=== PATIENT | female | born 1970 | race Caucasian/White ===

== ENCOUNTER 2019-11-10 14:02 | Outpatient (CLI) | payer OTHER, SELFPAY ==
--- NOTE | 2019-11-10 14:24 | XR_ITS ---
WS: [id number] PROCEDURE: XR chest 2V* [id number] CLINICAL INFORMATION: COUGH COMPARISON: None. FINDINGS: Heart: Normal cardiac silhouette. Lungs: Patchy infiltrates within the right lower lobe and right midlung along the fissure. Recommend correlation for pneumonia. Left lung is well aerated. Recommend follow-up to resolution. Bones: Normal visualized bony structures. XR/XR chest 2V* [id number] IMPRESSION: Patchy infiltrates most consistent with pneumonia involving the right lower lob e and right midlung. Recommend follow-up to resolution.
== END 2019-11-10 14:03 | disposition home or self-care (01) ==
LOC: RADWPI 14:07
PROVIDERS: Family Provider Family Medicine; PCP Family Medicine; Visit Provider Family Medicine
DX: R05 Cough (principal); R91.8 Other nonspecific abnormal finding of lung field
CPT/HCPCS: 71046

== ENCOUNTER 2020-02-12 08:05 | Outpatient (CLI) | payer OTHER, SELFPAY ==
--- NOTE | 2020-02-12 08:15 | CT_ITS ---
WS: [id number] CT CHEST TECHNIQUE: Contrast enhanced CT of the chest with coronal and sagittal reformatted images. CLINICAL INFORMATION: PNEUMONIA COMPARISON: None. DLP: 583.[address] scans at [facility] use at least one of these dose optimization techniques: automat ed exposure control; mA and/or kV adjustment per patient size (includes targeted exams where dose is matched to clinical indication); or iterative reconstruction. FINDINGS: Focal consolidation right lower lobe along the fissure with air bronchograms. Consolidation measures 5.3 x 4.3 x 5.6 cm. Patchy infiltrate along the right upper lobe laterally. Moderate pericardial effu rosalio. Prominent lymph nodes bilaterally nonspecific but likely reactive measuring 12 mm on the right and 14 mm on the left. Enlarged subcarinal lymph node measuring 14 mm. Proximal main pulmonary arteri es are normal. Normal thoracic aorta. Adrenal glands are normal. Mild diffuse fatty infiltration liver. Portal veins and splenic vein are p atent. CT/CT chest w con* [id number] IMPRESSION: 1. Right lower lobe consolidation likely pneumonia with air bronchograms along the fissure measuring 5.3 x 4.3 x 5.6 CM. Recommend follow-up after treatment and follow-up to resolution. Neoplasm not entirely excluded. 2. A few patchy infiltrates in the right upper lobe. 3. Moderate pericardial effusion. 4. Enlarged hilar lymph nodes bilaterally nonspecific but likely reactive.
[2020-02-12] MEDS: iohexol 300 mg/mL 100 mL Btl IV (08:43)
== END 2020-02-12 08:06 | disposition home or self-care (01) ==
LOC: RADWPI 08:08
PROVIDERS: Family Provider Family Medicine; PCP Family Medicine; Visit Provider Family Medicine
DX: J18.9 Pneumonia, unspecified organism (principal); I31.3 Pericardial effusion (noninflammatory); R59.9 Enlarged lymph nodes, unspecified
CPT/HCPCS: 71260; Q9967

== ENCOUNTER 2020-02-26 10:42 | Outpatient (CLI) | payer OTHER, SELFPAY ==
--- NOTE | 2020-02-26 11:00 | USCV_ITS ---
Sophia Miller Age: 49 Gender: F : 1970 Exam Date: 02/26/2020 11:24 Ordering Phys: Nash Hayden MD Technologist: Rema Iglesias Exam Location: [facility] – [place] Indication: PERICARDIAL EFFUSION BP: 110 / 60 HR: 57 Rhythm: Sinus Technical Quality: Adequate MEASUREMENTS (Male / Female) Normal Values 2D ECHO LV Diastolic Diameter PLAX 3.7 cm 4.2 - 5.9 / 3.9 - 5.3 cm LV Systolic Diameter PLAX 2.4 cm LV Chamber Size 1.9 cm IVS Diastolic Thickness 0.8 cm 0.6 - 1.0 / 0.6 - 0.9 cm IVS Systolic Thickness 1.2 cm LVPW Diastolic Thickness 1.1 cm 0.6 - 1.0 / 0.6 - 0.9 cm LVPW Systolic Thickness 1.3 cm RV Chamber Size 2.5 cm LVOT Diameter 2.0 cm LV Ejection Fraction 2D Teich 65.4 % LV Ejection Fraction MOD 2C 17.3 % LV Ejection Fraction 2C AL 25.5 % LA Diameter 3.7 cm LA Width 2.5 cm LA Height 2.6 cm RA Width 2.7 cm RA Height 3.0 cm Aorta at Sinotubular Diameter 2.8 cm M-MODE LV Diastolic Diameter MM 3.8 cm 4.2 - 5.9 / 3.9 - 5.3 cm LV Systolic Diameter MM 2.4 cm LV Ejection Fraction MM Teich 69.6 % IVS Diastolic Thickness MM 1.0 cm 0.6 - 1.0 / 0.6 - 0.9 cm IVS Systolic Thickness MM 1.3 cm LVPW Diastolic Thickness MM 1.0 cm 0.6 - 1.0 / 0.6 - 0.9 cm LVPW Systolic Thickness MM 1.4 cm RV Diastolic Diameter MM 2.7 cm Aortic Annulus Diameter 3.0 cm LA Ao Ratio MM 1.2 MV E Point Septal Separation 0.1 cm DOPPLER AV Peak Velocity 141.0 cm/s LVOT Peak Velocity 96.0 cm/s AV Area Cont Eq vti 2.3 cm squared AV Area Cont Eq pk 2.2 cm squared MV Area PHT 2.1 cm squared Mitral E to A Ratio 1.3 MV E' Velocity 12.0 cm/s Mitral E to MV E' Ratio 6.8 Mitral E to LV E' Lateral Ratio 6.9 Mitral E to LV E' Septal Ratio 6.8 TR Peak Velocity 205.9 cm/s TR Peak Gradient 17.0 mmHg TR Mean Velocity 169.7 cm/s TR Mean Gradient 11.7 mmHg TR Velocity Time Integral 62.9 cm TV Peak E Velocity 67.0 cm/s Right Atrial Pressure 8.0 mmHg Pulmonary Artery Systolic Pressu 25.0 mmHg FINDINGS Left Ventricle Normal left ventricular cavity size. Normal left ventricular wall thickness. Normal left ventricular systolic function. Left ventricular ejection fraction is estimated at 70 %. No regional wall motion abnormalities. Normal diastolic function. Right Ventricle Normal right ventricular size and systolic function. Right ventricular systolic pressure 25 mmHg. Right Atrium Normal right atrial size. Left Atrium Normal left atrial size. Mitral Valve Mildly thickened mitral valve. Aortic Valve Aortic valve sclerosis without stenosis or regurgitation. No aortic valve stenosis. No aortic valve regurgitation. Tricuspid Valve Structurally normal tricuspid valve. Trace tricuspid valve regurgitation. Pulmonic Valve Pulmonic valve not well visualized. Pericardium Moderate circumferential pericardial effusion (1.2 cm along right ventricle and 1.5 cm along left ventricle). There is no evidence of hemodynamic compromise. Normal-sized inferior vena cava. Aorta Normal size aortic root and proximal ascending aorta. CONCLUSIONS 1. Normal left ventricular cavity size and systolic function. Left ventricular ejection fraction is estimated at 70 %. No regional wall motion abnormalities. Normal diastolic function. 2. Normal right ventricular size and systolic function. 3. Moderate circumferential pericardial effusion. There is no evidence of tamponade physiology. 4. Pulmonary artery pressure estimated at 25 mmHg. 5. No prior similar studies to compare. Lavern Restrepo MD (Electronically Signed) Final Date: 26 February 2020 17:12 S
== END 2020-02-26 10:43 | disposition home or self-care (01) ==
LOC: US 10:43
PROVIDERS: PCP Family Medicine; Visit Provider Internal Medicine Pulmonary Disease
DX: I31.3 Pericardial effusion (noninflammatory) (principal)
CPT/HCPCS: 93306

== ENCOUNTER 2020-02-29 09:23 | Outpatient (CLI) | payer OTHER, SELFPAY ==
--- NOTE | 2020-02-29 09:28 | XRR_ITS ---
PROCEDURE INFORMATION: Exam: XR Chest, 2 Views Exam date and time: 02/29/2020 9:45 AM Age: 49 years old Clinical indication: Condition or disease; Lung condition and disease; Pneumonia; Other: Not specified; Additional info: Resolution of pneumonia TECHNIQUE: Imaging protocol: XR of the chest Views: 2 views. COMPARISON: CT chest w con* [id number] 02/12/2020 8:32 AM FINDINGS: Lungs: Subtle opacity within the middle lobe versus right lung base. Lungs are otherwise well aerated. Pleural space: Unremarkable. No pleural effusion. No pneumothorax. Heart/Mediastinum: Borderline cardiomegaly Bones/joints: Unremarkable. XR/XR chest 2V* [id number] IMPRESSION: Subtle opacity within the middle lobe versus right lung base. Lungs are otherwise well aerated.
== END 2020-02-29 09:24 | disposition home or self-care (01) ==
LOC: RAD 09:26
PROVIDERS: PCP Family Medicine; Visit Provider Internal Medicine Pulmonary Disease
DX: J18.9 Pneumonia, unspecified organism (principal); R05 Cough
CPT/HCPCS: 71046

== ENCOUNTER 2020-02-29 17:17 | Outpatient (CLI) | payer OTHER, SELFPAY ==
[2020-02-29 19:11] LABS: Erythrocyte Sedimentation Rate 10 mm/hr (0-15)
[2020-02-29 19:48] LABS: C Reactive Protein 0.6 mg/L (0.0-4.9)
[2020-03-04 13:00] LABS: Anti-Nuclear Antibody Screen NEGATIVE (NEGATIVE)
[2020-03-04 13:30] LABS: Anti-Double Strand DNA AB <1 IU/mL; SCL 70 <1.0 NEG AI (<1.0 NEG); SS A Ro Sjogrens Antibody <1.0 NEG AI (<1.0 NEG); SS-B/LA IGG <1.0 NEG AI (<1.0 NEG); Smith Antibody <1.0 NEG AI (<1.0 NEG)
[2020-03-06 13:10] LABS: Cyclic Citrullinated Peptide <16 UNITS
== END 2020-02-29 17:18 | disposition home or self-care (01) ==
PROVIDERS: PCP Family Medicine; Visit Provider Internal Medicine Pulmonary Disease
DX: I31.3 Pericardial effusion (noninflammatory) (principal); J18.9 Pneumonia, unspecified organism; R05 Cough
CPT/HCPCS: 36415; 85651; 86038; 86140; 86225; 86235; 86431

== ENCOUNTER 2020-03-22 07:32 | Day surgery (SDC) | payer OTHER, SELFPAY ==
[2020-03-21 12:48] VITALS: BMI 22.4
[2020-03-22] VITALS (9 sets, daily range): BP systolic 86–122; BP diastolic 49–87; PULSE 59–113; RESP 18–24; TEMP 36.6–37.3; O2SAT 94–98
--- NOTE | 2020-03-22 | SCC_ITS ---
Procedure: {BRONCHOSCOPY:} 82.5 seconds of fluoroscopic guidance, for a cumulative dose of 3.90 mGy, was provided to Dr. Hayden by the radiology department. C-arm images of the chest were saved for the patient's permanent record. [id number]
[2020-03-22 07:19] LABS: SARS Covid-2 Antigen Negative (Negative)
--- NOTE | 2020-03-22 07:40 | SC_ITS ---
WS: [id number] C-ARM RADIOGRAPHS THORAX; 2 IMAGES HISTORY: Intraoperative imaging during bronchoscopy. COMPARISON: None available. Intraoperative imaging during bronchoscopy. Scope is noted at the RIGHT hilum. SC/C-arm FL for Bronchoscopy IMPRESSION: Intraoperative imaging during bronchoscopy.
[2020-03-22] MEDS: sodium chloride 0.9% 1,000 ML 30 ML IV (07:57)
--- NOTE | 2020-03-22 08:19 | ANES.PREANE2 ---
Pre-Anesthetic Assessment Pre-Anesthetic Assessment: Height/Weight: Height 1.65 m Weight 61.235 kg Temp Pulse Resp BP Pulse Ox 97.9 F 59 L 18 94/60 97 03/22/20 07:39 03/22/20 07:39 03/22/20 07:39 03/22/20 07:39 03/22/20 07:39 Preop Diagnosis: pnemonia Proposed Procedure: Operation Date: 03/22/20 08:30 Proposed Procedures p Bronchoscopy(Not Applicable) - Nash Hayden MD Was Beta Matt taken within 24 hours: N/A Last intake: Intake Last Liquid Date 03/21/20 Last Liquid Time 20:00 Last Solid Date 03/21/20 Last Solid Time 20:00 Social: Social History: No alcohol and No tobacco Exam: Pre-Anes Outpt Exam: alert, oriented x 3, clear to auscultation bilaterally and regular rate & rhythm Airway: Submandibular: WNL Cervical ROM: WNL MP: 2 History/ROS: No significant history except as noted Pulmonary: Pulmonary: Cough CV/HEM: CV/HEM: None reported : : None reported Hepatic: Hepatic: None reported GI: GI: GERD Metabolic: Metabolic: None reported Musc/skel: Musc/skel: None reported Neuropsych: Neuropsych: Depression Anesthetic Plan: ASA status: 2 Anesthesia: General Meds/Allergies Current Medications: Current Medications Generic Name Dose Route Start Last Admin Trade Name Freq PRN Reason Stop Dose Admin Sodium Chloride 1,000 mls @ 30 ml s/hr 03/22/20 06:45 03/22/20 07:57 Sodium Chloride 0.9% IV 03/23/20 06:44 30 mls/hr .Q24H MONTEZ Administration PFSH Anesthesia PFSH: Medical History (Updated 03/08/20 @ 23:22 by Lavern Restrepo MD) Depression with anxiety GERD (gastroesophageal reflux disease) Seasonal allergies Family History Mother Psychiatric illness Depression Hypertension Brother Heart defect Social History Smoking and tobacco status: never smoked Alcohol intake: never Lives independently: Yes Household members: none Marital status: Current occupational status: employed Current occupational exposures/hazards: No History of recent travel: No Current gender identity: Female Female Reproductive History: Date of last menstrual period: 02/22/20 Data Anesthesia Other Labs: Laboratory Results - last 48 hr 03/22/20 06:40 SARS-CoV-2 Ag (Rapid) Negative Cardiac Studies: No Data to Display
--- NOTE | 2020-03-22 08:32 | W.PM.OPSUD ---
Surgery/Procedure H&P Update DATE OF PROCEDURE: March 22, 2020 DATE H&P PERFORMED: 02/29/20 H&P UPDATE INFORMATION: I have reviewed H&P completed within last 30 days, I have examined patient prior to procedure and Changes to prior documentation as noted here CHANGES TO PREVIOUS DOCUMENTATION: Pt cough improved after completing doxy and was symptom free for couple of days. Then started coughing for > 1 week now. PREOP DIAGNOSIS: pnemonia PRIMARY INDICATION FOR PROCEDURE: non resolving pneumonia PLANNED PROCEDURE: Operation Date: 03/22/20 08:30 Proposed Procedures p Bronchoscopy(Not Applicable) - Nash Parrish DatarMD
[2020-03-22] MEDS: lidocaine 1% INJ 20 mL XX (08:51)
[2020-03-22] MEDS: EPINEPHrine 1 mg/mL INJ XX (09:00)
--- NOTE | 2020-03-22 09:29 | PM.OP ---
Operative Report Date of procedure: March 22, 2020 Procedure: {BRONCHOSCOPY:} Pre-Operative Diagnosis: Pneumonia Post-Operative Diagnosis: Same Indication: cough with recurrent pneumonia Anesthesia: general Pre-procedure Evaluation: Patient was evaluated clinically and ancillary testing reviewed. The risk of having active MTB infection is very low in my clinical judgement. ASA: Malampati score: unable to evaluate due to presence of endotracheal tube Consent: Consents were obtained from patient/MPOA Procedure Details: Time out was performed by the procedure team and nursing staff. Vent support maintained on Fio2 100. The bronchoscope was introduced through the ETT. A bronchoscopic airway exam was performed to evaluate the visible tracheobronchial tree to the segmental level. The right bronchial tree was assessed to include the right mainstem bronchus, RBI, and RUL/RML/RLL bronchi to the segmental level. The left bronchial tree was assessed to include the left mainstem bronchus, KEYLA, Lingula, and LLL bronchi to the segmental level. The bronchoscope was then removed and the procedure terminated. Summary of Significant Findings: -Trachea: distal trachea appeared normal -Main Preethi: Sharp -Right bronchial tree: All segments and subsegments mucosa appeared normal and no endobronchial lesions noted -Left bronchial tree:All segments and subsegments mucosa appeared normal and no endobronchial lesions noted Estimated Blood Loss: 5 ml Specimens: BAL for cytology, BAL for microbiology cultures, fungal studies, Brushings and Transbronchial biopsies taken for RLL and biopsies taken for RML Complications: None Disposition: Home Patient tolerated the procedure well. Nash Hayden MD Pulmonary Critical Care Medicine [facility] Pre-op Diagnosis: pnemonia
--- NOTE | 2020-03-22 09:30 | SUR.PHASEI ---
PT AWAKE ALERT VSS PT COUGHING FORCEFULLY, NON PRODUCTIVE VSS.
[2020-03-22] MEDS: HYDROmorphone 1 mg/mL INJ 1 mL 0.5 MG IVP (09:47)
--- NOTE | 2020-03-22 09:52 | XR_ITS ---
WS: [id number] Portable AP upright chest, 03/22/2020 Clinical Data: POST BRONCH Comparison: PA and lateral chest, 02/29/2020. Findings: There is a minimal opacity in the right lower lobe which is changed little. No nodules, mas ses or effusions are seen. The heart is normal. The pulmonary vascularity is not increased. No pneumo thorax is seen. There are monitor leads on the chest wall. XR/XR chest 1V portable [id number] Impression: 1. Minimal right lower lobe opacity which could represent pneumonia unchanged. 2. Left lung remains clear.
--- NOTE | 2020-03-22 10:22 | SUR.PHASEI ---
1010 PT SLEEPS NOW AWAKES EASILY NO COUGHING FOR APPROX 10 MINUTES LIDOCAINE NEBULIZER GIVEN AT 0945 REALLY STOPPED COUGHING DATAR AT BEDSIDE, PT MUCH BETTER AND WILL GO TO OPS NOW, HE WILL REVIEW THE X RAY DONE IN PACU.
--- NOTE | 2020-03-22 10:53 | P.DS_ITS ---
Discharge Providers Date of Discharge: March 22, 2020 Attending Provider at Discharge: Nash Hayden MD Primary Care Provider: Gadiel Howell MD Reason for Visit Reason for Visit: Brief History: Bronchscopy for BAL, brushings and transbronchial biopsy Hospital Course Discharge Summary: Patient came to outpatient bronchoscopy today for chronic cough with non-resolving pneumonia. Procedure was uneventful and patient tolerated procedure well.. Please refer to procedure note. Postprocedure patient has no complications and is stable to go to home Physical Exam Narrative: EXAM NARRATIVE: General: alert, NAD HEENT: conj clear, EOMI, PERRL, mmm, Neck: supple, no meningismus Heme: no cervical LAP Pulmonary: CTAB, no wheezing, rhonchi, crackles Cardiovascular: rrr, nl s1s2, no mrg Abdomen: soft, nt, nd, no r/g, bs+ Extremities: pulses +, no edema, no c/c : no CVA tenderness Skin: intact, no rash MSK: no back or neck pain Neurologic: grossly intact Discharge Data Data Completed and Pending: Completed Studies During Hospitalization Category Date Time Status CXRP [XR chest 1V portable [id number]] R outine Exams 03/22/20 09:52 Completed Pending at discharge Category Date Time Status C-arm Fluoroscopy [id number] Routine Exams 03/22/20 07:40 Taken Actinomyces Cultu re Routine Lab 03/22/20 08:57 Received Aspergillus AG,EI A,Serum Routine Lab 03/22/20 08:57 Received Aspergillus Antig en, EIA BAL Routin e Lab 03/22/20 08:57 Received Bronch Washing Cu lture & GS Routine Lab 03/22/20 08:57 Received Fungal Culture no t HR/SK/BL Routine Lab 03/22/20 08:57 Received Legionella Pneumo philla DFA Routine Lab 03/22/20 08:57 Received Mycobacteria, Cul ture w/Fluor Routi ne Lab 03/22/20 08:57 Received Respiratory Viral Panel PCR Routine Lab 03/22/20 09:12 Ordered Viral Culture Res piratory Routine Lab 03/22/20 08:57 Received Cytology [PTH] Ro utine Pth 03/22/20 09:31 Ordered Cytology [PTH] Ro utine Pth 03/22/20 09:32 Ordered Pathology: Surgic al [PTH] Routine Pth 03/22/20 09:39 Ordered Labs from last 24 hours 08/28/20 08/28/20 08/28/20 08:57 08:57 08:57 Legionella Source Pending L.pneumophila Anti gen Pending Aspergillus Ag (EI A) Pending A. galactomannan A g EIA Pending A. galactomannan A g Idx Pending Pending SARS-CoV-2 Ag (Rap id) 03/22/20 06:40 Legionella Source L.pneumophila Anti gen Aspergillus Ag (EI A) A. galactomannan A g EIA A. galactomannan A g Idx SARS-CoV-2 Ag (Rap id) Negative Vitals: Last Vital Signs Temp 97.8 F 03/22/20 10:13 Pulse 73 03/22/20 10:13 Resp 18 03/22/20 10:13 BP 104/58 03/22/20 10:13 Pulse Ox 94 03/22/20 10:13 Discharge Plan Discharge Patient Disposition: Home Condition: Stable Prescriptions: Continued albuterol sulfate [Ventolin HFA] 90 mcg/actuation HFA aerosol inhaler 2 puff INHALATION Q6H PRN (Reason: Wheezing) RF: 0 montelukast [Singulair] 10 mg tablet 10 mg PO DAILY RF: 0 pantoprazole 40 mg tablet,delayed release (DR/EC) 40 mg PO DAILY RF: 0 alprazolam [Xanax] 0.25 mg tablet 0.25 mg PO TID PRN (Reason: anxiety) RF: 0 sertraline [Zoloft] 100 mg tablet 150 mg PO DAILY RF: 0 Discharge Orders: Discharge Order (Routine); Ordered 03/22/20 Ordered By: Nash Parrish Datar Referrals: Gadiel Howell MD [Primary Care Provider] - Discharge Diet: Usual diet Discharge Activity: Resume usual activity Patient Instructions: Flexible Bronchoscopy (DC) Discharge Attestations Time Spent in Discharge Care*: greater than 30 min Specific Discharge Activities: Specific discharge activities: educating patient and documenting/other paperwork Status at Discharge: Cognitive status at discharge: cognitively intact , Behavioral status at discharge: cooperative , Functional status at discharge: other assisted ambulation Overall status at discharge: patient is back to baseline Quality Metrics Clinical Quality Measures During this hospital stay, did patient experience: None Coding Level of Care Code New Pt Acute [employer] for Chg Fwd Patient Type New Time Spent (min) 45
[2020-03-26 20:51] LABS: Aspergillus AG,EIA DETECTED; Aspergillus AG,EIA, Index 0.61
== END 2020-03-22 11:38 | disposition home or self-care (01) ==
PROVIDERS: PCP Family Medicine; Visit Provider Internal Medicine Pulmonary Disease
PROC: 0BJ08ZZ Inspection of Tracheobronchial Tree, Via Natural or Artificial Opening Endoscopic (ICD-10-PCS; CPT 31622; principal; 2020-03-22 08:30)
DX: J18.9 Pneumonia, unspecified organism (principal)
CPT/HCPCS: 31624; 31629; 12345; 31625; 71045; 76000; 87015; 87070; 87081; 87102; 87116; 87205; 87206; 87278; 87305; 87426; 87801; 88112; 88305; J0171; J0330; J1100; J1170; J2405; J2704; J3010; J3490; J7030

== ENCOUNTER 2020-03-26 15:28 | Outpatient (CLI) | payer OTHER, SELFPAY ==
--- NOTE | 2020-03-26 15:45 | USCV_ITS ---
Sophia Miller Age: 49 Gender: F : 1970 Exam Date: 03/26/2020 15:45 Ordering Phys: Lavern Restrepo MD ([email or web address]) Technologist: Gina Leach Exam Location: [facility] – [place] Indication: PERICARDIAL EFFUSION BP: 107 / 61 HR: Rhythm: Sinus Technical Quality: Good MEASUREMENTS (Male / Female) Normal Values M-MODE LV Diastolic Diameter MM 5.1 cm 4.2 - 5.9 / 3.9 - 5.3 cm LV Systolic Diameter MM 3.1 cm LV Ejection Fraction MM Teich 69.0 % IVS Diastolic Thickness MM 0.7 cm 0.6 - 1.0 / 0.6 - 0.9 cm IVS Systolic Thickness MM 1.0 cm LVPW Diastolic Thickness MM 0.6 cm 0.6 - 1.0 / 0.6 - 0.9 cm LVPW Systolic Thickness MM 0.9 cm FINDINGS Left Ventricle Normal left ventricular cavity size. Normal left ventricular systolic function. Left ventricular ejection fraction is estimated at 65 %. No regional wall motion abnormalities. Right Ventricle Normal right ventricular size and systolic function. Right Atrium Normal right atrial size. Left Atrium Normal left atrial size. Mitral Valve Structurally normal mitral valve. Aortic Valve Structurally normal trileaflet aortic valve. Tricuspid Valve Structurally normal tricuspid valve. Pulmonic Valve Pulmonic valve not well visualized. Pericardium Moderate circumferential pericardial effusion (20 mm along right atrium, 12 mm along right ventricle, 10 mm along left ventricle). No evidence of hemodynamic compromise. Aorta Normal size aortic root and proximal ascending aorta. CONCLUSIONS 1. This is a limited 2D echo only. 2. Normal left ventricular cavity size and systolic function. Left ventricular ejection fraction is estimated at 65 %. No regional wall motion abnormalities. 3. Moderate circumferential pericardial effusion (20 mm along right atrium, 12 mm along right ventricle, 10 mm along left ventricle). No evidence of hemodynamic compromise. 4. No change when compared to the echo done a month ago. Lavern Restrepo MD (Electronically Signed) Final Date: 28 March 2020 13:54 S
== END 2020-03-26 15:29 | disposition home or self-care (01) ==
LOC: US 15:29
PROVIDERS: PCP Family Medicine; Visit Provider Internal Medicine Cardiovascular Disease
DX: I31.3 Pericardial effusion (noninflammatory) (principal)
CPT/HCPCS: 93308

== ENCOUNTER 2020-04-10 17:16 | Outpatient (CLI) | payer OTHER, SELFPAY ==
[2020-04-10 18:16] LABS: Hematocrit 42.8 % (37.0-47.0); Hemoglobin 13.8 g/dL (11.5-15.3); Mean Corpuscular HGB Conc 32.2 g/dL (30.0-36.0); Mean Corpuscular Hemoglobin 29.1 pg (28.0-34.0); Mean Corpuscular Volume 90.1 fL (81-99); Mean Platelet Volume 9.6 fL (7.4-10.4); Platelet Count 285 10^3/cmm (130-400); Red Blood Count 4.75 10^6/uL (4.1-5.3); Red Cell Distribution Width 13.6 % (12.1-15.1); White Blood Count 8.1 10^3/uL (4.0-10.0)
[2020-04-10 18:32] LABS: Alanine Aminotransferase 14 U/L (0-33); Albumin Level 4.4 g/dL (3.5-5.2); Alkaline Phosphatase 57 IU/L (35-105); Anion Gap 16.9 (5-19); Aspartate Amino Transferase 16 U/L (0-32); Blood Urea Nitrogen 12 mg/dL (6-20); Calcium 9.8 mg/dL (8.5-10.5); Carbon Dioxide 24 mmol/L (22-29); Chloride 104 mmol/L (98-107); Globulin 2.8 g/dL (1.3-4.6); Glomerular Filtration Rate 66.8 mL/min (90-130); Glucose 89 mg/dL (65-115); Osmolality Calculated 291 mOsm/kg (285-295); Potassium 3.9 mmol/L (3.5-5.1); Sodium 141 mmol/L (136-145); Total Bilirubin 0.3 mg/dL (0.15-1.2); Total Protein 7.2 g/dL (6.6-8.7)
[2020-04-10 19:24] LABS: Calcium 9.8 mg/dL (8.5-10.5); Parathyroid Hormone 31.5 pg/mL (15-65)
[2020-04-10 19:26] LABS: Absolute Eosinophils 0.2 10^3/cmm (0.0-0.7); Absolute Segmented Neutrophil 5.7 10/cmm (1.6-7.1); Eosinophils 3 %; Lymphocytes 21 %; Lymphocytes Absolute 2.2 10^3/cmm (1.2-3.4); Segmented Neutrophils 70 %; Total Cells Counted 100 (0-100)
[2020-04-10 19:27] LABS: Absolute Neutrophil 5.7 10^3/cmm (1.4-6.5)
[2020-04-10 19:28] LABS: Platelet Estimate Normal (Normal)
[2020-04-12 13:12] LABS: Angiotensin Converting Enzyme 22 U/L (9-67)
[2020-04-12 17:02] LABS: Alternaria Alternata (M6) Ige <0.10 kU/L; Alternaria Class 0; Bermuda Class 0; Bermuda Grass (G2) Ige <0.10 kU/L; Cat Dander (E1) Ige <0.10 kU/L; Cat Dander Class 0; Common Ragweed (Short) (W1) Ig <0.10 kU/L; D. Farinae Class 1; Dermatophagoides Class 1; Dermatophagoides Farinae (D2) 0.45 kU/L; Dermatophagoides Pteronyssinus 0.37 kU/L; Dog Dander (E5) Ige <0.10 kU/L; Dog Dander Class 0; Elm (T8) Ige <0.10 kU/L; Elm Class 0; English Plantain (W9) Ige <0.10 kU/L; English Plantain Class 0; House Dust (Greer) (H1) Ige <0.10 kU/L; House Dust (Hollister- Stier) <0.10 kU/L; House Dust Class 0; Immunoglobulin E 55 kU/L (<OR=114); Immunoglobulin E 56 kU/L (<OR=114); Johnson Grass (G10) Ige <0.10 kU/L; Johnson Grass Cl 0; June Grass Class 0; June Grass(Kentucky Blue) (G8) <0.10 kU/L; Lamb'S Quarters (Goose Foot) <0.10 kU/L; Lamb'S Quarters Class 0; Maple (Box Elder) (T1) Ige <0.10 kU/L; Maple Class 0; Meadow Fescue (G4) Ige <0.10 kU/L; Meadow Fescue Class 0; Mucor Racemosus Class 0; Oak (T7) Ige <0.10 kU/L; Oak Class 0; Orchard Grass (Cocksfoot) (G3) <0.10 kU/L; Penicillium Class 0; Penicillium Notatum (M1) Ige <0.10 kU/L; Perennial Rye Grass (G5) Ige <0.10 kU/L; Perennial Rye Grass Class 0; Ragweeed Class 0; Rough Marsh Elder (W16) Ige <0.10 kU/L; Rough Marsh Elder Class 0; Sweet Vernal Class 0; Sweet Vernal Grass (G1) Ige <0.10 kU/L; Timothy Grass (G6) Ige <0.10 kU/L; Timothy Grass Class 0
[2020-04-15 21:19] LABS: Aspergillus Fumigatus, Igg Ab, 16.2 mg/L (<=102)
[2020-04-17 15:48] LABS: Vit D 1,25 (Oh)2, Total 43 pg/mL (18-72); Vit D2 1,25 (Oh)2 <8 pg/mL; Vit D3 1,25 (Oh)2 43 pg/mL
== END 2020-04-10 17:17 | disposition home or self-care (01) ==
LOC: LAB 17:19
PROVIDERS: PCP Family Medicine; Visit Provider Internal Medicine Pulmonary Disease
DX: R05 Cough (principal)
CPT/HCPCS: 36415; 80053; 82164; 82310; 82652; 82785; 83970; 85007; 85027; 86003

== ENCOUNTER → 2020-04-25 11:24 | Outpatient (BNVA) | payer OTHER, SELFPAY | PROVIDERS: PCP Family Medicine; Visit Provider Internal Medicine | DX: Z11.59 Encounter for screening for other viral diseases (principal); R05 Cough | CPT/HCPCS: 87635 ==

== ENCOUNTER 2020-04-29 01:51 | Outpatient (CLI) | payer OTHER, SELFPAY ==
--- NOTE | 2020-04-29 13:30 | CT_ITS ---
WS: [id number] CT CHEST TECHNIQUE: Noncontrast CT of the chest with coronal and sagittal reformatted images. CLINICAL INFORMATION: RESOLUTION OF PNEUMONIA COMPARISON: CT February 12, 2020 DLP: 344.[address] scans at [facility] use at least one of these dose optimization techniques: automat ed exposure control; mA and/or kV adjustment per patient size (includes targeted exams where dose is matched to clinical indication); or iterative reconstruction. FINDINGS: Again seen is the focal consolidation right lower lobe along the fissure with air bronchograms. This is not significantly changed today measuring approximately 5.4 x 2.7 x 4.9 CM. Overall this does not appear significantly changed. In addition, there are new diffuse bilateral hazy groundglass infiltrates mainly in a perihilar and u pper lobe distribution. Associated tiny micronodules in a perihilar and upper lobe distribution. This is new from previous. Again seen are enlarged anterior mediastinal, right paratracheal, bilateral hilar and subcarinal lymp h nodes. These are unchanged from previous. Moderate pericardial effusion. No axillary lymphadenopath y. Visualized upper abdominal contents are unremarkable. CT/CT chest wo con [id number] IMPRESSION: 1. Again seen is the consolidative infiltrate in the right lower lobe along th e fissure with air bronchograms not significantly changed from previous. This m ay represent chronic consolidative pneumonia however malignancy should be exclu ded. 2. New hazy groundglass perihilar and upper lobe infiltrates with associated m icronodules in a bronchovascular and perilymphatic distribution. Differential c onsiderations include chronic granulomatous disease primarily sarcoidosis, infe ctious or inflammatory etiologies including viral pneumonitis and fungal etiolo gies, and lymphoma. Miliary metastatic disease is also a consideration but less likely. 3. Moderate pericardial effusion. 4. Unchanged anterior mediastinal, right paratracheal, hilar and subcarinal ly mphadenopathy. Notified Nash Hayden MD at 04/29/2020 3:26 PM.
--- NOTE | 2020-04-29 14:54 | PFTS_ITS ---
Date of Study:04/29/20 Date of Dictation: 05/01/2020 MECHANICS: Forced vital capacity (FVC) is normal Forced expiratory volume in one second (FEV1) is normal FEV1/FVC is normal No significant bronchodilator response FLOW VOLUME LOOP: Normal . LUNG VOLUMES: Not measured DIFFUSING CAPACITY FOR CARBON MONOXIDE: Not measured . INTERPRETATION: The spirometry normal. Normal methacholine challenge test. MTDD
== END 2020-04-29 01:52 | disposition home or self-care (01) ==
LOC: CT 13:51
PROVIDERS: PCP Family Medicine; Visit Provider Internal Medicine Pulmonary Disease
DX: J18.9 Pneumonia, unspecified organism (principal); R05 Cough; I31.3 Pericardial effusion (noninflammatory); R59.0 Localized enlarged lymph nodes
CPT/HCPCS: 71250; 94060; 94070; 94726; 94729; J7611

== ENCOUNTER → 2020-05-07 17:47 | Outpatient (BNVA) | payer OTHER, SELFPAY | PROVIDERS: PCP Family Medicine; Visit Provider Internal Medicine Pulmonary Disease | DX: Z11.59 Encounter for screening for other viral diseases (principal) | CPT/HCPCS: 87635 ==

== ENCOUNTER 2020-05-10 06:08 | Day surgery (SDC) | payer OTHER, SELFPAY ==
[2020-05-09 14:55] VITALS: BMI 21.6
[2020-05-10] VITALS (11 sets, daily range): BP systolic 82–106; BP diastolic 37–73; PULSE 52–88; RESP 12–29; TEMP 36.2–36.6; O2SAT 90–100
--- NOTE | 2020-05-10 | CT_ITS ---
Guided Bronchoscopy Planning CT images; total exam DLP: 645.94 mGy-cm MTDD
[2020-05-10 06:35] LABS: OR HCG Qualitative Urine Negative (Negative)
[2020-05-10] MEDS: sodium chloride 0.9% 1,000 ML 30 ML IV (06:47)
--- NOTE | 2020-05-10 06:57 | ANES.PREANE2 ---
Pre-Anesthetic Assessment Pre-Anesthetic Assessment: Height/Weight: Height 1.65 m Weight 58.967 kg Temp Pulse Resp BP Pulse Ox 97.2 F L 73 18 106/73 96 05/10/20 06:24 05/10/20 06:24 05/10/20 06:24 05/10/20 06:24 05/10/20 06:24 Preop Diagnosis: pnemonia Proposed Procedure: Operation Date: 05/10/20 07:00 Proposed Procedures p Ebus(Not Applicable) - Nash Hayden MD Operation Date: 05/10/20 08:35 Proposed Procedures p Veran(Not Applicable) - Kellee Ruano MD s Ebus(Not Applicable) - Kellee Ruano MD Familial anesthetic complications: PONV all the following day Last intake: Intake Last Liquid Date 05/09/20 Last Liquid Time 19:00 Last Solid Date 05/09/20 Last Solid Time 19:30 Social: Social History: No alcohol and No tobacco Exam: Pre-Anes Outpt Exam: alert, oriented x 3, clear to auscultation bilaterally and regular rate & rhythm Airway: Cervical ROM: WNL MP: 2 Dentition: Full Pulmonary: Pulmonary: Cough Comments: pneumonia CV/HEM: Comments: pericardila effusion GI: GI: GERD Anesthetic Plan: ASA status: 3 Anesthesia: General Other: TIVA for severe PONV Risk of > 500 ml blood loss (7ml/kg in children): No Meds/Allergies Current Medications: Current Medications Generic Name Dose Route Start Last Admin Trade Name Freq PRN Reason Stop Dose Admin Sodium Chloride 1,000 mls @ 30 ml s/hr 05/10/20 06:15 05/10/20 06:47 Sodium Chloride 0.9% IV 05/11/20 06:14 30 mls/hr .Q24H MONTEZ Administration PFSH Anesthesia PFSH: Medical History (Updated 04/04/20 @ 19:29 by Nash Hayden MD) Depression with anxiety GERD (gastroesophageal reflux disease) Seasonal allergies Family History Mother Psychiatric illness Depression Hypertension Brother Heart defect Social History Smoking and tobacco status: never smoked Alcohol intake: never Lives independently: Yes Household members: none Marital status: Current occupational status: employed Current occupational exposures/hazards: No History of recent travel: No Current gender identity: Female Female Reproductive History: Date of last menstrual period: 03/22/20 Data Anesthesia Other Labs: Laboratory Results - last 48 hr 05/10/20 06:29 Urine HCG, Qual Negative Cardiac Studies: No Data to Display
--- NOTE | 2020-05-10 08:25 | W.PM.OPSFHP ---
Same Day Surgery H&P Indication for Procedure/HPI DATE OF PROCEDURE: May 10, 2020 This is a 49-year-old lady coming in for bronchoscopic evaluation. The patient has been suffering from non-resolving pneumonia involving right lower lobe however recently there is diffuse infiltrate bilaterally in addition to the persistent right lower lobe infiltrate. In addition the patient also has hilar lymphadenopathy. She has been treated with multiple courses of antibiotic and steroid without resolution of her symptoms. CHIEF COMPLAINT/INDICATIONFOR SURGICAL PROCEDURE: Non-resolving pneumonia PREOP DIAGNOSIS: pnemonia PLANNED PROCEDRUE: Bronchoscopy with bronchoalveolar lavage, possible endobronchial biopsy, navigational bronchoscopy guided transbronchial biopsies. Operation Date: 05/10/20 07:00 Proposed Procedures p Ebus(Not Applicable) - Nash Hayden MD Operation Date: 05/10/20 08:35 Proposed Procedures p Veran(Not Applicable) - Kellee Ruano MD s Ebus(Not Applicable) - Kellee Ruano MD Medications/Allergies* Home Medications Medication Instructions Recorded Confirmed Type albuterol sulfate 90 mcg/actuation 2 puff INHALATION Q6H PRN 02/21/20 05/09/20 History aerosol inhaler alprazolam 0.25 mg tablet 0.25 mg PO TID PRN 02/21/20 05/09/20 History montelukast 10 mg tablet 10 mg PO DAILY 02/21/20 05/09/20 History pantoprazole 40 mg tablet,delayed 40 mg PO DAILY 02/21/20 05/09/20 History release sertraline 100 mg tablet 150 mg PO DAILY tab 02/21/20 05/09/20 History Allergies/Adverse Reactions Allergy/AdvReac Type Severity Reaction Status Date / Time bupropion [From Wellbutrin] Allergy Severe Unknown Verified 04/04/20 13:38 Current Medications: Generic Name Dose Route Start Last Admin Trade Name Freq PRN Reason Stop Dose Admin Sodium Chloride 1,000 mls @ 30 mls/hr 05/10/20 06:15 05/10/20 06:47 Sodium Chloride 0.9% IV 05/11/20 06:14 30 mls/hr .Q24H MONTEZ Administration Pertinent History/Comorbid Conditions* Medical History (Updated 04/04/20 @ 19:29 by Nash Hayden MD) Depression with anxiety GERD (gastroesophageal reflux disease) Seasonal allergies Family History (Updated 02/21/20 @ 10:35 by Trudi Cruz LPN) Psychiatric illness Mother Depression Heart defect Brother Hypertension Mother Social History Smoking and tobacco status: never smoked Alcohol intake: never Lives independently: Yes Household members: none Marital status: Current occupational status: employed Current occupational exposures/hazards: No History of recent travel: No Current gender identity: Female Pertinent Exam Findings alert, oriented x 3, clear to auscultation bilaterally and regular rate & rhythm Related Problem List Diagnoses (1) Pneumonia: Qualifiers: Pneumonia type: due to unspecified organism Laterality: right Lung location: lower lobe of lung Qualified Code(s): J18.9 - Pneumonia, unspecified organism Recommendations Surgery/Procedure today Coding Level of Care Code Acute Die Cutter for [facility] Fwd Diagnoses Pneumonia J18.9 Pneumonia type: due to unspecified organism Laterality: right Lung location: lower lobe of lung
[2020-05-10] MEDS: lidocaine 1% INJ 20 mL XX (08:49)
--- NOTE | 2020-05-10 10:13 | XR_ITS ---
WS: [id number] PORTABLE CHEST HISTORY: post bronchoscopy COMPARISON: 03/22/2020, chest CT 04/29/2020 Worsening opacifications over both lungs. Interstitial thickening is probably related to some edema a nd fluid overload. Dense lobulated consolidation RIGHT lower lobe measures 7.7 x 5.1 cm and has been previously described on the recent CT. Small RIGHT pleural effusion. No pneumothorax. Cardiac size: Normal. Mediastinum/Aorta: Normal mediastinum. No osseous abnormality seen. XR/XR chest 1V portable [id number] IMPRESSION: 1. No pneumothorax status post bronchoscopy. 2. Worsening interstitial hazy opacifications over both lungs since 04/29/2020. May be related to edema or progressive inflammatory process. 3. Lobulated dense consolidation RIGHT lower lobe is again evident.
--- NOTE | 2020-05-10 10:33 | PM.OP ---
Operative Report Date of procedure: May 10, 2020 Pre-op Diagnosis: Non-resolving pnemonia Post-op diagnosis: same Brief History: This is a 49-year-old lady with non-resolving pneumonia with recent radiologic worsening coming in for bronchoscopic evaluation. The patient was referred by Dr. Hayden. Procedure: Name of the procedure: Bronchoscopy with inspection of the airway, bronchoalveolar lavage, endobronchial biopsies, navigational guided transbronchial biopsies, endobronchial ultrasound-guided transbronchial needle aspiration of lymph nodes and control of bleeding. Indication: Non-resolving pneumonia with recent radiologic worsening Anesthesia: General anesthesia. Local anesthesia: The emmanuel in the right and left mainstem bronchi were anesthetized with 1% lidocaine, 3 mL. Description of the procedure: The procedure was explained to the patient and the consent was obtained. The patient was brought to the OR. The patient underwent endotracheal intubation for general anesthesia. Following induction of general anesthesia, the bronchoscope was advanced through the ET tube. The lower trachea appeared to be normal. The emmanuel was sharp. The emmanuel, the right and left mainstem bronchi are anesthetized with 1% lidocaine. In a systematic manner bilateral bronchial tree was then examined. The bronchoscope was advanced into the left mainstem bronchus. There was mild erythema throughout the airways. There was also clear secretions throughout the airways. The left upper lobe, lingula and left lower lobe bronchi were examined up to the third subsegmental level and no abnormalities were identified. There is no endobronchial lesion, active bleeding or mucous plug. The bronchoscope was then introduced into the right mainstem bronchus. The right upper lobe, right middle lobe and right lower lobe bronchi were examined up to the third subsegmental level. There was narrowing of the entrance of the lateral segment of right middle lobe. No other abnormalities are identified. Bronchoalveolar lavage was performed from the medial segment of the right middle lobe. 60 mL of saline was instilled, fluid return was 35 mL. The fluid was cloudy. Endobronchial biopsies were performed from the entrance of the lateral segment of right middle lobe. The endobronchial ultrasound was introduced through the ET tube. Mild mediastinal and hilar lymphadenopathy was identified with the ultrasound. Transbronchial needle aspiration was performed from 4R, 11 R lymph nodes. The bronchoscope was reintroduced. Transbronchial biopsies were performed from the right lower lobe anterior segment under navigational bronchoscopy guidance. More than 8 samples are obtained. Bronchoalveolar lavage was performed from the right lower lobe. Samples: 1. Bronchoalveolar lavage specimen from right middle lobe was sent for cell count and differential, Gram stain and culture, fungal stain and culture, AFB stain and culture, beta glucan, galactomannan, PCP PCR and silver stain. 2. The BAL specimen from right lower lobe was sent for Gram stain culture, fungal stain and culture, AFB stain and culture. 3. The endobronchial biopsies are sent for histopathology. 4. The transbronchial biopsies are sent for histopathology. 1 specimen was sent for culture. 5. The transbronchial needle aspiration of the aforementioned lymph node groups were sent for histopathology and culture. Complications: There was no immediate complications. Postprocedure chest x-ray did not reveal any pneumothorax. The patient was extubated and brought to the PACU in stable condition.
[2020-05-10] MEDS: lidocaine 4% PF 5 mL INJ INHALATION (10:50)
--- NOTE | 2020-05-10 11:09 | SUR.PHASEI ---
1104 PT AWAKE ALERT LIDOCAIN3 NEB DONE PT NOT COUGHING MUCH, PT ENCOURAGED TO VOICE REST BECOUSE OF POSSIBLE COUGHING AGAIN. PT ALERT DENIES PAIN AND NAUSEA, VSS PT REQUESTS SPRITE TO SIP ON HANDOFF AT BEDSIDE,IN OPS
[2020-05-10 11:50] LABS: Body Fluid WBC 189 /uL
[2020-05-10 12:09] LABS: Apprearance, Body Fluid CLEAR; Color, Body Fluid SLIGHT PINK; PATH Referral YES
--- NOTE | 2020-05-10 12:10 | ANE.PACU2 ---
Inpatient post-anesthesia follow up: Airway intact: Yes Vital signs: Temperature 97.8 F Pulse Rate 77 Respiratory Rate 18 Blood Pressure 89/46 Pulse Oximetry 92 Oxygen Delivery Me thod Room Air Oxygen Flow Rate 8 Fraction of Inspir ed Oxygen Hydration adequate: Yes Nausea and vomiting: No Pain level: 1 Mental status: Baseline
[2020-05-15 13:17] LABS: Aspergillus AG,EIA NOT DETECTED; Aspergillus AG,EIA, Index <0.50
== END 2020-05-10 12:11 | disposition home or self-care (01) ==
PROVIDERS: Internal Medicine Critical Care Medicine; PCP Family Medicine; Visit Provider Internal Medicine Pulmonary Disease
PROC: 0BJ08ZZ Inspection of Tracheobronchial Tree, Via Natural or Artificial Opening Endoscopic (ICD-10-PCS; CPT 31622; principal; 2020-05-10 08:35)
PROC: BB4BZZZ Ultrasonography of Pleura (ICD-10-PCS; 2020-05-10 08:35)
DX: J18.9 Pneumonia, unspecified organism (principal); K21.9 Gastro-esophageal reflux disease without esophagitis
CPT/HCPCS: 12345; 31625; 31627; 71045; 71250; 77011; 80500; 84703; 87015; 87070; 87077; 87102; 87116; 87176; 87186; 87205; 87206; 87209; 87305; 87798; 87801; 88305; 89050; J1100; J2250; J2370; J2405; J2704; J2710; J2765; J3010; J3490; J7030

== ENCOUNTER 2020-06-04 12:22 | Outpatient (CLI) | payer OTHER, SELFPAY ==
--- NOTE | 2020-06-04 18:19 | ONC CON_ITS ---
Dr. Galvez New Patient Note Patient: Sophia Miller Unit #: [id number]: 1970 Dicatated By: Foster Galvez M.D.Date of Visit: Jun 04, 2020 Onc MED New Patient/Consult Referring Physician: Nash Hayden History of Present Illness: Ms. Sophia Miller, is a 50-year-old female with history of chronic nonproductive cough since August 2019, as per patient she underwent some dental work-up in the beginning of 2019 at that time she was given antibiotics but her cough did not improve much she was treated with Levaquin multiple times and then October 2019 she had a chest x-ray done which showed right lower lobe infiltrate and she was treated with levofloxacin again with that no significant improvement in her cough eventually underwent CT scan of the chest on the right which showed right lower lobe consolidation with air bronchograms and moderate pericardial effusion and patient was treated with doxycycline for 1 week patient noticed some improvement in cough and eventually underwent bronchoscopy on March 22, 2020 which showed no endobronchial lesion and normal mucosa BAL and transbronchial biopsy was obtained but it was negative for malignancy showed chronic inflammation and BAL Aspergillus antigen was positive but index was 0.61. CT scan of chest was repeated on April 29, 2020 which shows consolidative infiltrate in the right lower lobe along the fissure with air bronchograms not significant change from previous and also shows new hazy groundglass perihilar, upper lobe infiltrates with associated micronodules in the bronchovascular and perilymphatic distribution and moderate pericardial effusion unchanged anterior mediastinal, right paratracheal, hilar and subcarinal lymphadenopathy. Patient underwent repeat bronchoscopy on May 10, 2020 and pathology report came back adenocarcinoma involving the right lower lobe, right middle lobe, station 4R lymph node, station 11 R lymph node, immunohistochemistry showed TTF-1 positive, p63 negative, Napsin-A positive on May 15, 2020, patient developed dizziness and was also developing questionable mental status changes e.g. intermittent confusion, but not one-sided weakness or numbness or slurred speech patient went to [facility] on May 19, 2020And patient had MRI scan of the head done on May 19, 2020 which shows no evidence of acute ischemia or infarct, no acute intracranial hemorrhage. Innumerable ovoid cystic foci throughout the brain which demonstrate susceptibility signal loss and post contrast enhancement suspicious for infectious process such as neurocysticercosis. No evidence of hydrocephalus., As per patient at that time neurosurgery was consulted and clinically, she was diagnosed with brain mets and started on dexamethasone and Keppra, no biopsy was done but some blood test but no spinal tap was done either. Patient also had pericardial biopsy done which shows no evidence of malignant involvement. And repeat CT scan of chest abdomen pelvis done in [place] on May 20, 2020 showed an irregular area of consolidation or neoplastic involvement in the right lower lobe just above the diaphragm approximately 5.5 x 5.5 x 2.5 cm this is internal air bronchograms and elongated shape most consistent with infiltrate or atelectasis perihilar groundglass opacities bilaterally, suspect pneumonia., Echocardiogram done on May 21, 2020 shows ejection fraction 55 to 60%., Because of blurred vision she was also evaluated by ophthalmology and impression was could be due to sarcoidosis involvement .Patient denies any history of smoking or alcohol use As per patient she was told nothing can be done and pursue further treatment in [place]. Today patient is complaining of headaches and blurred vision, Generalized weakness and fatigue but no hemoptysis or hematemesis, no nausea or vomiting, no fever or chills, no focal weakness, no seizure-like activity., No dysphagia, no hemoptysis or hematemesis. Past Medical History: Ms. Miller's medical history consists of anxiety, depression, and gastroesophageal reflux disease. Past Surgical History: Ms. Miller's surgical/procedural history consists of bronchoscopy in 2019. Medications: Dexamethasone 1 Tablet (of 4 mg) Oral b.i.d., Difluprednate 4 Drop(s) (of 0.05 %) Emulsion Ophthalmic daily, levETIRAcetam 1 Tablet (of 750 mg) Oral b.i.d., Montelukast Sodium 1 Tablet (of 10 mg) Oral daily, Pantoprazole Sodium 1 Tablet (of 40 mg) Tablet, enteric coated Oral daily, Sertraline HCl 1 Tablet (of 100 mg) Oral daily Allergies: buPROPion HCl Social History: Ms. Miller is and she is an unknown. Ms. Miller has never smoked. She has no history of drinking. Family History: Ms. Miller's mother at age 86: skin cancer, and pneumonia, and hypertension, and osteoporosis. Ms. Miller's father is alive. Review Of Symptoms: Constitutional - Appetite is diminished and weight is decreasing. No fever, night sweats, or hot flashes. Energy level is poor, ENMT - No sinus congestion/drainage. No mouth sores. No sore throat or difficulty swallowing, Hematologic/Lymphatic - No abnormal bruising or bleeding, Respiratory - No shortness of breath. Positive for cough. No pleuritic pain or hemoptysis, Cardiovascular - No angina pain. No palpitations, Gastrointestinal - No nausea or vomiting. No heartburn or acid reflux. No diarrhea or constipation. No blood in the stool or black stools, Genitourinary (F) - No dysuria or hematuria. No urinary frequency. No urgency or incontinence, Musculoskeletal - No joint or bone pain, Neurologic - Positive for headache and dizziness. No numbness or tingling. Positive for blurred vision, Psychiatric - Occasional anxiety and depression. No insomnia. Vital Signs: Performed on Jun 04, 2020 14:57: 0, 21.30, 1.64 sq.m, 65.00 in, 96 %, 61 /min, 16 /min, 89/48 mm(hg) (LOW), 98.2 F (LOW), and 128.0 lbs (HIGH). Performance Status: 2 - Ambulatory/capable of all self-care, unable to perform any work activities. Up and about more than 50% of waking hours. (ECOG) Physical Examination: ENMT - No mouth sores, no thrush, no jaundice, Respiratory - Decreased breath sound at right base otherwise clear, Cardiovascular - Regular rate and rhythm of heart, Abdomen - Soft, bowel sounds present, Extremities - .No visible edema, neuro exam nonfocal. Lab/Imaging: Most recent lab results are not available for this patient. Impression: Well-differentiated adenocarcinoma per bronchoscopy done on May 10, 2020 final pathology report shows well-differentiated no carcinoma involving the right middle lobe and right lower lobe and station 4R and station 11 R MRI scan done on May 19, 2020 in [place] showed innumerable ovoid cystic foci throughout the brain which demonstrates susceptibility signal loss and post contrast enhancement suspicious for infectious process such as neurocysticercosis. CT scan of head was done on May 28, 2020 showed no acute infarction or acute intracranial hemorrhage. T2/flair hyperintense lesions on brain MRI from May 19, 2020 are largely not appreciated on this exam. Intermittent confusion, headaches, blurred vision double vision, probably due to above Plan: Discussed with patient regarding her disease status and bronchial biopsy which confirmed adenocarcinoma involving the right lung and right station 4R and station 11 R lymph nodes. But patient asymptomatic with intermittent confusion and chronic headaches and blurred vision and MRI scan of the brain done at [facility] in [place] shows innumerable ovoid cystic foci throughout the brain suspicious for infectious process such as neurocysticercosis and patient was seen by neurosurgery biopsy was not considered, as per patient and family spinal tap was not done but some blood test which were pending and clinically she was diagnosed with brain mets and was started on dexamethasone and Keppra. And her follow-up CT scan done on May 28, 2020 showed no significant abnormality or metastatic disease. And her neurological exam is nonfocal and etiology of her neurological symptoms remained inconclusive, at this point, at family's request we will refer her to neurosurgery at [place] for evaluation and to confirm brain mets if confirmed then will consider radiation therapy to the brain if his infectious process then she will be treated accordingly and we will consider combined chemoradiation for biopsy-proven lymph node involved well-differentiated adenocarcinoma of the right lung. Patient return to clinic 1 week after her visit to [place] with CBC CMP and for further discussion regarding treatment plan. Signed By: Foster Galvez M.D. <<Signature on File>>
== END 2020-06-04 12:23 | disposition home or self-care (01) ==
LOC: ONCMED 12:25
PROVIDERS: PCP Family Medicine; Visit Provider Internal Medicine Hematology & Oncology
DX: C34.81 Malignant neoplasm of overlapping sites of right bronchus and lung (principal); R41.0 Disorientation, unspecified; R51.9 Headache, unspecified; H53.8 Other visual disturbances
CPT/HCPCS: 99203

== ENCOUNTER 2020-11-27 13:14 | Outpatient (CLI) | payer OTHER, SELFPAY ==
[2020-11-27 14:30] LABS: Basophils % 0.3 %; Eosinophils % 0.7 %; Hematocrit 27.6 % (37.0-47.0); Hemoglobin 8.6 g/dL (11.5-15.3); Lymphocytes # 0.6 10^3/uL (0.8-4.8); Lymphocytes % 9.7 %; Mean Corpuscular HGB Conc 31.2 g/dL (30.0-36.0); Mean Corpuscular Hemoglobin 27.4 pg (28.0-34.0); Mean Corpuscular Volume 87.9 fL (81-99); Mean Platelet Volume 9.4 fL (7.4-10.4); Monocytes % 17.5 %; Neutrophils # 4.08 10^3/uL (1.8-7.7); Neutrophils % 69.6 %; Nucleated Red Blood Cells % 0 %; Platelet Count 267 10^3/cmm (130-400); Red Blood Count 3.14 10^6/uL (4.1-5.3); Red Cell Distribution Width 18.8 % (12.1-15.1); White Blood Count 5.9 10^3/uL (4.0-10.0)
[2020-11-27 14:42] LABS: Alanine Aminotransferase 12 U/L (0-33); Albumin Level 3.8 g/dL (3.5-5.2); Alkaline Phosphatase 89 IU/L (35-105); Anion Gap 13.8 (5-19); Aspartate Amino Transferase 17 U/L (0-32); Blood Urea Nitrogen 7 mg/dL (6-20); Calcium 8.7 mg/dL (8.5-10.5); Carbon Dioxide 25 mmol/L (22-29); Chloride 105 mmol/L (98-107); Globulin 2.2 g/dL (1.3-4.6); Glomerular Filtration Rate 106.3 mL/min (90-130); Glucose 112 mg/dL (65-115); Osmolality Calculated 289 mOsm/kg (285-295); Potassium 3.8 mmol/L (3.5-5.1); Sodium 140 mmol/L (136-145); Total Bilirubin 0.2 mg/dL (0.15-1.2)
== END 2020-11-27 13:15 | disposition home or self-care (01) ==
LOC: ONCMED 13:19
PROVIDERS: PCP Family Medicine; Visit Provider Internal Medicine Hematology & Oncology
DX: C34.81 Malignant neoplasm of overlapping sites of right bronchus and lung (principal)
CPT/HCPCS: 36591; 80053; 85025

== ENCOUNTER 2020-11-28 05:42 | Outpatient (CLI) | payer OTHER, SELFPAY ==
--- NOTE | 2020-11-28 12:49 | ONC FU_ITS ---
Dr. Galvez follow up note Patient: Sophia Miller Unit #: [id number]: 1970 Dicatated By: Foster Galvez M.D.Date of Visit:November 28, 2020 Onc Med Follow-up/Prog Note History of Present Illness: Ms. Sophia Miller, is a 50-year-old female with history of chronic nonproductive cough since August 2019, as per patient she underwent some dental work-up in the beginning of 2019 at that time she was given antibiotics but her cough did not improve much she was treated with Levaquin multiple times and then October 2019 she had a chest x-ray done which showed right lower lobe infiltrate and she was treated with levofloxacin again with that no significant improvement in her cough eventually underwent CT scan of the chest on the right which showed right lower lobe consolidation with air bronchograms and moderate pericardial effusion and patient was treated with doxycycline for 1 week patient noticed some improvement in cough and eventually underwent bronchoscopy on March 22, 2020 which showed no endobronchial lesion and normal mucosa BAL and transbronchial biopsy was obtained but it was negative for malignancy showed chronic inflammation and BAL Aspergillus antigen was positive but index was 0.61. CT scan of chest was repeated on April 29, 2020 which shows consolidative infiltrate in the right lower lobe along the fissure with air bronchograms not significant change from previous and also shows new hazy groundglass perihilar, upper lobe infiltrates with associated micronodules in the bronchovascular and perilymphatic distribution and moderate pericardial effusion unchanged anterior mediastinal, right paratracheal, hilar and subcarinal lymphadenopathy. Patient underwent repeat bronchoscopy on May 10, 2020 and pathology report came back adenocarcinoma involving the right lower lobe, right middle lobe, station 4R lymph node, station 11 R lymph node, immunohistochemistry showed TTF-1 positive, p63 negative, Napsin-A positive on May 15, 2020, patient developed dizziness and was also developing questionable mental status changes e.g. intermittent confusion, but not one-sided weakness or numbness or slurred speech patient went to [facility] on May 19, 2020And patient had MRI scan of the head done on May 19, 2020 which shows no evidence of acute ischemia or infarct, no acute intracranial hemorrhage. Innumerable ovoid cystic foci throughout the brain which demonstrate susceptibility signal loss and post contrast enhancement suspicious for infectious process such as neurocysticercosis. No evidence of hydrocephalus., As per patient at that time neurosurgery was consulted and clinically, she was diagnosed with brain mets and started on dexamethasone and Keppra, no biopsy was done but some blood test but no spinal tap was done either. Patient also had pericardial biopsy done which shows no evidence of malignant involvement. And repeat CT scan of chest abdomen pelvis done in [place] on May 20, 2020 showed an irregular area of consolidation or neoplastic involvement in the right lower lobe just above the diaphragm approximately 5.5 x 5.5 x 2.5 cm this is internal air bronchograms and elongated shape most consistent with infiltrate or atelectasis perihilar groundglass opacities bilaterally, suspect pneumonia., Echocardiogram done on May 21, 2020 shows ejection fraction 55 to 60%., Because of blurred vision she was also evaluated by ophthalmology and impression was could be due to sarcoidosis involvement. 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 Patient was admitted to [facility] in [place] on June 22, 2020 for weakness and hypoxemia and underwent pericardial window and chest tube placement and patient also developed pulmonary embolism requiring thrombolysis on June 27, 2020, IVC filter was placed in on June 28, 2020 And started on Eliquis 2.5 mg daily She also had a guardant 360 test done which showed no targetable mutations e.g. no EGFR, or ALK. PD-L1 was positive but less than 50%. She was started on Alimta/carboplatin/Keytruda on August 13, 2020, after second cycle of chemotherapy, she was hospitalized at [facility] and was diagnosed with pneumonitis and was treated with antibiotics and steroids tapering dose, as per patient her last dose of steroid was on November 23, 2020. Due to pneumonitis, Keytruda was put on hold and eventually discontinued and patient was switched to Alimta alone along with folic acid supplements, which she is tolerating reasonably well Patient was also diagnosed with sleep apnea based on sleep study, now awaiting CPAP machine. Because of inconvenience of traveling to [place], patient has decided to transfer her care to [facility] so came for follow-up today, denies any specific complaint except generalized weakness and fatigue, patient is on home oxygen and is using walker to mobilize. But no fever chills, no nausea or vomiting, no diarrhea or constipation, no hemoptysis or hematemesis, no melena or hematochezia, no jaundice Medications: Difluprednate 4 Drop(s) (of 0.05 %) Emulsion Ophthalmic daily, levETIRAcetam 1 Tablet (of 250 mg) Oral b.i.d., Montelukast Sodium 1 Tablet (of 10 mg) Oral daily, Pantoprazole Sodium 1 Tablet (of 40 mg) Tablet, enteric coated Oral daily, Sertraline HCl 1 Tablet (of 100 mg) Oral daily Allergies: buPROPion HCl Review of Systems: Review of Systems is not available for this patient. Vital Signs: Performed on November 28, 2020 09:58 Height - 65.00 in Weight - 136.4 lbs (HIGH) BSA - 1.68 sq.m BMI - 22.70 Temperature - 97.3 F (LOW) Pulse - 108 /min (HIGH) Respiration - 18 /min BP - 120/54 mm(hg) O2 Sat - 97 % Pain - 0 Performance Status: 2 - Ambulatory/capable of all self-care, unable to perform any work activities. Up and about more than 50% of waking hours. (ECOG) Physical Examination: ENMT - No mouth sores no thrush, no jaundice, Respiratory - Poor air entry otherwise clear, Cardiovascular - Regular rate and rhythm of heart, Abdomen - Soft, bowel sounds present, Extremities - No visible edema. Lab/Imaging: Most recent lab results are not available for this patient. 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, status post whole brain radiation therapy in June 2020 Well-differentiated adenocarcinoma per bronchoscopy done on May 10, 2020 final pathology report shows well-differentiated no carcinoma involving the right middle lobe and right lower lobe and station 4R and station 11 R MRI scan done on May 19, 2020 in [place] showed innumerable ovoid cystic foci throughout the brain which demonstrates susceptibility signal loss and post contrast enhancement suspicious for infectious process such as neurocysticercosis.Spinal tap done at [place] showed no sign of infection, so it was concluded patient has brain mets for which she underwent whole brain radiation therapy in June 2020, in [place] Patient had multiple scans done in [facility] and was confirmed with stage IV adenocarcinoma of the lung with brain mets as well as left adrenal gland, started on carboplatin/Alimta/Keytruda on August 13, 2020, after second dose of chemotherapy she developed pneumonitis which was treated with antibiotics and tapering dose of steroids and her last dose of steroid was on November 23, 2020 and Keytruda was discontinued and she was treated with single agent Alimta every [address] scan of head was done on May 28, 2020 showed no acute infarction or acute intracranial hemorrhage. T2/flair hyperintense lesions on brain MRI from May 19, 2020 are largely not appreciated on this exam. 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, 2020 Sleep apnea, awaiting CPAP machine Plan: Discussed with patient regarding her labs white blood count 5.9 hemoglobin 8.6 hematocrit 27.6 platelets 267,000 CMP within normal limits Clinically, patient doing reasonably well, now being treated with palliative chemotherapy Alimta every 3 weeks and her next dose is due on December 03, 2020, patient received all her care at [facility], as mentioned above she underwent whole brain radiation therapy in June 2020 and in July 2020 she was started on carboplatin/Alimta/Keytruda but after second cycle, she did develop pneumonitis which was treated with antibiotic and tapering dose of steroids which she recently completed., Because of inconvenience, she transferred her care back to [facility] and she will resume for further treatment here and she is due for next dose of Alimta on December 03, 2020, will obtain approval from her insurance prior to the treatment, all the side effect possible benefits tested with Alimta but discussed again briefly, further teaching done by chemotherapy nurse Patient return to clinic on December 03, 2020 with CBC CMP and if reasonable for next dose of Alimta. As far as anemia is concerned, probably multifactorial, will check her iron studies, B12 folic acid reticulocyte count and consider blood transfusion if hemoglobin less than 8 g As far as history of pneumonitis, COPD, now on home oxygen, is concerned, will request Dr. Hayden to follow and manage. Patient was diagnosed with sleep apnea, now awaiting CPAP machine. Signed By: Foster Galvez M.D. <<Signature on File>>
== END 2020-11-28 05:43 | disposition home or self-care (01) ==
LOC: ONCMED 05:43
PROVIDERS: PCP Family Medicine; Visit Provider Internal Medicine Hematology & Oncology
DX: C34.81 Malignant neoplasm of overlapping sites of right bronchus and lung (principal); C79.31 Secondary malignant neoplasm of brain; C79.72 Secondary malignant neoplasm of left adrenal gland; I31.3 Pericardial effusion (noninflammatory); I26.99 Other pulmonary embolism without acute cor pulmonale; J18.9 Pneumonia, unspecified organism; G47.33 Obstructive sleep apnea (adult) (pediatric); Z79.899 Other long term (current) drug therapy; Z92.21 Personal history of antineoplastic chemotherapy
CPT/HCPCS: 99214

== ENCOUNTER 2020-12-10 06:06 | Outpatient (CLI) | payer OTHER, SELFPAY ==
[2020-12-10 09:39] LABS: Basophils # 0.1 10^3/uL (0.0-0.1); Basophils % 0.8 %; Eosinophils # 0.1 10^3/uL (0.0-0.8); Eosinophils % 0.8 %; Hemoglobin 9.6 g/dL (11.5-15.3); Lymphocytes % 12.5 %; Mean Corpuscular Hemoglobin 26.3 pg (28.0-34.0); Mean Corpuscular Volume 84.9 fL (81-99); Mean Platelet Volume 8.5 fL (7.4-10.4); Monocytes # 1.5 10^3/uL (0.2-0.9); Monocytes % 17.9 %; Neutrophils # 5.56 10^3/uL (1.8-7.7); Neutrophils % 66.7 %; Nucleated Red Blood Cells % 0 %; Platelet Count 361 10^3/cmm (130-400); Red Blood Count 3.65 10^6/uL (4.1-5.3); Reticulocyte % 2.2 % (0.5-2.0); White Blood Count 8.3 10^3/uL (4.0-10.0)
[2020-12-10 10:04] LABS: Alanine Aminotransferase 10 U/L (0-33); Albumin Level 4.3 g/dL (3.5-5.2); Alkaline Phosphatase 107 IU/L (35-105); Anion Gap 16.8 (5-19); Aspartate Amino Transferase 17 U/L (0-32); Blood Urea Nitrogen 8 mg/dL (6-20); Calcium 9.3 mg/dL (8.5-10.5); Carbon Dioxide 23 mmol/L (22-29); Chloride 102 mmol/L (98-107); Ferritin 218 ng/mL (15-150); Globulin 2.4 g/dL (1.3-4.6); Glomerular Filtration Rate 88.9 mL/min (90-130); Glucose 95 mg/dL (65-115); Iron 61 ug/dL (37-145); Osmolality Calculated 284 mOsm/kg (285-295); Percent Saturation 20.6 % (20-50); Potassium 3.8 mmol/L (3.5-5.1); Sodium 138 mmol/L (136-145); Total Bilirubin 0.2 mg/dL (0.15-1.2); Total Iron Binding Capacity 295 mcg/dl; Total Protein 6.7 g/dL (6.6-8.7); Unsaturated Iron Binding 234 ug/dL (112-347)
[2020-12-10 10:15] LABS: Vitamin B12 1087 pg/mL (232-1245)
[2020-12-10] MEDS: sodium chloride 0.9% 250 ML 75 ML IV (10:49)
[2020-12-10] MEDS: ondansetron 2 mg/ML SDV 2 mL 8 MG IV (10:49)
[2020-12-10 13:22] LABS: Folate Level > 20.0 ng/mL (4.8-37.3)
== END 2020-12-10 06:07 | disposition home or self-care (01) ==
LOC: ONCMED 06:08
PROVIDERS: PCP Family Medicine; Visit Provider Internal Medicine Hematology & Oncology
DX: Z51.12 Encounter for antineoplastic immunotherapy (principal); C34.31 Malignant neoplasm of lower lobe, right bronchus or lung; C79.72 Secondary malignant neoplasm of left adrenal gland; C79.31 Secondary malignant neoplasm of brain; D50.9 Iron deficiency anemia, unspecified; D51.9 Vitamin B12 deficiency anemia, unspecified; Z79.899 Other long term (current) drug therapy
CPT/HCPCS: 80053; 82607; 82728; 82746; 83540; 83550; 85025; 85045; 96367; 96375; 96413; J1100; J2405; J7050; J9305

== ENCOUNTER 2020-12-19 05:33 | Outpatient (RCR) | payer OTHER, SELFPAY ==
[2020-12-17 11:06] LABS: Basophils % 1.1 %; Eosinophils # 0.1 10^3/uL (0.0-0.8); Eosinophils % 1.8 %; Hematocrit 30.3 % (37.0-47.0); Hemoglobin 9.5 g/dL (11.5-15.3); Lymphocytes # 0.6 10^3/uL (0.8-4.8); Lymphocytes % 20.1 %; Mean Corpuscular HGB Conc 31.4 g/dL (30.0-36.0); Mean Corpuscular Hemoglobin 26.2 pg (28.0-34.0); Mean Corpuscular Volume 83.5 fL (81-99); Mean Platelet Volume 7.9 fL (7.4-10.4); Monocytes # 0.6 10^3/uL (0.2-0.9); Monocytes % 21.8 %; Neutrophils # 1.42 10^3/uL (1.8-7.7); Neutrophils % 49.9 %; Nucleated Red Blood Cells % 0.7 %; Platelet Count 200 10^3/cmm (130-400); Red Blood Count 3.63 10^6/uL (4.1-5.3); Red Cell Distribution Width 17.6 % (12.1-15.1); White Blood Count 2.8 10^3/uL (4.0-10.0)
[2020-12-17 11:24] LABS: Alanine Aminotransferase 11 U/L (0-33); Albumin Level 4.1 g/dL (3.5-5.2); Alkaline Phosphatase 110 IU/L (35-105); Anion Gap 14.3 (5-19); Aspartate Amino Transferase 21 U/L (0-32); Blood Urea Nitrogen 6 mg/dL (6-20); Calcium 8.9 mg/dL (8.5-10.5); Carbon Dioxide 24 mmol/L (22-29); Chloride 103 mmol/L (98-107); Globulin 2.6 g/dL (1.3-4.6); Glomerular Filtration Rate 106.3 mL/min (90-130); Glucose 96 mg/dL (65-115); Osmolality Calculated 281 mOsm/kg (285-295); Potassium 4.3 mmol/L (3.5-5.1); Sodium 137 mmol/L (136-145); Total Bilirubin 0.3 mg/dL (0.15-1.2); Total Protein 6.7 g/dL (6.6-8.7)
[2020-12-17 11:52] LABS: Add RBC Morph Yes; Anisocytosis 2+; Microcytosis 1+; RBC Morph Comp No; Slide Review Slide Review Perform
[2020-12-17 11:53] LABS: Ovalocytes Trace
--- NOTE | 2020-12-20 13:29 | ONC FU_ITS ---
Dr. Galvez follow up note Patient: Sophia Miller Unit #: [id number]: [id number] Dicatated By: Foster Galvez M.D.Date of Visit:December 19, 2020 Onc Med Follow-up/Prog Note History of Present Illness: Ms. Sophia Miller, is a 50-year-old female with history of chronic nonproductive cough since August 2019, as per patient she underwent some dental work-up in the beginning of 2019 at that time she was given antibiotics but her cough did not improve much she was treated with Levaquin multiple times and then October 2019 she had a chest x-ray done which showed right lower lobe infiltrate and she was treated with levofloxacin again with that no significant improvement in her cough eventually underwent CT scan of the chest on the right which showed right lower lobe consolidation with air bronchograms and moderate pericardial effusion and patient was treated with doxycycline for 1 week patient noticed some improvement in cough and eventually underwent bronchoscopy on March 22, 2020 which showed no endobronchial lesion and normal mucosa BAL and transbronchial biopsy was obtained but it was negative for malignancy showed chronic inflammation and BAL Aspergillus antigen was positive but index was 0.61. CT scan of chest was repeated on April 29, 2020 which shows consolidative infiltrate in the right lower lobe along the fissure with air bronchograms not significant change from previous and also shows new hazy groundglass perihilar, upper lobe infiltrates with associated micronodules in the bronchovascular and perilymphatic distribution and moderate pericardial effusion unchanged anterior mediastinal, right paratracheal, hilar and subcarinal lymphadenopathy. Patient underwent repeat bronchoscopy on May 10, 2020 and pathology report came back adenocarcinoma involving the right lower lobe, right middle lobe, station 4R lymph node, station 11 R lymph node, immunohistochemistry showed TTF-1 positive, p63 negative, Napsin-A positive on May 15, 2020, patient developed dizziness and was also developing questionable mental status changes e.g. intermittent confusion, but not one-sided weakness or numbness or slurred speech patient went to [facility] on May 19, 2020And patient had MRI scan of the head done on May 19, 2020 which shows no evidence of acute ischemia or infarct, no acute intracranial hemorrhage. Innumerable ovoid cystic foci throughout the brain which demonstrate susceptibility signal loss and post contrast enhancement suspicious for infectious process such as neurocysticercosis. No evidence of hydrocephalus., As per patient at that time neurosurgery was consulted and clinically, she was diagnosed with brain mets and started on dexamethasone and Keppra, no biopsy was done but some blood test but no spinal tap was done either. Patient also had pericardial biopsy done which shows no evidence of malignant involvement. And repeat CT scan of chest abdomen pelvis done in [place] on May 20, 2020 showed an irregular area of consolidation or neoplastic involvement in the right lower lobe just above the diaphragm approximately 5.5 x 5.5 x 2.5 cm this is internal air bronchograms and elongated shape most consistent with infiltrate or atelectasis perihilar groundglass opacities bilaterally, suspect pneumonia., Echocardiogram done on May 21, 2020 shows ejection fraction 55 to 60%., Because of blurred vision she was also evaluated by ophthalmology and impression was could be due to sarcoidosis involvement. 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 Patient was admitted to [facility] in [place] on June 22, 2020 for weakness and hypoxemia and underwent pericardial window and chest tube placement and patient also developed pulmonary embolism requiring thrombolysis on June 27, 2020, IVC filter was placed in on June 28, 2020 And started on Eliquis 2.5 mg daily She also had a guardant 360 test done which showed no targetable mutations e.g. no EGFR, or ALK. PD-L1 was positive but less than 50%. She was started on Alimta/carboplatin/Keytruda on August 13, 2020, after second cycle of chemotherapy, she was hospitalized at [facility] and was diagnosed with pneumonitis and was treated with antibiotics and steroids tapering dose, as per patient her last dose of steroid was on November 23, 2020. Due to pneumonitis, Keytruda was put on hold and eventually discontinued and patient was switched to Alimta alone along with folic acid supplements, which she is tolerating reasonably well Patient was also diagnosed with sleep apnea based on sleep study, now awaiting CPAP machine. Because of inconvenience of traveling to [place], [facility] 10, 2020 Came for follow-up, denies any specific complaints, except nausea which responded well to antiemetics, also complains generalized weakness and fatigue but no nausea or vomiting, no diarrhea constipation, no hemoptysis or hematemesis, no jaundice tolerating systemic therapy with single agent Alimta well Medications: Difluprednate 4 Drop(s) (of 0.05 %) Emulsion Ophthalmic daily, levETIRAcetam 1 Tablet (of 250 mg) Oral b.i.d., Montelukast Sodium 1 Tablet (of 10 mg) Oral daily, Pantoprazole Sodium 1 Tablet (of 40 mg) Tablet, enteric coated Oral daily, Sertraline HCl 1 Tablet (of 100 mg) Oral daily Allergies: buPROPion HCl Review of Systems: Review of Systems is not available for this patient. Vital Signs: Performed on December 19, 2020 10:25 Height - 65.00 in Weight - 131.2 lbs (LOW) BSA - 1.65 sq.m BMI - 21.83 Temperature - 97.2 F (LOW) Pulse - 96 /min Respiration - 18 /min BP - 102/69 mm(hg) O2 Sat - 94 % (LOW) Pain - 0 Fatigue - 5 Performance Status: 1 - No physically strenuous activity, but ambulatory and able to carry out light or sedentary work (e.g. office work, light house work). (ECOG) Physical Examination: ENMT - No mouth sores, no thrush, no jaundice, Respiratory - Lungs are clear to auscultation, Cardiovascular - Regular rate and rhythm of heart, Abdomen - Soft, bowel sounds present, Extremities - No visible edema or rash. Lab/Imaging: Most recent lab results are not available for this patient. 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, status post whole brain radiation therapy in June 2020 Well-differentiated adenocarcinoma per bronchoscopy done on May 10, 2020 final pathology report shows well-differentiated no carcinoma involving the right middle lobe and right lower lobe and station 4R and station 11 R MRI scan done on May 19, 2020 in [place] showed innumerable ovoid cystic foci throughout the brain which demonstrates susceptibility signal loss and post contrast enhancement suspicious for infectious process such as neurocysticercosis.Spinal tap done at [place] showed no sign of infection, so it was concluded patient has brain mets for which she underwent whole brain radiation therapy in June 2020, in [place] Patient had multiple scans done in [facility] and was confirmed with stage IV adenocarcinoma of the lung with brain mets as well as left adrenal gland, started on carboplatin/Alimta/Keytruda on August 13, 2020, after second dose of chemotherapy she developed pneumonitis which was treated with antibiotics and tapering dose of steroids and her last dose of steroid was on November 23, 2020 and Keytruda was discontinued and she was treated with single agent Alimta every [address] scan of head was done on May 28, 2020 showed no acute infarction or acute intracranial hemorrhage. T2/flair hyperintense lesions on brain MRI from May 19, 2020 are largely not appreciated on this exam. 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, 2020 Sleep apnea, awaiting CPAP machine Plan: Discussed with patient regarding her labs white blood count 2.8 hemoglobin 9.5 hematocrit 30.3 platelets 200,000 ANC 1420 CMP within normal limits, iron saturation 20.6% ferritin 218, folate more than 20, iron 61, B12 1087, reticulocyte count 2.2 Clinically, patient is doing well, tolerating palliative therapy with single agent Alimta well but with expected side effects. E.g. progressive neutropenia/leukopenia Persistent anemia could be multifactorial as anemia work-up remained inconclusive, at this point we will continue monitor and consider blood transfusion if less than 8 g She will return to clinic on December 31, 2020 with CBC CMP if reasonable, next dose of Alimta Signed By: Foster Galvez M.D. <<Signature on File>>
== END 2020-12-23 23:59 | disposition home or self-care (01) ==
LOC: ONCMED 05:33
PROVIDERS: PCP Family Medicine; Visit Provider Internal Medicine Hematology & Oncology
DX: C34.81 Malignant neoplasm of overlapping sites of right bronchus and lung (principal); I31.3 Pericardial effusion (noninflammatory); I26.99 Other pulmonary embolism without acute cor pulmonale; J18.9 Pneumonia, unspecified organism; G47.33 Obstructive sleep apnea (adult) (pediatric); Z79.2 Long term (current) use of antibiotics; Z79.52 Long term (current) use of systemic steroids; Z79.899 Other long term (current) drug therapy; Z92.21 Personal history of antineoplastic chemotherapy
CPT/HCPCS: 36591; 80053; 85025; 99214

== ENCOUNTER 2021-01-09 08:58 | Outpatient (RCR) | payer OTHER, SELFPAY ==
[2021-01-07 13:40] LABS: Basophils # 0.1 10^3/uL (0.0-0.1); Basophils % 0.6 %; Eosinophils # 0.1 10^3/uL (0.0-0.8); Eosinophils % 1.5 %; Hematocrit 32.5 % (37.0-47.0); Hemoglobin 10.1 g/dL (11.5-15.3); Lymphocytes # 0.7 10^3/uL (0.8-4.8); Mean Corpuscular HGB Conc 31.1 g/dL (30.0-36.0); Mean Corpuscular Hemoglobin 25.8 pg (28.0-34.0); Mean Corpuscular Volume 82.9 fL (81-99); Mean Platelet Volume 9.2 fL (7.4-10.4); Monocytes # 1.5 10^3/uL (0.2-0.9); Monocytes % 15.5 %; Neutrophils # 7.01 10^3/uL (1.8-7.7); Neutrophils % 74.9 %; Nucleated Red Blood Cells % 0 %; Platelet Count 400 10^3/cmm (130-400); Red Blood Count 3.92 10^6/uL (4.1-5.3); Red Cell Distribution Width 17.6 % (12.1-15.1); White Blood Count 9.4 10^3/uL (4.0-10.0)
[2021-01-07 14:04] LABS: Alanine Aminotransferase 6 U/L (0-33); Albumin Level 4.1 g/dL (3.5-5.2); Alkaline Phosphatase 106 IU/L (35-105); Anion Gap 17.5 (5-19); Aspartate Amino Transferase 15 U/L (0-32); Blood Urea Nitrogen 7 mg/dL (6-20); Calcium 9.8 mg/dL (8.5-10.5); Carbon Dioxide 23 mmol/L (22-29); Chloride 103 mmol/L (98-107); Globulin 2.6 g/dL (1.3-4.6); Glomerular Filtration Rate 88.9 mL/min (90-130); Glucose 97 mg/dL (65-115); Osmolality Calculated 288 mOsm/kg (285-295); Potassium 3.5 mmol/L (3.5-5.1); Sodium 140 mmol/L (136-145); Total Bilirubin 0.2 mg/dL (0.15-1.2); Total Protein 6.7 g/dL (6.6-8.7)
--- NOTE | 2021-01-09 09:00 | MR_ITS ---
WS: [id number] MRI HEAD WITH CONTRAST TECHNIQUE: Sagittal T1, T2 axial, T2 axial FLAIR, axial susceptibility weighted imaging, axial diffus ion weighted images, and coronal T2 images were obtained. Pre and post-T1 axial and post T1 coronal i mages. ADC and FSPGR images. CLINICAL INFORMATION: HX OF BRAIN METS/ HEADACHES, VOMITING COMPARISON: MRI September 23, 2020, 06/26/2020 and 06/10/2020. PET CT June 01, 2020 FINDINGS: No evidence of restricted diffusion to suggest acute ischemia. Ventricular system and basal cisterns are patent. Mild periventricular supratentorial white matter changes with moderate parenchymal volume loss. White matter changes have progressed since September 24, 2019 likely due to treatment effect. Innumerable tiny enhancing lesions throughout both cerebral hemispher es, bina, and cerebellum. Number and distribution of lesions is similar to September 24, 2019. No significant change considering differences in technique. No evidence of disease progression. Numer ous innumerable foci of associated susceptibility artifact corresponding to the tiny metastasis. This is also similar in appearance. No evidence of mass effect or midline shift. No hydrocephalus. Normal optic chiasm and pituitary infu ndibulum. Normal cavernous sinuses and Meckel's cave. No other significant changes from previous. MR/MR head wo/w con [id number] IMPRESSION: 1. No evidence of disease progression compared to September 23, 2020 2. Stable appearance of the innumerable supra and infratentorial tiny enhancin g lesions with associated hemosiderin. 3. No hydrocephalus. No edema or mass effect. 4. Increased periventricular white matter changes consistent with treatment-re lated effect. Moderate parenchymal volume loss.
[2021-01-09] MEDS: gadobenate dimeglumine 20 mL vial 13 ML IV (09:33)
--- NOTE | 2021-01-26 23:53 | ONC FU_ITS ---
[facility] Patient Note Patient: Sophia Miller Unit #: [id number]: 1970 Dictated By: Christi IbarraDate of Visit: Jan 07, 2021 Onc MED Follow-Up/Prog Note Chief Complaint: Right lung cancer History of Present Illness: Ms. Miller is a 50-year-old female with history of chronic nonproductive cough since August 2019. Ms Garay reports she underwent some dental work-up in the beginning of 2019. At that time she was given antibiotics but her cough did not improve much. She was treated with Levaquin multiple times and then October 2019 she obtained a chest x-ray. The xray reported right lower lobe infiltrate. She was treated with levofloxacin again and with no significant improvement in her cough, she eventually underwent CT scan of the chest on On 02/12/2020. Findings reported focal consolidation right lower lobe along the fissure with air bronchograms. Consolidation measured 5.3 x 4.3 x 5.6 cm. Patchy infiltrate along the right upper lobe laterally. Moderate pericardial effusion. Prominent lymph nodes bilaterally nonspecific but likely reactive measuring 12 mm on the right and 14 mm on the left. Enlarged subcarinal lymph node measuring 14 mm. Proximal main arteries were normal. Normal thoracic aorta. She had an echocardiogram on 02/26/2020 for evaluation of the pericardial effusion which reported a normal left ventricular systolic function and left ventricular ejection fraction estimated at 70%. There were no regional wall motion abnormalities. Normal dystonic dysfunction. There was a moderate circumferential pericardial effusion 1.2 cm along the right ventricle and 1.5 cm along the left ventricle. There was no evidence of hemodynamic compromise and normal size inferior vena cava. She then had follow-up chest x-ray on 02/29/2020 which reported subtle opacity within the middle lobe versus right lung base. Lungs otherwise well aerated. There is no pleural effusion and no pneumothorax. She underwent bronchoscopy on March 22, [address] Hayden. Endobronchial biopsy from the right middle lobe reported lung parenchyma with chronic inflammation no granulomas identified no malignancy identified right lower lobe biopsy reported lung parenchyma and cartilage with focal chronic inflammation. No granulomas or malignancy identified. The bronchial cytology reported by voice and by number on 03/22/2020 reported benign ciliated respiratory epithelial cells, rare benign squamous epithelial cells, mixed inflammatory cells, macrophages, blood and fibrin/proteinaceous debris's. No malignant cells were seen. BAL Aspergillus antigen was positive but index was 0.61. She was treated with doxycycline for1 week and noticed some improvement in the cough. Followup CT scan of chest was repeated on April 29, 2020 which showed consolidative infiltrate in the right lower lobe along the fissure with air bronchograms. Not significantly change from previous, but it did show new hazy groundglass perihilar, upper lobe infiltrates with associated micronodules in the bronchovascular and perilymphatic distribution. She also had persistent moderate pericardial effusion unchanged anterior mediastinal, right paratracheal, hilar and subcarinal lymphadenopathy. Ms Miller underwent repeat bronchoscopy on May 10, 2020 and pathology report came back adenocarcinoma involving the right lower lobe, right middle lobe, station 4R lymph node, station 11 R lymph node. Immunohistochemistry showed TTF-1 positive, p63 negative, Napsin-A positive. On May 15, 2020, patient developed dizziness and was also developing questionable mental status changes e.g. intermittent confusion, but no one-sided weakness or numbness or slurred speech. She presented to [facility] on May 19, 2020. She did have a MRI scan of the head on May 19, 2020. It reported no evidence of acute ischemia or infarct, no acute intracranial hemorrhage. Innumerable ovoid cystic foci throughout the brain which demonstrate susceptibility signal loss and post contrast enhancement suspicious for infectious process such as neurocysticercosis. No evidence of hydrocephalus. Ms Miller reported that at that time, neurosurgery was consulted and clinically, she was diagnosed with brain mets. She was started on dexamethasone and Keppra, no biopsy was done but some blood test but no spinal tap was done either. She also had pericardial biopsy done which shows no evidence of malignant involvement. A repeat CT scan of chest abdomen pelvis done in [place] on May 20, 2020 showed an irregular area of consolidation or neoplastic involvement in the right lower lobe just above the diaphragm approximately 5.5 x 5.5 x 2.5 cm this is internal air bronchograms and elongated shape most consistent with infiltrate or atelectasis perihilar groundglass opacities bilaterally, suspect pneumonia., Echocardiogram done on May 21, 2020 shows ejection fraction 55 to 60%. She reported that because of blurred vision she was also evaluated by ophthalmology and impression was could be due to sarcoidosis involvement. She had subxiphoid pericardial window per Dr. Stiven Basurto at [facility] on 05/22/2020. The pathology final report dated on 05/24/2020 was benign pericardial tissue. There was no sign of significant inflammation. No positive staining neoplastic cells were identified in sections stained with MOC 31, BerEP4 and TTF???1. Ms. Miller had PET/CT imaging with [facility]ology on 06/01/2020 which reported anterior right lower lobe a 4.3 x 2.6 semisolid mass with an SUV of 12.9. This has a high probability of malignancy, most likely bronchogenic carcinoma. Extensive hypermetabolic adenopathy is present in the mediastinum, consistent with local metastatic disease. Nodes are present in the bilateral hilar, subcarinal, periesophageal, prevascular, subaortic, left and right paratracheal and anterior mediastinal territories. The index subaortic node has an SUV of 13.0. Bilateral FDG positive nodes are present in the cervical level 4 regions with SUV of 8.0 in the 1.1 cm left sided node. In the abdomen, malignant celiac, right retrocrural and bilateral retroperitoneal periaortic nodes are FDG positive consistent with malignancy. A 1.3 x 1.9 cm right adrenal lesion with SUV of 9.2 represents metastatic disease. Uptake in the intracranial gold-white matter is physiologic. Breast parenchymal and axillary lymph nodes uptake bilaterally is unremarkable. Bilateral centrally located groundglass opacity suggests pulmonary edema, drug reaction or viral pneumonia. There were no findings to indicate osseous metastatic disease. Mrs. Miller was first seen by Dr. Galvez on June 04, 2020. At the family's request she was referred to neurosurgery at [place] for evaluation and to confirm brain metastasis. Dr. Galvez's note indicated that if brain mets were confirmed then we consideration therapy to the brain. If this was infectious process and should be treated accordingly and will consider combined chemoradiation for biopsy-proven lymph node involved well differentiated adenocarcinoma of the right lung. The next notes available were from Dr. Pena in [facility] indicating that she had multiple extensive pulmonary emboli in the bilateral pulmonary arteries including emboli and vascular bifurcations. There was no saddle embolus identified she continued to have extensive groundglass infiltrates seen in the perihilar and mid and upper lung zones particularly in the right middle lobe and bilateral upper lobes. Consolidating infiltrate is noted in the anterior aspect right lower lobe and left lower lobe. Small perihilar infiltrates are seen in the left lower lobe and lingula. It was noted that drainage catheter overlies the pericardium heart size was normal small pericardial effusion maximum with approximately 8 mm. This was diminished with prior study at which time the maximum width was approximately 2 cm. There was mediastinal and hilar adenopathy the largest node was 13 millimeters short axis diameter in the left hilar region. MRI of the head with and without contrast from 06/26/2020 reported innumerable supratentorial and infratentorial intra-axial and extra-axial enhancing mass lesions demonstrate enhancement on postcontrast images which small demonstrating decreased in size. There were no definite new enhancing lesions no hydrocephalus no herniation syndrome. Dr. Pena's progness note from 06/30/2020 reports guardian test did not show any actual mutation. She was admitted to [facility] from 05/05/2020 to 06/11/2020. She was seen by Dr. Alex from [facility]. She was discharged and scheduled to see Dr. Paola Quezada on 06/27/2020 as [facility] but got admitted to [facility] on 06/22/2020. She was admitted for weakness, nonproductive cough, hypoxia and hypotension. She was found to have recurrent pericardial effusion. She had pericardial window on 06/24/2020. She had CT of the chest abdomen pelvis on 06/26/2020 as reported above. She did have bilateral multiple pulmonary emboli on scan from 06/26/2020 as above. She had IR guided suction thrombectomy on 06/27/2020. IVC filter was placed on 06/28/2020 and she remained on heparin at that time. She was discharged on Eliquis for the pulmonary emboli. The plan at that time was whole brain radiation therapy then chemotherapy. She was on Dex 4 mg twice daily. Ms. Miller had preferred to do treatment in [place] at that time. She was readmitted to [facility] through their ER for shortness of breath, dyspnea and hypotension and hemoptysis prior to her followup with Dr. Pena on August 05, 2020. She had completed whole brain radiation therapy at that time. Dr Pena's notes indicated she received whole brain RT from July 03 through July 16, 2020. Chemotherapy was planned for August 05, 2020 but was placed on hold due to her hospital admission. The plan was for carboplatin Alimta/Keytruda. Her Tempest PD-L1 was reported at 40%. The Guardiant 360 was negative for EGFR, ALK, ROS1, BRAF, MET, RET and NTRK. She was found to have pneumonia with hypoxia and was placed on antibiotics per the primary care team. She was discharged on August 10, 2020. She was seen at [facility] [place] office on August 13, 2020. She had 3 days left remaining on her cefdinir 300 mg twice daily. Her first dose of carboplatin was held but they did proceed with Alimta and Keytruda. If she tolerated that well the plan was to proceed with adding the carboplatin cycle 2. Her dexamethasone was decreased to 4 mg twice daily. She received cycle 2 carboplatin Alimta and Keytruda on 09/03/2020. Her dexamethasone was then tapered to 2 mg twice daily with continued plans to further the taper to get her off of it completely. She continued follow-up with Dr. Pena at [facility] in [place]. On her October 01, 2020, Dr. Pena note it was noted she had she had pneumonitis due to the Keytruda (diagnosed at [facility]-after 2 cycles of Keytryda) but had maintained on Alimta single agent every 3 weeks. She had nausea, vomiting, hypotension, dehydration and decreased performance status overall. She required supportive care after receiving the carboplatin. Her further cycles of chemotherapy included single agent Alimta. Ms. Miller transferred her care to Dr. Galvez resuming Alimta single agent on December 10, 2020 here at [facility]. On day 8 following that administration of single agent Alimta she was found to be neutropenic with an ANC of 1420. Her hemoglobin was 9.5. She had continued monitoring. and her counts have recovered today. She was due for her next cycle of Alimta on December 31, 2020. She is here today for follow-up. She did not receive her cycle of Alimta on December 31, 2020 due to the fact that she received her COVID-19 vaccine. She had significant dry heaves and vomiting after receiving the vaccine. She states that her chemo nausea meds related to the nausea vomiting. She also had a really bad headache in my temples after receiving the vaccine. She said the headache is better today. She denies any other concerns today. She has had no further nausea or vomiting. She denies any fever or chills. She has had some shortness of breath but states it is stable and certainly no worse. She has had no vision changes. She denies any new cough. She denies hemoptysis. She denies any bowel or bladder changes. She denies any peripheral neuropathy with the Alimta. She states she does continue her folic acid daily. I am uncertain as to when her last B12 injection was given. Her ECOG today is 2. Past Medical History: Anxiety Depression Gastroesophageal reflux disease Past Surgical History: Bronchoscopy in 2019 Allergies: buPROPion HCl Medications: Difluprednate 4 Drop(s) (of 0.05 %) Emulsion Ophthalmic daily levETIRAcetam 1 Tablet (of 250 mg) Oral b.i.d. Montelukast Sodium 1 Tablet (of 10 mg) Oral daily Pantoprazole Sodium 1 Tablet (of 40 mg) Tablet, enteric coated Oral daily Sertraline HCl 1 Tablet (of 100 mg) Oral daily Family History: Ms. Miller's mother at age 86: skin cancer, and pneumonia, and hypertension, and osteoporosis. Ms. Miller's father is alive. Social History: Ms. Miller is . Ms. Miller has never smoked. She has no history of drinking. Review Of Symptoms: <See Above> Vital Signs: Performed on Jan 07, 2021 14:42 Height - 65.00 in Weight - 124.6 lbs (LOW) BSA - 1.62 sq.m BMI - 20.73 Temperature - 97.2 F (LOW) Pulse - 116 /min (HIGH) Respiration - 18 /min BP - 105/72 mm(hg) O2 Sat - 92 % (LOW) Pain - 0 Fatigue - 5,2 - Ambulatory/capable of all self-care, unable to perform any work activities. Up and about more than 50% of waking hours. (ECOG) Physical Examination: Constitutional Alert, oriented, no acute distress. Skin pink, warm and dry. Obviously does not feel good but is pleasant overall. Head Normocephalic; atraumatic. Eyes Conjunctivae and sclerae are clear and without icterus. ENMT No oral exudates, ulcers, masses, thrush or mucositis. Oropharynx clear. Tongue normal. Neck Supple without masses or thyromegaly. No jugular venous distension. Hematologic/Lymphatic No petechiae or purpura. No tender or palpable lymph nodes in the cervical or supraclavicular areas. Respiratory Lungs are clear to auscultation without rhonchi or wheezing. Cardiovascular Regular rate and rhythm of heart without murmurs,clicks, gallops or rubs. Back/Spine Non-tender to palpation. Extremities No visible deformities, no cyanosis, clubbing or edema. Musculoskeletal No tenderness or swelling, normal range of motion without obvious weakness. Integumentary No rashes or lesions. Neurologic No sensory or motor deficits, normal cerebellar function. Psychiatric Alert and oriented times three. Coherent speech. Verbalizes understanding of our discussions today. Laboratory:Test performed on Jan 07, 2021 12:35 Sodium 140 mmol/L Potassium 3.5 mmol/L Chloride 103 mmol/L CO2 23 mmol/L Anion Gap 17.5 BUN 7 mg/dL Creatinine 0.7 mg/dL Cr Clearance (Est) 94.9500 mL/min eGFR 88.9 mL/min Glucose 97 mg/dL Osmolality - Calculated 288 mOsm/kg Calcium 9.8 mg/dL Protein, Total 6.7 g/dL Albumin 4.1 g/dL Globulin 2.6 g/dL Bilirubin, Total 0.2 mg/dL ALT (SGPT) 6 U/L AST (SGOT) 15 U/L Alkaline Phosphatase 106 IU/L WBC 9.4 10 3/uL RBC 3.92 10 6/uL HGB 10.1 g/dL HCT 32.5 % MCV 82.9 fL MCH 25.8 pg MCHC 31.1 g/dL RDW 17.6 % Platelet Count 400 10 3/cmm MPV 9.2 fL Neutrophils 7.01 10 3/uL Lymphocytes 0.7 10 3/uL Monocytes 1.5 10 3/uL Eosinophils 0.1 10 3/uL Basophils 0.1 10 3/uL Neutrophil % 74.9 % Lymphocyte % 7.0 % Monocyte % 15.5 % Eosinophil % 1.5 % Basophils % 0.6 % NRBC % 0 % Impression: Stage IV non-small cell lung cancer, adenocarcinoma PDL 1 less than 40%, guardant 360 shows negative for EGFR, ALK, ROS1, BRAF, MET, RET, NTRK, based on scans done in [place],, metastatic disease to left adrenal gland and brain, status post whole brain radiation therapy in June 2020 Well-differentiated adenocarcinoma per bronchoscopy done on May 10, 2020 final pathology report shows well-differentiated no carcinoma involving the right middle lobe and right lower lobe and station 4R and station 11 R MRI scan done on May 19, 2020 in [place] showed innumerable ovoid cystic foci throughout the brain which demonstrates susceptibility signal loss and post contrast enhancement suspicious for infectious process such as neurocysticercosis.Spinal tap done at [place] showed no sign of infection, so it was concluded patient has brain mets for which she underwent whole brain radiation therapy in June 2020, in [place] Patient had multiple scans done in [facility] and was confirmed with stage IV adenocarcinoma of the lung with brain mets as well as left adrenal gland, started on carboplatin/Alimta/Keytruda on August 13, 2020, after second dose of chemotherapy she developed pneumonitis which was treated with antibiotics and tapering dose of steroids and her last dose of steroid was on November 23, 2020 and Keytruda was discontinued and she was treated with single agent Alimta every 3 weeks Pericardial effusion status post pericardial window x2 in April and June 2020 History of pulmonary embolism status post thrombolysis on June 27, 2020 status post IV filter placement on June 28, 2020, on Eliquis 2.5 mg daily Immunotherapy related pneumonitis, finished tapering dose of steroids on November 23, 2020 Sleep apnea, awaiting CPAP machine Plan/Problems Addressed at this Visit: 1. Metastatic adenocarcinoma right lung. She has stage IV non-small cell lung cancer. She has metastatic disease to the left adrenal gland, brain. She completed whole brain radiation on July 06, 2020. She had began chemotherapy with Keytruda carboplatin and Alimta. She developed pneumonitis after the second cycle of Keytruda and the Keytruda was stopped. She has since then weaned off steroid treatment for the pneumonitis. The carboplatin was stopped after 1 cycle due to poor performance status, nausea/vomiting, dehydration. She is also had complications of neutropenia and anemia. She did require supportive care with hydration, blood transfusions and antibiotics for pancytopenia-chemo induced. She has continued on single agent Alimta every 3 weeks. She transferred her care to Dr. Galvez from Dr. Pena in [place] received her first dose of Alimta here on December 10, 2020. A. She is due for single agent Alimta today. She is delayed 1 week already due to the fact that she had COVID-19 vaccine last week and did not tolerate this well. B. She presents today with significant headache and dry heaves/nausea vomiting. Her treatment will be delayed today. C. Labs today were reviewed in detail and discussed with Mrs. Miller and a copy was given to her. WBC 9.4, hemoglobin 10.1, platelets 400,000, ANC 7000. Potassium 3.5 random glucose 97 creatinine 0.7 her LFTs are normal. 2. History of brain metastasis???whole brain radiation completed on 07/16/2020. A. She presents today with significant headache, nausea vomiting and dry heaves. B. I requested MRI of the brain with contrast given her significant history. She is not on any steroids at this time other than her premeds for the Alimta. Her current instructions are 4 mg twice daily the day before and the day after the Alimta. 3. Pulmonary emboli A. She had interventional radiology thrombectomy and then IVC filter placed on 06/28/2020. She remains anticoagulated with Eliquis. 4. Pneumonitis-immunotherapy induced A. She developed pneumonitis after 2 doses of Keytruda. This was treated with prednisone taper. She has currently weaned off the prednisone. B. She has not resumed immunotherapy after developing pneumonitis after 2 cycles of pembrolizumab. 5. Retinal metastatic disease A. She was referred under Dr. Pena's care to Dr. Jett in [place], [place]. Apparently that appoint was not made prior to her transfer back to [place]. She may need further follow-up with radiation oncology here. I will defer that to Dr. Galvez's plan of care. B. She does not have any visual changes at present. 6. Hypotension A. She continues on midodrine 10 mg 3 times daily. 7. Pancytopenia secondary to chemotherapy A. She is currently recovered well. She does not have pancytopenia today. She did have an ANC of 1420 on December 17, 2020 after her first dose of Alimta here in our clinic. She has recovered well without any signs or symptoms of infection. 8. Malignant pleural effusion, cardiac tamponade A. She is currently not having any symptoms of problems. She did have a pericardial window on May 22 and June 24, 2020. B. She remains dependent on supplemental oxygen. 9. Gastritis A. She continues on Protonix 40 mg daily. B. She has no complaints of gastritis symptoms at this time. 10. Situational depression/anxiety. A. She is currently taking sertraline 100 mg daily and feels well controlled on this. B. She has no concerns regarding the situational depression anxiety today. 11. Follow-up plan A. I requested an MRI of the brain with contrast as soon as possible to evaluate her significant headache, dry heaves and nausea vomiting. This may be related to the COVID-19 vaccine however given her significant history this needs to be evaluated. B. Her treatment plan for today will be held due to the symptoms above. Once we receive the results of her MRI we will proceed with treatment if appropriate. She remains on single agent Alimta only. Total time spent on Ms. Garay care today including review of her records prior to her visit, discussion of current symptoms, plan of care and management of symptoms as well as discussion of her case with Dr. Galvez and post visit documentation was 65 minutes. Signed By: Christi Ibarra-, AOCNP Foster Galvez MD <<Signature on File>>
== END 2021-01-22 23:59 | disposition home or self-care (01) ==
LOC: ONCMED 08:58
PROVIDERS: Internal Medicine Hematology & Oncology; PCP Family Medicine; Visit Provider Nurse Practitioner
DX: C34.01 Malignant neoplasm of right main bronchus (principal); C79.31 Secondary malignant neoplasm of brain; C79.72 Secondary malignant neoplasm of left adrenal gland; I31.3 Pericardial effusion (noninflammatory); G47.33 Obstructive sleep apnea (adult) (pediatric); Z79.52 Long term (current) use of systemic steroids; Z79.899 Other long term (current) drug therapy; Z92.21 Personal history of antineoplastic chemotherapy; Z92.3 Personal history of irradiation
CPT/HCPCS: 36591; 70553; 80053; 85025; 99215; A9577

== ENCOUNTER 2021-02-05 05:44 | Outpatient (RCR) | payer OTHER, SELFPAY ==
[2021-02-04 11:03] LABS: Basophils % 0.3 %; Eosinophils # 0.1 10^3/uL (0.0-0.8); Hemoglobin 10.3 g/dL (11.5-15.3); Lymphocytes # 0.5 10^3/uL (0.8-4.8); Lymphocytes % 3.9 %; Mean Corpuscular HGB Conc 30.3 g/dL (30.0-36.0); Mean Corpuscular Hemoglobin 24.6 pg (28.0-34.0); Mean Corpuscular Volume 81.3 fL (81-99); Mean Platelet Volume 8.5 fL (7.4-10.4); Monocytes % 8.2 %; Neutrophils # 10.12 10^3/uL (1.8-7.7); Neutrophils % 85.5 %; Nucleated Red Blood Cells % 0 %; Platelet Count 313 10^3/cmm (130-400); Red Blood Count 4.18 10^6/uL (4.1-5.3); Red Cell Distribution Width 17.2 % (12.1-15.1); White Blood Count 11.8 10^3/uL (4.0-10.0)
[2021-02-04 11:22] LABS: Alanine Aminotransferase 9 U/L (0-33); Albumin Level 3.8 g/dL (3.5-5.2); Alkaline Phosphatase 77 IU/L (35-105); Anion Gap 17.9 (5-19); Aspartate Amino Transferase 10 U/L (0-32); Blood Urea Nitrogen 9 mg/dL (6-20); Calcium 9.1 mg/dL (8.5-10.5); Carbon Dioxide 22 mmol/L (22-29); Chloride 104 mmol/L (98-107); Globulin 2.6 g/dL (1.3-4.6); Glomerular Filtration Rate 88.9 mL/min (90-130); Glucose 89 mg/dL (65-115); Osmolality Calculated 288 mOsm/kg (285-295); Potassium 3.9 mmol/L (3.5-5.1); Sodium 140 mmol/L (136-145); Total Bilirubin 0.2 mg/dL (0.15-1.2); Total Protein 6.4 g/dL (6.6-8.7)
[2021-02-05] MEDS: ondansetron 2 mg/ML SDV 2 mL 8 MG IV (11:45)
[2021-02-05] MEDS: sodium chloride 0.9% 250 ML 375 ML IV (11:45)
--- NOTE | 2021-02-09 16:40 | ONC FU_ITS ---
Dr. Galvez follow up note Patient: Sophia Miller Unit #: [id number]: 1970 Dicatated By: Foster Galvez M.D.Date of Visit:Feb 05, 2021 Onc Med Follow-up/Prog Note History of Present Illness: Ms. Miller is a 50-year-old female with history of chronic nonproductive cough since August 2019. Ms Garay reports she underwent some dental work-up in the beginning of 2019. At that time she was given antibiotics but her cough did not improve much. She was treated with Levaquin multiple times and then October 2019 she obtained a chest x-ray. The xray reported right lower lobe infiltrate. She was treated with levofloxacin again and with no significant improvement in her cough, she eventually underwent CT scan of the chest on On 02/12/2020. Findings reported focal consolidation right lower lobe along the fissure with air bronchograms. Consolidation measured 5.3 x 4.3 x 5.6 cm. Patchy infiltrate along the right upper lobe laterally. Moderate pericardial effusion. Prominent lymph nodes bilaterally nonspecific but likely reactive measuring 12 mm on the right and 14 mm on the left. Enlarged subcarinal lymph node measuring 14 mm. Proximal main arteries were normal. Normal thoracic aorta. She had an echocardiogram on 02/26/2020 for evaluation of the pericardial effusion which reported a normal left ventricular systolic function and left ventricular ejection fraction estimated at 70%. There were no regional wall motion abnormalities. Normal dystonic dysfunction. There was a moderate circumferential pericardial effusion 1.2 cm along the right ventricle and 1.5 cm along the left ventricle. There was no evidence of hemodynamic compromise and normal size inferior vena cava. She then had follow-up chest x-ray on 02/29/2020 which reported subtle opacity within the middle lobe versus right lung base. Lungs otherwise well aerated. There is no pleural effusion and no pneumothorax. She underwent bronchoscopy on March 22, [address] Hayden. Endobronchial biopsy from the right middle lobe reported lung parenchyma with chronic inflammation no granulomas identified no malignancy identified right lower lobe biopsy reported lung parenchyma and cartilage with focal chronic inflammation. No granulomas or malignancy identified. The bronchial cytology reported by voice and by number on 03/22/2020 reported benign ciliated respiratory epithelial cells, rare benign squamous epithelial cells, mixed inflammatory cells, macrophages, blood and fibrin/proteinaceous debris's. No malignant cells were seen. BAL Aspergillus antigen was positive but index was 0.61. She was treated with doxycycline for1 week and noticed some improvement in the cough. Followup CT scan of chest was repeated on April 29, 2020 which showed consolidative infiltrate in the right lower lobe along the fissure with air bronchograms. Not significantly change from previous, but it did show new hazy groundglass perihilar, upper lobe infiltrates with associated micronodules in the bronchovascular and perilymphatic distribution. She also had persistent moderate pericardial effusion unchanged anterior mediastinal, right paratracheal, hilar and subcarinal lymphadenopathy. Ms Miller underwent repeat bronchoscopy on May 10, 2020 and pathology report came back adenocarcinoma involving the right lower lobe, right middle lobe, station 4R lymph node, station 11 R lymph node. Immunohistochemistry showed TTF-1 positive, p63 negative, Napsin-A positive. On May 15, 2020, patient developed dizziness and was also developing questionable mental status changes e.g. intermittent confusion, but no one-sided weakness or numbness or slurred speech. She presented to [facility] on May 19, 2020. She did have a MRI scan of the head on May 19, 2020. It reported no evidence of acute ischemia or infarct, no acute intracranial hemorrhage. Innumerable ovoid cystic foci throughout the brain which demonstrate susceptibility signal loss and post contrast enhancement suspicious for infectious process such as neurocysticercosis. No evidence of hydrocephalus. Ms Miller reported that at that time, neurosurgery was consulted and clinically, she was diagnosed with brain mets. She was started on dexamethasone and Keppra, no biopsy was done but some blood test but no spinal tap was done either. She also had pericardial biopsy done which shows no evidence of malignant involvement. A repeat CT scan of chest abdomen pelvis done in [place] on May 20, 2020 showed an irregular area of consolidation or neoplastic involvement in the right lower lobe just above the diaphragm approximately 5.5 x 5.5 x 2.5 cm this is internal air bronchograms and elongated shape most consistent with infiltrate or atelectasis perihilar groundglass opacities bilaterally, suspect pneumonia., Echocardiogram done on May 21, 2020 shows ejection fraction 55 to 60%. She reported that because of blurred vision she was also evaluated by ophthalmology and impression was could be due to sarcoidosis involvement. She had subxiphoid pericardial window per Dr. Stiven Basurto at [facility] on 05/22/2020. The pathology final report dated on 05/24/2020 was benign pericardial tissue. There was no sign of significant inflammation. No positive staining neoplastic cells were identified in sections stained with MOC 31, BerEP4 and TTF???1. Ms. Miller had PET/CT imaging with [facility] radiology on 06/01/2020 which reported anterior right lower lobe a 4.3 x 2.6 semisolid mass with an SUV of 12.9. This has a high probability of malignancy, most likely bronchogenic carcinoma. Extensive hypermetabolic adenopathy is present in the mediastinum, consistent with local metastatic disease. Nodes are present in the bilateral hilar, subcarinal, periesophageal, prevascular, subaortic, left and right paratracheal and anterior mediastinal territories. The index subaortic node has an SUV of 13.0. Bilateral FDG positive nodes are present in the cervical level 4 regions with SUV of 8.0 in the 1.1 cm left sided node. In the abdomen, malignant celiac, right retrocrural and bilateral retroperitoneal periaortic nodes are FDG positive consistent with malignancy. A 1.3 x 1.9 cm right adrenal lesion with SUV of 9.2 represents metastatic disease. Uptake in the intracranial gold-white matter is physiologic. Breast parenchymal and axillary lymph nodes uptake bilaterally is unremarkable. Bilateral centrally located groundglass opacity suggests pulmonary edema, drug reaction or viral pneumonia. There were no findings to indicate osseous metastatic disease. Mrs. Miller was first seen by Dr. Galvez on June 04, 2020. At the family's request she was referred to neurosurgery at [place] for evaluation and to confirm brain metastasis. Dr. Galvez's note indicated that if brain mets were confirmed then we consideration therapy to the brain. If this was infectious process and should be treated accordingly and will consider combined chemoradiation for biopsy-proven lymph node involved well differentiated adenocarcinoma of the right lung. The next notes available were from Dr. Pena in [facility] indicating that she had multiple extensive pulmonary emboli in the bilateral pulmonary arteries including emboli and vascular bifurcations. There was no saddle embolus identified she continued to have extensive groundglass infiltrates seen in the perihilar and mid and upper lung zones particularly in the right middle lobe and bilateral upper lobes. Consolidating infiltrate is noted in the anterior aspect right lower lobe and left lower lobe. Small perihilar infiltrates are seen in the left lower lobe and lingula. It was noted that drainage catheter overlies the pericardium heart size was normal small pericardial effusion maximum with approximately 8 mm. This was diminished with prior study at which time the maximum width was approximately 2 cm. There was mediastinal and hilar adenopathy the largest node was 13 millimeters short axis diameter in the left hilar region. MRI of the head with and without contrast from 06/26/2020 reported innumerable supratentorial and infratentorial intra-axial and extra-axial enhancing mass lesions demonstrate enhancement on postcontrast images which small demonstrating decreased in size. There were no definite new enhancing lesions no hydrocephalus no herniation syndrome. Dr. Pena's progness note from 06/30/2020 reports guardian test did not show any actual mutation. She was admitted to [facility] from 05/05/2020 to 06/11/2020. She was seen by Dr. Alex from [facility]. She was discharged and scheduled to see Dr. Paola Quezada on 06/27/2020 as [facility] but got admitted to [facility] on 06/22/2020. She was admitted for weakness, nonproductive cough, hypoxia and hypotension. She was found to have recurrent pericardial effusion. She had pericardial window on 06/24/2020. She had CT of the chest abdomen pelvis on 06/26/2020 as reported above. She did have bilateral multiple pulmonary emboli on scan from 06/26/2020 as above. She had IR guided suction thrombectomy on 06/27/2020. IVC filter was placed on 06/28/2020 and she remained on heparin at that time. She was discharged on Eliquis for the pulmonary emboli. The plan at that time was whole brain radiation therapy then chemotherapy. She was on Dex 4 mg twice daily. Ms. Miller had preferred to do treatment in [place] at that time. She was readmitted to [facility] through their ER for shortness of breath, dyspnea and hypotension and hemoptysis prior to her followup with Dr. Pena on August 05, 2020. She had completed whole brain radiation therapy at that time. Dr Pena's notes indicated she received whole brain RT from July 03 through July 16, 2020. Chemotherapy was planned for August 05, 2020 but was placed on hold due to her hospital admission. The plan was for carboplatin Alimta/Keytruda. Her Tempest PD-L1 was reported at 40%. The Guardiant 360 was negative for EGFR, ALK, ROS1, BRAF, MET, RET and NTRK. She was found to have pneumonia with hypoxia and was placed on antibiotics per the primary care team. She was discharged on August 10, 2020. She was seen at [facility] [place] office on August 13, 2020. She had 3 days left remaining on her cefdinir 300 mg twice daily. Her first dose of carboplatin was held but they did proceed with Alimta and Keytruda. If she tolerated that well the plan was to proceed with adding the carboplatin cycle 2. Her dexamethasone was decreased to 4 mg twice daily. She received cycle 2 carboplatin Alimta and Keytruda on 09/03/2020. Her dexamethasone was then tapered to 2 mg twice daily with continued plans to further the taper to get her off of it completely. She continued follow-up with Dr. Pena at [facility] in [place]. On her October 01, 2020, Dr. Pena note it was noted she had she had pneumonitis due to the Keytruda (diagnosed at [facility]-after 2 cycles of Keytryda) but had maintained on Alimta single agent every 3 weeks. She had nausea, vomiting, hypotension, dehydration and decreased performance status overall. She required supportive care after receiving the carboplatin. Her further cycles of chemotherapy included single agent Alimta. Ms. Miller transferred her care to resuming Alimta single agent on December 10, 2020 here at [facility]. On day 8 following that administration of single agent Alimta she was found to be neutropenic with an ANC of 1420. Her hemoglobin was 9.5. She had continued monitoring. and her counts have recovered today. She was due for her next cycle of Alimta on December 31, 2020. Came for follow-up, denies any specific complaint, as per patient after Covid vaccine she develops headaches and vomiting for almost 2 weeks???so she could not come back for her scheduled chemotherapy as per patient she had MRI scan of the head which showed no new lesion and stable other now her symptoms have improved and she is ready to resume her 3 weekly Alimta. As per patient she has seen Dr. Seth, ophthalmology for decreasing vision in her right eye, who told her she has a mass in the back of her eyes for which she may need radiation therapy. Patient is not sure about Type of radiation therapy Medications: Difluprednate 4 Drop(s) (of 0.05 %) Emulsion Ophthalmic daily, levETIRAcetam 1 Tablet (of 250 mg) Oral b.i.d., Montelukast Sodium 1 Tablet (of 10 mg) Oral daily, Pantoprazole Sodium 1 Tablet (of 40 mg) Tablet, enteric coated Oral daily, Sertraline HCl 1 Tablet (of 100 mg) Oral daily Allergies: buPROPion HCl Review of Systems: Review of Systems is not available for this patient. Vital Signs: Performed on Feb 05, 2021 11:46 Height - 65.00 in Temperature - 97.6 F (LOW) Pulse - 82 /min Respiration - 18 /min BP - 118/76 mm(hg) O2 Sat - 96 % Pain - 0 Fatigue - 5 Performed on Feb 05, 2021 09:42 Height - 65.00 in Weight - 119.0 lbs (LOW) BSA - 1.59 sq.m BMI - 19.80 Temperature - 97.8 F (LOW) Pulse - 108 /min (HIGH) Respiration - 18 /min BP - 118/77 mm(hg) O2 Sat - 92 % (LOW) Pain - 0 Performance Status: 0 - Fully active, able to carry on all predisease activities without restrictions. (ECOG) Physical Examination: ENMT - No mouth sores, no jaundice, no thrush, Respiratory - Lungs are clear to auscultation, Cardiovascular - Regular rate and rhythm of heart, Abdomen - Soft, bowel sounds present, Extremities - No visible edema. Lab/Imaging: Test performed on Jan 07, 2021 12:35 Sodium 140 mmol/L Potassium 3.5 mmol/L Chloride 103 mmol/L CO2 23 mmol/L Anion Gap 17.5 BUN 7 mg/dL Creatinine 0.7 mg/dL Cr Clearance (Est) 94.9500 mL/min eGFR 88.9 mL/min Glucose 97 mg/dL Osmolality - Calculated 288 mOsm/kg Calcium 9.8 mg/dL Protein, Total 6.7 g/dL Albumin 4.1 g/dL Globulin 2.6 g/dL Bilirubin, Total 0.2 mg/dL ALT (SGPT) 6 U/L AST (SGOT) 15 U/L Alkaline Phosphatase 106 IU/L WBC 9.4 10 3/uL RBC 3.92 10 6/uL HGB 10.1 g/dL HCT 32.5 % MCV 82.9 fL MCH 25.8 pg MCHC 31.1 g/dL RDW 17.6 % Platelet Count 400 10 3/cmm MPV 9.2 fL Neutrophils 7.01 10 3/uL Lymphocytes 0.7 10 3/uL Monocytes 1.5 10 3/uL Eosinophils 0.1 10 3/uL Basophils 0.1 10 3/uL Neutrophil % 74.9 % Lymphocyte % 7.0 % Monocyte % 15.5 % Eosinophil % 1.5 % Basophils % 0.6 % NRBC % 0 % Impression: Stage IV non-small cell lung cancer, adenocarcinoma PDL 1 less than 40%, guardant 360 shows negative for EGFR, ALK, ROS1, BRAF, MET, RET, NTRK, based on scans done in [place],, metastatic disease to left adrenal gland and brain, status post whole brain radiation therapy in June 2020 Well-differentiated adenocarcinoma per bronchoscopy done on May 10, 2020 final pathology report shows well-differentiated no carcinoma involving the right middle lobe and right lower lobe and station 4R and station 11 R MRI scan done on May 19, 2020 in [place] showed innumerable ovoid cystic foci throughout the brain which demonstrates susceptibility signal loss and post contrast enhancement suspicious for infectious process such as neurocysticercosis.Spinal tap done at [facility] showed no sign of infection, so it was concluded patient has brain mets for which she underwent whole brain radiation therapy in June 2020, in [place] Patient had multiple scans done in [facility] and was confirmed with stage IV adenocarcinoma of the lung with brain mets as well as left adrenal gland, started on carboplatin/Alimta/Keytruda on August 13, 2020, after second dose of chemotherapy she developed pneumonitis which was treated with antibiotics and tapering dose of steroids and her last dose of steroid was on November 23, 2020 and Keytruda was discontinued and she was treated with single agent Alimta every 3 weeks, There was a gap after her Alimta dose which was given on December 10, 2020, as per patient she received Covid vaccination and did develop some symptoms like nausea vomiting headaches which lasted more than 2 weeks so patient did not come for treatment until in January 2021 CT scan of head was done on May 28, 2020 showed no acute infarction or acute intracranial hemorrhage. T2/flair hyperintense lesions on brain MRI from May 19, 2020 are largely not appreciated on this exam. 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, 2020 Sleep apnea, awaiting CPAP machine After Covid vaccine, patient developed headaches, nausea vomiting, she underwent MRI scan of the brain done on January 09, 2021 which shows no evidence of disease progression, stable appearance of innumerable supra and infratentorial tiny enhancing lesions with associated with hemosiderin no hydrocephalus, increased periventricular white matter changes consistent with treatment effect Plan: Discussed with patient regarding her labs white blood count 11.8 hemoglobin 10.3 g compared to 10.1 g previously. Hematocrit 34 platelets 313,000 CMP within normal limits Clinically, patient is doing well, recently had Covid vaccination done as per patient she did develop symptoms like nausea vomiting, headache lasted 2 weeks, also had MRI scan of the head which shows no new lesion but stable old ones. Now she is ready to resume her 3 weekly Alimta, her lab work-up is reasonable so we will proceed with her next 3 weekly dose of Alimta today and then she will return to clinic in 3 weeks with CBC CMP Signed By: Foster Galvez M.D. <<Signature on File>>
== END 2021-02-22 23:59 | disposition home or self-care (01) ==
LOC: ONCMED 05:44
PROVIDERS: PCP Family Medicine; Visit Provider Internal Medicine Hematology & Oncology
DX: Z51.11 Encounter for antineoplastic chemotherapy (principal); C34.81 Malignant neoplasm of overlapping sites of right bronchus and lung; C79.31 Secondary malignant neoplasm of brain; I31.3 Pericardial effusion (noninflammatory); G47.33 Obstructive sleep apnea (adult) (pediatric); Z86.16 Personal history of COVID-19; Z86.711 Personal history of pulmonary embolism; Z79.01 Long term (current) use of anticoagulants; Z79.899 Other long term (current) drug therapy
CPT/HCPCS: 36415; 36591; 80053; 85025; 96367; 96375; 96413; 99215; J1100; J2405; J7050; J9305

== ENCOUNTER 2021-03-19 05:40 | Outpatient (RCR) | payer OTHER, SELFPAY ==
[2021-02-25 10:41] LABS: Basophils % 0.4 %; Eosinophils # 0.1 10^3/uL (0.0-0.8); Eosinophils % 0.8 %; Hematocrit 34.5 % (37.0-47.0); Hemoglobin 10.6 g/dL (11.5-15.3); Lymphocytes # 0.6 10^3/uL (0.8-4.8); Lymphocytes % 5.8 %; Mean Corpuscular HGB Conc 30.7 g/dL (30.0-36.0); Mean Corpuscular Volume 81.4 fL (81-99); Mean Platelet Volume 8.5 fL (7.4-10.4); Monocytes # 1.2 10^3/uL (0.2-0.9); Monocytes % 11.6 %; Nucleated Red Blood Cells % 0.2 %; Platelet Count 289 10^3/cmm (130-400); Red Blood Count 4.24 10^6/uL (4.1-5.3); Red Cell Distribution Width 18.8 % (12.1-15.1); White Blood Count 10.3 10^3/uL (4.0-10.0)
[2021-02-25 11:17] LABS: Alanine Aminotransferase 13 U/L (0-33); Alkaline Phosphatase 74 IU/L (35-105); Anion Gap 16.4 (5-19); Aspartate Amino Transferase 14 U/L (0-32); Blood Urea Nitrogen 12 mg/dL (6-20); Carbon Dioxide 22 mmol/L (22-29); Chloride 107 mmol/L (98-107); Globulin 2.3 g/dL (1.3-4.6); Glomerular Filtration Rate 66.5 mL/min (90-130); Glucose 85 mg/dL (65-115); Osmolality Calculated 293 mOsm/kg (285-295); Potassium 3.4 mmol/L (3.5-5.1); Sodium 142 mmol/L (136-145); Total Bilirubin 0.2 mg/dL (0.15-1.2); Total Protein 6.3 g/dL (6.6-8.7)
[2021-02-26] MEDS: sodium chloride 0.9% 250 ML 75 ML IV (12:20)
[2021-02-26] MEDS: ondansetron 2 mg/ML SDV 2 mL 8 MG IV (12:28)
[2021-02-26 12:54] LABS: Magnesium 2.1 mg/dL (1.7-2.3)
--- NOTE | 2021-02-26 15:14 | ONC FU_ITS ---
Dr. Galvez follow up note Patient: Sophia Miller Unit #: [id number]: [id number] Dicatated By: Foster Galvez M.D.Date of Visit:Feb 26, 2021 Onc Med Follow-up/Prog Note History of Present Illness: Ms. Miller is a 50-year-old female with history of chronic nonproductive cough since August 2019. Ms Garay reports she underwent some dental work-up in the beginning of 2019. At that time she was given antibiotics but her cough did not improve much. She was treated with Levaquin multiple times and then October 2019 she obtained a chest x-ray. The xray reported right lower lobe infiltrate. She was treated with levofloxacin again and with no significant improvement in her cough, she eventually underwent CT scan of the chest on On 02/12/2020. Findings reported focal consolidation right lower lobe along the fissure with air bronchograms. Consolidation measured 5.3 x 4.3 x 5.6 cm. Patchy infiltrate along the right upper lobe laterally. Moderate pericardial effusion. Prominent lymph nodes bilaterally nonspecific but likely reactive measuring 12 mm on the right and 14 mm on the left. Enlarged subcarinal lymph node measuring 14 mm. Proximal main arteries were normal. Normal thoracic aorta. She had an echocardiogram on 02/26/2020 for evaluation of the pericardial effusion which reported a normal left ventricular systolic function and left ventricular ejection fraction estimated at 70%. There were no regional wall motion abnormalities. Normal dystonic dysfunction. There was a moderate circumferential pericardial effusion 1.2 cm along the right ventricle and 1.5 cm along the left ventricle. There was no evidence of hemodynamic compromise and normal size inferior vena cava. She then had follow-up chest x-ray on 02/29/2020 which reported subtle opacity within the middle lobe versus right lung base. Lungs otherwise well aerated. There is no pleural effusion and no pneumothorax. She underwent bronchoscopy on March 22, [address] Hayden. Endobronchial biopsy from the right middle lobe reported lung parenchyma with chronic inflammation no granulomas identified no malignancy identified right lower lobe biopsy reported lung parenchyma and cartilage with focal chronic inflammation. No granulomas or malignancy identified. The bronchial cytology reported by voice and by number on 03/22/2020 reported benign ciliated respiratory epithelial cells, rare benign squamous epithelial cells, mixed inflammatory cells, macrophages, blood and fibrin/proteinaceous debris's. No malignant cells were seen. BAL Aspergillus antigen was positive but index was 0.61. She was treated with doxycycline for1 week and noticed some improvement in the cough. Followup CT scan of chest was repeated on April 29, 2020 which showed consolidative infiltrate in the right lower lobe along the fissure with air bronchograms. Not significantly change from previous, but it did show new hazy groundglass perihilar, upper lobe infiltrates with associated micronodules in the bronchovascular and perilymphatic distribution. She also had persistent moderate pericardial effusion unchanged anterior mediastinal, right paratracheal, hilar and subcarinal lymphadenopathy. Ms Miller underwent repeat bronchoscopy on May 10, 2020 and pathology report came back adenocarcinoma involving the right lower lobe, right middle lobe, station 4R lymph node, station 11 R lymph node. Immunohistochemistry showed TTF-1 positive, p63 negative, Napsin-A positive. On May 15, 2020, patient developed dizziness and was also developing questionable mental status changes e.g. intermittent confusion, but no one-sided weakness or numbness or slurred speech. She presented to [facility] on May 19, 2020. She did have a MRI scan of the head on May 19, 2020. It reported no evidence of acute ischemia or infarct, no acute intracranial hemorrhage. Innumerable ovoid cystic foci throughout the brain which demonstrate susceptibility signal loss and post contrast enhancement suspicious for infectious process such as neurocysticercosis. No evidence of hydrocephalus. Ms Miller reported that at that time, neurosurgery was consulted and clinically, she was diagnosed with brain mets. She was started on dexamethasone and Keppra, no biopsy was done but some blood test but no spinal tap was done either. She also had pericardial biopsy done which shows no evidence of malignant involvement. A repeat CT scan of chest abdomen pelvis done in [place] on May 20, 2020 showed an irregular area of consolidation or neoplastic involvement in the right lower lobe just above the diaphragm approximately 5.5 x 5.5 x 2.5 cm this is internal air bronchograms and elongated shape most consistent with infiltrate or atelectasis perihilar groundglass opacities bilaterally, suspect pneumonia., Echocardiogram done on May 21, 2020 shows ejection fraction 55 to 60%. She reported that because of blurred vision she was also evaluated by ophthalmology and impression was could be due to sarcoidosis involvement. She had subxiphoid pericardial window per Dr. Stiven Basurto at [facility] on 05/22/2020. The pathology final report dated on 05/24/2020 was benign pericardial tissue. There was no sign of significant inflammation. No positive staining neoplastic cells were identified in sections stained with MOC 31, BerEP4 and TTF???1. Ms. Miller had PET/CT imaging with [facility] radiology on 06/01/2020 which reported anterior right lower lobe a 4.3 x 2.6 semisolid mass with an SUV of 12.9. This has a high probability of malignancy, most likely bronchogenic carcinoma. Extensive hypermetabolic adenopathy is present in the mediastinum, consistent with local metastatic disease. Nodes are present in the bilateral hilar, subcarinal, periesophageal, prevascular, subaortic, left and right paratracheal and anterior mediastinal territories. The index subaortic node has an SUV of 13.0. Bilateral FDG positive nodes are present in the cervical level 4 regions with SUV of 8.0 in the 1.1 cm left sided node. In the abdomen, malignant celiac, right retrocrural and bilateral retroperitoneal periaortic nodes are FDG positive consistent with malignancy. A 1.3 x 1.9 cm right adrenal lesion with SUV of 9.2 represents metastatic disease. Uptake in the intracranial gold-white matter is physiologic. Breast parenchymal and axillary lymph nodes uptake bilaterally is unremarkable. Bilateral centrally located groundglass opacity suggests pulmonary edema, drug reaction or viral pneumonia. There were no findings to indicate osseous metastatic disease. Mrs. Miller was first seen on June 04, 2020. At the family's request she was referred to neurosurgery at [facility] for evaluation and to confirm brain metastasis. The next notes available were [facility] indicating that she had multiple extensive pulmonary emboli in the bilateral pulmonary arteries including emboli and vascular bifurcations. There was no saddle embolus identified she continued to have extensive groundglass infiltrates seen in the perihilar and mid and upper lung zones particularly in the right middle lobe and bilateral upper lobes. Consolidating infiltrate is noted in the anterior aspect right lower lobe and left lower lobe. Small perihilar infiltrates are seen in the left lower lobe and lingula. It was noted that drainage catheter overlies the pericardium heart size was normal small pericardial effusion maximum with approximately 8 mm. This was diminished with prior study at which time the maximum width was approximately 2 cm. There was mediastinal and hilar adenopathy the largest node was 13 millimeters short axis diameter in the left hilar region. MRI of the head with and without contrast from 06/26/2020 reported innumerable supratentorial and infratentorial intra-axial and extra-axial enhancing mass lesions demonstrate enhancement on postcontrast images which small demonstrating decreased in size. There were no definite new enhancing lesions no hydrocephalus no herniation syndrome. from 06/30/2020 reports guardian test did not show any actual mutation. She was admitted to [facility] from 05/05/2020 to 06/11/2020. She was seen by Dr. Alex from [facility]. She was discharged and scheduled to see Dr. Paola Quezada on 06/27/2020 as [facility] but got admitted to [facility] on 06/22/2020. She was admitted for weakness, nonproductive cough, hypoxia and hypotension. She was found to have recurrent pericardial effusion. She had pericardial window on 06/24/2020. She had CT of the chest abdomen pelvis on 06/26/2020 as reported above. She did have bilateral multiple pulmonary emboli on scan from 06/26/2020 as above. She had IR guided suction thrombectomy on 06/27/2020. IVC filter was placed on 06/28/2020 and she remained on heparin at that time. She was discharged on Eliquis for the pulmonary emboli. The plan at that time was whole brain radiation therapy then chemotherapy. She was on Dex 4 mg twice daily. Ms. Miller had preferred to do treatment in [place] at that time. She was readmitted to [facility] through their ER for shortness of breath, dyspnea and hypotension and hemoptysis prior to her followup with Dr. Pena on August 05, 2020. She had completed whole brain radiation therapy at that time. Dr Pena's notes indicated she received whole brain RT from July 03 through July 16, 2020. Chemotherapy was planned for August 05, 2020 but was placed on hold due to her hospital admission. The plan was for carboplatin Alimta/Keytruda. Her Tempest PD-L1 was reported at 40%. The Guardiant 360 was negative for EGFR, ALK, ROS1, BRAF, MET, RET and NTRK. She was found to have pneumonia with hypoxia and was placed on antibiotics per the primary care team. She was discharged on August 10, 2020. She was seen at [facility] [place] office on August 13, 2020. She had 3 days left remaining on her cefdinir 300 mg twice daily. Her first dose of carboplatin was held but they did proceed with Alimta and Keytruda. If she tolerated that well the plan was to proceed with adding the carboplatin cycle 2. Her dexamethasone was decreased to 4 mg twice daily. She received cycle 2 carboplatin Alimta and Keytruda on 09/03/2020. Her dexamethasone was then tapered to 2 mg twice daily with continued plans to further the taper to get her off of it completely. She continued follow-up with Dr. Pena at [facility] in [place]. On her October 01, 2020, Dr. Pena note it was noted she had she had pneumonitis due to the Keytruda (diagnosed at [facility]-after 2 cycles of Keytryda) but had maintained on Alimta single agent every 3 weeks. She had nausea, vomiting, hypotension, dehydration and decreased performance status overall. She required supportive care after receiving the carboplatin. Her further cycles of chemotherapy included single agent Alimta. Ms. Miller transferred her care to resuming Alimta single agent on December 10, 2020 here at [facility]. On day 8 following that administration of single agent Alimta she was found to be neutropenic with an ANC of 1420. Her hemoglobin was 9.5. She had continued monitoring. and her counts have recovered today. She was due for her next cycle of Alimta on December 31, 2020. Came for follow-up, denies any specific complaints, no fever chills, no nausea or vomiting, no diarrhea or constipation, no headaches blurred vision double vision, no hemoptysis hematemesis, tolerating Alimta well otherwise, as per patient she has seen [employer] Dr. Jj Griffith, in [place] ,she has retinal mass, may need radiation therapy Medications: Difluprednate 4 Drop(s) (of 0.05 %) Emulsion Ophthalmic daily, levETIRAcetam 1 Tablet (of 250 mg) Oral b.i.d., Montelukast Sodium 1 Tablet (of 10 mg) Oral daily, Pantoprazole Sodium 1 Tablet (of 40 mg) Tablet, enteric coated Oral daily, Sertraline HCl 1 Tablet (of 100 mg) Oral daily Allergies: buPROPion HCl Review of Systems: Review of Systems is not available for this patient. Vital Signs: Performed on Feb 26, 2021 11:30 Height - 65.00 in Weight - 118.0 lbs (LOW) BSA - 1.58 sq.m BMI - 19.64 Temperature - 97.0 F (LOW) Pulse - 90 /min Respiration - 18 /min BP - 110/73 mm(hg) O2 Sat - 99 % Pain - 0 Performance Status: 0 - Fully active, able to carry on all predisease activities without restrictions. (ECOG) Physical Examination: ENMT - No mouth sores, no thrush, no jaundice, Respiratory - Lungs are clear to auscultation, Cardiovascular - Regular rate and rhythm of heart, Abdomen - Soft, bowel sounds present, Extremities - No visible edema. Lab/Imaging: Test performed on Jan 07, 2021 12:35 Sodium 140 mmol/L Potassium 3.5 mmol/L Chloride 103 mmol/L CO2 23 mmol/L Anion Gap 17.5 BUN 7 mg/dL Creatinine 0.7 mg/dL Cr Clearance (Est) 94.9500 mL/min eGFR 88.9 mL/min Glucose 97 mg/dL Osmolality - Calculated 288 mOsm/kg Calcium 9.8 mg/dL Protein, Total 6.7 g/dL Albumin 4.1 g/dL Globulin 2.6 g/dL Bilirubin, Total 0.2 mg/dL ALT (SGPT) 6 U/L AST (SGOT) 15 U/L Alkaline Phosphatase 106 IU/L WBC 9.4 10 3/uL RBC 3.92 10 6/uL HGB 10.1 g/dL HCT 32.5 % MCV 82.9 fL MCH 25.8 pg MCHC 31.1 g/dL RDW 17.6 % Platelet Count 400 10 3/cmm MPV 9.2 fL Neutrophils 7.01 10 3/uL Lymphocytes 0.7 10 3/uL Monocytes 1.5 10 3/uL Eosinophils 0.1 10 3/uL Basophils 0.1 10 3/uL Neutrophil % 74.9 % Lymphocyte % 7.0 % Monocyte % 15.5 % Eosinophil % 1.5 % Basophils % 0.6 % NRBC % 0 % Impression: Stage IV non-small cell lung cancer, adenocarcinoma PDL 1 less than 40%, guardant 360 shows negative for EGFR, ALK, ROS1, BRAF, MET, RET, NTRK, based on scans done in [place],, metastatic disease to left adrenal gland and brain, status post whole brain radiation therapy in June 2020 Well-differentiated adenocarcinoma per bronchoscopy done on May 10, 2020 final pathology report shows well-differentiated no carcinoma involving the right middle lobe and right lower lobe and station 4R and station 11 R MRI scan done on May 19, 2020 in [place] showed innumerable ovoid cystic foci throughout the brain which demonstrates susceptibility signal loss and post contrast enhancement suspicious for infectious process such as neurocysticercosis.Spinal tap done at [facility] showed no sign of infection, so it was concluded patient has brain mets for which she underwent whole brain radiation therapy in June 2020, in [place] Patient had multiple scans done in [facility] and was confirmed with stage IV adenocarcinoma of the lung with brain mets as well as left adrenal gland, started on carboplatin/Alimta/Keytruda on August 13, 2020, after second dose of chemotherapy she developed pneumonitis which was treated with antibiotics and tapering dose of steroids and her last dose of steroid was on November 23, 2020 and Keytruda was discontinued and she was treated with single agent Alimta every 3 weeks, There was a gap after her Alimta dose which was given on December 10, 2020, as per patient she received Covid vaccination and did develop some symptoms like nausea vomiting headaches which lasted more than 2 weeks so patient did not come for treatment until in January 2021 CT scan of head was done on May 28, 2020 showed no acute infarction or acute intracranial hemorrhage. T2/flair hyperintense lesions on brain MRI from May 19, 2020 are largely not appreciated on this exam. 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, 2020 Sleep apnea, awaiting CPAP machine Plan: Discussed with patient regarding her labs white blood count 10.3 hemoglobin 10.6 hematocrit 34.5 platelets 289,000 CMP within normal limit except potassium 3.4 Clinically, patient doing well with no new signs symptoms history of disease progression, this point we will proceed with her next dose of Alimta today and then she will return to clinic in 3 weeks with CBC CMP As far as mild hypokalemia is concerned, we will check her magnesium level if it is low will supplement in the meantime she will take potassium chloride 20 mEq p.o. daily for 3 days then on as-needed basis. We will also discuss with Dr. Jj Griffith, her [employer] in [place], as per patient radiation therapy to retinal mass is under consideration, patient has history of brain mets for which she underwent whole brain radiation therapy in June 2020. Signed By: Foster Galvez M.D. <<Signature on File>>
[2021-03-18 15:06] LABS: Basophils % 0.2 %; Eosinophils % 0.1 %; Lymphocytes # 0.5 10^3/uL (0.8-4.8); Lymphocytes % 4.8 %; Mean Corpuscular HGB Conc 30.3 g/dL (30.0-36.0); Mean Corpuscular Hemoglobin 24.4 pg (28.0-34.0); Mean Corpuscular Volume 80.5 fl (81-99); Mean Platelet Volume 8.7 fL (7.4-10.4); Monocytes # 0.6 10^3/uL (0.2-0.9); Monocytes % 6.2 %; Neutrophils # 8.22 10^3/uL (1.8-7.7); Nucleated Red Blood Cells % 0 %; Platelet Count 283 10^3/cmm (130-400); Red Cell Distribution Width 20.1 % (12.1-15.1); White Blood Count 9.6 10^3/uL (4.0-10.0)
[2021-03-18 15:44] LABS: Alanine Aminotransferase 14 U/L (0-33); Alkaline Phosphatase 76 IU/L (35-105); Anion Gap 17.2 (5-19); Aspartate Amino Transferase 17 U/L (0-32); Blood Urea Nitrogen 10 mg/dL (6-20); Carbon Dioxide 21 mmol/L (22-29); Chloride 104 mmol/L (98-107); Globulin 2.5 g/dL (1.3-4.6); Glomerular Filtration Rate 88.9 mL/min (90-130); Glucose 116 mg/dL (65-115); Osmolality Calculated 286 mOsm/kg (285-295); Potassium 4.2 mmol/L (3.5-5.1); Sodium 138 mmol/L (136-145); Total Bilirubin 0.2 mg/dL (0.15-1.2); Total Protein 6.5 g/dL (6.6-8.7)
[2021-03-19] MEDS: sodium chloride 0.9% 250 ML 75 ML IV (11:15)
[2021-03-19] MEDS: ondansetron 2 mg/ML SDV 2 mL 8 MG IV (11:15)
--- NOTE | 2021-03-23 19:56 | ONC FU_ITS ---
Dr. Galvez follow up note Patient: Sophia Miller Unit #: [id number]: 1970 Dicatated By: Foster Galvez M.D.Date of Visit:Mar 19, 2021 Onc Med Follow-up/Prog Note History of Present Illness: Ms. Miller is a 50-year-old female with history of chronic nonproductive cough since August 2019. Ms Garay reports she underwent some dental work-up in the beginning of 2019. At that time she was given antibiotics but her cough did not improve much. She was treated with Levaquin multiple times and then October 2019 she obtained a chest x-ray. The xray reported right lower lobe infiltrate. She was treated with levofloxacin again and with no significant improvement in her cough, she eventually underwent CT scan of the chest on On 02/12/2020. Findings reported focal consolidation right lower lobe along the fissure with air bronchograms. Consolidation measured 5.3 x 4.3 x 5.6 cm. Patchy infiltrate along the right upper lobe laterally. Moderate pericardial effusion. Prominent lymph nodes bilaterally nonspecific but likely reactive measuring 12 mm on the right and 14 mm on the left. Enlarged subcarinal lymph node measuring 14 mm. Proximal main arteries were normal. Normal thoracic aorta. She had an echocardiogram on 02/26/2020 for evaluation of the pericardial effusion which reported a normal left ventricular systolic function and left ventricular ejection fraction estimated at 70%. There were no regional wall motion abnormalities. Normal dystonic dysfunction. There was a moderate circumferential pericardial effusion 1.2 cm along the right ventricle and 1.5 cm along the left ventricle. There was no evidence of hemodynamic compromise and normal size inferior vena cava. She then had follow-up chest x-ray on 02/29/2020 which reported subtle opacity within the middle lobe versus right lung base. Lungs otherwise well aerated. There is no pleural effusion and no pneumothorax. She underwent bronchoscopy on March 22, [address] Hayden. Endobronchial biopsy from the right middle lobe reported lung parenchyma with chronic inflammation no granulomas identified no malignancy identified right lower lobe biopsy reported lung parenchyma and cartilage with focal chronic inflammation. No granulomas or malignancy identified. The bronchial cytology reported by voice and by number on 03/22/2020 reported benign ciliated respiratory epithelial cells, rare benign squamous epithelial cells, mixed inflammatory cells, macrophages, blood and fibrin/proteinaceous debris's. No malignant cells were seen. BAL Aspergillus antigen was positive but index was 0.61. She was treated with doxycycline for1 week and noticed some improvement in the cough. Followup CT scan of chest was repeated on April 29, 2020 which showed consolidative infiltrate in the right lower lobe along the fissure with air bronchograms. Not significantly change from previous, but it did show new hazy groundglass perihilar, upper lobe infiltrates with associated micronodules in the bronchovascular and perilymphatic distribution. She also had persistent moderate pericardial effusion unchanged anterior mediastinal, right paratracheal, hilar and subcarinal lymphadenopathy. Ms Miller underwent repeat bronchoscopy on May 10, 2020 and pathology report came back adenocarcinoma involving the right lower lobe, right middle lobe, station 4R lymph node, station 11 R lymph node. Immunohistochemistry showed TTF-1 positive, p63 negative, Napsin-A positive. On May 15, 2020, patient developed dizziness and was also developing questionable mental status changes e.g. intermittent confusion, but no one-sided weakness or numbness or slurred speech. She presented to [facility] on May 19, 2020. She did have a MRI scan of the head on May 19, 2020. It reported no evidence of acute ischemia or infarct, no acute intracranial hemorrhage. Innumerable ovoid cystic foci throughout the brain which demonstrate susceptibility signal loss and post contrast enhancement suspicious for infectious process such as neurocysticercosis. No evidence of hydrocephalus. Ms Miller reported that at that time, neurosurgery was consulted and clinically, she was diagnosed with brain mets. She was started on dexamethasone and Keppra, no biopsy was done but some blood test but no spinal tap was done either. She also had pericardial biopsy done which shows no evidence of malignant involvement. A repeat CT scan of chest abdomen pelvis done in [place] on May 20, 2020 showed an irregular area of consolidation or neoplastic involvement in the right lower lobe just above the diaphragm approximately 5.5 x 5.5 x 2.5 cm this is internal air bronchograms and elongated shape most consistent with infiltrate or atelectasis perihilar groundglass opacities bilaterally, suspect pneumonia., Echocardiogram done on May 21, 2020 shows ejection fraction 55 to 60%. She reported that because of blurred vision she was also evaluated by ophthalmology and impression was could be due to sarcoidosis involvement. She had subxiphoid pericardial window per Dr. Stiven Basurto at [facility] on 05/22/2020. The pathology final report dated on 05/24/2020 was benign pericardial tissue. There was no sign of significant inflammation. No positive staining neoplastic cells were identified in sections stained with MOC 31, BerEP4 and TTF???1. Ms. Miller had PET/CT imaging with [facility] radiology on 06/01/2020 which reported anterior right lower lobe a 4.3 x 2.6 semisolid mass with an SUV of 12.9. This has a high probability of malignancy, most likely bronchogenic carcinoma. Extensive hypermetabolic adenopathy is present in the mediastinum, consistent with local metastatic disease. Nodes are present in the bilateral hilar, subcarinal, periesophageal, prevascular, subaortic, left and right paratracheal and anterior mediastinal territories. The index subaortic node has an SUV of 13.0. Bilateral FDG positive nodes are present in the cervical level 4 regions with SUV of 8.0 in the 1.1 cm left sided node. In the abdomen, malignant celiac, right retrocrural and bilateral retroperitoneal periaortic nodes are FDG positive consistent with malignancy. A 1.3 x 1.9 cm right adrenal lesion with SUV of 9.2 represents metastatic disease. Uptake in the intracranial gold-white matter is physiologic. Breast parenchymal and axillary lymph nodes uptake bilaterally is unremarkable. Bilateral centrally located groundglass opacity suggests pulmonary edema, drug reaction or viral pneumonia. There were no findings to indicate osseous metastatic disease. Mrs. Miller was first seen on June 04, 2020. At the family's request she was referred to neurosurgery at [place] for evaluation and to confirm brain metastasis. The next notes available were [facility] indicating that she had multiple extensive pulmonary emboli in the bilateral pulmonary arteries including emboli and vascular bifurcations. There was no saddle embolus identified she continued to have extensive groundglass infiltrates seen in the perihilar and mid and upper lung zones particularly in the right middle lobe and bilateral upper lobes. Consolidating infiltrate is noted in the anterior aspect right lower lobe and left lower lobe. Small perihilar infiltrates are seen in the left lower lobe and lingula. It was noted that drainage catheter overlies the pericardium heart size was normal small pericardial effusion maximum with approximately 8 mm. This was diminished with prior study at which time the maximum width was approximately 2 cm. There was mediastinal and hilar adenopathy the largest node was 13 millimeters short axis diameter in the left hilar region. MRI of the head with and without contrast from 06/26/2020 reported innumerable supratentorial and infratentorial intra-axial and extra-axial enhancing mass lesions demonstrate enhancement on postcontrast images which small demonstrating decreased in size. There were no definite new enhancing lesions no hydrocephalus no herniation syndrome. from 06/30/2020 reports guardian test did not show any actual mutation. She was admitted to [facility] from 05/05/2020 to 06/11/2020. She was seen by Dr. Alex from [facility]. She was discharged and scheduled to see Dr. Paola Quezada on 06/27/2020 as [facility] but got admitted to [facility] on 06/22/2020. She was admitted for weakness, nonproductive cough, hypoxia and hypotension. She was found to have recurrent pericardial effusion. She had pericardial window on 06/24/2020. She had CT of the chest abdomen pelvis on 06/26/2020 as reported above. She did have bilateral multiple pulmonary emboli on scan from 06/26/2020 as above. She had IR guided suction thrombectomy on 06/27/2020. IVC filter was placed on 06/28/2020 and she remained on heparin at that time. She was discharged on Eliquis for the pulmonary emboli. The plan at that time was whole brain radiation therapy then chemotherapy. She was on Dex 4 mg twice daily. Ms. Miller had preferred to do treatment in [place] at that time. She was readmitted to [facility] through their ER for shortness of breath, dyspnea and hypotension and hemoptysis prior to her followup with Dr. Pena on August 05, 2020. She had completed whole brain radiation therapy at that time. Dr Pena's notes indicated she received whole brain RT from July 03 through July 16, 2020. Chemotherapy was planned for August 05, 2020 but was placed on hold due to her hospital admission. The plan was for carboplatin Alimta/Keytruda. Her Tempest PD-L1 was reported at 40%. The Guardiant 360 was negative for EGFR, ALK, ROS1, BRAF, MET, RET and NTRK. She was found to have pneumonia with hypoxia and was placed on antibiotics per the primary care team. She was discharged on August 10, 2020. She was seen at [facility] [place] office on August 13, 2020. She had 3 days left remaining on her cefdinir 300 mg twice daily. Her first dose of carboplatin was held but they did proceed with Alimta and Keytruda. If she tolerated that well the plan was to proceed with adding the carboplatin cycle 2. Her dexamethasone was decreased to 4 mg twice daily. She received cycle 2 carboplatin Alimta and Keytruda on 09/03/2020. Her dexamethasone was then tapered to 2 mg twice daily with continued plans to further the taper to get her off of it completely. She continued follow-up with Dr. Pena at [facility] in [place]. On her October 01, 2020, Dr. Pena note it was noted she had she had pneumonitis due to the Keytruda (diagnosed at [facility]-after 2 cycles of Keytryda) but had maintained on Alimta single agent every 3 weeks. She had nausea, vomiting, hypotension, dehydration and decreased performance status overall. She required supportive care after receiving the carboplatin. Her further cycles of chemotherapy included single agent Alimta. Ms. Miller transferred her care to resuming Alimta single agent on December 10, 2020 here at [facility]. On day 8 following that administration of single agent Alimta she was found to be neutropenic with an ANC of 1420. Her hemoglobin was 9.5. She had continued monitoring. and her counts have recovered today. She was due for her next cycle of Alimta on December 31, 2020. Came for follow-up, denies any specific complaints, no fever chills, no nausea or vomiting, no diarrhea, or constipation. No skin rash, no mouth sores, no diarrhea, And also considering dental cleaning, as per patient she is having some visual problem in the right eye for which she is being followed by director telecommunications in [place] Medications: Difluprednate 4 Drop(s) (of 0.05 %) Emulsion Ophthalmic daily, levETIRAcetam 1 Tablet (of 250 mg) Oral b.i.d., Montelukast Sodium 1 Tablet (of 10 mg) Oral daily, Pantoprazole Sodium 1 Tablet (of 40 mg) Tablet, enteric coated Oral daily, Sertraline HCl 1 Tablet (of 100 mg) Oral daily Allergies: buPROPion HCl Review of Systems: Review of Systems is not available for this patient. Vital Signs: Performed on Mar 19, 2021 10:09 Height - 65.00 in Weight - 116.4 lbs (LOW) BSA - 1.57 sq.m BMI - 19.37 Temperature - 97.6 F (LOW) Pulse - 104 /min (HIGH) Respiration - 16 /min BP - 112/73 mm(hg) O2 Sat - 93 % (LOW) Pain - 0 Fatigue - 0 Performance Status: 0 - Fully active, able to carry on all predisease activities without restrictions. (ECOG) Physical Examination: ENMT - No mouth sores, no thrush, no jaundice, Respiratory - Lungs are clear to auscultation, Cardiovascular - Regular rate and rhythm of heart, Abdomen - Soft, bowel sounds present, Extremities - No visible edema. Lab/Imaging: Test performed on Jan 07, 2021 12:35 Sodium 140 mmol/L Potassium 3.5 mmol/L Chloride 103 mmol/L CO2 23 mmol/L Anion Gap 17.5 BUN 7 mg/dL Creatinine 0.7 mg/dL Cr Clearance (Est) 94.9500 mL/min eGFR 88.9 mL/min Glucose 97 mg/dL Osmolality - Calculated 288 mOsm/kg Calcium 9.8 mg/dL Protein, Total 6.7 g/dL Albumin 4.1 g/dL Globulin 2.6 g/dL Bilirubin, Total 0.2 mg/dL ALT (SGPT) 6 U/L AST (SGOT) 15 U/L Alkaline Phosphatase 106 IU/L WBC 9.4 10 3/uL RBC 3.92 10 6/uL HGB 10.1 g/dL HCT 32.5 % MCV 82.9 fL MCH 25.8 pg MCHC 31.1 g/dL RDW 17.6 % Platelet Count 400 10 3/cmm MPV 9.2 fL Neutrophils 7.01 10 3/uL Lymphocytes 0.7 10 3/uL Monocytes 1.5 10 3/uL Eosinophils 0.1 10 3/uL Basophils 0.1 10 3/uL Neutrophil % 74.9 % Lymphocyte % 7.0 % Monocyte % 15.5 % Eosinophil % 1.5 % Basophils % 0.6 % NRBC % 0 % Impression: Stage IV non-small cell lung cancer, adenocarcinoma PDL 1 less than 40%, guardant 360 shows negative for EGFR, ALK, ROS1, BRAF, MET, RET, NTRK, based on scans done in [place],, metastatic disease to left adrenal gland and brain, status post whole brain radiation therapy in June 2020 Well-differentiated adenocarcinoma per bronchoscopy done on May 10, 2020 final pathology report shows well-differentiated no carcinoma involving the right middle lobe and right lower lobe and station 4R and station 11 R MRI scan done on May 19, 2020 in [place] showed innumerable ovoid cystic foci throughout the brain which demonstrates susceptibility signal loss and post contrast enhancement suspicious for infectious process such as neurocysticercosis.Spinal tap done at [place] showed no sign of infection, so it was concluded patient has brain mets for which she underwent whole brain radiation therapy in June 2020, in [place] Patient had multiple scans done in [facility] and was confirmed with stage IV adenocarcinoma of the lung with brain mets as well as left adrenal gland, started on carboplatin/Alimta/Keytruda on August 13, 2020, after second dose of chemotherapy she developed pneumonitis which was treated with antibiotics and tapering dose of steroids and her last dose of steroid was on November 23, 2020 and Keytruda was discontinued and she was treated with single agent Alimta every 3 weeks, There was a gap after her Alimta dose which was given on December 10, 2020, as per patient she received Covid vaccination and did develop some symptoms like nausea vomiting headaches which lasted more than 2 weeks so patient did not come for treatment until in January 2021 CT scan of head was done on May 28, 2020 showed no acute infarction or acute intracranial hemorrhage. T2/flair hyperintense lesions on brain MRI from May 19, 2020 are largely not appreciated on this exam. 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, 2020 Sleep apnea, awaiting CPAP machine Plan: Discussed with patient regarding her labs white blood count 9.6 hemoglobin 10 hematocrit 33 platelets 283,000 CMP within normal limits Clinically, patient doing well with no new signs symptom, will proceed with next 3 weekly dose of Alimta today and then she will return to clinic in 3 weeks with CBC CMP, patient is considering dental cleaning so she was advised to take appropriate precaution and may require prophylactic antibiotics. Signed By: Foster Galvez M.D. <<Signature on File>>
== END 2021-03-25 23:59 | disposition home or self-care (01) ==
LOC: ONCMED 05:40
PROVIDERS: PCP Family Medicine; Visit Provider Internal Medicine Hematology & Oncology
DX: Z51.12 Encounter for antineoplastic immunotherapy (principal); C34.01 Malignant neoplasm of right main bronchus; C79.72 Secondary malignant neoplasm of left adrenal gland; C79.31 Secondary malignant neoplasm of brain; I31.3 Pericardial effusion (noninflammatory); G47.30 Sleep apnea, unspecified; J70.2 Acute drug-induced interstitial lung disorders; T45.1X5A Adverse effect of antineoplastic and immunosuppressive drugs, initial encounter; Z86.711 Personal history of pulmonary embolism; Z79.01 Long term (current) use of anticoagulants; Z79.52 Long term (current) use of systemic steroids; Z79.899 Other long term (current) drug therapy; Z92.3 Personal history of irradiation
CPT/HCPCS: 36415; 36591; 80053; 83735; 85025; 96367; 96375; 96413; 99215; J1100; J2405; J7050; J9305

== ENCOUNTER 2021-04-09 05:42 | Outpatient (RCR) | payer OTHER, SELFPAY ==
[2021-04-08 16:27] LABS: Basophils % 0.4 %; Eosinophils % 0.2 %; Hematocrit 31.4 % (37.0-47.0); Hemoglobin 9.7 g/dL (11.5-15.3); Lymphocytes # 0.5 10^3/uL (0.8-4.8); Lymphocytes % 4.9 %; Mean Corpuscular HGB Conc 30.9 g/dL (30.0-36.0); Mean Corpuscular Hemoglobin 25.1 pg (28.0-34.0); Mean Corpuscular Volume 81.1 fl (81-99); Mean Platelet Volume 8.7 fL (7.4-10.4); Monocytes # 0.9 10^3/uL (0.2-0.9); Monocytes % 8.3 %; Neutrophils # 8.55 10^3/uL (1.8-7.7); Neutrophils % 81.7 %; Nucleated Red Blood Cells % 0.2 %; Platelet Count 315 10^3/cmm (130-400); Red Blood Count 3.87 10^6/uL (4.1-5.3); Red Cell Distribution Width 21.2 % (12.1-15.1); White Blood Count 10.5 10^3/uL (4.0-10.0)
[2021-04-08 16:47] LABS: Alanine Aminotransferase 15 U/L (0-33); Albumin Level 3.9 g/dL (3.5-5.2); Alkaline Phosphatase 87 IU/L (35-105); Anion Gap 14.9 (5-19); Aspartate Amino Transferase 16 U/L (0-32); Blood Urea Nitrogen 13 mg/dL (6-20); Calcium 8.3 mg/dL (8.5-10.5); Carbon Dioxide 23 mmol/L (22-29); Chloride 102 mmol/L (98-107); Globulin 2.1 g/dL (1.3-4.6); Glomerular Filtration Rate 76.2 mL/min (90-130); Glucose 109 mg/dL (65-115); Osmolality Calculated 283 mOsm/kg (285-295); Potassium 3.9 mmol/L (3.5-5.1); Sodium 136 mmol/L (136-145); Total Bilirubin 0.2 mg/dL (0.15-1.2)
[2021-04-09] MEDS: ondansetron 2 mg/ML SDV 2 mL 8 MG IV (11:27)
[2021-04-09] MEDS: sodium chloride 0.9% 250 ML 75 ML IV (14:29)
--- NOTE | 2021-04-09 17:08 | ONC FU_ITS ---
Dr. Galvez follow up note Patient: Sophia Miller Unit #: [id number]: 1970 Dicatated By: Foster Galvez M.D.Date of Visit:Apr 09, 2021 Onc Med Follow-up/Prog Note History of Present Illness: Ms. Miller is a 50-year-old female with history of chronic nonproductive cough since August 2019. Ms Garay reports she underwent some dental work-up in the beginning of 2019. At that time she was given antibiotics but her cough did not improve much. She was treated with Levaquin multiple times and then October 2019 she obtained a chest x-ray. The xray reported right lower lobe infiltrate. She was treated with levofloxacin again and with no significant improvement in her cough, she eventually underwent CT scan of the chest on On 02/12/2020. Findings reported focal consolidation right lower lobe along the fissure with air bronchograms. Consolidation measured 5.3 x 4.3 x 5.6 cm. Patchy infiltrate along the right upper lobe laterally. Moderate pericardial effusion. Prominent lymph nodes bilaterally nonspecific but likely reactive measuring 12 mm on the right and 14 mm on the left. Enlarged subcarinal lymph node measuring 14 mm. Proximal main arteries were normal. Normal thoracic aorta. She had an echocardiogram on 02/26/2020 for evaluation of the pericardial effusion which reported a normal left ventricular systolic function and left ventricular ejection fraction estimated at 70%. There were no regional wall motion abnormalities. Normal dystonic dysfunction. There was a moderate circumferential pericardial effusion 1.2 cm along the right ventricle and 1.5 cm along the left ventricle. There was no evidence of hemodynamic compromise and normal size inferior vena cava. She then had follow-up chest x-ray on 02/29/2020 which reported subtle opacity within the middle lobe versus right lung base. Lungs otherwise well aerated. There is no pleural effusion and no pneumothorax. She underwent bronchoscopy on March 22, [address] Hayden. Endobronchial biopsy from the right middle lobe reported lung parenchyma with chronic inflammation no granulomas identified no malignancy identified right lower lobe biopsy reported lung parenchyma and cartilage with focal chronic inflammation. No granulomas or malignancy identified. The bronchial cytology reported by voice and by number on 03/22/2020 reported benign ciliated respiratory epithelial cells, rare benign squamous epithelial cells, mixed inflammatory cells, macrophages, blood and fibrin/proteinaceous debris's. No malignant cells were seen. BAL Aspergillus antigen was positive but index was 0.61. She was treated with doxycycline for1 week and noticed some improvement in the cough. Followup CT scan of chest was repeated on April 29, 2020 which showed consolidative infiltrate in the right lower lobe along the fissure with air bronchograms. Not significantly change from previous, but it did show new hazy groundglass perihilar, upper lobe infiltrates with associated micronodules in the bronchovascular and perilymphatic distribution. She also had persistent moderate pericardial effusion unchanged anterior mediastinal, right paratracheal, hilar and subcarinal lymphadenopathy. Ms Miller underwent repeat bronchoscopy on May 10, 2020 and pathology report came back adenocarcinoma involving the right lower lobe, right middle lobe, station 4R lymph node, station 11 R lymph node. Immunohistochemistry showed TTF-1 positive, p63 negative, Napsin-A positive. On May 15, 2020, patient developed dizziness and was also developing questionable mental status changes e.g. intermittent confusion, but no one-sided weakness or numbness or slurred speech. She presented to [facility] on May 19, 2020. She did have a MRI scan of the head on May 19, 2020. It reported no evidence of acute ischemia or infarct, no acute intracranial hemorrhage. Innumerable ovoid cystic foci throughout the brain which demonstrate susceptibility signal loss and post contrast enhancement suspicious for infectious process such as neurocysticercosis. No evidence of hydrocephalus. Ms Miller reported that at that time, neurosurgery was consulted and clinically, she was diagnosed with brain mets. She was started on dexamethasone and Keppra, no biopsy was done but some blood test but no spinal tap was done either. She also had pericardial biopsy done which shows no evidence of malignant involvement. A repeat CT scan of chest abdomen pelvis done in [place] on May 20, 2020 showed an irregular area of consolidation or neoplastic involvement in the right lower lobe just above the diaphragm approximately 5.5 x 5.5 x 2.5 cm this is internal air bronchograms and elongated shape most consistent with infiltrate or atelectasis perihilar groundglass opacities bilaterally, suspect pneumonia., Echocardiogram done on May 21, 2020 shows ejection fraction 55 to 60%. She reported that because of blurred vision she was also evaluated by ophthalmology and impression was could be due to sarcoidosis involvement. She had subxiphoid pericardial window per Dr. Stiven Basurto at [facility] on 05/22/2020. The pathology final report dated on 05/24/2020 was benign pericardial tissue. There was no sign of significant inflammation. No positive staining neoplastic cells were identified in sections stained with MOC 31, BerEP4 and TTF???1. Ms. Miller had PET/CT imaging with [facility] radiology on 06/01/2020 which reported anterior right lower lobe a 4.3 x 2.6 semisolid mass with an SUV of 12.9. This has a high probability of malignancy, most likely bronchogenic carcinoma. Extensive hypermetabolic adenopathy is present in the mediastinum, consistent with local metastatic disease. Nodes are present in the bilateral hilar, subcarinal, periesophageal, prevascular, subaortic, left and right paratracheal and anterior mediastinal territories. The index subaortic node has an SUV of 13.0. Bilateral FDG positive nodes are present in the cervical level 4 regions with SUV of 8.0 in the 1.1 cm left sided node. In the abdomen, malignant celiac, right retrocrural and bilateral retroperitoneal periaortic nodes are FDG positive consistent with malignancy. A 1.3 x 1.9 cm right adrenal lesion with SUV of 9.2 represents metastatic disease. Uptake in the intracranial gold-white matter is physiologic. Breast parenchymal and axillary lymph nodes uptake bilaterally is unremarkable. Bilateral centrally located groundglass opacity suggests pulmonary edema, drug reaction or viral pneumonia. There were no findings to indicate osseous metastatic disease. Mrs. Miller was first seen on June 04, 2020. At the family's request she was referred to neurosurgery at [place] for evaluation and to confirm brain metastasis. The next notes available were [facility] indicating that she had multiple extensive pulmonary emboli in the bilateral pulmonary arteries including emboli and vascular bifurcations. There was no saddle embolus identified she continued to have extensive groundglass infiltrates seen in the perihilar and mid and upper lung zones particularly in the right middle lobe and bilateral upper lobes. Consolidating infiltrate is noted in the anterior aspect right lower lobe and left lower lobe. Small perihilar infiltrates are seen in the left lower lobe and lingula. It was noted that drainage catheter overlies the pericardium heart size was normal small pericardial effusion maximum with approximately 8 mm. This was diminished with prior study at which time the maximum width was approximately 2 cm. There was mediastinal and hilar adenopathy the largest node was 13 millimeters short axis diameter in the left hilar region. MRI of the head with and without contrast from 06/26/2020 reported innumerable supratentorial and infratentorial intra-axial and extra-axial enhancing mass lesions demonstrate enhancement on postcontrast images which small demonstrating decreased in size. There were no definite new enhancing lesions no hydrocephalus no herniation syndrome. from 06/30/2020 reports guardian test did not show any actual mutation. She was admitted to [facility] from 05/05/2020 to 06/11/2020. She was seen by Dr. Alex from [facility]. She was discharged and scheduled to see Dr. Paola Quezada on 06/27/2020 as [facility] but got admitted to [facility] on 06/22/2020. She was admitted for weakness, nonproductive cough, hypoxia and hypotension. She was found to have recurrent pericardial effusion. She had pericardial window on 06/24/2020. She had CT of the chest abdomen pelvis on 06/26/2020 as reported above. She did have bilateral multiple pulmonary emboli on scan from 06/26/2020 as above. She had IR guided suction thrombectomy on 06/27/2020. IVC filter was placed on 06/28/2020 and she remained on heparin at that time. She was discharged on Eliquis for the pulmonary emboli. The plan at that time was whole brain radiation therapy then chemotherapy. She was on Dex 4 mg twice daily. Ms. Miller had preferred to do treatment in [place] at that time. She was readmitted to [facility] through their ER for shortness of breath, dyspnea and hypotension and hemoptysis prior to her followup with Dr. Pena on August 05, 2020. She had completed whole brain radiation therapy at that time. Dr Pena's notes indicated she received whole brain RT from July 03 through July 16, 2020. Chemotherapy was planned for August 05, 2020 but was placed on hold due to her hospital admission. The plan was for carboplatin Alimta/Keytruda. Her Tempest PD-L1 was reported at 40%. The Guardiant 360 was negative for EGFR, ALK, ROS1, BRAF, MET, RET and NTRK. She was found to have pneumonia with hypoxia and was placed on antibiotics per the primary care team. She was discharged on August 10, 2020. She was seen at [facility] [place] office on August 13, 2020. She had 3 days left remaining on her cefdinir 300 mg twice daily. Her first dose of carboplatin was held but they did proceed with Alimta and Keytruda. If she tolerated that well the plan was to proceed with adding the carboplatin cycle 2. Her dexamethasone was decreased to 4 mg twice daily. She received cycle 2 carboplatin Alimta and Keytruda on 09/03/2020. Her dexamethasone was then tapered to 2 mg twice daily with continued plans to further the taper to get her off of it completely. She continued follow-up with Dr. Pena at [facility] in [place]. On her October 01, 2020, Dr. Pena note it was noted she had she had pneumonitis due to the Keytruda (diagnosed at [facility]-after 2 cycles of Keytryda) but had maintained on Alimta single agent every 3 weeks. She had nausea, vomiting, hypotension, dehydration and decreased performance status overall. She required supportive care after receiving the carboplatin. Her further cycles of chemotherapy included single agent Alimta. Ms. Miller transferred her care to resuming Alimta single agent on December 10, 2020 here at [facility]. On day 8 following that administration of single agent Alimta she was found to be neutropenic with an ANC of 1420. Her hemoglobin was 9.5. She had continued monitoring. and her counts have recovered today. She was due for her next cycle of Alimta on December 31, 2020. Came for follow-up, denies any specific complaints, no fever chills, no nausea or vomiting, no diarrhea or constipation, no dysuria, no abdominal pain, no jaundice, no skin rash, tolerating palliative Alimta well Medications: Difluprednate 4 Drop(s) (of 0.05 %) Emulsion Ophthalmic daily, levETIRAcetam 1 Tablet (of 250 mg) Oral b.i.d., Montelukast Sodium 1 Tablet (of 10 mg) Oral daily, Pantoprazole Sodium 1 Tablet (of 40 mg) Tablet, enteric coated Oral daily, Sertraline HCl 1 Tablet (of 100 mg) Oral daily Allergies: buPROPion HCl Review of Systems: Review of Systems is not available for this patient. Vital Signs: Performed on Apr 09, 2021 15:52 Height - 65.00 in Weight - 117.6 lbs (HIGH) BSA - 1.58 sq.m BMI - 19.57 Temperature - 97.2 F (LOW) Pulse - 98 /min Respiration - 18 /min BP - 112/73 mm(hg) O2 Sat - 99 % Pain - 0 Fatigue - 0 Performance Status: 0 - Fully active, able to carry on all predisease activities without restrictions. (ECOG) Physical Examination: ENMT - No mouth sores, no thrush, no jaundice, Respiratory - Lungs are clear to auscultation, Cardiovascular - Regular rate and rhythm of heart, Abdomen - Soft, bowel sounds present, Extremities - No visible edema. Lab/Imaging: Test performed on Jan 07, 2021 12:35 Sodium 140 mmol/L Potassium 3.5 mmol/L Chloride 103 mmol/L CO2 23 mmol/L Anion Gap 17.5 BUN 7 mg/dL Creatinine 0.7 mg/dL Cr Clearance (Est) 94.9500 mL/min eGFR 88.9 mL/min Glucose 97 mg/dL Osmolality - Calculated 288 mOsm/kg Calcium 9.8 mg/dL Protein, Total 6.7 g/dL Albumin 4.1 g/dL Globulin 2.6 g/dL Bilirubin, Total 0.2 mg/dL ALT (SGPT) 6 U/L AST (SGOT) 15 U/L Alkaline Phosphatase 106 IU/L WBC 9.4 10 3/uL RBC 3.92 10 6/uL HGB 10.1 g/dL HCT 32.5 % MCV 82.9 fL MCH 25.8 pg MCHC 31.1 g/dL RDW 17.6 % Platelet Count 400 10 3/cmm MPV 9.2 fL Neutrophils 7.01 10 3/uL Lymphocytes 0.7 10 3/uL Monocytes 1.5 10 3/uL Eosinophils 0.1 10 3/uL Basophils 0.1 10 3/uL Neutrophil % 74.9 % Lymphocyte % 7.0 % Monocyte % 15.5 % Eosinophil % 1.5 % Basophils % 0.6 % NRBC % 0 % Impression: Stage IV non-small cell lung cancer, adenocarcinoma PDL 1 less than 40%, guardant 360 shows negative for EGFR, ALK, ROS1, BRAF, MET, RET, NTRK, based on scans done in [place],, metastatic disease to left adrenal gland and brain, status post whole brain radiation therapy in June 2020 Well-differentiated adenocarcinoma per bronchoscopy done on May 10, 2020 final pathology report shows well-differentiated no carcinoma involving the right middle lobe and right lower lobe and station 4R and station 11 R MRI scan done on May 19, 2020 in [place] showed innumerable ovoid cystic foci throughout the brain which demonstrates susceptibility signal loss and post contrast enhancement suspicious for infectious process such as neurocysticercosis.Spinal tap done at [place] showed no sign of infection, so it was concluded patient has brain mets for which she underwent whole brain radiation therapy in June 2020, in [place] Patient had multiple scans done in [facility] and was confirmed with stage IV adenocarcinoma of the lung with brain mets as well as left adrenal gland, started on carboplatin/Alimta/Keytruda on August 13, 2020, after second dose of chemotherapy she developed pneumonitis which was treated with antibiotics and tapering dose of steroids and her last dose of steroid was on November 23, 2020 and Keytruda was discontinued and she was treated with single agent Alimta every 3 weeks, There was a gap after her Alimta dose which was given on December 10, 2020, as per patient she received Covid vaccination and did develop some symptoms like nausea vomiting headaches which lasted more than 2 weeks so patient did not come for treatment until in January 2021 CT scan of head was done on May 28, 2020 showed no acute infarction or acute intracranial hemorrhage. T2/flair hyperintense lesions on brain MRI from May 19, 2020 are largely not appreciated on this exam. 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, 2020 Sleep apnea, awaiting CPAP machine Plan: Discussed with patient regarding her labs white blood count 10.5 hemoglobin 9.7 hematocrit 31.4 platelets 315,000 CMP within normal limits Clinically, patient doing well with no new signs symptom suggestive of disease progression,, at this point we will proceed with her next dose of Alimta today and then she will return to clinic in 3 weeks with CBC CMP and follow-up CT PET scan to assess disease status As for his progressive normocytic normochromic anemia is concerned, her anemia work-up was inconclusive, will try trial of [id number] oral iron and then monitor her hemoglobin and consider blood transfusion if it is less than 8 g. Signed By: Foster Galvez M.D. <<Signature on File>>
== END 2021-04-24 23:59 | disposition home or self-care (01) ==
LOC: ONCMED 05:42
PROVIDERS: PCP Family Medicine; Visit Provider Internal Medicine Hematology & Oncology
DX: Z51.11 Encounter for antineoplastic chemotherapy (principal); C34.01 Malignant neoplasm of right main bronchus; J18.9 Pneumonia, unspecified organism; Z79.52 Long term (current) use of systemic steroids; G47.30 Sleep apnea, unspecified; Z79.899 Other long term (current) drug therapy
CPT/HCPCS: 36591; 80053; 85025; 96367; 96375; 96413; 99215; J1100; J2405; J7050; J9305

== ENCOUNTER 2021-04-24 18:41 | Observation (INO) | payer OTHER, SELFPAY ==
[2021-04-24 19:25] VITALS: BP 120/78; PULSE 109; RESP 18; TEMP 37.4; O2SAT 91; BMI 19.1
--- NOTE | 2021-04-24 19:50 | XRR_ITS ---
PROCEDURE INFORMATION: Exam: XR Chest Exam date and time: 04/24/2021 7:50 PM Age: 50 years old Clinical indication: Dyspnea; Prior surgery; Surgery date: 1-6 months; Surgery type: Port; Patient HX: Stage 4 lung CA; Additional info: Pain TECHNIQUE: Imaging protocol: XR of the chest. Views: 1 view. Total images: 1 COMPARISON: 1. CT Chest/Abdomen/Pelvis w IV* 10/29/2020 1:36 PM 2. CR XR chest 2V* [id number] 09/27/2020 8:28:14 AM FINDINGS: Tubes, catheters and devices: Right Infusaport catheter. Lungs: Bilateral diffuse reticulonodular interstitial lung disease similar in pattern to the CT chest examination of 10/29/2020. No visible consolidated alveolar airspace disease. COPD/chronic bronchitis. Pleural spaces: No pleural effusion. No pneumothorax. Heart/Mediastinum: Cardiac structures and configuration within normal limits. Bones/joints: Unremarkable. XR/XR chest 1V portable [id number] IMPRESSION: Bilateral diffuse reticulonodular interstitial lung disease.
[2021-04-24 21:06] LABS: Hematocrit 37.3 % (37.0-47.0); Hemoglobin 11.1 g/dL (11.5-15.3); Mean Corpuscular HGB Conc 29.8 g/dL (30.0-36.0); Mean Corpuscular Hemoglobin 25.3 pg (28.0-34.0); Mean Corpuscular Volume 85.2 fl (81-99); Mean Platelet Volume 9.5 fL (7.4-10.4); Platelet Count 290 10^3/cmm (130-400); Red Blood Count 4.38 10^6/uL (4.1-5.3); Red Cell Distribution Width 23.5 % (12.1-15.1); White Blood Count 10.3 10^3/uL (4.0-10.0)
[2021-04-24 21:07] LABS: Basophils % 0.3 %; Eosinophils % 0.1 %; Lymphocytes # 0.3 10^3/uL (0.8-4.8); Monocytes # 0.7 10^3/uL (0.2-0.9); Monocytes % 6.3 %; Neutrophils # 9.17 10^3/uL (1.8-7.7); Neutrophils % 89.1 %; Nucleated Red Blood Cells % 0 %
[2021-04-24 21:20] LABS: INR 1.33 (0.8-1.2); Partial Thromboplastin Time 24.9 SECONDS (23.9-36.7)
--- NOTE | 2021-04-24 21:24 | CTR_ITS ---
PROCEDURE INFORMATION: Exam: CTA Chest With Contrast Exam date and time: 04/24/2021 9:24 PM Age: 50 years old Clinical indication: Shortness of breath; Prior surgery; Surgery type: Port; Patient HX: Lung ca/brain mets; Additional info: Evalaute for worsening cancer pe TECHNIQUE: Imaging protocol: Computed tomographic angiography of the chest with contrast. 3D rendering (Not supervised by radiologist): MIP and/or 3D reconstructed images were created by the technologist. Total images: 860 Radiation optimization: All CT scans at this facility use at least one of these dose optimization techniques: automated exposure control; mA and/or kV adjustment per patient size (includes targeted exams where dose is matched to clinical indication); or iterative reconstruction. Contrast material: OMNI 350; Contrast volume: 64 ml; Contrast route: INTRAVENOUS (IV); COMPARISON: 1. CTA Chest-Pulmonary Emb [id number] 08/04/2020 5:[address] Chest/Abdomen/Pelvis w IV* 06/26/2020 9:31:00 PM RADIATION DOSE METRICS: Total DLP (mGy-cm): 520.99 FINDINGS: Pulmonary arteries: No visible evidence of pulmonary embolism/pulmonary arterial thrombus. Aorta: The thoracic aorta is nonaneurysmal. No visible intimal flap or dissection. Lungs: Again note of diffuse ground-glass interstitial lung disease bilaterally, greatest involvement bilateral upper lobes, present on exam of ; but, with slight interval improvement. No visible consolidated alveolar airspace disease other than minimal parenchymal scar right lung base presumed site of the primary lung carcinoma. The appearance of microhoneycombing bilateral upper lobes and superior segments of the bilateral lower lobes could be secondary to usual interstitial pneumonitis. Findings of tree in bud bronchiolar disease, predominantly peripheral bilateral upper lobes, suggesting either active or chronic bronchiolar disease/bronchiolitis. Small 4 mm pulmonary nodule right lower lobe (series 3, image 35). Pleural spaces: No pneumothorax. No pleural effusion. Heart: Small volume pericardial effusion. Cardiac size within normal limits. No visible coronary artery disease. Lymph nodes: No significant interval change in the mediastinal and hilar lymphadenopathy. Also again note of calcified mediastinal and hilar complexes of antecedent granulomatous disease. Liver: Interval development of several small low-density hepatic structures that were not visible on the exam of 08/04/2020 raising concern for potential diffuse hepatic metastatic disease. Dominant focus medial segment left right hepatic lobe measures 10 mm. Calcified hepatic granuloma. Adrenal glands: Bilateral adrenal gland fullness stable since last evaluation of 08/04/2020. Suspect adrenal hyperplasia. Bones/joints: Mild scoliotic curvature of the spine. Soft tissues: Unremarkable. CT/CT angio chest PE protcl [id number] IMPRESSION: 1. No visible evidence of pulmonary embolism/pulmonary arterial thrombus. 2. Small volume pericardial effusion. 3. No significant interval change in the mediastinal and hilar lymphadenopathy. 4. Interval development of several small low-density hepatic structures that were not visible on the exam of 08/04/2020 raising concern for potential diffuse hepatic metastatic disease. 5. Evidence of slight interval improvement in the pulmonary parenchymal disease since last evaluation of 08/04/2020 as detailed in text. 6. Small 4 mm pulmonary nodule right lower lobe. For patients at low risk (minimal or absent history of smoking and of other known risk factors), no routine follow-up is indicated. For patients at high risk (history of smoking or of other known risk factors), consider optional CT Chest at 12 months. (Reference: Delma) REFERENCES: Delma Gray, et al. Guidelines for Management of Incidental Pulmonary Nodules Detected on CT Images: From the Fleischner Society 2017. Radiology. 2017;284(1):228-243. Radiation Dose CTDIVOL = (mGy): DLP = 520.99 (mGy-cm)
[2021-04-24 21:28] LABS: Blood Urea Nitrogen 10 mg/dL (6-20); Calcium 9.7 mg/dL (8.5-10.5); Carbon Dioxide 19 mmol/L (22-29); Chloride 104 mmol/L (98-107); Glomerular Filtration Rate 88.9 mL/min (90-130); Glucose 109 mg/dL (65-115); Osmolality Calculated 288 mOsm/kg (285-295); Sodium 139 mmol/L (136-145)
[2021-04-24 21:29] LABS: Anion Gap 19.9 (5-19); Potassium 3.9 mmol/L (3.5-5.1)
--- NOTE | 2021-04-24 21:43 | ECG_ITS ---
[facility] Test Date: 2021-04-24 Pat Name: Sophia Miller Department: Room: Gender: Female Evidence Technician: : 1970 Requested By: Merlin Kennedy Order Number: [id number] Carlos MD: Lavern Restrepo M.D. Measurements Intervals Withams Rate: 90 P: 44 NV: 132 QRS: 29 QRSD: 80 T: 53 QT: 336 QTc: 413 Interpretive Statements SINUS RHYTHM POSSIBLE LEFT ATRIAL ENLARGEMENT [-0.1mV P-WAVE IN V1/V2] LOW QRS VOLTAGE IN PRECORDIAL LEADS [QRS DEFLECTION < 1.0 mV IN CHEST LEADS] No previous ECG available for comparison Electronically Signed On 04-25-2021 6:56:33 CDT by Lavern Restrepo M.D. [id number]
[2021-04-24] MEDS: sodium chloride 0.9% 1,000 ML 999 ML IV (21:53)
[2021-04-24] MEDS: iohexol 350 mg/mL 100 mL Btl IV (22:02)
[2021-04-24 22:13] LABS: Troponin(5th) Baseline 8 ng/L (0-10)
[2021-04-24 22:43] VITALS: BP 137/78; PULSE 68; RESP 18; TEMP 37.4; O2SAT 91
--- NOTE | 2021-04-24 23:12 | CTR_ITS ---
PROCEDURE INFORMATION: Exam: CT Cervical Spine Without Contrast Exam date and time: 04/24/2021 11:12 PM Age: 50 years old Clinical indication: Condition or disease; Other: Possible bone mets / infection; Additional info: Infection / rule out cancer TECHNIQUE: Imaging protocol: Computed tomography images of the cervical spine without contrast. Radiation optimization: All CT scans at this facility use at least one of these dose optimization techniques: automated exposure control; mA and/or kV adjustment per patient size (includes targeted exams where dose is matched to clinical indication); or iterative reconstruction. COMPARISON: CT Cervical Spine wo* [id number] 09/01/2020 1:40 PM RADIATION DOSE METRICS: Total DLP (mGy-cm): 307.98 FINDINGS: Tubes, catheters and devices: Partially visualized right chest wall venous access port. Bones/joints: No evidence of bone metastasis or pathologic fracture. Discs/Spinal canal/Neural foramina: Multilevel chronic degenerative disc disease throughout the cervical spine. Scattered small disc spur complexes especially at C5-C6 and C6-C7 but without significant central stenosis. Lungs: Again noted are numerous micro nodular opacities in the lung apices. Soft tissues: Unremarkable. No epidural fluid collection. No prevertebral swelling. CT/CT cervical spin wo con* [id number] IMPRESSION: 1. No fracture or bone metastasis 2. Mild chronic degenerative changes Radiation Dose CTDIVOL = (mGy): DLP = 307.98 (mGy-cm)
--- NOTE | 2021-04-24 23:12 | CTR_ITS ---
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 Radiation optimization: All CT scans at this facility use at least one of these dose optimization techniques: automated exposure control; mA and/or kV adjustment per patient size (includes targeted exams where dose is matched to clinical indication); or iterative reconstruction. COMPARISON: CT cervical spine w con [id number] 04/24/2021 11:31 PM RADIATION DOSE METRICS: Total DLP (mGy-cm): 1050.43 FINDINGS: Vertebrae: No thoracic fracture or subluxation. Discs/Spinal canal/Neural foramina: No significant central stenosis. Other bones/joints: No evidence of bone metastasis. Soft tissues: Unremarkable. Lungs: Diffuse interstitial and micronodular infiltrates throughout the lung. CT/CT thoracic spin wo con* [id number] IMPRESSION: 1. No significant thoracic spine findings. 2. Extensive interstitial and micro nodular lung opacities Radiation Dose CTDIVOL = (mGy): DLP = 1050.43 (mGy-cm)
--- NOTE | 2021-04-24 23:12 | CTR_ITS ---
PROCEDURE INFORMATION: Exam: CT Lumbar Spine Without Contrast Exam date and time: 04/24/2021 11:12 PM Age: 50 years old Clinical indication: Condition or disease; Cancer, metastatic (secondary site lumbar); Patient HX: HX of lung cancer with mets to the brain; Additional info: Infection / rule out cancer TECHNIQUE: Imaging protocol: Computed tomography images of the lumbar spine without contrast. Radiation optimization: All CT scans at this facility use at least one of these dose optimization techniques: automated exposure control; mA and/or kV adjustment per patient size (includes targeted exams where dose is matched to clinical indication); or iterative reconstruction. COMPARISON: CT thoracic spin wo con* [id number] 04/24/2021 11:33 PM RADIATION DOSE METRICS: Total DLP (mGy-cm): 949.56 FINDINGS: Tubes, catheters and devices: An IVC filter lies in the usual location. Vertebrae: No lumbar spine fracture or subluxation. Discs/Spinal canal/Neural foramina: Mild broad-based disc bulges at L3-L4 and L4-L5. At L5-S1 there is advanced chronic degenerative disc disease with a disc spur complex but no significant central or foraminal stenosis. Soft tissues: Unremarkable. CT/CT lumbar spine wo con* [id number] IMPRESSION: 1. No lumbar stenosis or evidence of bone metastasis. 2. Mild chronic degenerative changes Radiation Dose CTDIVOL = (mGy): DLP = 949.56 (mGy-cm)
--- NOTE | 2021-04-24 23:17 | W.ED.GENADLT ---
HPI - General Adult General: Chief complaint: Weakness Stated complaint: sob, throwing up blood this morning Time Seen by Provider: 04/24/21 20:36 History of Present Illness: HPI narrative: Patient is a 50-year-old female with a history of lung cancer on chemotherapy last chemo is over 2 weeks ago, on Eliquis prophylaxis who presents the emergency room with concerns for new onset hemoptysis at home hypoxemia, shortness of breath, worsening back pain. Patient says that she started coughing up streaks of blood earlier today. Became concerned and came to the emergency room for evaluation. Patient, patient has had worsening chronic back pain that is not improving. Patient denies any fever chills, cough, runny nose, sore throat, any new or concerning complaints. Onset:3 days ago Duration:3 days Location:home Severity:moderate Review of Systems Narrative: Constitutional: No fever, no chills. HEENT: No vision changes CV: No chest pain, no palpitations PULM: no cough, no dyspnea. GI: No abdominal pain, no N/V/D. : No dysuria MSKEL: No muscle pain, +back pain SKIN: No new rashes, no lesions. NEURO: No headache, no focal weakness. HEME: No visible bruises PSYCH: Normal mood PFSH ED PFSH: Medical History (Updated 04/04/20 @ 19:29 by Nash Hayden MD) Depression with anxiety GERD (gastroesophageal reflux disease) Seasonal allergies Family History Mother Psychiatric illness Depression Hypertension Brother Heart defect Social History Smoking and tobacco status: never smoked Alcohol intake: never Lives independently: Yes Household members: none Marital status: Current occupational status: employed Current occupational exposures/hazards: No History of recent travel: No Current gender identity: Female Female Reproductive History: Date of last menstrual period: 03/22/20 Physical Exam Narrative: EXAM NARRATIVE: Head: Atraumatic Eyes: PERRL, conjunctiva without injection ENT: Mucous membrane moist NECK: Supple, ROM intact LUNGS: LCTAB, no crackles/rhonchi CV: RRR ABDOMEN: Soft, nontender in all quadrants EXTREMITY: Normal ROM SKIN: No rash or erythema NEURO: Awake and alert, no focal motor deficits PSYCH: Normal mood and affect BACK: +mild tenderness to palpation throuhgout the C/T/L spine, no focal fluctuance/warmth/step off or deformity Course Vital Signs: Vital signs: Vital Signs Temperature 99.4 F 04/25/21 01:01 Pulse Rate 67 04/25/21 01:01 Respiratory Rate 18 04/25/21 01:01 Blood Pressure 137/78 04/25/21 01:01 Pulse Oximetry 94 04/25/21 01:01 MDM - General Adult MDM Narrative: Medical decision making narrative: 50-year-old female presented to emergency room for evaluation of hypoxemia, hemoptysis, and worsening back pain. On exam, patient is focal tenderness palpation along the midline of the thoracic lumbar back area. Lungs appears coarse on exam. No signs of oral airway compromise Work-up today including blood work showed normal hemoglobin. CTA chest insistent with prior cancer. However patient is on Eliquis and will require monitoring overnight to ensure that she does not develop massive hemoptysis from cancer burden. CT negative for PE. Back pain is moderately controlled with dilaudid 1mg. Imaging of the back did not show any pathological fxs. Will need pain adjustment, serial monitoring for hemoptysis and O2 eval prior to discharge. Disposition: Admission for observation. Lab Data: Labs: Lab Results 04/24/21 04/24/21 04/24/21 20:50 20:50 20:50 WBC 10.3 10^3/uL H 10 ^3/uL (4.0-10.0) RBC 4.38 10^6/uL 10^6 /uL (4.1-5.3) Hgb 11.1 g/dL L g/dL (11.5-15.3) Hct 37.3 % % (37.0-47.0) MCV 85.2 fl fl (81-99) MCH 25.3 pg L pg (28.0-34.0) MCHC 29.8 g/dL L g/dL (30.0-36.0) RDW 23.5 % H % (12.1-15.1) Plt Count 290 10^3/cmm 10^3 /cmm (130-400) MPV 9.5 fL fL (7.4-10.4) Neut % (Auto) 89.1 % % Lymph % (Auto) 3.0 % % [place] % (Auto) 6.3 % % Eos % (Auto) 0.1 % % Baso % (Auto) 0.3 % % Neut # (Auto) 9.17 10^3/uL H 10 ^3/uL (1.8-7.7) Lymph # (Auto) 0.3 10^3/uL L 10^ 3/uL (0.8-4.8) [place] # (Auto) 0.7 10^3/uL 10^3/ uL (0.2-0.9) Eos # (Auto) 0.0 10^3/uL 10^3/ uL (0.0-0.8) Baso # (Auto) 0.0 10^3/uL 10^3/ uL (0.0-0.1) Nucleated RBC % (a uto) 0 % % Nucleated RBCs # 0.0 /100WBC /100W BC PT 16.90 SECONDS H S ECONDS (12.1-14.9) INR 1.33 H (0.8-1.2) APTT 24.9 SECONDS SECO NDS (23.9-36.7) Sodium 139 mmol/L mmol/L (136-145) Potassium 3.9 mmol/L mmol/L (3.5-5.1) Chloride 104 mmol/L mmol/L (98-107) Carbon Dioxide 19 mmol/L L mmol/ L (22-29) Anion Gap 19.9 H (5-19) BUN 10 mg/dL mg/dL (6-20) Creatinine 0.7 mg/dL mg/dL (0.5-0.9) GFR Calculation 88.9 mL/min L mL/ min (90-130) Glucose 109 mg/dL mg/dL (65-115) Calculated Osmolal ity 288 mOsm/kg mOsm/ kg (285-295) Calcium 9.7 mg/dL mg/dL (8.5-10.5) Troponin T Baselin e Troponin T 120 Min [place] Delta Troponin T 04/24/21 04/24/21 20:50 23:05 WBC RBC Hgb Hct MCV MCH MCHC RDW Plt Count MPV Neut % (Auto) Lymph % (Auto) [place] % (Auto) Eos % (Auto) Baso % (Auto) Neut # (Auto) Lymph # (Auto) [place] # (Auto) Eos # (Auto) Baso # (Auto) Nucleated RBC % (a uto) Nucleated RBCs # PT INR APTT Sodium Potassium Chloride Carbon Dioxide Anion Gap BUN Creatinine GFR Calculation Glucose Calculated Osmolal ity Calcium Troponin T Baselin e 8 ng/L ng/L (0-10) Troponin T 120 Min [place] 8.33 ng/L ng/L (0-10) Delta Troponin T 0.33 ABS# ABS# (0-10) Imaging Data^: Other Imaging: Radiologist's impression: L-[address] [place] [id number] Scan ReportSigned Patient: Sophia Miller #: [id number]: 1970Acct#:[id number]/Sex: 50 / FADM Date: 04/24/21Loc: ERRoom/Bed:Attending Dr: Ordering Provider/Ordering MD: Merlin Kennedy MD Date of Service: 04/24/21 Procedure(s): CT angio chest PE protcl [id number] Accession Number(s): [id number] Report Number: [id number] PROCEDURE INFORMATION: Exam: CTA Chest With Contrast Exam date and time: 04/24/2021 9:24 PM Age: 50 years old Clinical indication: Shortness of breath; Prior surgery; Surgery type: Port; Patient HX: Lung ca/brain mets; Additional info: Evalaute for worsening cancer pe TECHNIQUE: Imaging protocol: Computed tomographic angiography of the chest with contrast. 3D rendering (Not supervised by radiologist): MIP and/or 3D reconstructed images were created by the technologist. Total images: 860 Radiation optimization: All CT scans at this facility use at least one of these dose optimization techniques: automated exposure control; mA and/or kV adjustment per patient size (includes targeted exams where dose is matched to clinical indication); or iterative reconstruction. Contrast material: OMNI 350; Contrast volume: 64 ml; Contrast route: INTRAVENOUS (IV); COMPARISON: 1. CTA Chest-Pulmonary Emb [id number] 08/04/2020 5:[address] Chest/Abdomen/Pelvis w IV* 06/26/2020 9:31:00 PM RADIATION DOSE METRICS: Total DLP (mGy-cm): 520.99 FINDINGS: Pulmonary arteries: No visible evidence of pulmonary embolism/pulmonary arterial thrombus. Aorta: The thoracic aorta is nonaneurysmal. No visible intimal flap or dissection. Lungs: Again note of diffuse ground-glass interstitial lung disease bilaterally, greatest involvement bilateral upper lobes, present on exam of ; but, with slight interval improvement. No visible consolidated alveolar airspace disease other than minimal parenchymal scar right lung base presumed site of the primary lung carcinoma. The appearance of microhoneycombing bilateral upper lobes and superior segments of the bilateral lower lobes could be secondary to usual interstitial pneumonitis. Findings of tree in bud bronchiolar disease, predominantly peripheral bilateral upper lobes, suggesting either active or chronic bronchiolar disease/bronchiolitis. Small 4 mm pulmonary nodule right lower lobe (series 3, image 35). Pleural spaces: No pneumothorax. No pleural effusion. Heart: Small volume pericardial effusion. Cardiac size within normal limits. No visible coronary artery disease. Lymph nodes: No significant interval change in the mediastinal and hilar lymphadenopathy. Also again note of calcified mediastinal and hilar complexes of antecedent granulomatous disease. Liver: Interval development of several small low-density hepatic structures that were not visible on the exam of 08/04/2020 raising concern for potential diffuse hepatic metastatic disease. Dominant focus medial segment left right hepatic lobe measures 10 mm. Calcified hepatic granuloma. Adrenal glands: Bilateral adrenal gland fullness stable since last evaluation of 08/04/2020. Suspect adrenal hyperplasia. Bones/joints: Mild scoliotic curvature of the spine. Soft tissues: Unremarkable. CT/CT angio chest PE protcl [id number] IMPRESSION: 1. No visible evidence of pulmonary embolism/pulmonary arterial thrombus. 2. Small volume pericardial effusion. 3. No significant interval change in the mediastinal and hilar lymphadenopathy. 4. Interval development of several small low-density hepatic structures that were not visible on the exam of 08/04/2020 raising concern for potential diffuse hepatic metastatic disease. 5. Evidence of slight interval improvement in the pulmonary parenchymal disease since last evaluation of 08/04/2020 as detailed in text. 6. Small 4 mm pulmonary nodule right lower lobe. For patients at low risk (minimal or absent history of smoking and of other known risk factors), no routine follow-up is indicated. For patients at high risk (history of smoking or of other known risk factors), consider optional CT Chest at 12 months. (Reference: [place]) REFERENCES: Delma Gray, et al. Guidelines for Management of Incidental Pulmonary Nodules Detected on CT Images: From the Fleischner Society 2017. Radiology. 2017;284(1):228-243. Radiation Dose CTDIVOL = (mGy): DLP = 520.99 (mGy-cm) Dictated By:Prem Shin By:Prem Shin Date/Time:04/24/21 2243DD/ [email or web address] [address]SQsl ReportSigned Patient: Sophia Miller #: [id number]: 1970Acct#:[id number]/Sex: 50 / FADM Date: 04/24/21Loc: ERRoom/Bed:Attending Dr: Ordering Provider/Ordering MD: Merlin Kennedy MD Date of Service: 04/24/21 Procedure(s): XR chest 1V portable [id number] Accession Number(s): [id number] Report Number: [id number] PROCEDURE INFORMATION: Exam: XR Chest Exam date and time: 04/24/2021 7:50 PM Age: 50 years old Clinical indication: Dyspnea; Prior surgery; Surgery date: 1-6 months; Surgery type: Port; Patient HX: Stage 4 lung CA; Additional info: Pain TECHNIQUE: Imaging protocol: XR of the chest. Views: 1 view. Total images: 1 COMPARISON: 1. CT Chest/Abdomen/Pelvis w IV* 10/29/2020 1:36 PM 2. CR XR chest 2V* [id number] 09/27/2020 8:28:14 AM FINDINGS: Tubes, catheters and devices: Right Infusaport catheter. Lungs: Bilateral diffuse reticulonodular interstitial lung disease similar in pattern to the CT chest examination of 10/29/2020. No visible consolidated alveolar airspace disease. COPD/chronic bronchitis. Pleural spaces: No pleural effusion. No pneumothorax. Heart/Mediastinum: Cardiac structures and configuration within normal limits. Bones/joints: Unremarkable. XR/XR chest 1V portable [id number] IMPRESSION: Bilateral diffuse reticulonodular interstitial lung disease. Dictated By:Prem Shin By:Prem Shin Date/Time:04/24/212125DD/ [address] [address]TR Scan ReportSigned Patient: Sophia Miller #: [id number]: 1970Acct#:[id number]/Sex: 50 / FADM Date: 04/24/21Loc: MEDSURLima/Bed: 269-1Attending Dr: Alexx Valle MD Ordering Provider/Ordering MD: Merlin Kennedy MD Date of Service: 04/24/21 Procedure(s): CT thoracic spin wo con* [id number] Accession Number(s): [id number] Report Number: [id number] PROCEDURE INFORMATION: Exam: CT Thoracic Spine Without Contrast Exam date and time: 04/24/2021 11:12 PM Age: 50 years old Clinical indication: Condition or disease; Cancer, 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 Radiation optimization: All CT scans at this facility use at least one of these dose optimization techniques: automated exposure control; mA and/or kV adjustment per patient size (includes targeted exams where dose is matched to clinical indication); or iterative reconstruction. COMPARISON: CT cervical spine w con [id number] 04/24/2021 11:31 PM RADIATION DOSE METRICS: Total DLP (mGy-cm): 1050.43 FINDINGS: Vertebrae: No thoracic fracture or subluxation. Discs/Spinal canal/Neural foramina: No significant central stenosis. Other bones/joints: No evidence of bone metastasis. Soft tissues: Unremarkable. Lungs: Diffuse interstitial and micronodular infiltrates throughout the lung. CT/CT thoracic spin wo con* [id number] IMPRESSION: 1. No significant thoracic spine findings. 2. Extensive interstitial and micro nodular lung opacities Radiation Dose CTDIVOL = (mGy): DLP = 1050.43 (mGy-cm) Dictated By:Elizabeth Drakeigned By:Elizabeth Drake Date/Time:04/25/21 0040DD/ 0039 [facility] [place], [place] [address]NT Scan ReportSigned Patient: Sophia Miller #: [id number]: 1970Acct#:[id number]/Sex: 50 / FADM Date: 04/24/21Loc: [facility]/Bed: 269-1Attending Dr: Alexx Valle MD Ordering Provider/Ordering MD: Merlin Kennedy MD Date of Service: 04/24/21 Procedure(s): CT lumbar spine wo con* [id number] Accession Number(s): [id number] Report Number: [id number] PROCEDURE INFORMATION: Exam: CT Lumbar Spine Without Contrast Exam date and time: 04/24/2021 11:12 PM Age: 50 years old Clinical indication: Condition or disease; Cancer, metastatic (secondary site lumbar); Patient HX: HX of lung cancer with mets to the brain; Additional info: Infection / rule out cancer TECHNIQUE: Imaging protocol: Computed tomography images of the lumbar spine without contrast. Radiation optimization: All CT scans at this facility use at least one of these dose optimization techniques: automated exposure control; mA and/or kV adjustment per patient size (includes targeted exams where dose is matched to clinical indication); or iterative reconstruction. COMPARISON: CT thoracic spin wo con* [id number] 04/24/2021 11:33 PM RADIATION DOSE METRICS: Total DLP (mGy-cm): 949.56 FINDINGS: Tubes, catheters and devices: An IVC filter lies in the usual location. Vertebrae: No lumbar spine fracture or subluxation. Discs/Spinal canal/Neural foramina: Mild broad-based disc bulges at L3-L4 and L4-L5. At L5-S1 there is advanced chronic degenerative disc disease with a disc spur complex but no significant central or foraminal stenosis. Soft tissues: Unremarkable. CT/CT lumbar spine wo con* [id number] IMPRESSION: 1. No lumbar stenosis or evidence of bone metastasis. 2. Mild chronic degenerative changes Radiation Dose CTDIVOL = (mGy): DLP = 949.56 (mGy-cm) Dictated By:Elizabeth Drakeigned By:Elizabeth Drake Date/Time:04/25/21 0042DD/ [address] [address]CG Scan ReportSigned Patient: Sophia Miller #: [id number]: 1970Acct#:[id number]/Sex: 50 / FADM Date: 04/24/21Loc: [facility]: Alexx Valle MD Ordering Provider/Ordering MD: Merlin Kennedy MD Date of Service: 04/24/21 Procedure(s): CT cervical spin wo con* [id number] Accession Number(s): [id number] Report Number: [id number] PROCEDURE INFORMATION: Exam: CT Cervical Spine Without Contrast Exam date and time: 04/24/2021 11:12 PM Age: 50 years old Clinical indication: Condition or disease; Other: Possible bone mets / infection; Additional info: Infection / rule out cancer TECHNIQUE: Imaging protocol: Computed tomography images of the cervical spine without contrast. Radiation optimization: All CT scans at this facility use at least one of these dose optimization techniques: automated exposure control; mA and/or kV adjustment per patient size (includes targeted exams where dose is matched to clinical indication); or iterative reconstruction. COMPARISON: CT Cervical Spine wo* [id number] 09/01/2020 1:40 PM RADIATION DOSE METRICS: Total DLP (mGy-cm): 307.98 FINDINGS: Tubes, catheters and devices: Partially visualized right chest wall venous access port. Bones/joints: No evidence of bone metastasis or pathologic fracture. Discs/Spinal canal/Neural foramina: Multilevel chronic degenerative disc disease throughout the cervical spine. Scattered small disc spur complexes especially at C5-C6 and C6-C7 but without significant central stenosis. Lungs: Again noted are numerous micro nodular opacities in the lung apices. Soft tissues: Unremarkable. No epidural fluid collection. No prevertebral swelling. CT/CT cervical spin wo con* [id number] IMPRESSION: 1. No fracture or bone metastasis 2. 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
[2021-04-24] MEDS: HYDROmorphone 1 mg/mL INJ 1 mL IVP (23:33)
[2021-04-24 23:50] LABS: Troponin 5 2HR 8.33 ng/L (0-10); Troponin 5 2HR Delta 0.33 ABS# (0-10)
[2021-04-25] VITALS (9 sets, daily range): BP systolic 88–137; BP diastolic 46–78; PULSE 67–114; RESP 16–22; TEMP 36.4–37.9; O2SAT 82–96
--- NOTE | 2021-04-25 00:55 | P.HP_ITS ---
Providers/Chief Complaint Admitting Physician: Alexx Valle Primary Care Provider: Sebastian Hendrickson MD Chief Complaint: sob, throwing up blood this morning History of Present Illness 50-year-old female with past medical history significant for pericardial effusion s/p window, NOA on CPAP, pulmonary embolism s/p IVF filter on Eliquis and Lung cancer with brain Mets completed chemo and chronic cough who presented to ER with hemoptysis. Noted this in the past 2 days. At time up to tbs of blood. Has continued her Eliquis. Denies any fever chills. Denied nausea or vomiting. Denies chest pain or shortness of breath. Laboratory workup showed a WBC of 10.3, hemoglobin of 11.1 which was improved from 9.7 on 04/08/2021 and a platelet count of 290. INR 1.3. Sodium 139, potassium 3.9, chloride 104, bicarb 98, BUN 10 and a creatinine of 0.7. Troponin trend negative. Chest x-r ay showed bilateral reticulonodular interstitial lung disease. CTA of chest did not show any new pulmonary embolism. Chronic changes noted. CT of cervical lumbar and thoracic spine due to back and was ordered and found to be stable without any evidence of acute fracture. In emergency room she was given IV fluids and IV pain control. Review of Systems General: Reports: 10 or more systems reviewed and unremarkable except in HPI and below Medications/Allergies Home Medications Medication Instructions Recorded Confirmed Last Taken Type albuterol sulfate 90 mcg/actuation 2 puff INHALATION Q6H PRN 02/21/20 05/09/20 03/21/20 History aerosol inhaler alprazolam 0.25 mg tablet 0.25 mg PO TID PRN 02/21/20 05/09/20 Unknown History montelukast 10 mg tablet 10 mg PO DAILY 02/21/20 05/09/20 05/10/20 History pantoprazole 40 mg tablet,delayed 40 mg PO DAILY 02/21/20 05/09/20 05/10/20 History release sertraline 100 mg tablet 150 mg PO DAILY tab 02/21/20 05/09/20 05/10/20 History dextromethorphan polistirex 10 ml PO Q12H #89 ml 03/22/20 05/09/20 Unknown Rx [Robitussin ER] fluticasone propionate 50 1 spray INTRANASAL BID #15.8 ml 04/04/20 05/09/20 05/09/20 Rx mcg/actuation nasal spray,suspension Allergies Allergy/AdvReac Type Severity Reaction Status Date / Time bupropion [From Wellbutrin] Allergy Severe Unknown Verified 04/04/20 13:38 PFSH Acute PFSH: Medical History (Updated 04/25/21 @ 06:08 by Alexx Valle MD) Depression with anxiety GERD (gastroesophageal reflux disease) Seasonal allergies Family History Mother Psychiatric illness Depression Hypertension Brother Heart defect Social History Smoking and tobacco status: never smoked Alcohol intake: never Lives independently: Yes Household members: none Marital status: Current occupational status: employed Current occupational exposures/hazards: No History of recent travel: No Current gender identity: Female Female Reproductive History: Date of last menstrual period: 03/22/20 Vitals/I&O/Wt Last Vital Signs Temp 100.2 F H 04/25/21 04:00 Pulse 111 H 04/25/21 05:14 Resp 18 04/25/21 04:00 BP 110/72 04/25/21 04:00 Pulse Ox 94 04/25/21 04:00 04/24/21 04/24/21 04/25/21 14:59 22:59 06:59 Intake Total 480 / 480 Balance 480 / 480 Weight last 48 hrs Weight 52.163 kg Physical Exam Narrative: EXAM NARRATIVE: General-Alert awake and oriented HEENT-grossly unremarkable CVS test regular rate rhythm Chest- nonlabored respiration Abdomen-nondistended Extremities-no edema Data : 04/24/21 20:50 04/24/21 20:50 A&P Assessment and plan (1) Hemoptysis: Status: Acute Additional A&P Information Hemoptysis Monitor h/h Holding Eliquis for now - High risk for VTE however Consider pulmonary consult At baseline o2 Transfsue if hgb < 7.0 or > 2-3 drop Hx of Pulmonary embolism Holding Eliquis Metastatic lung cancer to brain Outpatient heme/onc DVT ppx SCDs * Verify home meds and resume in am Attestations Medical Necessity Statement*: Less than 2 midnight stay in hospital for larissa luation and treatment Time Spent in Patient Care: Greater than 35 minutes (>than 50% of time spent in counselling and/or direct pt care on unit) . Coding Level of Care Code Acute Computer Programmer Chief for Martin Gallardo Diagnoses Hemoptysis R04.2
--- NOTE | 2021-04-25 03:43 | ECG_ITS ---
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 Measurements Intervals [place] Rate: 111 P: 43 AR: 127 QRS: 42 QRSD: 78 T: 37 QT: 297 QTc: 405 Interpretive Statements SINUS TACHYCARDIA LOW QRS VOLTAGE IN PRECORDIAL LEADS [QRS DEFLECTION < 1.0 mV IN CHEST LEADS] NONSPECIFIC T-WAVE ABNORMALITY Compared to ECG 04/24/2021 21:30:09 T-wave abnormality now present Sinus rhythm no longer present Electronically Signed On 04-25-2021 21:08:43 CDT by David Jeff M.D. [id number]
[2021-04-25] MEDS: pantoprazole DR 40 mg Tablet PO (09:15)
--- NOTE | 2021-04-25 11:37 | PC.PHAR ---
PT IS FROM [facility] [phone] FROM [facility] SENT THE PTS MEDICATION MAR
[2021-04-25 14:34] LABS: ABG PCO2 25.3 mmHg (35-45); Alveolar-Arterial Oxygen Gradi 17.4 mmHg (5-10); Arterial Blood Gas Hematocrit 30.9 % (37-47); Base Excess ABG -2.7 mmol/L (-2.0-2.0); Blood Gas Allen Test Pos; Blood Gas Operator Identificat glc; Blood Gas Sample Site Radial, right; Blood Gas Sample Type Arterial; Carboxyhemoglobin 1.6 %THgb (0.4-20.1); HCO3 ABG 19.5 mmol/L (22-26); HGB O2 Sat 91.3 % (95-100); Ionized Calcium Level - ABG 1.2 mmol/L (1.1-1.4); Methemoglobin 0.5 % (0.4-1.5); Oxygen Device NC; Oxygen Saturation ABG 93.2; PO2 ABG 61.5 mmHg (80.0-100.0); Potassium Level - ABG 3.9 mmol/L (3.5-5.0); Total Hemoglobin 10.1 g/dL (12-16)
[2021-04-25 14:47] LABS: Basophils % 0.2 %; Eosinophils % 0.5 %; Hemoglobin 9.9 g/dL (11.5-15.3); Lymphocytes # 0.3 10^3/uL (0.8-4.8); Lymphocytes % 5.6 %; Mean Corpuscular HGB Conc 30.9 g/dL (30.0-36.0); Mean Corpuscular Hemoglobin 25.6 pg (28.0-34.0); Mean Corpuscular Volume 82.7 fl (81-99); Monocytes # 0.2 10^3/uL (0.2-0.9); Monocytes % 4.3 %; Neutrophils # 4.93 10^3/uL (1.8-7.7); Neutrophils % 88.9 %; Nucleated Red Blood Cells % 0 %; Platelet Count 218 10^3/cmm (130-400); Red Blood Count 3.87 10^6/uL (4.1-5.3); Red Cell Distribution Width 22.6 % (12.1-15.1); White Blood Count 5.6 10^3/uL (4.0-10.0)
[2021-04-25 15:05] LABS: Anion Gap 14.9 (5-19); Blood Urea Nitrogen 10 mg/dL (6-20); Carbon Dioxide 21 mmol/L (22-29); Chloride 99 mmol/L (98-107); Glomerular Filtration Rate 88.9 mL/min (90-130); Glucose 91 mg/dL (65-115); Magnesium 2.1 mg/dL (1.7-2.3); Osmolality Calculated 271 mOsm/kg (285-295); Potassium 3.9 mmol/L (3.5-5.1); Sodium 131 mmol/L (136-145)
[2021-04-25 15:22] LABS: Slide Review Slide Review Perform
--- NOTE | 2021-04-25 15:54 | PM.PN ---
Subjective Subjective: Interval history: Patient seen and examined this morning she did have some hemoptysis and there was some blood in her tray at bedside. Total maybe 3 to 4 cc of blood. She did stated that she came in for back pain and the fact that she has been requiring oxygen. Patient presents from an assisted living facility. Nursing staff reported that patient was on oxygen at first but was able to be weaned off and then in the recent weeks she has been back on oxygen intermittently. Patient has been afebrile and the whole day that she has been here she has not had any more hemoptysis. Hemoglobin is stable. She denies abdominal pain, shortness of breath. She is at her baseline oxygen today. She was seen twice today for interval follow-up history as well and there has been no change so far. When asked she states she does not have any specific complaints. It seems her issues are chronic. Vitals/I&O/Wt Last Vital Signs Temp 98.0 F 04/25/21 11:34 Pulse 112 H 04/25/21 11:34 Resp 22 H 04/25/21 11:34 BP 102/62 04/25/21 11:34 Pulse Ox 96 04/25/21 11:34 04/25/21 04/25/21 04/25/21 06:59 14:59 22:59 Intake Total 480 / 480 360 / 360 Output Total 100 / 100 Balance 380 / 380 360 / 360 Weight last 48 hrs Weight 52.163 kg Physical Exam Narrative: EXAM NARRATIVE: General: Alert oriented x3, frail appearing female seen laying in bed appears older than stated age. On 3 L nasal cannula saturating 90 to 92%. HEENT: Normocephalic, atraumatic, EOMI, Cardio: Regular rate rhythm, normal S1-S2, no murmurs rubs gallops, Respiratory: Good bilateral air entry, no wheezes no rhonchi appreciated, lungs clear to auscultation. GI: Abdomen soft, nontender, nondistended, bowel sounds + Behavior: Appropriate and cooperative Extremities: no edema, no cyanosis Neuro: No gross focal neurologic deficits. Data : 04/25/21 14:40 04/25/21 14:40 A&P Assessment and plan (1) Chronic cough: Status: Acute (2) GERD (gastroesophageal reflux disease): Status: Acute Qualifiers: Esophagitis presence: esophagitis presence not specified Qualified Code(s): K21.9 - Gastro-esophageal reflux disease without esophagitis (3) Hemoptysis: Status: Acute (4) Malignant neoplasm of lung: Status: Acute (5) Metastatic disease: Status: Acute (6) Brain metastases: Status: Acute Additional A&P Information Patient presented with hemoptysis but has not had any hemoptysis since morning. She was seen twice today. She was off oxygen but recently has been requiring it at the assisted living. There is a report that she was hypoxic and therefore sent to the hospital. We will check bacterial antigens, will check procalcitonin, and MRSA nares, urine culture We will monitor hemoglobin so far it has been stable. We will check CBC CMP magnesium, monitor the patient overnight. She seems to be at her baseline. She did present with back pain and CT spine was performed with no evidence of mets. Threshold to transfuse is less than 8. We will continue to give patient cough suppressant at this time. If she does have more hemoptysis we may use nebulized tranexamic acid. There is no pulmonary critical care coverage available over the weekend. If patient has significant bleeding with evidence of dropping hemoglobin we will have to transfer her to a higher level of care where there is pulmonary critical care services available. I will attempt to contact her oncologist Dr. Galvez for more information. Patient also has an outpatient PET scan scheduled for tomorrow. There is no evidence of infection and work-up is negative and patient says stable she may build to discharge back to her assisted living facility in a.m. Fluids: Not indicated Electrolytes: Replete as needed Nutrition: Regular diet. Patient states she is on a high-protein diet. I will consult dietary Activity: As tolerated DVT prophylaxis: We will hold off for now since patient had hemoptysis this a.m. She is also on Eliquis at home which is being held at this time. Attestations Medical Necessity Statement*: Observation overnight for hemoptysis. Time Spent in Patient Care: Greater than 35 minutes Patient was seen multiple times today. Coding Level of Care Code Acute Compensation Administrator for Martin Fwd Diagnoses Chronic cough R05 GERD (gastroesophageal reflux disease) K21.9 Esophagitis presence: esophagitis presence not specified Hemoptysis R04.2 Malignant neoplasm of lung C34.90 Metastatic disease C79.9 Brain metastases C79.31
[2021-04-25 16:15] LABS: Procalcitonin 3.03 ng/mL (0-0.5)
[2021-04-25] MEDS: acetaminophen 325 mg Tablet 650 MG PO (17:26)
[2021-04-25] MEDS: midodrine 5 mg TABLET 10 MG PO (19:50)
[2021-04-25] MEDS: trazodone 50 mg Tablet PO (19:50)
[2021-04-26] VITALS (10 sets, daily range): BP systolic 95–112; BP diastolic 57–70; PULSE 87–124; RESP 18–20; TEMP 36.9–37.5; O2SAT 87–96
[2021-04-26 07:10] LABS: Basophils % 0.4 %; Eosinophils # 0.1 10^3/uL (0.0-0.8); Eosinophils % 1.5 %; Hematocrit 29.8 % (37.0-47.0); Hemoglobin 9.3 g/dL (11.5-15.3); Lymphocytes # 0.2 10^3/uL (0.8-4.8); Lymphocytes % 4.3 %; Mean Corpuscular HGB Conc 31.2 g/dL (30.0-36.0); Mean Corpuscular Hemoglobin 25.6 pg (28.0-34.0); Mean Corpuscular Volume 82.1 fl (81-99); Mean Platelet Volume 9.2 fL (7.4-10.4); Monocytes # 0.2 10^3/uL (0.2-0.9); Monocytes % 3.9 %; Neutrophils # 4.81 10^3/uL (1.8-7.7); Nucleated Red Blood Cells % 0 %; Platelet Count 238 10^3/cmm (130-400); Red Blood Count 3.63 10^6/uL (4.1-5.3); Red Cell Distribution Width 22.2 % (12.1-15.1); White Blood Count 5.4 10^3/uL (4.0-10.0)
[2021-04-26 07:22] LABS: INR 1.21 (0.8-1.2)
[2021-04-26] MEDS: folic acid 1 mg Tablet PO (08:18)
[2021-04-26] MEDS: montelukast sodium 10 mg Tablet PO (08:18)
[2021-04-26] MEDS: levETIRAcetam 500 mg Tablet 250 MG PO ×2 (08:18→17:43)
[2021-04-26] MEDS: sertraline 100 mg Tablet 200 MG PO (08:18)
[2021-04-26] MEDS: pantoprazole DR 40 mg Tablet PO (08:18)
[2021-04-26] MEDS: midodrine 5 mg TABLET 10 MG PO ×3 (08:18→20:14)
[2021-04-26] MEDS: benzonatate 100 mg Capsule PO (08:21)
[2021-04-26 09:02] LABS: Alanine Aminotransferase 10 U/L (0-33); Albumin Level 3.3 g/dL (3.5-5.2); Alkaline Phosphatase 80 IU/L (35-105); Anion Gap 16.9 (5-19); Aspartate Amino Transferase 14 U/L (0-32); Blood Urea Nitrogen 11 mg/dL (6-20); Calcium 8.8 mg/dL (8.5-10.5); Carbon Dioxide 19 mmol/L (22-29); Chloride 103 mmol/L (98-107); Globulin 2.7 g/dL (1.3-4.6); Glomerular Filtration Rate 106.3 mL/min (90-130); Glucose 80 mg/dL (65-115); Osmolality Calculated 278 mOsm/kg (285-295); Potassium 3.9 mmol/L (3.5-5.1); Sodium 135 mmol/L (136-145); Total Bilirubin 0.8 mg/dL (0.15-1.2)
--- NOTE | 2021-04-26 11:13 | PM.PN ---
Subjective Subjective: Interval history: Patient seen and examined. She has had no hemoptysis overnight and has been afebrile. But has had some temperatures of 99.4. Prior to hospital admission her baseline was 97.8 97.9. 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 Procalcitonin is 3. All other work-up has been negative so far. She feels well and at her baseline. Vitals/I&O/Wt Last Vital Signs Temp 99.1 F 04/26/21 07:51 Pulse 124 H 04/26/21 10:11 Resp 18 04/26/21 07:51 BP 95/57 04/26/21 07:51 Pulse Ox 87 L 04/26/21 10:12 04/25/21 04/26/21 04/26/21 22:59 06:59 14:59 Intake Total 1240 / 1600 480 / 2080 120 / 120 Output Total 1350 / 1350 850 / 2200 Balance -110 / 250 -370 / -120 120 / 120 Weight last 48 hrs Weight 52.163 kg Physical Exam Narrative: EXAM NARRATIVE: General: Alert oriented x3, frail appearing female seen laying in bed appears older than stated age. On 3 L nasal cannula saturating 90 to 92%. HEENT: Normocephalic, atraumatic, EOMI, Cardio: Regular rate rhythm, normal S1-S2, no murmurs rubs gallops, Respiratory: Good bilateral air entry, no wheezes no rhonchi appreciated, lungs clear to auscultation. GI: Abdomen soft, nontender, nondistended, bowel sounds + Behavior: Appropriate and cooperative Extremities: no edema, no cyanosis Neuro: No gross focal neurologic deficits. Data : 04/26/21 06:50 04/26/21 06:50 Micro: Microbiology 04/25/21 16:50 MRSA Culture - Final Nose 04/25/21 21:40 Legionella Urinary Antigen - Final Urine,Voided Bacterial Antigens - Final A&P Assessment and plan (1) Chronic cough: Status: Acute (2) GERD (gastroesophageal reflux disease): Status: Acute Qualifiers: Esophagitis presence: esophagitis presence not specified Qualified Code(s): K21.9 - Gastro-esophageal reflux disease without esophagitis (3) Hemoptysis: Status: Acute (4) Malignant neoplasm of lung: Status: Acute (5) Metastatic disease: Status: Acute (6) Brain metastases: Status: Acute Additional A&P Information Patient presented with hemoptysis but has not had any hemoptysis since morning. She was seen twice yesterday and today as well. She was off oxygen but recently has been requiring it at the assisted living. There is a report that she was hypoxic and therefore sent to the hospital. Bacterial antigens negative, procalcitonin is 3. Urine culture is pending, MRSA nares is negative. Hemoglobin is stable. She seems to be at her baseline. She did present with back pain and CT spine was performed with no evidence of mets. Threshold to transfuse is less than 8. We will continue to give patient cough suppressant at this time. If she does have more hemoptysis we may use nebulized tranexamic acid. There is no pulmonary critical care coverage available over the weekend. If patient has significant bleeding with evidence of dropping hemoglobin we will have to transfer her to a higher level of care where there is pulmonary critical care services available. I will attempt to contact her oncologist Dr. Galvez for more information. General infectious work-up has been negative. But due to her immunocompromised status I will just check blood cultures for completion. Plan to discharge patient in the morning. We will continue to monitor for fever. We will cover her with Zosyn in the meantime. Patient also qualifies for home oxygen and that has been set up for her. Plan to discharge patient in the morning. We will restart her Eliquis at discharge. Fluids: Not indicated Electrolytes: Replete as needed Nutrition: Regular diet. Patient states she is on a high-protein diet. Activity: As tolerated DVT prophylaxis: We will use SCDs. We will restart Eliquis at discharge. Attestations Medical Necessity Statement*: Observation for tonight. Discharge tomorrow morning. Time Spent in Patient Care: 16 - 35 minutes Coding Level of Care Code Acute Dental Surgery Doctor for Chg Fwd Diagnoses Chronic cough R05 GERD (gastroesophageal reflux disease) K21.9 Esophagitis presence: esophagitis presence not specified Hemoptysis R04.2 Malignant neoplasm of lung C34.90 Metastatic disease C79.9 Brain metastases C79.31
[2021-04-26] MEDS: piperacillin-tazobactam 3.375 GM in sodium chloride 0.9% (plus) 50 ML IV ×2 (14:29→20:14)
[2021-04-26] MEDS: acetaminophen 325 mg Tablet 650 MG PO (14:30)
--- NOTE | 2021-04-26 19:54 | PC.NURSE ---
spoke with david Licea daughter listed as next of kin. pt ok'd that this nurse could give updates. Daughter updated with recent labs, progress notes, and d/c plans.
[2021-04-26] MEDS: trazodone 50 mg Tablet PO (20:13)
[2021-04-27 04:00] VITALS: BP 90/55; PULSE 94; RESP 17; TEMP 37.1; O2SAT 95
[2021-04-27] MEDS: piperacillin-tazobactam 3.375 GM in sodium chloride 0.9% (plus) 50 ML IV ×3 (04:23→19:31)
[2021-04-27 05:15] LABS: Basophils % 0.2 %; Eosinophils # 0.1 10^3/uL (0.0-0.8); Eosinophils % 1.5 %; Hematocrit 29.5 % (37.0-47.0); Hemoglobin 8.8 g/dL (11.5-15.3); Lymphocytes # 0.3 10^3/uL (0.8-4.8); Lymphocytes % 5.5 %; Mean Corpuscular HGB Conc 29.8 g/dL (30.0-36.0); Mean Corpuscular Hemoglobin 25.3 pg (28.0-34.0); Mean Corpuscular Volume 84.8 fl (81-99); Mean Platelet Volume 9.2 fL (7.4-10.4); Monocytes # 0.4 10^3/uL (0.2-0.9); Neutrophils # 4.47 10^3/uL (1.8-7.7); Neutrophils % 84.3 %; Nucleated Red Blood Cells % 0 %; Platelet Count 250 10^3/cmm (130-400); Red Blood Count 3.48 10^6/uL (4.1-5.3); Red Cell Distribution Width 21.9 % (12.1-15.1); White Blood Count 5.3 10^3/uL (4.0-10.0)
[2021-04-27 08:00] VITALS: BP 86/58; PULSE 92; RESP 18; TEMP 36.7; O2SAT 92
[2021-04-27] MEDS: sertraline 100 mg Tablet 200 MG PO (08:12)
[2021-04-27] MEDS: folic acid 1 mg Tablet PO (08:12)
[2021-04-27] MEDS: levETIRAcetam 500 mg Tablet 250 MG PO ×2 (08:12→18:08)
[2021-04-27] MEDS: pantoprazole DR 40 mg Tablet PO (08:12)
[2021-04-27] MEDS: midodrine 5 mg TABLET 10 MG PO ×3 (08:12→19:32)
[2021-04-27] MEDS: benzonatate 100 mg Capsule PO (08:12)
[2021-04-27] MEDS: montelukast sodium 10 mg Tablet PO (08:12)
--- NOTE | 2021-04-27 11:23 | P.PN_ITS ---
Subjective Subjective: Interval history: Seen and examined this morning. She states she feels a lot better. Patient also appears perked up and energetic today. She has not had any more hemoptysis. However her hemoglobin is trending down. She presented with hemoglobin 11 and today is 8.8. Her threshold to transfer was is below 8. [place] is still being held Vitals/I&O/Wt Last Vital Signs Temp 98.0 F 04/27/21 08:00 Pulse 92 04/27/21 08:00 Resp 18 04/27/21 08:00 BP 86/58 04/27/21 08:00 Pulse Ox 92 04/27/21 08:00 04/26/21 04/27/21 04/27/21 22:59 06:59 14:59 Intake Total 650 / 890 100 / 990 410 / 410 Output Total 1000 / 1000 500 / 1500 Balance -350 / -110 -400 / -510 410 / 410 Physical Exam Narrative: EXAM NARRATIVE: General: Alert oriented x3, frail appearing female seen laying in bed appears older than stated age. On 4 L nasal cannula saturating 90 to 92%. HEENT: Normocephalic, atraumatic, EOMI, Cardio: Regular rate rhythm, normal S1-S2, no murmurs rubs gallops, Respiratory: Good bilateral air entry, no wheezes no rhonchi appreciated, lungs clear to auscultation. GI: Abdomen soft, nontender, nondistended, bowel sounds + Behavior: Appropriate and cooperative Extremities: no edema, no cyanosis Neuro: No gross focal neurologic deficits. Data : 04/27/21 05:03 04/26/21 06:50 Micro: Microbiology 04/25/21 21:40 Urine Culture - Preliminary Urine,Voided Gram Negative Rods 04/26/21 11:46 Blood Culture - Preliminary Blood SPECIMEN COLLECTED 04/26/21 11:50 Blood Culture - Preliminary Blood SPECIMEN COLLECTED 04/25/21 16:50 MRSA Culture - Final Nose 04/25/21 21:40 Legionella Urinary Antigen - Final Urine,Voided Bacterial Antigens - Final A&P Assessment and plan (1) Chronic cough: Status: Acute (2) GERD (gastroesophageal reflux disease): Status: Acute Qualifiers: Esophagitis presence: esophagitis presence not specified Qualified Code(s): K21.9 - Gastro-esophageal reflux disease without esophagitis (3) Hemoptysis: Status: Acute (4) Malignant neoplasm of lung: Status: Acute (5) Metastatic disease: Status: Acute (6) Brain metastases: Status: Acute Additional A&P Information Patient presented with hemoptysis but has not had any hemoptysis since morning. She was seen twice yesterday and today as well. She was off oxygen but recently has been requiring it at the assisted living. There is a report that she was hypoxic and therefore sent to the hospital. She is now on 4 L nasal cannula. Oxygen requirement has gone up a little bit. Bacterial antigens negative, procalcitonin is 3. Urine culture is pending, MRSA nares is negative. Hemoglobin is trending down slowly. She presented with hemoglobin of 11 and today is 8.8. She did present with back pain and CT spine was performed with no evidence of mets. Threshold to transfuse is less than 8. I will continue to monitor her hemoglobin. We will continue to give patient cough suppressant at this time. If she does have more hemoptysis we may use nebulized tranexamic acid. There is no pulmonary critical care coverage available over the weekend. If patient has significant bleeding with evidence of dropping hemoglobin we will have to transfer her to a higher level of care where there is pulmonary critical care services available. I will attempt to contact her oncologist Dr. Galvez for more information. General infectious work-up has been negative. But due to her immunocompromised status I will just check blood cultures for completion. We will continue to monitor for fever. She has been afebrile overnight. I will continue her on Zosyn for now. Patient also qualifies for home oxygen and that has been set up for her. Consider pulmonary referral in a.m. I will continue to hold Eliquis for now since hemoglobin is dropping. There is no evidence of any gross bleed however. I will attempt to call patient's sister today for an update. Fluids: Not indicated Electrolytes: Replete as needed Nutrition: Regular diet. Activity: As tolerated DVT prophylaxis: We will use SCDs. We will restart Eliquis at discharge. Attestations Medical Necessity Statement*: Currently on Zosyn. Hemoglobin actively dropping. No source of bleeding identified. We will continue to monitor. Time Spent in Patient Care: 16 - 35 minutes (>than 50% of time spent in counselling and/or direct pt care on unit) . Coding Level of Care Code Acute Sas Developer Analyst for Chg Fwd Diagnoses Chronic cough R05 GERD (gastroesophageal reflux disease) K21.9 Esophagitis presence: esophagitis presence not specified Hemoptysis R04.2 Malignant neoplasm of lung C34.90 Metastatic disease C79.9 Brain metastases C79.31
[2021-04-27 12:00] VITALS: BP 95/72; PULSE 93; RESP 18; TEMP 36.7; O2SAT 92
[2021-04-27 16:00] VITALS: BP 95/68; PULSE 90; RESP 16; TEMP 36.1; O2SAT 92
[2021-04-27] MEDS: trazodone 50 mg Tablet PO (19:30)
[2021-04-27 19:34] VITALS: BP 97/64; PULSE 97; RESP 17; TEMP 37.1; O2SAT 99
[2021-04-27 22:33] VITALS: PULSE 110; O2SAT 93
[2021-04-28] VITALS: BP 98/63; PULSE 94; RESP 16; TEMP 37; O2SAT 94
[2021-04-28 04:00] VITALS: BP 96/61; PULSE 93; RESP 16; TEMP 36.9; O2SAT 94
[2021-04-28] MEDS: piperacillin-tazobactam 3.375 GM in sodium chloride 0.9% (plus) 50 ML IV (04:24)
[2021-04-28 05:40] LABS: Basophils % 0.6 %; Eosinophils # 0.1 10^3/uL (0.0-0.8); Eosinophils % 1.6 %; Hematocrit 29.5 % (37.0-47.0); Hemoglobin 8.7 g/dL (11.5-15.3); Lymphocytes # 0.4 10^3/uL (0.8-4.8); Lymphocytes % 8.3 %; Mean Corpuscular HGB Conc 29.5 g/dL (30.0-36.0); Mean Corpuscular Hemoglobin 25.2 pg (28.0-34.0); Mean Corpuscular Volume 85.5 fl (81-99); Mean Platelet Volume 8.8 fL (7.4-10.4); Monocytes # 0.5 10^3/uL (0.2-0.9); Monocytes % 9.6 %; Neutrophils # 3.87 10^3/uL (1.8-7.7); Neutrophils % 76.2 %; Nucleated Red Blood Cells % 0 %; Platelet Count 269 10^3/cmm (130-400); Red Blood Count 3.45 10^6/uL (4.1-5.3); Red Cell Distribution Width 21.6 % (12.1-15.1); White Blood Count 5.1 10^3/uL (4.0-10.0)
[2021-04-28 06:11] LABS: Blood Urea Nitrogen 8 mg/dL (6-20); Calcium 8.7 mg/dL (8.5-10.5); Carbon Dioxide 21 mmol/L (22-29); Chloride 107 mmol/L (98-107); Glomerular Filtration Rate 106.3 mL/min (90-130); Glucose 85 mg/dL (65-115); Magnesium 2.3 mg/dL (1.7-2.3); Osmolality Calculated 286 mOsm/kg (285-295); Sodium 139 mmol/L (136-145)
[2021-04-28 06:16] LABS: Anion Gap 15.3 (5-19); Potassium 4.3 mmol/L (3.5-5.1)
[2021-04-28 07:35] VITALS: BP 143/77; PULSE 76; RESP 20; TEMP 36.8; O2SAT 93
[2021-04-28] MEDS: folic acid 1 mg Tablet PO (08:16)
[2021-04-28] MEDS: montelukast sodium 10 mg Tablet PO (08:16)
[2021-04-28] MEDS: sertraline 100 mg Tablet 200 MG PO (08:16)
[2021-04-28] MEDS: midodrine 5 mg TABLET 10 MG PO (08:16)
[2021-04-28] MEDS: pantoprazole DR 40 mg Tablet PO (08:16)
[2021-04-28] MEDS: levETIRAcetam 500 mg Tablet 250 MG PO (08:16)
[2021-04-28 11:41] VITALS: BP 126/74; PULSE 68; RESP 18; TEMP 36.2; O2SAT 98
--- NOTE | 2021-04-28 12:03 | PM.DCS ---
Discharge Providers Date of Admission: 04/25/21 00:51 Date of Discharge: April 28, 2021 Attending Provider at Admission: Alexx Valle Attending Provider at Discharge: Kareem Nieves MD Primary Care Provider: Sebastian Hendrickson MD Diagnoses at Discharge Discharge Diagnosis (1) Chronic cough: Status: Acute (2) GERD (gastroesophageal reflux disease): Status: Acute Qualifiers: Esophagitis presence: esophagitis presence not specified Qualified Code(s): K21.9 - Gastro-esophageal reflux disease without esophagitis (3) Hemoptysis: Status: Acute (4) Malignant neoplasm of lung: Status: Acute (5) Metastatic disease: Status: Acute (6) Brain metastases: Status: Acute Reason for Visit Reason for Visit: sob, throwing up blood this morning Hospital Course Hospital Course 50-year-old female with past medical history significant for pericardial effusion s/p window, NOA on CPAP, pulmonary embolism s/p IVF filter on Eliquis and Lung cancer with brain Mets completed chemo and chronic cough who presented to ER with hemoptysis. Eliquis was held on admission, patient's hemoptysis improved with conservative management. Hemoglobin remained stable. Infectious work-up negative except urine culture. Hemoglobin at the time of discharge 8.7 which is around her baseline. She was asked to hold her Eliquis for 1 week and repeat her CBC on Wednesday and if there is a downtrend she can hold her Eliquis dvt prophylactic regimen. She will be discharged to [facility] with Levaquin, urine culture growing E. coli. She does take steroids at the facility. CTA ruled out PE CT/CT angio chest PE protcl [id number] IMPRESSION: 1. No visible evidence of pulmonary embolism/pulmonary arterial thrombus. 2. Small volume pericardial effusion. 3. No significant interval change in the mediastinal and hilar lymphadenopathy. 4. Interval development of several small low-density hepatic structures that were not visible on the exam of 08/04/2020 raising concern for potential diffuse hepatic metastatic disease. 5. Evidence of slight interval improvement in the pulmonary parenchymal disease since last evaluation of 08/04/2020 as detailed in text. 6. Small 4 mm pulmonary nodule right lower lobe. For patients at low risk (minimal or absent history of smoking and of other known risk factors), no routine follow-up is indicated. For patients at high risk (history of smoking or of other known risk factors), consider optional CT Chest at 12 months. (Reference: [place]ma) Physical Exam Narrative: EXAM NARRATIVE: Patient was sitting comfortably saturating well on 3 L nasal cannula S1, S2 Abdomen soft Lower extremities no edema Awake alert oriented x3 GCS 15 No cyanosis gangrene or cellulitis Appropriate mood and affect Discharge Data Data Completed and Pending: Completed Studies During Hospitalization Category Date Time Status CT angio chest PE protcl [id number] Urge nt Cat Scan 04/24/21 21:[address] cervical spin wo con* [id number] Urge nt Cat Scan 04/24/21 23:[address] lumbar spine w o con* [id number] Urgen t Cat Scan 04/24/21 23:[address] thoracic spin wo con* [id number] Urge nt Cat Scan 04/24/21 23:12 Completed XR chest 1V lali ble [id number] Urgent Exams 04/24/21 19:50 Completed Pending at discharge Category Date Time Status Blood Culture Sta t Lab 04/26/21 11:46 Results Retype for Patiet s ABO/Rh Routine Lab 04/25/21 14:40 Received Sputum Culture an d Gram Stain Stat Lab 04/25/21 15:48 Uncollected Urine Culture Sta t Lab 04/25/21 21:40 Results Labs from last 24 hours 04/28/21 04/28/21 05:07 05:07 WBC 5.1 RBC 3.45 L Hgb 8.7 L Hct 29.5 L MCV 85.5 MCH 25.2 L MCHC 29.5 L RDW 21.6 H Plt Count 269 MPV 8.8 Neut % (Auto) 76.2 Lymph % (Auto) 8.3 [place] % (Auto) 9.6 Eos % (Auto) 1.6 Baso % (Auto) 0.6 Neut # (Auto) 3.87 Lymph # (Auto) 0.4 L [place] # (Auto) 0.5 Eos # (Auto) 0.1 Baso # (Auto) 0.0 Nucleated RBC % (a uto) 0 Nucleated RBCs # 0.0 Sodium 139 Potassium 4.3 Chloride 107 Carbon Dioxide 21 L Anion Gap 15.3 BUN 8 Creatinine 0.6 GFR Calculation 106.3 Glucose 85 Calculated Osmolal ity 286 Calcium 8.7 Magnesium 2.3 Vitals: Last Vital Signs Temp 97.2 F L 04/28/21 11:41 Pulse 68 04/28/21 11:41 Resp 18 04/28/21 11:41 BP 126/74 04/28/21 11:41 Pulse Ox 98 04/28/21 11:41 Discharge Plan Discharge Patient Disposition: Xfer Other Condition: Stable Prescriptions: New levofloxacin 750 mg tablet 750 mg PO DAILY 7 Days Qty: 7 RF: 0 Continued montelukast [Singulair] 10 mg tablet 10 mg PO DAILY@08 RF: 0 pantoprazole 40 mg tablet,delayed release (DR/EC) 40 mg PO DAILY@08 RF: 0 alprazolam [Xanax] 0.25 mg tablet 0.25 mg PO Q6H PRN (Reason: Anxiety) RF: 0 sertraline [Zoloft] 100 mg tablet 200 mg PO DAILY@08 RF: 0 acetaminophen 325 mg Tablet 650 mg PO Q6H PRN (Reason: Pain) RF: 0 trazodone 50 mg Tablet 50 mg PO BEDTIME@20 RF: 0 Zofran 4 mg Tablet 4 mg PO Q8H PRN (Reason: Nausea) RF: 0 prochlorperazine maleate 10 mg Tablet 10 mg PO Q6H PRN (Reason: Nausea) RF: 0 lidocaine-prilocaine 2.5-2.5 % Cream See Rx Instructions .ROUTE .COMPLEX RF: 0 Keppra 250 mg Tablet 250 mg PO BID RF: 0 benzonatate 100 mg Capsule 100 mg PO TID PRN (Reason: Cough) RF: 0 dexamethasone 2 mg Tablet See Rx Instructions .ROUTE .COMPLEX RF: 0 dexamethasone 4 mg Tablet 4 mg PO BID@08,16 RF: 0 folic acid 1 mg Tablet 1 mg PO DAILY RF: 0 midodrine 2.5 mg Tablet 10 mg PO TID@08,14,20 RF: 0 Miralax 17 gram/dose Powder 17 g PO DAILY PRN (Reason: Constipation) RF: 0 Varubi See Rx Instructions .ROUTE .COMPLEX RF: 0 Held Eliquis 2.5 mg Tablet 2.5 mg PO BID@08,16 RF: 0 Hold Instructions: Resume on 05/05/21. Discharge Orders: Discharge Order (Routine); Ordered 04/28/21 Ordered By: Kareem Nieves Other Ambulatory Orders: Complete Blood Count w/Auto (Routine) Timeframe: 3 Days Location: Determined by Patient Ordered By: Kareem Nieves DME: Oxygen (Order) Location: None Selected Ordered By: Maggy Carlos Discharge Diet: Cardiac Discharge Activity: Increase activity as tolerated Patient Instructions: Hemoptysis, Using Oxygen at Home (GEN), Coughing Up Blood (Hemoptysis) (GEN), Hypoxia (GEN) Discharge Attestations Time Spent in Discharge Care*: less than 30 min Status at Discharge: Cognitive status at discharge: cognitively intact, Behavioral status at discharge: cooperative, Quality Metrics Clinical Quality Measures During this hospital stay, did patient experience: None Coding Level of Care Code Acute Chg FW DC note Diagnoses Chronic cough R05 GERD (gastroesophageal reflux disease) K21.9 Esophagitis presence: esophagitis presence not specified Hemoptysis R04.2 Malignant neoplasm of lung C34.90 Metastatic disease C79.9 Brain metastases C79.31
[2021-04-28 14:59] VITALS: BP 126/74; PULSE 68; RESP 18; TEMP 36.2; O2SAT 98
--- NOTE | 2021-04-29 13:52 | PC.SOCIAL ---
discharge follow up call made, spoke with Jackelyn at [facility]. she reports patient is doing good, she is ambulating with O2 and tolerating well. Jackelyn will make sure patient has repeat CBC drawn at [facility]. all patient medications are available, nurse is aware patient needs to hold Eliquis until 10-11. no questions or concerns voiced by Jackelyn at this time.
== END 2021-04-28 14:40 | disposition other institution (70) ==
LOC: ER 23:30 → MEDSURG 04-25 07:55
PROVIDERS: Internal Medicine; Admitting Provider Hospitalist; Emergency Provider Emergency Medicine; PCP Family Medicine; Visit Provider Internal Medicine
DX: R04.2 Hemoptysis (principal); K21.9 Gastro-esophageal reflux disease without esophagitis; C34.90 Malignant neoplasm of unspecified part of unspecified bronchus or lung; C79.9 Secondary malignant neoplasm of unspecified site; C79.31 Secondary malignant neoplasm of brain; G47.33 Obstructive sleep apnea (adult) (pediatric); Z86.711 Personal history of pulmonary embolism; Z79.01 Long term (current) use of anticoagulants; I31.3 Pericardial effusion (noninflammatory)
CPT/HCPCS: 36415; 36600; 71045; 71275; 72125; 72128; 72131; 80048; 80051; 80053; 82330; 82805; 83735; 84145; 84484; 85025; 85610; 85730; 86403; 86850; 86900; 87040; 87077; 87086; 87186; 87449; 87641; 93005; 96361; 96365; 96366; 96375; 99285; G0378; J1170; J2543; J7030; Q9967

== ENCOUNTER 2021-04-30 15:36 | Outpatient (CLI) | payer OTHER, SELFPAY ==
[2021-04-30 16:25] LABS: Basophils # 0.1 10^3/uL (0.0-0.1); Basophils % 0.5 %; Hematocrit 26.9 % (37.0-47.0); Hemoglobin 8.2 g/dL (11.5-15.3); Lymphocytes # 0.6 10^3/uL (0.8-4.8); Lymphocytes % 4.1 %; Mean Corpuscular HGB Conc 30.5 g/dL (30.0-36.0); Mean Corpuscular Hemoglobin 25.4 pg (28.0-34.0); Mean Corpuscular Volume 83.3 fl (81-99); Mean Platelet Volume 8.9 fL (7.4-10.4); Monocytes # 1.3 10^3/uL (0.2-0.9); Monocytes % 8.2 %; Neutrophils # 11.25 10^3/uL (1.8-7.7); Neutrophils % 73.9 %; Nucleated Red Blood Cells % 0.3 %; Platelet Count 385 10^3/cmm (130-400); Red Blood Count 3.23 10^6/uL (4.1-5.3); Red Cell Distribution Width 21.7 % (12.1-15.1); White Blood Count 15.2 10^3/uL (4.0-10.0)
[2021-04-30 18:25] LABS: Slide Review Slide Review Perform
== END 2021-04-30 15:37 | disposition home or self-care (01) ==
LOC: LAB 15:58
PROVIDERS: PCP Family Medicine; Visit Provider Internal Medicine
DX: D64.9 Anemia, unspecified (principal)
CPT/HCPCS: 85025

== ENCOUNTER 2021-05-22 13:38 | Outpatient (RCR) | payer OTHER, SELFPAY ==
[2021-04-29 11:06] LABS: Hematocrit 28.9 % (37.0-47.0); Hemoglobin 8.7 g/dL (11.5-15.3); Mean Corpuscular HGB Conc 30.1 g/dL (30.0-36.0); Mean Corpuscular Hemoglobin 25.4 pg (28.0-34.0); Mean Corpuscular Volume 84.3 fl (81-99); Mean Platelet Volume 8.8 fL (7.4-10.4); Platelet Count 302 10^3/cmm (130-400); Red Blood Count 3.43 10^6/uL (4.1-5.3); Red Cell Distribution Width 21.5 % (12.1-15.1); White Blood Count 10.3 10^3/uL (4.0-10.0)
[2021-04-29 11:30] LABS: Alanine Aminotransferase 10 U/L (0-33); Albumin Level 3.7 g/dL (3.5-5.2); Alkaline Phosphatase 83 IU/L (35-105); Aspartate Amino Transferase 12 U/L (0-32); Blood Urea Nitrogen 6 mg/dL (6-20); Calcium 9.3 mg/dL (8.5-10.5); Carbon Dioxide 21 mmol/L (22-29); Chloride 103 mmol/L (98-107); Globulin 2.9 g/dL (1.3-4.6); Glomerular Filtration Rate 76.2 mL/min (90-130); Glucose 104 mg/dL (65-115); Osmolality Calculated 282 mOsm/kg (285-295); Sodium 137 mmol/L (136-145); Total Bilirubin 0.2 mg/dL (0.15-1.2); Total Protein 6.6 g/dL (6.6-8.7)
[2021-04-29 12:19] LABS: Absolute Eosinophils 0.1 10^3/cmm (0.0-0.7); Absolute Segmented Neutrophil 7.5 10/cmm (1.6-7.1); Band Neutrophils Absolute 0.9 10^3/cmm (0.0-1.2); Eosinophils 1 %; Lymphocytes 5 %; Monocytes Absolute 0.7 10^3/cmm (0.1-0.6); Segmented Neutrophils 73 %; Total Cells Counted 100 (0-100)
[2021-04-29 12:20] LABS: Absolute Neutrophil 8.4 10^3/cmm (1.4-6.5); Anisocytosis 1+; Hypochromasia 1+; Ovalocytes Trace; Platelet Estimate Normal (Normal)
--- NOTE | 2021-05-02 16:04 | ONC FU_ITS ---
Dr. Galvez follow up note Patient: Sophia Miller Unit #: [id number]: 1970 Dicatated By: Foster Galvez M.D.Date of Visit:Apr 30, 2021 Onc Med Follow-up/Prog Note History of Present Illness: Ms. Miller is a 50-year-old female with history of chronic nonproductive cough since August 2019. Ms Garay reports she underwent some dental work-up in the beginning of 2019. At that time she was given antibiotics but her cough did not improve much. She was treated with Levaquin multiple times and then October 2019 she obtained a chest x-ray. The xray reported right lower lobe infiltrate. She was treated with levofloxacin again and with no significant improvement in her cough, she eventually underwent CT scan of the chest on On 02/12/2020. Findings reported focal consolidation right lower lobe along the fissure with air bronchograms. Consolidation measured 5.3 x 4.3 x 5.6 cm. Patchy infiltrate along the right upper lobe laterally. Moderate pericardial effusion. Prominent lymph nodes bilaterally nonspecific but likely reactive measuring 12 mm on the right and 14 mm on the left. Enlarged subcarinal lymph node measuring 14 mm. Proximal main arteries were normal. Normal thoracic aorta. She had an echocardiogram on 02/26/2020 for evaluation of the pericardial effusion which reported a normal left ventricular systolic function and left ventricular ejection fraction estimated at 70%. There were no regional wall motion abnormalities. Normal dystonic dysfunction. There was a moderate circumferential pericardial effusion 1.2 cm along the right ventricle and 1.5 cm along the left ventricle. There was no evidence of hemodynamic compromise and normal size inferior vena cava. She then had follow-up chest x-ray on 02/29/2020 which reported subtle opacity within the middle lobe versus right lung base. Lungs otherwise well aerated. There is no pleural effusion and no pneumothorax. She underwent bronchoscopy on March 22, [address] Hayden. Endobronchial biopsy from the right middle lobe reported lung parenchyma with chronic inflammation no granulomas identified no malignancy identified right lower lobe biopsy reported lung parenchyma and cartilage with focal chronic inflammation. No granulomas or malignancy identified. The bronchial cytology reported by voice and by number on 03/22/2020 reported benign ciliated respiratory epithelial cells, rare benign squamous epithelial cells, mixed inflammatory cells, macrophages, blood and fibrin/proteinaceous debris's. No malignant cells were seen. BAL Aspergillus antigen was positive but index was 0.61. She was treated with doxycycline for1 week and noticed some improvement in the cough. Followup CT scan of chest was repeated on April 29, 2020 which showed consolidative infiltrate in the right lower lobe along the fissure with air bronchograms. Not significantly change from previous, but it did show new hazy groundglass perihilar, upper lobe infiltrates with associated micronodules in the bronchovascular and perilymphatic distribution. She also had persistent moderate pericardial effusion unchanged anterior mediastinal, right paratracheal, hilar and subcarinal lymphadenopathy. Ms Miller underwent repeat bronchoscopy on May 10, 2020 and pathology report came back adenocarcinoma involving the right lower lobe, right middle lobe, station 4R lymph node, station 11 R lymph node. Immunohistochemistry showed TTF-1 positive, p63 negative, Napsin-A positive. On May 15, 2020, patient developed dizziness and was also developing questionable mental status changes e.g. intermittent confusion, but no one-sided weakness or numbness or slurred speech. She presented to [facility] on May 19, 2020. She did have a MRI scan of the head on May 19, 2020. It reported no evidence of acute ischemia or infarct, no acute intracranial hemorrhage. Innumerable ovoid cystic foci throughout the brain which demonstrate susceptibility signal loss and post contrast enhancement suspicious for infectious process such as neurocysticercosis. No evidence of hydrocephalus. Ms Miller reported that at that time, neurosurgery was consulted and clinically, she was diagnosed with brain mets. She was started on dexamethasone and Keppra, no biopsy was done but some blood test but no spinal tap was done either. She also had pericardial biopsy done which shows no evidence of malignant involvement. A repeat CT scan of chest abdomen pelvis done in [place] on May 20, 2020 showed an irregular area of consolidation or neoplastic involvement in the right lower lobe just above the diaphragm approximately 5.5 x 5.5 x 2.5 cm this is internal air bronchograms and elongated shape most consistent with infiltrate or atelectasis perihilar groundglass opacities bilaterally, suspect pneumonia., Echocardiogram done on May 21, 2020 shows ejection fraction 55 to 60%. She reported that because of blurred vision she was also evaluated by ophthalmology and impression was could be due to sarcoidosis involvement. She had subxiphoid pericardial window per Dr. Stiven Basurto at [facility] on 05/22/2020. The pathology final report dated on 05/24/2020 was benign pericardial tissue. There was no sign of significant inflammation. No positive staining neoplastic cells were identified in sections stained with MOC 31, BerEP4 and TTF???1. Ms. Miller had PET/CT imaging with [facility] radiology on 06/01/2020 which reported anterior right lower lobe a 4.3 x 2.6 semisolid mass with an SUV of 12.9. This has a high probability of malignancy, most likely bronchogenic carcinoma. Extensive hypermetabolic adenopathy is present in the mediastinum, consistent with local metastatic disease. Nodes are present in the bilateral hilar, subcarinal, periesophageal, prevascular, subaortic, left and right paratracheal and anterior mediastinal territories. The index subaortic node has an SUV of 13.0. Bilateral FDG positive nodes are present in the cervical level 4 regions with SUV of 8.0 in the 1.1 cm left sided node. In the abdomen, malignant celiac, right retrocrural and bilateral retroperitoneal periaortic nodes are FDG positive consistent with malignancy. A 1.3 x 1.9 cm right adrenal lesion with SUV of 9.2 represents metastatic disease. Uptake in the intracranial gold-white matter is physiologic. Breast parenchymal and axillary lymph nodes uptake bilaterally is unremarkable. Bilateral centrally located groundglass opacity suggests pulmonary edema, drug reaction or viral pneumonia. There were no findings to indicate osseous metastatic disease. Mrs. Miller was first seen on June 04, 2020. At the family's request she was referred to neurosurgery at [place] for evaluation and to confirm brain metastasis. The next notes available were [facility] indicating that she had multiple extensive pulmonary emboli in the bilateral pulmonary arteries including emboli and vascular bifurcations. There was no saddle embolus identified she continued to have extensive groundglass infiltrates seen in the perihilar and mid and upper lung zones particularly in the right middle lobe and bilateral upper lobes. Consolidating infiltrate is noted in the anterior aspect right lower lobe and left lower lobe. Small perihilar infiltrates are seen in the left lower lobe and lingula. It was noted that drainage catheter overlies the pericardium heart size was normal small pericardial effusion maximum with approximately 8 mm. This was diminished with prior study at which time the maximum width was approximately 2 cm. There was mediastinal and hilar adenopathy the largest node was 13 millimeters short axis diameter in the left hilar region. MRI of the head with and without contrast from 06/26/2020 reported innumerable supratentorial and infratentorial intra-axial and extra-axial enhancing mass lesions demonstrate enhancement on postcontrast images which small demonstrating decreased in size. There were no definite new enhancing lesions no hydrocephalus no herniation syndrome. from 06/30/2020 reports guardian test did not show any actual mutation. She was admitted to [facility] from 05/05/2020 to 06/11/2020. She was seen by Dr. Alex from [facility]. She was discharged and scheduled to see Dr. Paola Quezada on 06/27/2020 as [facility] but got admitted to [facility] on 06/22/2020. She was admitted for weakness, nonproductive cough, hypoxia and hypotension. She was found to have recurrent pericardial effusion. She had pericardial window on 06/24/2020. She had CT of the chest abdomen pelvis on 06/26/2020 as reported above. She did have bilateral multiple pulmonary emboli on scan from 06/26/2020 as above. She had IR guided suction thrombectomy on 06/27/2020. IVC filter was placed on 06/28/2020 and she remained on heparin at that time. She was discharged on Eliquis for the pulmonary emboli. The plan at that time was whole brain radiation therapy then chemotherapy. She was on Dex 4 mg twice daily. Ms. Miller had preferred to do treatment in [place] at that time. She was readmitted to [facility] through their ER for shortness of breath, dyspnea and hypotension and hemoptysis prior to her followup with Dr. Pena on August 05, 2020. She had completed whole brain radiation therapy at that time. Dr Pena's notes indicated she received whole brain RT from July 03 through July 16, 2020. Chemotherapy was planned for August 05, 2020 but was placed on hold due to her hospital admission. The plan was for carboplatin Alimta/Keytruda. Her Tempest PD-L1 was reported at 40%. The Guardiant 360 was negative for EGFR, ALK, ROS1, BRAF, MET, RET and NTRK. She was found to have pneumonia with hypoxia and was placed on antibiotics per the primary care team. She was discharged on August 10, 2020. She was seen at [facility] [place] office on August 13, 2020. She had 3 days left remaining on her cefdinir 300 mg twice daily. Her first dose of carboplatin was held but they did proceed with Alimta and Keytruda. If she tolerated that well the plan was to proceed with adding the carboplatin cycle 2. Her dexamethasone was decreased to 4 mg twice daily. She received cycle 2 carboplatin Alimta and Keytruda on 09/03/2020. Her dexamethasone was then tapered to 2 mg twice daily with continued plans to further the taper to get her off of it completely. She continued follow-up with Dr. Pena at [facility] in [place]. On her October 01, 2020, Dr. Pena note it was noted she had she had pneumonitis due to the Keytruda (diagnosed at [facility]-after 2 cycles of Keytryda) but had maintained on Alimta single agent every 3 weeks. She had nausea, vomiting, hypotension, dehydration and decreased performance status overall. She required supportive care after receiving the carboplatin. Her further cycles of chemotherapy included single agent Alimta. Ms. Miller transferred her care to resuming Alimta single agent on December 10, 2020 here at [facility]. On day 8 following that administration of single agent Alimta she was found to be neutropenic with an ANC of 1420. Her hemoglobin was 9.5. She had continued monitoring. and her counts have recovered today. She was due for her next cycle of Alimta on December 31, 2020. Came for follow-up, complaining of generalized weakness and fatigue, patient was recently admitted to hospital on April 25, 2021 with cough/hemoptysis and shortness of breath. Patient was on Eliquis for history of pulmonary embolism, hemoglobin at time of admission was 8.7, her Eliquis was put on hold, patient was treated with supportive care and her urinalysis shows UTI with E. coli patient was discharged home on Levaquin and she was advised to get CBC done in 1 week and then restart her Eliquis. Patient had CT scan of chest done recently shows no significant interval change in mediastinal or hilar lymphadenopathy, interval development of several low density hepatic structure that were not seen on previous exam done in July 2020, there was a concern about possible liver mets. Otherwise patient denies any shortness of breath denies any hemoptysis, cough is getting better. Medications: Difluprednate 4 Drop(s) (of 0.05 %) Emulsion Ophthalmic daily, levETIRAcetam 1 Tablet (of 250 mg) Oral b.i.d., Montelukast Sodium 1 Tablet (of 10 mg) Oral daily, Pantoprazole Sodium 1 Tablet (of 40 mg) Tablet, enteric coated Oral daily, Sertraline HCl 1 Tablet (of 100 mg) Oral daily Allergies: buPROPion HCl Review of Systems: Review of Systems is not available for this patient. Vital Signs: Performed on Apr 30, 2021 11:33 Height - 65.00 in Weight - 117.6 lbs BSA - 1.58 sq.m BMI - 19.57 Temperature - 97.8 F (LOW) Pulse - 108 /min (HIGH) Respiration - 18 /min BP - 116/79 mm(hg) O2 Sat - 97 % Pain - 0 Fatigue - 0 Performance Status: 1 - No physically strenuous activity, but ambulatory and able to carry out light or sedentary work (e.g. office work, light house work). (ECOG) Physical Examination: ENMT - No mouth sores, no thrush, no jaundice, Respiratory - Lungs are clear to auscultation, Cardiovascular - Regular rate and rhythm of heart, Abdomen - Soft, bowel sounds present, Extremities - Trace edema bilaterally. Lab/Imaging: Test performed on Jan 07, 2021 12:35 Sodium 140 mmol/L Potassium 3.5 mmol/L Chloride 103 mmol/L CO2 23 mmol/L Anion Gap 17.5 BUN 7 mg/dL Creatinine 0.7 mg/dL Cr Clearance (Est) 94.9500 mL/min eGFR 88.9 mL/min Glucose 97 mg/dL Osmolality - Calculated 288 mOsm/kg Calcium 9.8 mg/dL Protein, Total 6.7 g/dL Albumin 4.1 g/dL Globulin 2.6 g/dL Bilirubin, Total 0.2 mg/dL ALT (SGPT) 6 U/L AST (SGOT) 15 U/L Alkaline Phosphatase 106 IU/L WBC 9.4 10 3/uL RBC 3.92 10 6/uL HGB 10.1 g/dL HCT 32.5 % MCV 82.9 fL MCH 25.8 pg MCHC 31.1 g/dL RDW 17.6 % Platelet Count 400 10 3/cmm MPV 9.2 fL Neutrophils 7.01 10 3/uL Lymphocytes 0.7 10 3/uL Monocytes 1.5 10 3/uL Eosinophils 0.1 10 3/uL Basophils 0.1 10 3/uL Neutrophil % 74.9 % Lymphocyte % 7.0 % Monocyte % 15.5 % Eosinophil % 1.5 % Basophils % 0.6 % NRBC % 0 % Impression: Stage IV non-small cell lung cancer, adenocarcinoma PDL 1 less than 40%, guardant 360 shows negative for EGFR, ALK, ROS1, BRAF, MET, RET, NTRK, based on scans done in [place],, metastatic disease to left adrenal gland and brain, status post whole brain radiation therapy in June 2020 Well-differentiated adenocarcinoma per bronchoscopy done on May 10, 2020 final pathology report shows well-differentiated no carcinoma involving the right middle lobe and right lower lobe and station 4R and station 11 R MRI scan done on May 19, 2020 in [place] showed innumerable ovoid cystic foci throughout the brain which demonstrates susceptibility signal loss and post contrast enhancement suspicious for infectious process such as neurocysticercosis.Spinal tap done at [place] showed no sign of infection, so it was concluded patient has brain mets for which she underwent whole brain radiation therapy in June 2020, in [place] Patient had multiple scans done in [facility] and was confirmed with stage IV adenocarcinoma of the lung with brain mets as well as left adrenal gland, started on carboplatin/Alimta/Keytruda on August 13, 2020, after second dose of chemotherapy she developed pneumonitis which was treated with antibiotics and tapering dose of steroids and her last dose of steroid was on November 23, 2020 and Keytruda was discontinued and she was treated with single agent Alimta every 3 weeks, There was a gap after her Alimta dose which was given on December 10, 2020, as per patient she received Covid vaccination and did develop some symptoms like nausea vomiting headaches which lasted more than 2 weeks so patient did not come for treatment until in January 2021 CT scan of head was done on May 28, 2020 showed no acute infarction or acute intracranial hemorrhage. T2/flair hyperintense lesions on brain MRI from May 19, 2020 are largely not appreciated on this exam. 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, 2020 Sleep apnea, awaiting CPAP machine Plan: Discussed with patient regarding her labs white blood count 10.3 hemoglobin 8.7 hematocrit 28.9 platelets 302,000 CMP within normal limit except potassium 3.0 Clinically, patient is doing reasonably well now with generalized weakness and fatigue which could be multifactorial including progressive/persistent moderate anemia and not being treated required urine tract infection with Levaquin, at this point we will proceed with anemia work-up and also consider potassium supplement, patient is scheduled for CT PET scan on coming Wednesday, she was due for her next dose of Alimta today but will hold it as patient is recovering from E. coli UTI and will also review her CT PET scan and decide whether to continue Alimta or switch to another agent as recently done CTA chest shows possibility of liver mets. Patient was also advised to restart Eliquis and will monitor her H&H Signed By: Foster Galvez M.D. <<Signature on File>>
[2021-05-06 10:28] LABS: Basophils % 0.2 %; Eosinophils # 0.1 10^3/uL (0.0-0.8); Eosinophils % 0.6 %; Hematocrit 30.9 % (37.0-47.0); Hemoglobin 9.3 g/dL (11.5-15.3); Lymphocytes # 0.6 10^3/uL (0.8-4.8); Lymphocytes % 4.5 %; Mean Corpuscular HGB Conc 30.1 g/dL (30.0-36.0); Mean Corpuscular Hemoglobin 25.5 pg (28.0-34.0); Mean Corpuscular Volume 84.7 fl (81-99); Mean Platelet Volume 8.5 fL (7.4-10.4); Monocytes # 0.5 10^3/uL (0.2-0.9); Monocytes % 4.2 %; Neutrophils # 11.39 10^3/uL (1.8-7.7); Nucleated Red Blood Cells % 0 %; Platelet Count 297 10^3/cmm (130-400); Red Blood Count 3.65 10^6/uL (4.1-5.3); Red Cell Distribution Width 22.1 % (12.1-15.1); White Blood Count 12.9 10^3/uL (4.0-10.0)
[2021-05-06 10:51] LABS: Alanine Aminotransferase 16 U/L (0-33); Alkaline Phosphatase 63 IU/L (35-105); Anion Gap 14.4 (5-19); Aspartate Amino Transferase 15 U/L (0-32); Blood Urea Nitrogen 11 mg/dL (6-20); Calcium 8.9 mg/dL (8.5-10.5); Carbon Dioxide 22 mmol/L (22-29); Chloride 106 mmol/L (98-107); Ferritin 280 ng/mL (15-150); Globulin 2.3 g/dL (1.3-4.6); Glomerular Filtration Rate 66.5 mL/min (90-130); Glucose 130 mg/dL (65-115); Iron 41 ug/dL (37-145); Osmolality Calculated 289 mOsm/kg (285-295); Percent Saturation 14.6 % (20-50); Potassium 3.4 mmol/L (3.5-5.1); Sodium 139 mmol/L (136-145); Total Bilirubin 0.2 mg/dL (0.15-1.2); Total Iron Binding Capacity 280 mcg/dl; Total Protein 6.3 g/dL (6.6-8.7); Unsaturated Iron Binding 239 ug/dL (112-347)
[2021-05-06 11:05] LABS: Vitamin B12 584 pg/mL (232-1245)
[2021-05-06 11:28] LABS: Folate Level > 20.0 ng/mL (4.8-37.3)
[2021-05-20 12:04] LABS: Basophils % 0.2 %; Eosinophils # 0.1 10^3/uL (0.0-0.8); Eosinophils % 0.7 %; Hematocrit 35.1 % (37.0-47.0); Hemoglobin 10.7 g/dL (11.5-15.3); Lymphocytes # 0.5 10^3/uL (0.8-4.8); Mean Corpuscular HGB Conc 30.5 g/dL (30.0-36.0); Mean Corpuscular Volume 85.4 fl (81-99); Mean Platelet Volume 9.6 fL (7.4-10.4); Neutrophils % 85.5 %; Nucleated Red Blood Cells % 0 %; Platelet Count 201 10^3/cmm (130-400); Red Blood Count 4.11 10^6/uL (4.1-5.3)
[2021-05-20 12:24] LABS: Alanine Aminotransferase 10 U/L (0-33); Alkaline Phosphatase 54 IU/L (35-105); Anion Gap 14.1 (5-19); Aspartate Amino Transferase 11 U/L (0-32); Blood Urea Nitrogen 14 mg/dL (6-20); Calcium 8.5 mg/dL (8.5-10.5); Carbon Dioxide 22 mmol/L (22-29); Chloride 108 mmol/L (98-107); Glomerular Filtration Rate 88.9 mL/min (90-130); Glucose 106 mg/dL (65-115); Osmolality Calculated 291 mOsm/kg (285-295); Potassium 4.1 mmol/L (3.5-5.1); Sodium 140 mmol/L (136-145); Total Bilirubin 0.2 mg/dL (0.15-1.2)
[2021-05-22] MEDS: ondansetron 2 mg/ML SDV 2 mL 8 MG IV (14:09)
[2021-05-22] MEDS: sodium chloride 0.9% 250 ML 75 ML IV (14:09)
[2021-05-22] MEDS: cyanocobalamin 1,000 mcg/mL SDV 1000 MCG IM (14:10)
--- NOTE | 2021-05-30 01:28 | ONC FU_ITS ---
[facility] Patient Note Patient: Sophia Miller Unit #: [id number]: 1970 Dictated By: Christi IbarraDate of Visit: May 15, 2021 Onc MED Follow-Up/Prog Note Chief Complaint: Right lung cancer-metastatic History of Present Illness: Ms. Miller is a 50-year-old female with history of chronic nonproductive cough since August 2019. Ms Garay reports she underwent some dental work-up in the beginning of 2019. At that time she was given antibiotics but her cough did not improve much. She was treated with Levaquin multiple times and then October 2019 she obtained a chest x-ray. The xray reported right lower lobe infiltrate. She was treated with levofloxacin again and with no significant improvement in her cough, she eventually underwent CT scan of the chest on On 02/12/2020. Findings reported focal consolidation right lower lobe along the fissure with air bronchograms. Consolidation measured 5.3 x 4.3 x 5.6 cm. Patchy infiltrate along the right upper lobe laterally. Moderate pericardial effusion. Prominent lymph nodes bilaterally nonspecific but likely reactive measuring 12 mm on the right and 14 mm on the left. Enlarged subcarinal lymph node measuring 14 mm. Proximal main arteries were normal. Normal thoracic aorta. She had an echocardiogram on 02/26/2020 for evaluation of the pericardial effusion which reported a normal left ventricular systolic function and left ventricular ejection fraction estimated at 70%. There were no regional wall motion abnormalities. Normal dystonic dysfunction. There was a moderate circumferential pericardial effusion 1.2 cm along the right ventricle and 1.5 cm along the left ventricle. There was no evidence of hemodynamic compromise and normal size inferior vena cava. She then had follow-up chest x-ray on 02/29/2020 which reported subtle opacity within the middle lobe versus right lung base. Lungs otherwise well aerated. There is no pleural effusion and no pneumothorax. She underwent bronchoscopy on March 22, [address] Hayden. Endobronchial biopsy from the right middle lobe reported lung parenchyma with chronic inflammation no granulomas identified no malignancy identified right lower lobe biopsy reported lung parenchyma and cartilage with focal chronic inflammation. No granulomas or malignancy identified. The bronchial cytology reported by voice and by number on 03/22/2020 reported benign ciliated respiratory epithelial cells, rare benign squamous epithelial cells, mixed inflammatory cells, macrophages, blood and fibrin/proteinaceous debris's. No malignant cells were seen. BAL Aspergillus antigen was positive but index was 0.61. She was treated with doxycycline for1 week and noticed some improvement in the cough. Followup CT scan of chest was repeated on April 29, 2020 which showed consolidative infiltrate in the right lower lobe along the fissure with air bronchograms. Not significantly change from previous, but it did show new hazy groundglass perihilar, upper lobe infiltrates with associated micronodules in the bronchovascular and perilymphatic distribution. She also had persistent moderate pericardial effusion unchanged anterior mediastinal, right paratracheal, hilar and subcarinal lymphadenopathy. Ms Miller underwent repeat bronchoscopy on May 10, 2020 and pathology report came back adenocarcinoma involving the right lower lobe, right middle lobe, station 4R lymph node, station 11 R lymph node. Immunohistochemistry showed TTF-1 positive, p63 negative, Napsin-A positive. On May 15, 2020, patient developed dizziness and was also developing questionable mental status changes e.g. intermittent confusion, but no one-sided weakness or numbness or slurred speech. She presented to [facility] on May 19, 2020. She did have a MRI scan of the head on May 19, 2020. It reported no evidence of acute ischemia or infarct, no acute intracranial hemorrhage. Innumerable ovoid cystic foci throughout the brain which demonstrate susceptibility signal loss and post contrast enhancement suspicious for infectious process such as neurocysticercosis. No evidence of hydrocephalus. Ms Miller reported that at that time, neurosurgery was consulted and clinically, she was diagnosed with brain mets. She was started on dexamethasone and Keppra, no biopsy was done but some blood test but no spinal tap was done either. She also had pericardial biopsy done which shows no evidence of malignant involvement. A repeat CT scan of chest abdomen pelvis done in [place] on May 20, 2020 showed an irregular area of consolidation or neoplastic involvement in the right lower lobe just above the diaphragm approximately 5.5 x 5.5 x 2.5 cm this is internal air bronchograms and elongated shape most consistent with infiltrate or atelectasis perihilar groundglass opacities bilaterally, suspect pneumonia., Echocardiogram done on May 21, 2020 shows ejection fraction 55 to 60%. She reported that because of blurred vision she was also evaluated by ophthalmology and impression was could be due to sarcoidosis involvement. She had subxiphoid pericardial window per Dr. Stiven Basurto at [facility] on 05/22/2020. The pathology final report dated on 05/24/2020 was benign pericardial tissue. There was no sign of significant inflammation. No positive staining neoplastic cells were identified in sections stained with MOC 31, BerEP4 and TTF???1. Ms. Miller had PET/CT imaging with [facility] radiology on 06/01/2020 which reported anterior right lower lobe a 4.3 x 2.6 semisolid mass with an SUV of 12.9. This has a high probability of malignancy, most likely bronchogenic carcinoma. Extensive hypermetabolic adenopathy is present in the mediastinum, consistent with local metastatic disease. Nodes are present in the bilateral hilar, subcarinal, periesophageal, prevascular, subaortic, left and right paratracheal and anterior mediastinal territories. The index subaortic node has an SUV of 13.0. Bilateral FDG positive nodes are present in the cervical level 4 regions with SUV of 8.0 in the 1.1 cm left sided node. In the abdomen, malignant celiac, right retrocrural and bilateral retroperitoneal periaortic nodes are FDG positive consistent with malignancy. A 1.3 x 1.9 cm right adrenal lesion with SUV of 9.2 represents metastatic disease. Uptake in the intracranial gold-white matter is physiologic. Breast parenchymal and axillary lymph nodes uptake bilaterally is unremarkable. Bilateral centrally located groundglass opacity suggests pulmonary edema, drug reaction or viral pneumonia. There were no findings to indicate osseous metastatic disease. Mrs. Miller was first seen on June 04, 2020. At the family's request she was referred to neurosurgery at [facility] for evaluation and to confirm brain metastasis. The next notes available were [facility] indicating that she had multiple extensive pulmonary emboli in the bilateral pulmonary arteries including emboli and vascular bifurcations. There was no saddle embolus identified she continued to have extensive groundglass infiltrates seen in the perihilar and mid and upper lung zones particularly in the right middle lobe and bilateral upper lobes. Consolidating infiltrate is noted in the anterior aspect right lower lobe and left lower lobe. Small perihilar infiltrates are seen in the left lower lobe and lingula. It was noted that drainage catheter overlies the pericardium heart size was normal small pericardial effusion maximum with approximately 8 mm. This was diminished with prior study at which time the maximum width was approximately 2 cm. There was mediastinal and hilar adenopathy the largest node was 13 millimeters short axis diameter in the left hilar region. MRI of the head with and without contrast from 06/26/2020 reported innumerable supratentorial and infratentorial intra-axial and extra-axial enhancing mass lesions demonstrate enhancement on postcontrast images which small demonstrating decreased in size. There were no definite new enhancing lesions no hydrocephalus no herniation syndrome. from 06/30/2020 reports guardian test did not show any actual mutation. She was admitted to [facility] from 05/05/2020 to 06/11/2020. She was seen by Dr. Alex from [facility]. She was discharged and scheduled to see Dr. Paola Quezada on 06/27/2020 as [facility] but got admitted to [facility] on 06/22/2020. She was admitted for weakness, nonproductive cough, hypoxia and hypotension. She was found to have recurrent pericardial effusion. She had pericardial window on 06/24/2020. She had CT of the chest abdomen pelvis on 06/26/2020 as reported above. She did have bilateral multiple pulmonary emboli on scan from 06/26/2020 as above. She had IR guided suction thrombectomy on 06/27/2020. IVC filter was placed on 06/28/2020 and she remained on heparin at that time. She was discharged on Eliquis for the pulmonary emboli. The plan at that time was whole brain radiation therapy then chemotherapy. She was on Dex 4 mg twice daily. Ms. Miller had preferred to do treatment in [place] at that time. She was readmitted to [facility] through their ER for shortness of breath, dyspnea and hypotension and hemoptysis prior to her followup with Dr. Pena on August 05, 2020. She had completed whole brain radiation therapy at that time. Dr Pena's notes indicated she received whole brain RT from July 03 through July 16, 2020. Chemotherapy was planned for August 05, 2020 but was placed on hold due to her hospital admission. The plan was for carboplatin Alimta/Keytruda. Her Tempest PD-L1 was reported at 40%. The Guardiant 360 was negative for EGFR, ALK, ROS1, BRAF, MET, RET and NTRK. She was found to have pneumonia with hypoxia and was placed on antibiotics per the primary care team. She was discharged on August 10, 2020. She was seen at [facility] [place] office on August 13, 2020. She had 3 days left remaining on her cefdinir 300 mg twice daily. Her first dose of carboplatin was held but they did proceed with Alimta and Keytruda. If she tolerated that well the plan was to proceed with adding the carboplatin cycle 2. Her dexamethasone was decreased to 4 mg twice daily. She received cycle 2 carboplatin Alimta and Keytruda on 09/03/2020. Her dexamethasone was then tapered to 2 mg twice daily with continued plans to further the taper to get her off of it completely. She continued follow-up with Dr. Pena at [facility] in [place]. On her October 01, 2020, Dr. Pena note it was noted she had she had pneumonitis due to the Keytruda (diagnosed at [facility]-after 2 cycles of Keytryda) but had maintained on Alimta single agent every 3 weeks. She had nausea, vomiting, hypotension, dehydration and decreased performance status overall. She required supportive care after receiving the carboplatin. Her further cycles of chemotherapy included single agent Alimta. Ms. Miller transferred her care to resuming Alimta single agent on December 10, 2020 here at [facility]. On day 8 following that administration of single agent Alimta she was found to be neutropenic with an ANC of 1420. Her hemoglobin was 9.5. She had continued monitoring and her counts recovered. She was due for her next cycle of Alimta on December 31, 2020. There was a gap after her Alimta dose on December 10, 2020. Ms Miller reported that she received Covid vaccination and did develop some symptoms like nausea vomiting headaches which lasted more than 2 weeks. She opted to not come for treatment until January 2021. She proceeded with single Alimta with her last cycle being on 04/09/2021 which was cycle 6. Ms Miller was admitted to [facility] on April 25, 2021 with cough/hemoptysis and shortness of breath. She was on Eliquis for history of pulmonary embolism, hemoglobin at time of admission was 8.7. Her Eliquis was put on hod and she was treated with supportive care. Her urinalysis revealed UTI with E. coli. She was discharged home on Levaquin. She was advised to get a followup CBC done in 1 week post discharge and then restart her Eliquis. Ms Miller had CT scan of chest on 04/24/2021 with note of diffuse groundglass interstitial lung disease bilaterally, greatest involvement bilateral upper lobes which is known to be present on 08/04/2020 exam bedside and interval improvement. There is no visible consolidated ability or airspace disease other than minimal parenchymal scar right lung base which is presumed site of primary lung carcinoma. The appearance of the micro honeycombing bilateral upper lobes and superior segments of the bilateral lower lobes could be secondary to usual interstitial pneumonitis. Findings of tree in bud bronchial ear disease, predominantly peripheral bilateral upper lobes, suggesting either active or chronic bronchial ldisease/bronchiolitis. There is a small 4 mm pulmonary nodule right lower lobe. There was lymphadenopathy noted to be calcified mediastinal and hilar complexes of the antecedent granulomatous disease. There had been interval development of several small low-density hepatic structures that were not visible on the July 2020 exam raising concern for potential diffuse hepatic metastatic disease. At her April 30, [address] Galvez placed her Alimta on hold as she was recovering from E. coli UTI and a follow-up PET CT was requested due to the above CT a of the chest. She was restarted on her Eliquis at that time as her hemoglobin from 10 5 was 8.7. She had no hemoptysis or other signs of bleeding at that time. Mrs. Miller had restaging PET/CT imaging on 05/10/2021 with [facility] radiology. There was comparison to prior PET/CT from 06/01/2020. Dr. Monroe reported significant provement in the right lower lobe pulmonary nodule measuring 2.2 on the current exam with an SUV of 7. Bilateral alveolar lung infiltrates seen on the prior study are mildly progressed on the current study but remain without significant FDG uptake. Mediastinal adenopathy was improved. The index subcarinal node on the April 2021 study had SUV of 6.2 down from 13 previously. Other nodes in the bilateral hilar periesophageal prevascular and subaortic as well as the left and right paratracheal and anterior medial spinal are similar improved. Cervical level IV nodes are now subcentimeter in size with minimal FDG uptake consistent with positive response to therapy. The left IV node now has an SUV of 3 down from 8 from the May 2020 study. The right adrenal lesion is unchanged in size but now with SUV of 3.9 down from 9.2 consistent with a positive response to therapy. Suspicious upper abdominal lymph nodes in the gastric hepatic/retroperitoneal, celiac and portal territories are improved. Reported that the activity in the liver, spleen left adrenal, stomach and pancreatic was physiologic. There were no findings to indicate osseous metastatic disease. He did note the bilateral alveolar infiltrates are progressed on the current study but again without significant FDG uptake. Ms. Thornton is here today for to review findings of her PET CT from 05/10/2021 and to possibly consider resuming her Alimta. Her last labs from 05/06/2021 reported a white count of 12.9, hemoglobin 9.3 platelets are 97,000 and her ANC at that time was 11,390. Creatinine was 0.9 LFTs were normal. Her iron saturation was found to be 14.6% ferritin was 280 and iron was 41. Her TIBC was 280. Vitamin B12 was reported at 584. Ms. Miller states overall she is feeling better. Her energy is better. She has no new concerns today. She denies any fever chills or any signs of infection for the last 72 hours. She did have a dental cleaning yesterday with Dr. Conley's office. She did take penicillin head of her dental cleaning. She denies any new concerns. She denies any pain. She states that she continues to have a bit of a cough but is not productive and she has had no hemoptysis. She denies night sweats. She has had no nausea or vomiting. She denies any peripheral neuropathy. She states her bowels and bladder are normal for her. She denies any muscle weakness, joint swelling or any pain. She states her appetite is good. Her ECOG is 0. Past Medical History: Anxiety Depression Gastroesophageal reflux disease Past Surgical History: COVID 19 vaccine Bronchoscopy in 2019 Allergies: buPROPion HCl Medications: Difluprednate 4 Drop(s) (of 0.05 %) Emulsion Ophthalmic daily levETIRAcetam 1 Tablet (of 250 mg) Oral b.i.d. Montelukast Sodium 1 Tablet (of 10 mg) Oral daily Pantoprazole Sodium 1 Tablet (of 40 mg) Tablet, enteric coated Oral daily Sertraline HCl 1 Tablet (of 100 mg) Oral daily Family History: Ms. Miller's mother at age 86: skin cancer, and pneumonia, and hypertension, and osteoporosis. Ms. Miller's father is alive. Social History: Ms. Miller is and she is an unknown. Ms. Miller has never smoked. She has no history of drinking. Review Of Symptoms: <See Above> Vital Signs: Performed on May 15, 2021 09:20 Height - 65.00 in Weight - 115 lbs (LOW) BSA - 1.56 sq.m BMI - 19.14 Temperature - 97.4 F (LOW) Pulse - 96 /min Respiration - 18 /min BP - 119/81 mm(hg) O2 Sat - 94 % (LOW) Pain - 0 Fatigue - 0,0 - Fully active, able to carry on all predisease activities without restrictions. (ECOG) Physical Examination: Constitutional Alert, oriented, no acute distress. Skin pink, warm and dry. Head Normocephalic; atraumatic. Eyes Conjunctivae and sclerae are clear and without icterus. Neck Supple without masses or thyromegaly. No jugular venous distension. Hematologic/Lymphatic No petechiae or purpura. No tender or palpable lymph nodes in the cervical or supraclavicular areas. Respiratory Lungs are clear to auscultation without rhonchi or wheezing. Cardiovascular Regular rate and rhythm of heart without murmurs,clicks, gallops or rubs. Back/Spine Non-tender to palpation. Extremities No visible deformities, no cyanosis, clubbing or edema. Musculoskeletal No tenderness or swelling, normal range of motion without obvious weakness. Integumentary No rashes or lesions. Neurologic No sensory or motor deficits, normal cerebellar function. Psychiatric Alert and oriented times three. Coherent speech. Verbalizes understanding of our discussions today. Laboratory:see flow sheet for 05/06/2021 labs Impression: 1. Stage IV non-small cell lung cancer, adenocarcinoma PDL 1 less than 40%, guardant 360 shows negative for EGFR, ALK, ROS1, BRAF, MET, RET, NTRK. 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 Pericardial effusion status post pericardial window x2 in April and June 2020 3. History of pulmonary embolism status post thrombolysis on June 27, 2020 status post IV filter placement on June 28, 2020, on Eliquis 2.5 mg daily 4. Immunotherapy related pneumonitis, finished tapering dose of steroids on November 23, 2020. Last dose of immunotherapy was August 2020. Her first cycle of Carbo/Alimta/Keytruda was give o 08/13/2020. 5. Sleep apnea Plan/Problems Addressed at this Visit: 1. Stage IV non-small cell lung cancer: adenocarcinoma PDL 1 less than 40%, guardant 360 shows negative for EGFR, ALK, ROS1, BRAF, MET, RET, NTRK, based on scans done in [place],, metastatic disease to left adrenal gland and brain, status post whole brain radiation therapy in June 2020. Well-differentiated adenocarcinoma per bronchoscopy done on May 10, 2020 final pathology report shows well-differentiated no carcinoma involving the right middle lobe and right lower lobe and station 4R and station 11 R MRI scan done on May 19, 2020 in [place] showed innumerable ovoid cystic foci throughout the brain which demonstrates susceptibility signal loss and post contrast enhancement suspicious for infectious process such as neurocysticercosis. Spinal tap done at [facility] showed no sign of infection, so it was concluded patient had brain mets for which she underwent whole brain radiation therapy in June 2020, in [place]. Patient had multiple scans done in [facility] and was confirmed with stage IV adenocarcinoma of the lung with brain mets as well as left adrenal gland, started on carboplatin/Alimta/Keytruda on August 13, 2020, after second dose of chemotherapy she developed pneumonitis which was treated with antibiotics and tapering dose of steroids and her last dose of steroid was on November 23, 2020 and Keytruda was discontinued and she was treated with single agent Alimta every 3 weeks. There was a gap after her Alimta dose which was given on December 10, 2020, as per patient she received Covid vaccination and did develop some symptoms like nausea vomiting headaches which lasted more than 2 weeks so patient did not come for treatment until in January 2021. She proceeded with single Alimta with her last cycle being on 04/09/2021. Ms Miller was admitted to [facility] on April 25, 2021 with cough/hemoptysis and shortness of breath. She was on Eliquis for history of pulmonary embolism, hemoglobin at time of admission was 8.7. Her Eliquis was put on hod and she was treated with supportive care. Her urinalysis revealed UTI with E. coli. She was discharged home on Levaquin. She was advised to get a followup CBC done in 1 week post discharge and then restart her Eliquis. Ms Miller had CT scan of chest done shows no significant interval change in mediastinal or hilar lymphadenopathy, interval development of several low density hepatic structure that were not seen on previous exam done in July 2020, there was a concern about possible liver mets. On 04/24/2021 with note of diffuse groundglass interstitial lung disease bilaterally, greatest involvement bilateral upper lobes which is known to be present on 08/04/2020 exam bedside and interval improvement. There is no visible consolidated ability or airspace disease other than minimal parenchymal scar right lung base which is presumed site of primary lung carcinoma. The appearance of the micro honeycombing bilateral upper lobes and superior segments of the bilateral lower lobes could be secondary to usual interstitial pneumonitis. Findings of tree in bud bronchial ear disease, predominantly peripheral bilateral upper lobes, suggesting either active or chronic bronchial ldisease/bronchiolitis. There is a small 4 mm pulmonary nodule right lower lobe. There was lymphadenopathy noted to be calcified mediastinal and hilar complexes of the antecedent granulomatous disease. There had been interval development of several small low-density hepatic structures that were not visible on the July 2020 exam raising concern for potential diffuse hepatic metastatic disease. At her April 30, [address] Galvez placed her Alimta on hold as she was recovering from E. coli UTI and a follow-up PET CT was requested due to the above CT a of the chest. She was restarted on her Eliquis at that time as her hemoglobin from 10 5 was 8.7. She had no hemoptysis or other signs of bleeding at that time. Mrs. Miller had restaging PET/CT imaging on 05/10/2021 with [facility] radiology. There was comparison to prior PET/CT from 06/01/2020. Dr. Monroe reported significant provement in the right lower lobe pulmonary nodule measuring 2.2 on the current exam with an SUV of 7. Bilateral alveolar lung infiltrates seen on the prior study are mildly progressed on the current study but remain without significant FDG uptake. Mediastinal adenopathy was improved. The index subcarinal node on the April 2021 study had SUV of 6.2 down from 13 previously. Other nodes in the bilateral hilar periesophageal prevascular and subaortic as well as the left and right paratracheal and anterior medial spinal are similar improved. Cervical level IV nodes are now subcentimeter in size with minimal FDG uptake consistent with positive response to therapy. The left IV node now has an SUV of 3 down from 8 from the May 2020 study. The right adrenal lesion is unchanged in size but now with SUV of 3.9 down from 9.2 consistent with a positive response to therapy. Suspicious upper abdominal lymph nodes in the gastric hepatic/retroperitoneal, celiac and portal territories are improved. Reported that the activity in the liver, spleen left adrenal, stomach and pancreatic was physiologic. There were no findings to indicate osseous metastatic disease. He did note the bilateral alveolar infiltrates are progressed on the current study but again without significant FDG uptake. A. The PET CT from 05/10/2021 was reviewed with Ms. Miller a copy was given to her. B. Labs from May 06, 2021 were also reviewed with Adams Paul and a copy was given to her. White count 12.9, hemoglobin 9.3, platelets 297,000, ANC is 11,400. Creatinine 0.9 LFTs were normal. She was found to be slightly iron deficient with iron saturation of 14.6, ferritin was 280 and TIBC was 280 her folic acid is greater than 20 and vitamin B12 is normal at 584. C. We will proceed with her seventh cycle of single agent Alimta as her PET/CT does show response and did not show liver mets. D. She will continue with weekly interim counts as she has had neutropenia in the past. E. We will plan to see her back in 3 weeks at which time she will be due for cycle 8 single agent Alimta with CBC CMP. F. Mrs. Miller was instructed to contact us in interim should questions or problems arise. 2. Anemia of unknown etiology A. Continue to monitor weekly. B. Iron studies from 05/06/2021 reported iron saturation of 14.6, ferritin 280, iron level of 41 TIBC of 280. C. Vitamin B-12 on 05/06/2021 was 584 and folic acid was greater than 20. Her hemoglobin is improved today at 9.3 compared to 8.7 on 04/29/2021. 3. History of pulmonary embolus status post thrombolysis on 06/27/2020 and IV filter placed on June 28, 2020. A. Continue Eliquis 2.5 mg daily. Signed By: Christi Ibarra-, AOCNP Foster Galvez MD <<Signature on File>>
== END 2021-05-25 23:59 | disposition home or self-care (01) ==
LOC: ONCMED 13:38
PROVIDERS: Nurse Practitioner; PCP Family Medicine; Visit Provider Internal Medicine Hematology & Oncology
DX: Z51.11 Encounter for antineoplastic chemotherapy (principal); C34.81 Malignant neoplasm of overlapping sites of right bronchus and lung; I31.3 Pericardial effusion (noninflammatory); G47.33 Obstructive sleep apnea (adult) (pediatric); J70.3 Chronic drug-induced interstitial lung disorders; T45.1X5D Adverse effect of antineoplastic and immunosuppressive drugs, subsequent encounter; Z79.52 Long term (current) use of systemic steroids; Z86.711 Personal history of pulmonary embolism; Z79.01 Long term (current) use of anticoagulants; Z79.899 Other long term (current) drug therapy
CPT/HCPCS: 36415; 36591; 80053; 82607; 82728; 82746; 83540; 83550; 85007; 85025; 96367; 96372; 96375; 96413; 99214; J1100; J2405; J3420; J7050; J9305

== ENCOUNTER 2021-06-11 05:41 | Outpatient (RCR) | payer OTHER, SELFPAY ==
[2021-06-10 15:15] LABS: Hematocrit 35.5 % (37.0-47.0); Mean Corpuscular Hemoglobin 26.7 pg (28.0-34.0); Mean Corpuscular Volume 86.2 fl (81-99); Mean Platelet Volume 8.4 fL (7.4-10.4); Platelet Count 260 10^3/cmm (130-400); Red Blood Count 4.12 10^6/uL (4.1-5.3); Red Cell Distribution Width 19.3 % (12.1-15.1); White Blood Count 11.6 10^3/uL (4.0-10.0)
[2021-06-10 15:42] LABS: Alanine Aminotransferase 12 U/L (0-33); Alkaline Phosphatase 62 IU/L (35-105); Anion Gap 20.2 (5-19); Aspartate Amino Transferase 11 U/L (0-32); Blood Urea Nitrogen 13 mg/dL (6-20); Calcium 8.5 mg/dL (8.5-10.5); Carbon Dioxide 18 mmol/L (22-29); Chloride 103 mmol/L (98-107); Globulin 2.4 g/dL (1.3-4.6); Glomerular Filtration Rate 75.9 mL/min (90-130); Glucose 102 mg/dL (65-115); Osmolality Calculated 284 mOsm/kg (285-295); Potassium 4.2 mmol/L (3.5-5.1); Sodium 137 mmol/L (136-145); Total Bilirubin 0.2 mg/dL (0.15-1.2); Total Protein 6.4 g/dL (6.6-8.7)
[2021-06-10 15:52] LABS: Absolute Eosinophils 0.1 10^3/cmm (0.0-0.7); Absolute Neutrophil 10.6 10^3/cmm (1.4-6.5); Band Neutrophils Absolute 0.6 10^3/cmm (0.0-1.2); Eosinophils 1 %; Lymphocytes 0 %; Monocytes Absolute 0.1 10^3/cmm (0.1-0.6); Platelet Estimate Normal (Normal); Segmented Neutrophils 86 %; Total Cells Counted 100 (0-100)
--- NOTE | 2021-06-11 09:43 | ONC FU_ITS ---
Dr. Galvez follow up note Patient: Sophia Miller Unit #: [id number]: 1970 Dicatated By: Foster Galvez M.D.Date of Visit:Jun 11, 2021 Onc Med Follow-up/Prog Note History of Present Illness: Ms. Miller is a 50-year-old female with history of chronic nonproductive cough since August 2019. Ms Garay reports she underwent some dental work-up in the beginning of 2019. At that time she was given antibiotics but her cough did not improve much. She was treated with Levaquin multiple times and then October 2019 she obtained a chest x-ray. The xray reported right lower lobe infiltrate. She was treated with levofloxacin again and with no significant improvement in her cough, she eventually underwent CT scan of the chest on On 02/12/2020. Findings reported focal consolidation right lower lobe along the fissure with air bronchograms. Consolidation measured 5.3 x 4.3 x 5.6 cm. Patchy infiltrate along the right upper lobe laterally. Moderate pericardial effusion. Prominent lymph nodes bilaterally nonspecific but likely reactive measuring 12 mm on the right and 14 mm on the left. Enlarged subcarinal lymph node measuring 14 mm. Proximal main arteries were normal. Normal thoracic aorta. She had an echocardiogram on 02/26/2020 for evaluation of the pericardial effusion which reported a normal left ventricular systolic function and left ventricular ejection fraction estimated at 70%. There were no regional wall motion abnormalities. Normal dystonic dysfunction. There was a moderate circumferential pericardial effusion 1.2 cm along the right ventricle and 1.5 cm along the left ventricle. There was no evidence of hemodynamic compromise and normal size inferior vena cava. She then had follow-up chest x-ray on 02/29/2020 which reported subtle opacity within the middle lobe versus right lung base. Lungs otherwise well aerated. There is no pleural effusion and no pneumothorax. She underwent bronchoscopy on March 22, [address] Hayden. Endobronchial biopsy from the right middle lobe reported lung parenchyma with chronic inflammation no granulomas identified no malignancy identified right lower lobe biopsy reported lung parenchyma and cartilage with focal chronic inflammation. No granulomas or malignancy identified. The bronchial cytology reported by voice and by number on 03/22/2020 reported benign ciliated respiratory epithelial cells, rare benign squamous epithelial cells, mixed inflammatory cells, macrophages, blood and fibrin/proteinaceous debris's. No malignant cells were seen. BAL Aspergillus antigen was positive but index was 0.61. She was treated with doxycycline for1 week and noticed some improvement in the cough. Followup CT scan of chest was repeated on April 29, 2020 which showed consolidative infiltrate in the right lower lobe along the fissure with air bronchograms. Not significantly change from previous, but it did show new hazy groundglass perihilar, upper lobe infiltrates with associated micronodules in the bronchovascular and perilymphatic distribution. She also had persistent moderate pericardial effusion unchanged anterior mediastinal, right paratracheal, hilar and subcarinal lymphadenopathy. Ms Miller underwent repeat bronchoscopy on May 10, 2020 and pathology report came back adenocarcinoma involving the right lower lobe, right middle lobe, station 4R lymph node, station 11 R lymph node. Immunohistochemistry showed TTF-1 positive, p63 negative, Napsin-A positive. On May 15, 2020, patient developed dizziness and was also developing questionable mental status changes e.g. intermittent confusion, but no one-sided weakness or numbness or slurred speech. She presented to [facility] on May 19, 2020. She did have a MRI scan of the head on May 19, 2020. It reported no evidence of acute ischemia or infarct, no acute intracranial hemorrhage. Innumerable ovoid cystic foci throughout the brain which demonstrate susceptibility signal loss and post contrast enhancement suspicious for infectious process such as neurocysticercosis. No evidence of hydrocephalus. Ms Miller reported that at that time, neurosurgery was consulted and clinically, she was diagnosed with brain mets. She was started on dexamethasone and Keppra, no biopsy was done but some blood test but no spinal tap was done either. She also had pericardial biopsy done which shows no evidence of malignant involvement. A repeat CT scan of chest abdomen pelvis done in [place] on May 20, 2020 showed an irregular area of consolidation or neoplastic involvement in the right lower lobe just above the diaphragm approximately 5.5 x 5.5 x 2.5 cm this is internal air bronchograms and elongated shape most consistent with infiltrate or atelectasis perihilar groundglass opacities bilaterally, suspect pneumonia., Echocardiogram done on May 21, 2020 shows ejection fraction 55 to 60%. She reported that because of blurred vision she was also evaluated by ophthalmology and impression was could be due to sarcoidosis involvement. She had subxiphoid pericardial window per Dr. Stiven Basurto at [facility] on 05/22/2020. The pathology final report dated on 05/24/2020 was benign pericardial tissue. There was no sign of significant inflammation. No positive staining neoplastic cells were identified in sections stained with MOC 31, BerEP4 and TTF???1. Ms. Miller had PET/CT imaging with [facility] radiology on 06/01/2020 which reported anterior right lower lobe a 4.3 x 2.6 semisolid mass with an SUV of 12.9. This has a high probability of malignancy, most likely bronchogenic carcinoma. Extensive hypermetabolic adenopathy is present in the mediastinum, consistent with local metastatic disease. Nodes are present in the bilateral hilar, subcarinal, periesophageal, prevascular, subaortic, left and right paratracheal and anterior mediastinal territories. The index subaortic node has an SUV of 13.0. Bilateral FDG positive nodes are present in the cervical level 4 regions with SUV of 8.0 in the 1.1 cm left sided node. In the abdomen, malignant celiac, right retrocrural and bilateral retroperitoneal periaortic nodes are FDG positive consistent with malignancy. A 1.3 x 1.9 cm right adrenal lesion with SUV of 9.2 represents metastatic disease. Uptake in the intracranial gold-white matter is physiologic. Breast parenchymal and axillary lymph nodes uptake bilaterally is unremarkable. Bilateral centrally located groundglass opacity suggests pulmonary edema, drug reaction or viral pneumonia. There were no findings to indicate osseous metastatic disease. Mrs. Miller was first seen on June 04, 2020. At the family's request she was referred to neurosurgery at [place] for evaluation and to confirm brain metastasis. The next notes available were [facility] indicating that she had multiple extensive pulmonary emboli in the bilateral pulmonary arteries including emboli and vascular bifurcations. There was no saddle embolus identified she continued to have extensive groundglass infiltrates seen in the perihilar and mid and upper lung zones particularly in the right middle lobe and bilateral upper lobes. Consolidating infiltrate is noted in the anterior aspect right lower lobe and left lower lobe. Small perihilar infiltrates are seen in the left lower lobe and lingula. It was noted that drainage catheter overlies the pericardium heart size was normal small pericardial effusion maximum with approximately 8 mm. This was diminished with prior study at which time the maximum width was approximately 2 cm. There was mediastinal and hilar adenopathy the largest node was 13 millimeters short axis diameter in the left hilar region. MRI of the head with and without contrast from 06/26/2020 reported innumerable supratentorial and infratentorial intra-axial and extra-axial enhancing mass lesions demonstrate enhancement on postcontrast images which small demonstrating decreased in size. There were no definite new enhancing lesions no hydrocephalus no herniation syndrome. from 06/30/2020 reports guardian test did not show any actual mutation. She was admitted to [facility] from 05/05/2020 to 06/11/2020. She was seen by Dr. Alex from [facility]. She was discharged and scheduled to see Dr. Paola Quezada on 06/27/2020 as [facility] but got admitted to [facility] on 06/22/2020. She was admitted for weakness, nonproductive cough, hypoxia and hypotension. She was found to have recurrent pericardial effusion. She had pericardial window on 06/24/2020. She had CT of the chest abdomen pelvis on 06/26/2020 as reported above. She did have bilateral multiple pulmonary emboli on scan from 06/26/2020 as above. She had IR guided suction thrombectomy on 06/27/2020. IVC filter was placed on 06/28/2020 and she remained on heparin at that time. She was discharged on Eliquis for the pulmonary emboli. The plan at that time was whole brain radiation therapy then chemotherapy. She was on Dex 4 mg twice daily. Ms. Miller had preferred to do treatment in [place] at that time. She was readmitted to [facility] through their ER for shortness of breath, dyspnea and hypotension and hemoptysis prior to her followup with Dr. Pena on August 05, 2020. She had completed whole brain radiation therapy at that time. Dr Pena's notes indicated she received whole brain RT from July 03 through July 16, 2020. Chemotherapy was planned for August 05, 2020 but was placed on hold due to her hospital admission. The plan was for carboplatin Alimta/Keytruda. Her Tempest PD-L1 was reported at 40%. The Guardiant 360 was negative for EGFR, ALK, ROS1, BRAF, MET, RET and NTRK. She was found to have pneumonia with hypoxia and was placed on antibiotics per the primary care team. She was discharged on August 10, 2020. She was seen at [facility] [place] office on August 13, 2020. She had 3 days left remaining on her cefdinir 300 mg twice daily. Her first dose of carboplatin was held but they did proceed with Alimta and Keytruda. If she tolerated that well the plan was to proceed with adding the carboplatin cycle 2. Her dexamethasone was decreased to 4 mg twice daily. She received cycle 2 carboplatin Alimta and Keytruda on 09/03/2020. Her dexamethasone was then tapered to 2 mg twice daily with continued plans to further the taper to get her off of it completely. She continued follow-up with Dr. Pena at [facility] in [place]. On her October 01, 2020, Dr. Pena note it was noted she had she had pneumonitis due to the Keytruda (diagnosed at [facility]-after 2 cycles of Keytryda) but had maintained on Alimta single agent every 3 weeks. She had nausea, vomiting, hypotension, dehydration and decreased performance status overall. She required supportive care after receiving the carboplatin. Her further cycles of chemotherapy included single agent Alimta. Ms. Miller transferred her care to resuming Alimta single agent on December 10, 2020 here at [facility]. On day 8 following that administration of single agent Alimta she was found to be neutropenic with an ANC of 1420. Her hemoglobin was 9.5. She had continued monitoring and her counts recovered. She was due for her next cycle of Alimta on December 31, 2020. There was a gap after her Alimta dose on December 10, 2020. Ms Miller reported that she received Covid vaccination and did develop some symptoms like nausea vomiting headaches which lasted more than 2 weeks. She opted to not come for treatment until January 2021. She proceeded with single Alimta with her last cycle being on 04/09/2021 which was cycle 6. Ms Miller was admitted to [facility] on April 25, 2021 with cough/hemoptysis and shortness of breath. She was on Eliquis for history of pulmonary embolism, hemoglobin at time of admission was 8.7. Her Eliquis was put on hod and she was treated with supportive care. Her urinalysis revealed UTI with E. coli. She was discharged home on Levaquin. She was advised to get a followup CBC done in 1 week post discharge and then restart her Eliquis. Ms Miller had CT scan of chest on 04/24/2021 with note of diffuse groundglass interstitial lung disease bilaterally, greatest involvement bilateral upper lobes which is known to be present on 08/04/2020 exam bedside and interval improvement. There is no visible consolidated ability or airspace disease other than minimal parenchymal scar right lung base which is presumed site of primary lung carcinoma. The appearance of the micro honeycombing bilateral upper lobes and superior segments of the bilateral lower lobes could be secondary to usual interstitial pneumonitis. Findings of tree in bud bronchial ear disease, predominantly peripheral bilateral upper lobes, suggesting either active or chronic bronchial ldisease/bronchiolitis. There is a small 4 mm pulmonary nodule right lower lobe. There was lymphadenopathy noted to be calcified mediastinal and hilar complexes of the antecedent granulomatous disease. There had been interval development of several small low-density hepatic structures that were not visible on the July 2020 exam raising concern for potential diffuse hepatic metastatic disease. At her April 30, [address] Galvez placed her Alimta on hold as she was recovering from E. coli UTI and a follow-up PET CT was requested due to the above CT a of the chest. She was restarted on her Eliquis at that time as her hemoglobin from 10 5 was 8.7. She had no hemoptysis or other signs of bleeding at that time. Mrs. Miller had restaging PET/CT imaging on 05/10/2021 with [facility] radiology. There was comparison to prior PET/CT from 06/01/2020. Dr. Monroe reported significant provement in the right lower lobe pulmonary nodule measuring 2.2 on the current exam with an SUV of 7. Bilateral alveolar lung infiltrates seen on the prior study are mildly progressed on the current study but remain without significant FDG uptake. Mediastinal adenopathy was improved. The index subcarinal node on the April 2021 study had SUV of 6.2 down from 13 previously. Other nodes in the bilateral hilar periesophageal prevascular and subaortic as well as the left and right paratracheal and anterior medial spinal are similar improved. Cervical level IV nodes are now subcentimeter in size with minimal FDG uptake consistent with positive response to therapy. The left IV node now has an SUV of 3 down from 8 from the May 2020 study. The right adrenal lesion is unchanged in size but now with SUV of 3.9 down from 9.2 consistent with a positive response to therapy. Suspicious upper abdominal lymph nodes in the gastric hepatic/retroperitoneal, celiac and portal territories are improved. Reported that the activity in the liver, spleen left adrenal, stomach and pancreatic was physiologic. There were no findings to indicate osseous metastatic disease. He did note the bilateral alveolar infiltrates are progressed on the current study but again without significant FDG uptake. Her iron saturation was found to be 14.6% ferritin was 280 and iron was 41. Her TIBC was 280. Vitamin B12 was reported at 584. Came for follow-up, denies any specific complaint except generalized weakness and fatigue, tolerating physical therapy well, no fever chills, no nausea or vomiting, no diarrhea or constipation, no hemoptysis or hematemesis, no headaches, no new bony pains tolerating Alimta well otherwise Medications: Difluprednate 4 Drop(s) (of 0.05 %) Emulsion Ophthalmic daily, levETIRAcetam 1 Tablet (of 250 mg) Oral b.i.d., Montelukast Sodium 1 Tablet (of 10 mg) Oral daily, Pantoprazole Sodium 1 Tablet (of 40 mg) Tablet, enteric coated Oral daily, Sertraline HCl 1 Tablet (of 100 mg) Oral daily Allergies: buPROPion HCl Review of Systems: Review of Systems is not available for this patient. Vital Signs: Vitals are not available for this patient. Performance Status: 1 - No physically strenuous activity, but ambulatory and able to carry out light or sedentary work (e.g. office work, light house work). (ECOG) Physical Examination: ENMT - No mouth sores, no thrush, no jaundice, Respiratory - Lungs are clear to auscultation, Cardiovascular - Regular rate and rhythm of heart, Abdomen - Soft, bowel sounds present, Extremities - No visible edema. Lab/Imaging: Test performed on May 20, 2021 11:34 Sodium 140 mmol/L Potassium 4.1 mmol/L Chloride 108 mmol/L CO2 22 mmol/L Anion Gap 14.1 BUN 14 mg/dL Creatinine 0.7 mg/dL Cr Clearance (Est) 82.8400 mL/min eGFR 88.9 mL/min Glucose 106 mg/dL Osmolality - Calculated 291 mOsm/kg Calcium 8.5 mg/dL Protein, Total 6.0 g/dL Albumin 4.0 g/dL Globulin 2.0 g/dL Bilirubin, Total 0.2 mg/dL ALT (SGPT) 10 U/L AST (SGOT) 11 U/L Alkaline Phosphatase 54 IU/L WBC 13.0 10 3/uL RBC 4.11 10 6/uL HGB 10.7 g/dL HCT 35.1 % MCV 85.4 fl MCH 26.0 pg MCHC 30.5 g/dL RDW 21.0 % Platelet Count 201 10 3/cmm MPV 9.6 fL Neutrophils 11.10 10 3/uL Lymphocytes 0.5 10 3/uL Monocytes 1.0 10 3/uL Eosinophils 0.1 10 3/uL Basophils 0.0 10 3/uL Neutrophil % 85.5 % Lymphocyte % 4.0 % Monocyte % 8.0 % Eosinophil % 0.7 % Basophils % 0.2 % NRBC % 0 % Impression: 1. Stage IV non-small cell lung cancer, adenocarcinoma PDL 1 less than 40%, guardant 360 shows negative for EGFR, ALK, ROS1, BRAF, MET, RET, NTRK. 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 Pericardial effusion status post pericardial window x2 in April and June 2020 3. History of pulmonary embolism status post thrombolysis on June 27, 2020 status post IV filter placement on June 28, 2020, on Eliquis 2.5 mg daily 4. Immunotherapy related pneumonitis, finished tapering dose of steroids on November 23, 2020. Last dose of immunotherapy was August 2020. Her first cycle of Carbo/Alimta/Keytruda was give o 08/13/2020. 5. Sleep apnea Plan: Discussed with patient regarding her labs white blood count 11.6 hemoglobin 11 hematocrit 35.5 platelets 260,000 CMP within normal limits Clinically, patient doing well with no new signs symptoms just to disease progression her recently done CT PET scan shows improvement, will continue with palliative therapy with Alimta and proceed with next dose today and then she return to clinic in 3 weeks with CBC CMP and if reasonable for next dose of palliative/maintenance Alimta Signed By: Foster Galvez M.D. <<Signature on File>>
[2021-06-11] MEDS: sodium chloride 0.9% 250 ML 75 ML IV (09:45)
[2021-06-11] MEDS: ondansetron 2 mg/ML SDV 2 mL 8 MG IV (09:45)
== END 2021-06-24 23:59 | disposition home or self-care (01) ==
LOC: ONCMED 05:41
PROVIDERS: PCP Family Medicine; Visit Provider Internal Medicine Hematology & Oncology
DX: Z51.11 Encounter for antineoplastic chemotherapy (principal); C34.81 Malignant neoplasm of overlapping sites of right bronchus and lung; C79.72 Secondary malignant neoplasm of left adrenal gland; C79.31 Secondary malignant neoplasm of brain; I31.3 Pericardial effusion (noninflammatory); I26.99 Other pulmonary embolism without acute cor pulmonale; Z79.01 Long term (current) use of anticoagulants; J70.4 Drug-induced interstitial lung disorders, unspecified; T45.1X5A Adverse effect of antineoplastic and immunosuppressive drugs, initial encounter; G47.30 Sleep apnea, unspecified; Z79.899 Other long term (current) drug therapy
CPT/HCPCS: 36591; 80053; 85007; 85025; 96367; 96375; 96413; 99215; J1100; J2405; J7050; J9305

== ENCOUNTER 2021-06-25 14:22 | Inpatient (IN) | payer OTHER, SELFPAY ==
[2021-06-25] VITALS (8 sets, daily range): BP systolic 100–113; BP diastolic 65–68; PULSE 67–127; RESP 17–25; TEMP 37.2–38.3; O2SAT 86–99; BMI 23.3
--- NOTE | 2021-06-25 14:29 | ED_ITS ---
HPI - SOB/Dyspnea General: Chief Complaint: Shortness of Breath/Dyspnea Stated Complaint: SOB Time Seen by Provider: 06/25/21 14:30 History of Present Illness: HPI Narrative: Ms. Miller is a 51-year-old lady with significant past medical history of metastatic primary lung cancer with brain mets who presents to the emergency department due to generalized malaise and shortness of breath. She reports pain to baseline health yesterday. When she woke up this morning she immediately felt sick. She endorses cough, shortness of breath, and generalized malaise. Intensity of symptoms is moderate to severe. Course has persisted. Denies sick contacts. No other new changes in health, exacerbating, or relieving factors identified. She is on palliative chemotherapy currently. Review of Systems General: Reports: 10 or more systems reviewed and unremarkable except in HPI and below PFSH ED PFSH: Medical History Blurry vision, right eye Brain metastases R/MR head wo/w con [id number] IMPRESSION: 1. No evidence of disease progression compared to September 23, 2020 2. Stable appearance of the innumerable supra and infratentorial tiny enhancing lesions with associated hemosiderin. 3. No hydrocephalus. No edema or mass effect. 4. Increased periventricular white matter changes consistent with treatment- related effect. Moderate parenchymal volume loss Depression with anxiety GERD (gastroesophageal reflux disease) Metastatic disease Pericardial effusion Port-A-Cath in place Seasonal allergies Surgical History S/P pericardial window creation X2 in 2019 Family History Mother Psychiatric illness Depression Hypertension Brother Heart defect Social History Smoking and tobacco status: never smoked Alcohol intake: never Lives independently: Yes Household members: none Marital status: Current occupational status: employed Current occupational exposures/hazards: No History of recent travel: No Current gender identity: Female Female Reproductive History: Date of last menstrual period: 03/22/20 Physical Exam Narrative: EXAM NARRATIVE: GENERAL/CONSTITUTIONAL - ill-appearing. Supplemental oxygen requirement as noted Eyes - PERRL, no conjunctival injection ENMT - Atraumatic external nose and ears. Moist mucous membranes NECK - supple. trachea midline CARDIOVASCULAR -tachycardic rate and regular rhythm. Normal cap refill RESPIRATORY - coarse and diminished to auscultation bilaterally. Increased respiratory effort. Retractions noted with room air. Hypoxemia. ABDOMEN/GI - Nontender/Nondistended. MSK - Extremities without obvious deformity or tenderness to palpation SKIN - Warm, Dry NEURO - alert and appropriately oriented. Moves all extremities equally. Course ED course: - Patient was seen and evaluated by me at bedside - Patient placed on cardiac monitors, IV access obtained - Initial evaluation notable for ill appearance, tachypnea, febrile, tachycardic and requiring supplemental oxygen. - Fluids and antibiotics given. - Labs notable for no leukocytosis, near baseline normocytic anemia. Metabolic panel with mild hyponatremia and mildly decreased bicarb. Lactic acid is elevated. Delta troponin negative. BNP only minimally elevated with elevated procalcitonin. Covid and viral studies negative. - Given reported history including current respiratory status in the context of known cancer patient is high risk for pulmonary embolism and D-dimer is not needed as intermediate at this time. imaging notable for worsening disease. CTA without evidence of pulmonary embolism though overall patient has significant worsening of overall disease, she has findings concerning for atypical including possible mycobacterial infection. - TB QuantiFERON test ordered. - Upon serial reexamination after treatment the patient was mildly improved with regards to blood pressure however the patient is still ill with high medical complexity and high risk for clinically significant deterioration. - Based on patient history, evaluation, labs, and imaging as interpreted the most likely cause of the patient's condition is sepsis with hypoxic respiratory failure. - The results of ED evaluation were discussed with the patient including plan for admission due to requirement for level of care not available if discharged to prevent significant worsening/deterioration. - Hospitalist service contacted and agreed admit the patient. Downtrending blood pressure near time of admission, vasopressors given - Patient was admitted without further deterioration or significant events. Vital Signs: Vital signs: Vital Signs Temperature 97.3 F L 06/30/21 16:00 Pulse Rate 86 06/30/21 20:22 Respiratory Rate 18 06/30/21 19:21 Blood Pressure 155/82 06/30/21 16:00 Pulse Oximetry 91 06/30/21 20:22 MDM - SOB/Dyspnea Medical Records: Attestation: I reviewed the patient's medical records. Lab Data: Attestation: I reviewed the patient's lab results. Labs: Lab Results 06/25/21 06/25/21 06/25/21 04:47 14:51 15:57 WBC RBC Hgb Hct MCV MCH MCHC RDW Plt Count MPV Neut % (Auto) Lymph % (Auto) [place] % (Auto) Eos % (Auto) Baso % (Auto) Neut # (Auto) Lymph # (Auto) [place] # (Auto) Eos # (Auto) Baso # (Auto) Nucleated RBC % (a uto) Nucleated RBCs # Specimen Type Arterial Sample Site Brachial, left ABG pH 7.47 H (7.35-7.45) ABG pCO2 31.2 mmHg L mmHg (35-45) ABG pO2 76.9 mmHg L mmHg (80.0-100.0) ABG HCO3 22.6 mmol/L mmol/ L (22-26) ABG Base Excess -0.5 mmol/L mmol/ L (-2.0-2.0) Alex Test N/a Hematocrit 31.5 % L % (37-47) Hgb O2 Saturation 94.4 % L % (95-100) Carboxyhemoglobin 1.2 %THgb %THgb (0.4-20.1) Methemoglobin 0.9 % % (0.4-1.5) Total Hemoglobin 10.3 g/dL L g/dL (12-16) O2 Delivery Device Nrb O2 Liters/Min 15.0 % % FiO2 100.0 % % Pattern And Chain Maker ID Amh Sodium Potassium Chloride Carbon Dioxide Anion Gap BUN Creatinine GFR Calculation Glucose Calculated Osmolal ity Lactic Acid Calcium Total Bilirubin AST ALT Alkaline Phosphata se Troponin T Baselin e NT-Pro-B Natriuret Pep Total Protein Albumin Globulin Procalcitonin TSH Random Cortisol Influenza Type A A g Negative (Negative) Influenza Type B A g Negative (Negative) SARS-CoV-2 Ag (Rap id) Beta-(1,3)-D-Gluca n pg/mL pg/mL B-(1,3)-D-Glucan I ntrp 06/25/21 06/25/21 06/25/21 15:57 16:31 16:31 WBC 5.8 10^3/uL 10^3/ uL (4.0-10.0) RBC 4.13 10^6/uL 10^6 /uL (4.1-5.3) Hgb 11.2 g/dL L g/dL (11.5-15.3) Hct 36.4 % L % (37.0-47.0) MCV 88.1 fl fl (81-99) MCH 27.1 pg L pg (28.0-34.0) MCHC 30.8 g/dL g/dL (30.0-36.0) RDW 19.9 % H % (12.1-15.1) Plt Count 160 10^3/cmm 10^3 /cmm (130-400) MPV 9.0 fL fL (7.4-10.4) Neut % (Auto) 89.3 % % Lymph % (Auto) 5.3 % % [place] % (Auto) 3.6 % % Eos % (Auto) 0.5 % % Baso % (Auto) 0.3 % % Neut # (Auto) 5.21 10^3/uL 10^3 /uL (1.8-7.7) Lymph # (Auto) 0.3 10^3/uL L 10^ 3/uL (0.8-4.8) [place] # (Auto) 0.2 10^3/uL 10^3/ uL (0.2-0.9) Eos # (Auto) 0.0 10^3/uL 10^3/ uL (0.0-0.8) Baso # (Auto) 0.0 10^3/uL 10^3/ uL (0.0-0.1) Nucleated RBC % (a uto) 0.3 % % Nucleated RBCs # 0.0 /100WBC /100W BC Specimen Type Sample Site ABG pH ABG pCO2 ABG pO2 ABG HCO3 ABG Base Excess Alex Test Hematocrit Hgb O2 Saturation Carboxyhemoglobin Methemoglobin Total Hemoglobin O2 Delivery Device O2 Liters/Min FiO2 Pattern And Chain Maker ID Sodium 135 mmol/L L mmol /L (136-145) Potassium 3.9 mmol/L mmol/L (3.5-5.1) Chloride 103 mmol/L mmol/L (98-107) Carbon Dioxide 17 mmol/L L mmol/ L (22-29) Anion Gap 18.9 (5-19) BUN 10 mg/dL mg/dL (6-20) Creatinine 0.9 mg/dL mg/dL (0.5-0.9) GFR Calculation 66.3 mL/min L mL/ min (90-130) Glucose 75 mg/dL mg/dL (65-115) Calculated Osmolal ity 278 mOsm/kg L mOs m/kg (285-295) Lactic Acid Calcium 8.0 mg/dL L mg/dL (8.5-10.5) Total Bilirubin 0.3 mg/dL mg/dL (0.15-1.2) AST 21 U/L U/L (0-32) ALT 13 U/L U/L (0-33) Alkaline Phosphata se 60 IU/L IU/L (35-105) Troponin T Baselin e NT-Pro-B Natriuret Pep 155 pg/mL H pg/mL (0-125) Total Protein 5.7 g/dL L g/dL (6.6-8.7) Albumin 3.6 g/dL g/dL (3.5-5.2) Globulin 2.1 g/dL g/dL (1.3-4.6) Procalcitonin TSH Random Cortisol Influenza Type A A g Influenza Type B A g SARS-CoV-2 Ag (Rap id) Negative (Negative) Beta-(1,3)-D-Gluca n B-(1,3)-D-Glucan I ntrp 06/25/21 06/25/21 06/25/21 16:31 16:31 16:31 WBC RBC Hgb Hct MCV MCH MCHC RDW Plt Count MPV Neut % (Auto) Lymph % (Auto) [place] % (Auto) Eos % (Auto) Baso % (Auto) Neut # (Auto) Lymph # (Auto) [place] # (Auto) Eos # (Auto) Baso # (Auto) Nucleated RBC % (a uto) Nucleated RBCs # Specimen Type Sample Site ABG pH ABG pCO2 ABG pO2 ABG HCO3 ABG Base Excess Alex Test Hematocrit Hgb O2 Saturation Carboxyhemoglobin Methemoglobin Total Hemoglobin O2 Delivery Device O2 Liters/Min FiO2 Pattern And Chain Maker ID Sodium Potassium Chloride Carbon Dioxide Anion Gap BUN Creatinine GFR Calculation Glucose Calculated Osmolal ity Lactic Acid 2.6 mmol/L H mmol /L (0.5-2.2) Calcium Total Bilirubin AST ALT Alkaline Phosphata se Troponin T Baselin e 12 ng/L H ng/L (0-10) NT-Pro-B Natriuret Pep Total Protein Albumin Globulin Procalcitonin 0.90 ng/mL H ng/m L (0-0.5) TSH 3.90 uIU/mL uIU/m L (0.27-4.20) Random Cortisol 17.23 ug/dL ug/dL (2.47-19.5) Influenza Type A A g Influenza Type B A g SARS-CoV-2 Ag (Rap id) Beta-(1,3)-D-Gluca n B-(1,3)-D-Glucan I ntrp EKG Data^: EKG 1: Attestation: I personally reviewed and interpreted this EKG as follows: EKG Interpretation Date: 06/25/21 EKG interpretation time: 15:57 Interpretation: Twelve-lead EKG shows a regular rhythm at a rate of 113. [place] interval 125, QRS duration 75, QTc 368. Normal axis. Interpretation: Sinus rhythm. Nonspecific ST segment abnormalities. Critical Care Time Critical Care Time: Critical Care Time: Yes Total Critical Care Time: 35 Attestation: Due to a high probability of clinically significant, possibly life threatening deterioration, the patient required my highest level of attention and preparedness to intervene emergently and I personally spent this critical care time directly and personally managing the patient. This critical care time included obtaining a history; examining the patient; pulse oximetry; ordering and review of laboratory and imaging studies; arranging urgent treatment with development of a management plan; evaluation of patient's response to treatment; frequent reassessment; and, discussions with other providers as applicable. It was exclusive of separately billable procedures. Discharge Plan Discharge Patient Disposition: Admitted As Inpatient Admit Provider: Kareem Nieves Clinical Impression: Acute and chronic respiratory failure with hypoxia, Pneumonia, Sepsis Condition: Stable Coding Level of Care Code ED Roof Truss Builder for Martin Gallardo
--- NOTE | 2021-06-25 14:48 | XRR_ITS ---
PROCEDURE INFORMATION: Exam: XR Chest Exam date and time: 06/25/2021 2:48 PM Age: 51 years old Clinical indication: Shortness of breath. TECHNIQUE: Imaging protocol: XR of the chest. Views: 1 view. COMPARISON: CT angio chest PE protcl [id number] 06/25/2021 3:01 PM FINDINGS: Tubes, catheters and devices: Right port with tip in the right atrium. Lungs: There are extensive, worsening interstitial and airspace opacities bilaterally. Pleural spaces: No pleural effusion.. No pneumothorax. Heart/Mediastinum: The cardiac silhouette is grossly unchanged. No gross evidence of pneumomediastinum. Bones/joints: No gross fracture. XR/XR chest 1V portable [id number] IMPRESSION: There are extensive, worsening interstitial and airspace opacities bilaterally. Please see dedicated CTA chest to further assess. Radiation Dose CTDIVOL = (mGy): DLP = (mGy-cm)
--- NOTE | 2021-06-25 14:48 | ECG_ITS ---
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 Measurements Intervals [place] Rate: 113 P: 47 DC: 125 QRS: 47 QRSD: 75 T: 57 QT: 301 QTc: 413 Interpretive Statements SINUS TACHYCARDIA LOW QRS VOLTAGE IN PRECORDIAL LEADS [QRS DEFLECTION < 1.0 mV IN CHEST LEADS] NONSPECIFIC T-WAVE ABNORMALITY ABNORMAL RHYTHM ECG Compared to ECG 04/25/2021 03:40:32 No significant changes Electronically Signed On 06-25-2021 23:44:19 CENTRIFUGE OPERATOR by Isis Beltran M.D. [id number]
--- NOTE | 2021-06-25 14:48 | CTR_ITS ---
PROCEDURE INFORMATION: Exam: CTA Chest With Contrast Exam date and time: 06/25/2021 2:48 PM Age: 51 years old Clinical indication: Shortness of breath. Prior surgery. Cancer. TECHNIQUE: Imaging protocol: Computed tomographic angiography of the chest with contrast. 3D rendering (Not supervised by radiologist): MIP and/or 3D reconstructed images were created by the technologist. Radiation optimization: All CT scans at this facility use at least one of these dose optimization techniques: automated exposure control; mA and/or kV adjustment per patient size (includes targeted exams where dose is matched to clinical indication); or iterative reconstruction. Contrast material: OMMI 350; Contrast volume: 95 ml; Contrast route: INTRAVENOUS (IV); COMPARISON: CT angio chest PE protcl [id number] 04/24/2021 10:02 PM RADIATION DOSE METRICS: Total DLP (mGy-cm): 915.38 FINDINGS: Tubes, catheters and devices: Right port with tip in the right atrium. Pulmonary arteries: Lymphadenopathy at the right hilum causes approximately 50% narrowing of the right lower lobe pulmonary artery. There is severe narrowing of the right middle lobe pulmonary artery. No pulmonary embolus is identified. Aorta: No thoracic aortic aneurysm. No thoracic aortic dissection. Lungs: There are innumerable small nodular densities bilaterally that appear worsened from prior with extensive ground-glass opacity that is becoming more confluent with extensive patchy airspace opacities bilaterally. There is worsened interlobular septal thickening. There are numerous small cystic foci in the lungs bilaterally that do not have the typical distribution of honeycombing; however, honeycombing is not excluded. Interstitial lung disease superimposed on emphysema could have this appearance. There is scarring in the right lower lobe. No pulmonary mass. Pleural spaces: No pleural effusion.. No pneumothorax. Heart: Approximately unchanged moderate pericardial effusion. Coronary arterial calcifications are seen. Lymph nodes: A prevascular lymph node measures 1.8 x 1.3 cm; previously 1.1 x 1.2 cm. An anterior mediastinal lymph node measures 1.6 x 1.6 cm; previously 1.0 x 1.3 cm. A superior mediastinal lymph node anteriorly measures 1.2 x 1.5 cm; previously 1.1 x 1.2 cm. A pretracheal lymph node measures 1.7 x 2.1 cm; previously 1.6 x 2.0 cm. A right hilar lymph node measures 1.6 x 2.5 cm; previously 1.3 x 2.1 cm. A left hilar lymph node measures 2.2 x 1.4 cm; previously 2.1 x 1.2 cm. A probable lymph node adjacent to the esophagus has increased in size measuring 1.2 x 2.1 cm; previously 1.2 x 1.2 cm. This is now inseparable from the esophagus, and invasion is not excluded. Additional enlarging anterior and superior mediastinal lymph nodes are seen. Diaphragm: No hiatal hernia. Upper abdomen: There are multiple enlarging hypodense hepatic lesions measuring up to 1.4 cm. A right adrenal mass measures 2.0 x 2.4 cm; previously 2.0 x 2.0 cm. Separate enlarging right adrenal nodule measuring 0.9 cm; previously 0.6 cm. There are enlarging left adrenal nodules. One of the larger left adrenal nodules measures 1.4 x 1.2 cm; previously 1.1 x 1.2 cm. A periportal lymph node measures 1.3 x 2.8 cm; previously 1.1 x 2.6 cm. There is approximately unchanged infiltrative soft tissue density in the retroperitoneum on the right that encases the common hepatic, left gastric and part of the splenic artery. There is severe narrowing of the proximal celiac artery which may reflect median arcuate ligament syndrome. Bones/joints: No acute fracture is seen. CT/CT angio chest PE protcl [id number] IMPRESSION: 1. No pulmonary embolus is identified. 2. Innumerable small nodular densities bilaterally that appear worsened from prior with extensive ground-glass opacity that is becoming more confluent with extensive new/worsening patchy airspace opacities bilaterally. There is worsened interlobular septal thickening. There are numerous small cystic foci in the lungs bilaterally that do not have the typical distribution of honeycombing; however, honeycombing is not excluded. Interstitial lung disease superimposed on emphysema could have this appearance. Superimposed pneumonia is not excluded. Given new patchy airspace opacities and innumerable micronodules, superimposed tuberculosis, atypical mycobacterial or fungal infection are strong considerations. Recommend close interval follow-up to reassess. 3. There is worsening mediastinal and bilateral hilar lymphadenopathy concerning for worsening malignancy. One of the enlarging lymph nodes is inseparable from the esophagus, and esophageal invasion is not excluded. 4. Lymphadenopathy at the right hilum causes approximately 50% narrowing of the right lower lobe pulmonary artery. There is severe narrowing of the right middle lobe pulmonary artery 5. Worsening hepatic and adrenal metastases. Worsened periportal lymphadenopathy. 6. There is approximately unchanged infiltrative soft tissue density in the retroperitoneum on the right that encases the common hepatic, left gastric and part of the splenic artery. 7. Approximately unchanged moderate pericardial effusion. 8. There is severe narrowing of the proximal celiac artery which may reflect median arcuate ligament syndrome. 9. Coronary artery disease. Radiation Dose CTDIVOL = (mGy): DLP = 915.38 (mGy-cm)
[2021-06-25 15:02] LABS: ABG PCO2 31.2 mmHg (35-45); ABG PH Result 7.47 (7.35-7.45); Arterial Blood Gas Hematocrit 31.5 % (37-47); Base Excess ABG -0.5 mmol/L (-2.0-2.0); Blood Gas Operator Identificat AMH; Blood Gas Sample Site Brachial, left; Blood Gas Sample Type Arterial; Carboxyhemoglobin 1.2 %THgb (0.4-20.1); HCO3 ABG 22.6 mmol/L (22-26); HGB O2 Sat 94.4 % (95-100); Methemoglobin 0.9 % (0.4-1.5); Oxygen Device NRB; PO2 ABG 76.9 mmHg (80.0-100.0); Total Hemoglobin 10.3 g/dL (12-16)
[2021-06-25] MEDS: iohexol 350 mg/mL 100 mL Btl IV (15:09)
[2021-06-25 16:26] LABS: Influenza A by IFA Negative (Negative); Influenza B by IFA Negative (Negative)
[2021-06-25 16:27] LABS: SARS Covid-2 Antigen Negative (Negative)
[2021-06-25 16:40] LABS: Basophils % 0.3 %; Eosinophils % 0.5 %; Hematocrit 36.4 % (37.0-47.0); Hemoglobin 11.2 g/dL (11.5-15.3); Lymphocytes # 0.3 10^3/uL (0.8-4.8); Lymphocytes % 5.3 %; Mean Corpuscular HGB Conc 30.8 g/dL (30.0-36.0); Mean Corpuscular Hemoglobin 27.1 pg (28.0-34.0); Mean Corpuscular Volume 88.1 fl (81-99); Monocytes # 0.2 10^3/uL (0.2-0.9); Monocytes % 3.6 %; Neutrophils # 5.21 10^3/uL (1.8-7.7); Neutrophils % 89.3 %; Nucleated Red Blood Cells % 0.3 %; Platelet Count 160 10^3/cmm (130-400); Red Blood Count 4.13 10^6/uL (4.1-5.3); Red Cell Distribution Width 19.9 % (12.1-15.1); White Blood Count 5.8 10^3/uL (4.0-10.0)
[2021-06-25 16:57] LABS: Lactic Sepsis W/Reflex 2.6 mmol/L (0.5-2.2)
[2021-06-25 17:14] LABS: Alanine Aminotransferase 13 U/L (0-33); Albumin Level 3.6 g/dL (3.5-5.2); Alkaline Phosphatase 60 IU/L (35-105); Anion Gap 18.9 (5-19); Aspartate Amino Transferase 21 U/L (0-32); Blood Urea Nitrogen 10 mg/dL (6-20); Carbon Dioxide 17 mmol/L (22-29); Chloride 103 mmol/L (98-107); Globulin 2.1 g/dL (1.3-4.6); Glomerular Filtration Rate 66.3 mL/min (90-130); Glucose 75 mg/dL (65-115); NT Pro B Type Natriuretic Pept 155 pg/mL (0-125); Osmolality Calculated 278 mOsm/kg (285-295); Potassium 3.9 mmol/L (3.5-5.1); Sodium 135 mmol/L (136-145); Total Bilirubin 0.3 mg/dL (0.15-1.2); Total Protein 5.7 g/dL (6.6-8.7)
[2021-06-25 17:28] LABS: Troponin(5th) Baseline 12 ng/L (0-10)
[2021-06-25] MEDS: acetaminophen 1,000 MG/100 ML PIGGYBACK 400 MG IV (17:33)
--- NOTE | 2021-06-25 17:45 | P.HP_ITS ---
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 She also carries history of sleep apnea, presented today with chief complaint of gradual worsening of shortness of breath. Patient is stating that she has baseline shortness of breath at the assisted living seizures first. For last couple of days her shortness of breath was getting worse and today when she woke up she was extremely short of breath. She did not straits any chest pain, diarrhea however endorsing low-grade fever 100.1. She is vaccinated for COVID-19. No excessive sputum production, chest pain, diarrhea or vomiting. She is endorsing lack of appetite, weight loss. P atient does use oxygen on as needed basis at the facility. Because of worsening of her symptoms she was brought to the ER for further evaluation In the ER she was hypotensive, severely hypoxic, she was put on BiPAP, no leukocytosis, she is febrile, tachycardic Met sepsis criteria, she received septic bolus and I have requested vasopressors to be started and requested help sheet metal worker supervisor to transfer her to ICU as soon as possible Patient's son was in the room at the time of my evaluation, patient was able to tell me above-mentioned details, patient and her son both understood the severity of her underlying condition, all of her questions were answered to their satisfaction, guarded prognosis discussed, goals of care discussed, patient is DNR/DNI. I have requested stress dose steroids and initiation of vasopressors as she is not responding very well to septic bolus. Chest imaging does show evidence of worsening underlying malignancy with worsening lymphadenopathy, severe narrowing of the right middle lobe pulmonary artery, worsening hepatic and adrenal metastatic lesions periportal lymph adenopathy also noted, Pericardial effusion is unchanged, no significant JVD IMPRESSION: 1. No pulmonary embolus is identified. 2. Innumerable small nodular densities bilaterally that appear worsened from prior with extensive ground-glass opacity that is becoming more confluent with extensive new/worsening patchy airspace opacities bilaterally. There is worsened interlobular septal thickening. There are numerous small cystic foci in the lungs bilaterally that do not have the typical distribution of honeycombing; however, honeycombing is not excluded. Interstitial lung disease superimposed on emphysema could have this appearance. Superimposed pneumonia is not excluded. Given new patchy airspace opacities and innumerable micronodules, superimposed tuberculosis, atypical mycobacterial or fungal infection are strong considerations. Recommend close interval follow-up to reassess. 3. There is worsening mediastinal and bilateral hilar lymphadenopathy concerning for worsening malignancy. One of the enlarging lymph nodes is inseparable from the esophagus, and esophageal invasion is not excluded. 4. Lymphadenopathy at the right hilum causes approximately 50% narrowing of the right lower lobe pulmonary artery. There is severe narrowing of the right middle lobe pulmonary artery 5. Worsening hepatic and adrenal metastases. Worsened periportal lymphadenopathy. 6. There is approximately unchanged infiltrative soft tissue density in the retroperitoneum on the right that encases the common hepatic, left gastric and part of the splenic artery. 7. Approximately unchanged moderate pericardial effusion. 8. There is severe narrowing of the proximal celiac artery which may reflect median arcuate ligament syndrome. 9. Coronary artery disease. Review of Systems Const: Reports: fever(s), chills, body aches, change in appetite, change in weight, fatigue and malaise Eyes: Denies: change in vision ENMT: Denies: throat pain Card: Reports: dyspnea on exertion; Denies: swelling of feet/ankles or orthopnea Resp: Reports: dyspnea and non-productive cough; Denies: wheezing GI: Reports: early satiety; Denies: abdominal pain : Denies: flank pain Musc: Denies: neck pain Skin/Breast: Reports: changes in skin color Neuro: Denies: headache(s) Psych: Denies: anxiety Endo: Denies: polyuria Joe/Lymph: Denies: easy bruising All/Imm: Denies: urticaria Medications/Allergies Home Medications Medication Instructions Recorded Confirmed Last Taken Type alprazolam 0.25 mg tablet 0.25 mg PO Q6H PRN 02/21/20 04/25/21 Unknown History montelukast 10 mg tablet 10 mg PO DAILY@02/21/20 04/25/21 05/10/20 History pantoprazole 40 mg tablet,delayed 40 mg PO DAILY@08 02/21/20 04/25/21 05/10/20 History release sertraline 100 mg tablet 200 mg PO DAILY@08 tab 02/21/20 04/25/21 05/10/20 History Eliquis 2.5 mg PO BID@08,16 04/25/21 04/25/21 Unknown History Keppra 250 mg PO BID 04/25/21 04/25/21 Unknown History Miralax 17 g PO DAILY PRN 04/25/21 04/25/21 Unknown History Varubi See Rx Instructions .ROUTE .COMPLEX 04/25/21 04/25/21 Unknown History Zofran 4 mg PO Q8H PRN 04/25/21 04/25/21 Unknown History acetaminophen 650 mg PO Q6H PRN 04/25/21 04/25/21 Unknown History benzonatate 100 mg PO TID PRN 04/25/21 04/25/21 Unknown History dexamethasone 4 mg PO BID@08,16 04/25/21 04/25/21 Unknown History dexamethasone See Rx Instructions .ROUTE .COMPLEX 04/25/21 04/25/21 Unknown History folic acid 1 mg PO DAILY 04/25/21 04/25/21 Unknown History lidocaine-prilocaine See Rx Instructions .ROUTE .COMPLEX 04/25/21 04/25/21 Unknown History midodrine 10 mg PO TID@,,04/25/21 04/25/21 Unknown History prochlorperazine maleate 10 mg PO Q6H PRN 04/25/21 04/25/21 Unknown History trazodone 50 mg PO BEDTIME@20 04/25/21 04/25/21 Unknown History Allergies Allergy/AdvReac Type Severity Reaction Status Date / Time bupropion [From Wellbutrin] Allergy Severe Unknown Verified 04/04/20 13:38 PFSH Acute PFSH: Medical History Blurry vision, right eye Brain metastases R/MR head wo/w con [id number] IMPRESSION: 1. No evidence of disease progression compared to September 23, 2020 2. Stable appearance of the innumerable supra and infratentorial tiny enhancing lesions with associated hemosiderin. 3. No hydrocephalus. No edema or mass effect. 4. Increased periventricular white matter changes consistent with treatment- related effect. Moderate parenchymal volume loss Depression with anxiety GERD (gastroesophageal reflux disease) Metastatic disease Pericardial effusion Port-A-Cath in place Seasonal allergies Surgical History S/P pericardial window creation X2 in 2019 Family History Mother Psychiatric illness Depression Hypertension Brother Heart defect Social History Smoking and tobacco status: never smoked Alcohol intake: never Lives independently: Yes Household members: none Marital status: Current occupational status: employed Current occupational exposures/hazards: No History of recent travel: No Current gender identity: Female Female Reproductive History: Date of last menstrual period: 03/22/20 Vitals/I&O/Wt Last Vital Signs Temp 101.0 F H 06/25/21 15:49 Pulse 115 H 06/25/21 15:49 Resp 25 H 06/25/21 15:49 BP 100/68 06/25/21 15:49 Pulse Ox 86 L 06/25/21 15:49 Weight last 48 hrs Weight 63.503 kg Physical Exam Narrative: EXAM NARRATIVE: Cachectic malnourished female who appears more than stated age Clinically dehydrated No signs of JVD No distant heart sounds S1, S2 sinus tach cardiac MAP 58 mmHg Patient is awake and alert fatigued and lethargic Nonfocal neuro exam Port-A-Cath placement right Soft abdomen Lower extremity no edema EOMI, PERRLA Patient on BiPAP FiO2 65% Data : 06/25/21 16:31 06/25/21 16:31 Micro: Microbiology 06/25/21 16:31 Blood Culture - Preliminary Blood SPECIMEN COLLECTED A&P Assessment and plan (1) Acute and chronic respiratory failure with hypoxia: Status: Acute (2) Sepsis: Status: Acute (3) Pneumonia: Status: Acute (4) Chronic cough: Status: Acute (5) Malignant neoplasm of lung: Status: Acute Additional A&P Information Septic shock Patient did not respond very well to septic bolus Criteria met with tachypnea tachycardia low blood pressure No leukocytosis We will start vasopressors, keep her on fluids Start broad-spectrum antibiotics We will give her stress dose steroids as well Patient does have metastatic lesion to her adrenal gland, would consider adrenal insufficiency in my differentials as well Acute on chronic hypoxic resp failure with underlying malignancy and drug- induced pneumonitis history Severe hypoxia Related to worsening underlying regnancy Concern for pneumonia Currently on broad-spectrum antibiotics Currently on BiPAP FiO2 65% Repeat blood gas in an hour in ICU Patient is DNR/DNI CODE STATUS we discussed with the patient in front of her son History of pulmonary Continue Eliquis 2.5 twice daily status post IVC filter placement Guarded prognosis Clear liquid diet for now EF 70% Pericardial effusion seems to be unchanged, no signs of cardiac tamponade DNR/DNI Admit to ICU Attestations Medical Necessity Statement*: More than 2 midnights anticipated Time Spent in Patient Care: Greater than 35 minutes Coding Level of Care Code Acute Security Orderly for Martin Gallardo Diagnoses Acute and chronic respiratory failure with hypoxia J96.21 Sepsis A41.9 Pneumonia J18.9 Chronic cough R05 Malignant neoplasm of lung C34.90
[2021-06-25] MEDS: sodium chloride 0.9% 1,710 ML 1710 ML IV (17:48)
[2021-06-25 18:24] LABS: Reflex Lactate Order REFLEX LACTIC ORDERD
[2021-06-25] MEDS: piperacillin-tazobactam 4.5 GM in sodium chloride 0.9% (plus) 50 ML IV (19:01)
[2021-06-25] MEDS: hydrocortisone 100 mg/2 mL SDV IVP ×2 (19:19→23:00)
[2021-06-25 19:46] LABS: Troponin 5 2HR 13.12 ng/L (0-10); Troponin 5 2HR Delta 1.12 ABS# (0-10)
[2021-06-25] MEDS: sodium chloride 0.9% 1,000 ML 999 ML IV (19:47)
[2021-06-25 20:14] LABS: Cortisol Random 17.23 ug/dL (2.47-19.5)
--- NOTE | 2021-06-25 20:48 | ECG_ITS ---
[facility] Test Date: 2021-06-25 Pat Name: Sophia Millre Department: Room: ICU03 Gender: Female Rejoiner: : 1970 Requested By: González Valdez Order Number: [id number] Carlos MD: Isis Beltran M.D. Measurements Intervals [place] Rate: 123 P: 54 GA: 141 QRS: 52 QRSD: 87 T: 34 QT: 337 QTc: 483 Interpretive Statements SINUS TACHYCARDIA LOW QRS VOLTAGE IN PRECORDIAL LEADS [QRS DEFLECTION < 1.0 mV IN CHEST LEADS] POSSIBLE ANTERIOR MYOCARDIAL INFARCTION , OF INDETERMINATE AGE [30 ms Q WAVE IN V3/V4, OR R < 0.2 mV IN V4] Nonspecific T wave change Compared to ECG 06/25/2021 15:47:43 Myocardial infarct finding now present Electronically Signed On 06-25-2021 23:57:13 AIRCRAFT DESIGN ENGINEER by Isis Beltran M.D. [id number]
[2021-06-25 21:23] LABS: ABG PH Result 7.38 (7.35-7.45); Arterial Blood Gas Hematocrit 31.5 % (37-47); Base Excess ABG -3.2 mmol/L (-2.0-2.0); Blood Gas Allen Test Pos; Blood Gas Operator Identificat JB; Blood Gas Sample Site Brachial, right; Blood Gas Sample Type Arterial; HCO3 ABG 21.4 mmol/L (22-26); Oxygen Device BIPAP
[2021-06-25] MEDS: sodium chloride 0.9% 1,000 ML 100 ML IV (23:01)
[2021-06-25 23:40] LABS: Troponin 5 6HR 10.81 ng/L (0-10)
[2021-06-25 23:41] LABS: Troponin 5 6HR Delta -1.19 ng/L (0-12)
[2021-06-26] VITALS (10 sets, daily range): BP systolic 111–129; BP diastolic 73–83; PULSE 80–105; RESP 15–22; TEMP 36.6; O2SAT 80–96
--- NOTE | 2021-06-26 02:26 | PC.NURSE ---
Pt presents to the ICU as a direct admit from the ER. Pt presents from assisted living facility lethargic and on bipap due to ongoing respiratory distress not responding well to wall oxygen via oxy mask. HPI includes weakness, fatigue, productive cough, SOA, with increased home oxygen needs x 4 days. Brought to ER by grandson. Pt is lethargic and calm, oriented x4, and a good historian. BP decreased in the ER, requiring initiation of levophed gtt, titrated to 8 mcg upon arrival to ICU. Vancomycin gtt also had about 250 cc and NS with about 350 cc left to infuse. Urine samples and COVID send out collected in the ICU. New bag of NS started at 100 cc/hr per orders. Levophed continued to titrate down and stopped approximately 0100. At the time of this note, pt is resting, but more alert when interacted with. Will continue to monitor pt.
[2021-06-26] MEDS: piperacillin-tazobactam 3.375 GM in sodium chloride 0.9% (plus) 50 ML IV ×3 (03:28→18:22)
[2021-06-26 05:03] LABS: ABG PCO2 37.4 mmHg (35-45); ABG PH Result 7.39 (7.35-7.45); Arterial Blood Gas Hematocrit 46.8 % (37-47); Base Excess ABG -2.1 mmol/L (-2.0-2.0); Blood Gas Allen Test Pos; Blood Gas Operator Identificat JB; Blood Gas Sample Site Radial, right; Blood Gas Sample Type Arterial; HCO3 ABG 22.5 mmol/L (22-26); Oxygen Device BIPAP
[2021-06-26 05:25] LABS: Basophils % 0.3 %; Hematocrit 34.5 % (37.0-47.0); Hemoglobin 10.1 g/dL (11.5-15.3); Lymphocytes # 0.1 10^3/uL (0.8-4.8); Lymphocytes % 2.1 %; Mean Corpuscular HGB Conc 29.3 g/dL (30.0-36.0); Mean Corpuscular Hemoglobin 26.6 pg (28.0-34.0); Mean Platelet Volume 9.2 fL (7.4-10.4); Monocytes # 0.2 10^3/uL (0.2-0.9); Monocytes % 3.7 %; Neutrophils # 6.07 10^3/uL (1.8-7.7); Nucleated Red Blood Cells % 0 %; Platelet Count 144 10^3/cmm (130-400); Red Blood Count 3.79 10^6/uL (4.1-5.3); Red Cell Distribution Width 19.8 % (12.1-15.1); White Blood Count 6.5 10^3/uL (4.0-10.0)
[2021-06-26] MEDS: hydrocortisone 100 mg/2 mL SDV IVP ×3 (05:42→22:36)
[2021-06-26 05:54] LABS: Procalcitonin 3.91 ng/mL (0-0.5)
[2021-06-26] MEDS: sodium chloride 0.9% 1,000 ML 100 ML IV (06:05)
[2021-06-26 06:07] LABS: Anion Gap 13.4 (5-19); Blood Urea Nitrogen 10 mg/dL (6-20); Calcium 7.8 mg/dL (8.5-10.5); Carbon Dioxide 21 mmol/L (22-29); Chloride 119 mmol/L (98-107); Glomerular Filtration Rate 75.9 mL/min (90-130); Glucose 106 mg/dL (65-115); Lactate Dehydrogenase 337 U/L (135-214); Magnesium 2.2 mg/dL (1.7-2.3); Osmolality Calculated 309 mOsm/kg (285-295); Potassium 3.4 mmol/L (3.5-5.1); Sodium 150 mmol/L (136-145)
[2021-06-26 08:10] LABS: Sodium 150 mmol/L (136-145)
[2021-06-26] MEDS: pantoprazole DR 40 mg Tablet PO (09:04)
[2021-06-26] MEDS: sennosides-docusate Tablet 1 TAB PO (09:04)
[2021-06-26] MEDS: folic acid 1 mg Tablet PO (09:05)
[2021-06-26] MEDS: midodrine 5 mg TABLET 10 MG PO ×3 (09:05→22:37)
[2021-06-26] MEDS: apixaban 5 mg Tablet 2.5 MG PO ×2 (09:05→15:59)
[2021-06-26] MEDS: montelukast sodium 10 mg Tablet PO (09:06)
[2021-06-26] MEDS: levETIRAcetam 500 mg Tablet 250 MG PO ×2 (09:06→18:23)
--- NOTE | 2021-06-26 09:30 | PC.CHAP ---
Pastoral Care Encounter/Spiritual Assessment Type of Contact [] Declined river driver visit [] Patient/Family/Request visit [] Outpatient visit [] Follow-up visit [] Physician referral [] Code/Alert [x] Routine visit [] Staff referral [] Actively dying [] Patient sleeping [] Family support [] [] Out of room [] Palliative care [] [] Receiving care in room [] Pre-surgical visit [] Trauma [] Long length of stay [x] ICU visit [x] Other: isolated.. having breakfast .. setting up in chair Relational/Emotional Strength [] Patient feels connected with others/family/visitors/staff [] Distress [] Loneliness/isolation [] Abandonment Spirituality of Patient [] Person of Vandana [] Attends Episcopal of their Vandana [] Believes in Prayer [] Reads Bible or Holiness materials [] There are Spiritual issues to be addressed Pulling Unit Floorhand Interventions [x] Prayer [] Active listening [] Non-anxious presence [] Spiritual/emotional support [] Crisis/trauma care [] Spiritual counseling [] Bereavement support [] Provided bereavement packet [] Provided Bible/devotional materials [] Provided toy/stuffed animal, coloring book to patient or family member [] Provided Communion [] Anointing/[place] [] Salvation [x] Completed spiritual assessment [] Other: Impact on Illness or Injury [] Angry [] Fearful [] Anxious [] Often cries [] Exhaustion [] Unable to work [] Unable to attend lutheran [] Unable to walk/stand [] Unable to read [] Unable to drive [] Unable to eat/drink [] Unable to sleep [] Unable to be with family [] Patient intubated [] Other: Summary Time spent with patient
--- NOTE | 2021-06-26 11:00 | PC.NURSE ---
Pt to [facility]. firm round formed Bm noted. Sample not sent to lab for C-diff, as ordered, as sample would not be accepted due to being not C-diff like.
--- NOTE | 2021-06-26 14:00 | PM.PN ---
Subjective Subjective: Interval history: Patient is doing well, she is on 8 L nasal cannula now off BiPAP off vasopressors, normal saline discontinued secondary to high sodium, she is extremely dehydrated She is much more energetic and awake as compared to yesterday She wants me to discuss CT lung report with her daughter She was on 8 L nasal cannula at the time of breakfast Negative fluid balance Afebrile after initial 2 episodes Vitals/I&O/Wt Last Vital Signs Temp 98.9 F 06/25/21 20:26 Pulse 80 06/26/21 06:18 Resp 20 H 06/25/21 20:26 BP 113/67 06/25/21 20:26 Pulse Ox 96 06/26/21 06:18 06/25/21 06/26/21 06/26/21 22:59 06:59 14:59 Intake Total 689.408 / 500.692 3207.147 / 2576.555 1050 / 1050 Output Total 990 / 990 3450 / 4440 400 / 400 Balance -300.592 / -300.592 -1562.853 / -1863.445 650 / 650 Weight last 48 hrs Weight 52.929 kg Weight 63.503 kg Physical Exam Narrative: EXAM NARRATIVE: Patient was sitting in a chair saturating well on 8 L nasal cannula Bilateral breath sound was noted at the bases S1, S2 variable Abdomen soft Clinically looks very dehydrated dry cracked lips Awake and alert in good spirits today EOMI, PERRLA Nonfocal neuro exam Muscle mass loss Bilateral breath sounds with rhonchi Legs without edema Data : 06/26/21 04:47 06/26/21 07:35 Micro: Microbiology 06/26/21 00:01 Legionella Urinary Antigen - Final Urine,Voided Bacterial Antigens - Final 06/25/21 19:00 Blood Culture - Preliminary Blood SPECIMEN COLLECTED 06/25/21 16:31 Blood Culture - Preliminary Blood SPECIMEN COLLECTED A&P Assessment and plan (1) Sepsis: Status: Acute (2) Acute and chronic respiratory failure with hypoxia: Status: Acute (3) Malignant neoplasm of lung: Status: Acute (4) GERD (gastroesophageal reflux disease): Status: Acute Qualifiers: Esophagitis presence: esophagitis presence not specified Qualified Code(s): K21.9 - Gastro-esophageal reflux disease without esophagitis (5) Septic shock: Status: Acute Additional A&P Information Septic shock Off vasopressors Adrenal insufficiency also in my differentials, her pressure did improve after getting stress dose steroids Continue IV antibiotics Afebrile after 2 initial episodes We will follow up with blood cultures Urine antigen is pending She is not endorsing any excessive sputum production No signs of worsening pericardial effusion Acute on chronic hypoxic respite failure secondary to underlying worsening of malignancy Currently doing well on 8 L nasal cannula, off BiPAP History of pulmonary embolism: Continue anticoagulating agent Advance diet to consistent carb Patient is DNR/DNI Mycobacterial, PCP serum assays pending, Covid PCR pending She is from assisted living [facility] [place] Medical Necessity Statement*: Transfer out of ICU later today or tomorrow if clinically stable Time Spent in Patient Care: 16 - 35 minutes Coding Level of Care Code Acute Chief Internal Auditor for g Fwd Diagnoses Sepsis A41.9 Acute and chronic respiratory failure with hypoxia J96.21 Malignant neoplasm of lung C34.90 GERD (gastroesophageal reflux disease) K21.9 Esophagitis presence: esophagitis presence not specified Septic shock A41.9; R65.21
[2021-06-26 14:19] LABS: Coronavirus Test Green County Not Detected
[2021-06-26] MEDS: dextrose 5% 1,000 ML 75 ML IV (14:26)
[2021-06-26] MEDS: potassium chloride ER 20 mEq Tablet 40 MEQ PO (14:26)
[2021-06-26] MEDS: lanolin oint 7 gm 1 APPLIC TOPICAL (15:59)
[2021-06-26] MEDS: vancomycin 1,000 MG in sodium chloride 0.9% 250 ML 250 MG IV (18:23)
--- NOTE | 2021-06-26 18:59 | PC.NURSE ---
Shift Note: pt alert, oriented and pleasant. She has be out of bed to chair most of the day. She now requires O2 at 12 lpm/high flow cannula, she is tolerating that well. No c/o of pain. She ahs used the [facility] several times, unable to obtain C-diff specimen as urine has been mixed with stool. Hat now in BSC . She has ate well. Drank hot tea most of the afternoon. Frequent safety and comfort rounds continue. Orders and/or nursing care completed as indicated. Patient monitored for response to intervention and treatment(s). Education provided includes vancomycin, zofran, zosyn and continuing plan of care. Patient and/or route service representative verbalized understadning to plan of care. Will continue to monitor.
[2021-06-26 20:07] LABS: Sodium 141 mmol/L (136-145)
[2021-06-27] VITALS (76 sets, daily range): BP systolic 99–134; BP diastolic 65–100; PULSE 81–120; RESP 14–34; TEMP 36.1–37; O2SAT 78–95
[2021-06-27] MEDS: piperacillin-tazobactam 3.375 GM in sodium chloride 0.9% (plus) 50 ML IV ×3 (03:27→21:08)
[2021-06-27] MEDS: dextrose 5% 1,000 ML 75 ML IV (03:27)
[2021-06-27] MEDS: hydrocortisone 100 mg/2 mL SDV IVP (04:21)
[2021-06-27 05:05] LABS: Basophils % 0.1 %; Eosinophils % 0.1 %; Hematocrit 26.1 % (37.0-47.0); Hemoglobin 8.1 g/dL (11.5-15.3); Lymphocytes # 0.2 10^3/uL (0.8-4.8); Lymphocytes % 2.2 %; Mean Corpuscular Hemoglobin 27.4 pg (28.0-34.0); Mean Corpuscular Volume 88.2 fl (81-99); Mean Platelet Volume 9.1 fL (7.4-10.4); Monocytes # 0.2 10^3/uL (0.2-0.9); Neutrophils # 6.45 10^3/uL (1.8-7.7); Neutrophils % 93.4 %; Nucleated Red Blood Cells % 0 %; Platelet Count 141 10^3/cmm (130-400); Red Blood Count 2.96 10^6/uL (4.1-5.3); Red Cell Distribution Width 19.3 % (12.1-15.1); White Blood Count 6.9 10^3/uL (4.0-10.0)
[2021-06-27 05:38] LABS: Procalcitonin 2.79 ng/mL (0-0.5)
[2021-06-27 05:49] LABS: Blood Urea Nitrogen 7 mg/dL (6-20); Calcium 7.9 mg/dL (8.5-10.5); Carbon Dioxide 23 mmol/L (22-29); Chloride 114 mmol/L (98-107); Glomerular Filtration Rate 88.6 mL/min (90-130); Glucose 123 mg/dL (65-115); Osmolality Calculated 299 mOsm/kg (285-295); Sodium 145 mmol/L (136-145)
[2021-06-27] MEDS: vancomycin 1,000 MG in sodium chloride 0.9% 250 ML 250 MG IV ×2 (07:34→20:00)
[2021-06-27] MEDS: montelukast sodium 10 mg Tablet PO (07:54)
[2021-06-27] MEDS: pantoprazole DR 40 mg Tablet PO (07:54)
[2021-06-27] MEDS: apixaban 5 mg Tablet 2.5 MG PO ×2 (07:54→16:28)
[2021-06-27] MEDS: midodrine 5 mg TABLET 10 MG PO ×3 (07:55→20:00)
[2021-06-27] MEDS: levETIRAcetam 500 mg Tablet 250 MG PO ×2 (08:03→17:10)
[2021-06-27] MEDS: folic acid 1 mg Tablet PO (08:03)
--- NOTE | 2021-06-27 11:39 | PC.NUTR ---
Nutrition assessment completed d/t MST score. Recommend liberalizing diet to Regular to promote po intakes and weight maintenance given early satiety, decreased appetite, and weight loss. Received order from Dr. Nieves and have entered at this time. See full RD assessment for further details.
--- NOTE | 2021-06-27 12:46 | P.PN_ITS ---
Subjective Subjective: Interval history: Patient was seen and examined this morning, off vasopressors, sodium has improved Afebrile No leukocytosis Her oxygen requirement has increased to 10 to 11 L high flow nasal cannula, patient is not endorsing new events We are waiting on TB rule out Covid PCR negative Vitals/I&O/Wt Last Vital Signs Temp 98 F 06/27/21 12:30 Pulse 100 06/27/21 12:30 Resp 21 H 06/27/21 12:30 BP 125/82 06/27/21 12:30 Pulse Ox 88 L 06/27/21 12:30 06/26/21 06/27/21 06/27/21 22:59 06:59 14:59 Intake Total 2100 / 4300 1696.25 / 5996.25 1858 / 1858 Output Total 1860 / 2610 8120 / 78028 1800 / 1800 Balance 240 / 1690 -6423.75 / -4733.75 58 / 58 Weight last 48 hrs Weight 52.929 kg Weight 63.503 kg Physical Exam Narrative: EXAM NARRATIVE: Patient lying comfortably in bed No conversational dyspnea Doing well on 10 to 11 L nasal cannula high flow S1, S2 variable Abdomen soft Lower extremity no edema Today she is now looking dehydrated Appropriate mood and affect Awake and alert Nonfocal neuro exam Data : 06/27/21 04:32 06/27/21 04:32 Micro: Microbiology 06/26/21 21:10 C.difficile Toxin B Gene (PCR) - Final Stool Routine Collection 06/25/21 19:00 Blood Culture - Preliminary Blood NEGATIVE TO DATE 06/25/21 16:31 Blood Culture - Preliminary Blood NEGATIVE TO DATE 06/26/21 00:01 Legionella Urinary Antigen - Final Urine,Voided Bacterial Antigens - Final A&P Assessment and plan (1) Septic shock: Status: Acute (2) Acute and chronic respiratory failure with hypoxia: Status: Acute (3) Sepsis: Status: Acute (4) Malignant neoplasm of lung: Status: Acute (5) Chronic cough: Status: Acute (6) GERD (gastroesophageal reflux disease): Status: Acute Qualifiers: Esophagitis presence: esophagitis presence not specified Qualified Code(s): K21.9 - Gastro-esophageal reflux disease without esophagitis (7) Depression with anxiety: Status: Acute Additional A&P Information Septic shock: Resolved Off vasopressors Acute on chronic hypoxic respite failure secondary to underlying worsening malignancy She is currently being treated empirically with broad-spectrum antibiotics Plan to de-escalate antibiotics tomorrow if she clinically stays stable Covid PCR negative QuantiFERON TB test is pending Daughter updated Hypernatremia Free water deficit 2 to 3 L which is being repleted with D5: Stop IV fluids patient can have regular diet DNR/DNI DVT prophylaxis on board Continue midodrine for her hypotension She has been taking Keppra because of brain mets Cultures negative to date, C. difficile panel negative Attestations Medical Necessity Statement*: Transfer out of ICU Time Spent in Patient Care: 16 - 35 minutes Coding Level of Care Code Acute Director Of Mechanical Engineering for g Fwd Diagnoses Septic shock A41.9; R65.21 Acute and chronic respiratory failure with hypoxia J96.21 Sepsis A41.9 Malignant neoplasm of lung C34.90 Chronic cough R05 GERD (gastroesophageal reflux disease) K21.9 Esophagitis presence: esophagitis presence not specified Depression with anxiety F41.8
--- NOTE | 2021-06-27 18:45 | PC.NURSE ---
Shift Note Frequent safety and comfort rounds continue. Orders and/or nursing care completed as indicated. Patient monitored for response to intervention and treatment(s). Education provided includes medications, care plan, and new orders. Patient verbalized understanding. Patient on Bipap. Patient up to commode throughout the day. Family updated on patient.
[2021-06-28] VITALS (19 sets, daily range): BP systolic 110–132; BP diastolic 65–89; PULSE 77–130; RESP 17–23; TEMP 36.5–38.1; O2SAT 87–100
[2021-06-28] MEDS: piperacillin-tazobactam 3.375 GM in sodium chloride 0.9% (plus) 50 ML IV (02:45)
[2021-06-28] MEDS: vancomycin 1,000 MG in sodium chloride 0.9% 250 ML 250 MG IV (06:00)
[2021-06-28 06:28] LABS: Basophils % 0.2 %; Eosinophils # 0.1 10^3/uL (0.0-0.8); Hematocrit 26.1 % (37.0-47.0); Hemoglobin 8.1 g/dL (11.5-15.3); Lymphocytes # 0.2 10^3/uL (0.8-4.8); Lymphocytes % 4.6 %; Mean Platelet Volume 8.8 fL (7.4-10.4); Monocytes # 0.2 10^3/uL (0.2-0.9); Monocytes % 4.4 %; Neutrophils # 4.54 10^3/uL (1.8-7.7); Neutrophils % 87.7 %; Nucleated Red Blood Cells % 0 %; Platelet Count 182 10^3/cmm (130-400); Red Cell Distribution Width 19.1 % (12.1-15.1); White Blood Count 5.2 10^3/uL (4.0-10.0)
[2021-06-28 06:58] LABS: Alanine Aminotransferase 12 U/L (0-33); Albumin Level 3.2 g/dL (3.5-5.2); Alkaline Phosphatase 61 IU/L (35-105); Anion Gap 14.8 (5-19); Aspartate Amino Transferase 26 U/L (0-32); Blood Urea Nitrogen 7 mg/dL (6-20); C Reactive Protein 52.2 mg/L (0.0-4.9); Carbon Dioxide 23 mmol/L (22-29); Chloride 114 mmol/L (98-107); Globulin 2.1 g/dL (1.3-4.6); Glomerular Filtration Rate 88.6 mL/min (90-130); Glucose 81 mg/dL (65-115); Osmolality Calculated 305 mOsm/kg (285-295); Sodium 149 mmol/L (136-145); Total Bilirubin 0.5 mg/dL (0.15-1.2); Total Protein 5.3 g/dL (6.6-8.7)
[2021-06-28 07:45] LABS: Potassium 2.8 mmol/L (3.5-5.1)
[2021-06-28] MEDS: levETIRAcetam 500 mg Tablet 250 MG PO ×2 (08:39→18:08)
[2021-06-28] MEDS: apixaban 5 mg Tablet 2.5 MG PO ×2 (08:40→15:33)
[2021-06-28] MEDS: montelukast sodium 10 mg Tablet PO (08:40)
[2021-06-28] MEDS: sennosides-docusate Tablet 1 TAB PO (08:40)
[2021-06-28] MEDS: pantoprazole DR 40 mg Tablet PO (08:40)
[2021-06-28] MEDS: midodrine 5 mg TABLET 10 MG PO ×3 (08:40→20:59)
[2021-06-28] MEDS: folic acid 1 mg Tablet PO (08:40)
[2021-06-28 10:02] LABS: ABG PCO2 35.5 mmHg (35-45); ABG PH Result 7.51 (7.35-7.45); Arterial Blood Gas Hematocrit 23.5 % (37-47); Base Excess ABG 4.6 mmol/L (-2.0-2.0); Blood Gas Sample Type Arterial; HCO3 ABG 27.9 mmol/L (22-26); PO2 ABG 66.8 mmHg (80.0-100.0)
[2021-06-28 10:04] LABS: Blood Gas Sample Site Brachial, right; Oxygen Device BIPAP
[2021-06-28] MEDS: dextrose 5%-sod chloride 0.9% 1,000 ML 75 ML IV (10:19)
--- NOTE | 2021-06-28 15:23 | PM.PN ---
Subjective Subjective: Interval history: This morning patient was hypoxic on 10 L oxygen mask, I quickly transition her to BiPAP, repeat ABG did show improvement She was endorsing appetite, but for syndrome Feeling lethargic and tiredness related to hypoxia Patient is stating that she was so incontinent last night that she could not control herself and because of fatigue and lethargy could not get up at the right time Vitals/I&O/Wt Last Vital Signs Temp 98.6 F 06/28/21 11:35 Pulse 77 06/28/21 11:39 Resp 22 H 06/28/21 11:35 BP 110/65 06/28/21 11:35 Pulse Ox 100 06/28/21 11:39 06/28/21 06/28/21 06/28/21 06:59 14:59 22:59 Intake Total 160 / 4042.5 250 / 250 Output Total 800 / 4101 400 / 400 Balance -640 / -58.5 -150 / -150 Physical Exam Narrative: EXAM NARRATIVE: Very fatigued and lethargic EOMI, PERRLA Nonfocal neuro exam On BiPAP FiO2 55% S1, S2 Clinically looks very dehydrated Dry cracked lips Bilateral breath sound with rhonchi Abdomen soft Urinary Catheter Management^: Lott: Cath Placed During This Visit: yes Urinary Catheter Date of Insertion: 06/28/21 Urinary Catheter Time of Insertion: 09:45 Data : 06/28/21 06:11 06/28/21 06:11 A&P Assessment and plan (1) Septic shock: Status: Acute (2) Acute and chronic respiratory failure with hypoxia: Status: Acute (3) Sepsis: Status: Acute (4) Malignant neoplasm of lung: Status: Acute (5) GERD (gastroesophageal reflux disease): Status: Acute Qualifiers: Esophagitis presence: esophagitis presence not specified Qualified Code(s): K21.9 - Gastro-esophageal reflux disease without esophagitis (6) Depression with anxiety: Status: Acute (7) Chronic cough: Status: Acute (8) Pneumonia: Status: Acute Additional A&P Information Septic shock: Resolved Stress dose steroids stopped as well Continue IV fluids because of her dehydration Acute on chronic hypoxic respite failure currently on 55% FiO2 on BiPAP PE ruled out, de-escalate IV antibiotics to p.o. Levaquin cultures remain negative, afebrile, leukocytosis improved Underlying malignancy Chronic cough related to malignancy Would use Mucomyst and Robitussin DNR/DNI Regular diet DVT prophylaxis on board Guarded prognosis Attestations Medical Necessity Statement*: Patient does not want to go to any [facility], will plan to discharge her back to [facility] once oxygen requirement is around 5 to 6 L Time Spent in Patient Care: 16 - 35 minutes Coding Level of Care Code Acute Filter Operator for g Fwd Diagnoses Septic shock A41.9; R65.21 Acute and chronic respiratory failure with hypoxia J96.21 Sepsis A41.9 Malignant neoplasm of lung C34.90 GERD (gastroesophageal reflux disease) K21.9 Esophagitis presence: esophagitis presence not specified Depression with anxiety F41.8 Chronic cough R05 Pneumonia J18.9
[2021-06-28] MEDS: lanolin oint 7 gm 1 APPLIC TOPICAL (15:40)
--- NOTE | 2021-06-28 21:14 | PC.NURSE ---
When this nurse entered the room patient had been helped by the SAFETY AIDE to the bedside commode. While the patient was sitting, she was saturating about 80% on 7L high flow nasal canula. Patient stood to transfer back to bed and patient's oxygen saturation dropped to 69%. Patient was set in high ahumada's and educated to take slow deep breaths. Patient's oxygen level was turned up to 10L high flow nasal canula. After 15 minutes, patient was saturating 87%-88%. Patient was then increased to 11L high flow nasal canula and after three minutes, patient's oxygen saturations increased to 90%-91% before the Respiratory Therapist came in and placed the patient on bipap.
[2021-06-29] VITALS (12 sets, daily range): BP systolic 110–120; BP diastolic 63–82; PULSE 80–111; RESP 14–22; TEMP 36.3–37.1; O2SAT 86–100
[2021-06-29] MEDS: dextrose 5%-sod chloride 0.9% 1,000 ML 75 ML IV ×2 (00:05→14:53)
[2021-06-29 05:04] LABS: Basophils % 0.5 %; Eosinophils % 0.7 %; Hematocrit 26.2 % (37.0-47.0); Lymphocytes # 0.2 10^3/uL (0.8-4.8); Lymphocytes % 3.7 %; Mean Corpuscular HGB Conc 30.5 g/dL (30.0-36.0); Mean Corpuscular Hemoglobin 26.9 pg (28.0-34.0); Mean Corpuscular Volume 88.2 fl (81-99); Mean Platelet Volume 8.8 fL (7.4-10.4); Monocytes # 0.3 10^3/uL (0.2-0.9); Monocytes % 5.4 %; Neutrophils # 4.82 10^3/uL (1.8-7.7); Neutrophils % 84.8 %; Nucleated Red Blood Cells % 0 %; Platelet Count 175 10^3/cmm (130-400); Red Blood Count 2.97 10^6/uL (4.1-5.3); Red Cell Distribution Width 19.1 % (12.1-15.1); White Blood Count 5.7 10^3/uL (4.0-10.0)
[2021-06-29 05:29] LABS: Procalcitonin 0.83 ng/mL (0-0.5)
[2021-06-29 05:33] LABS: Slide Review Slide Review Perform
[2021-06-29 05:42] LABS: Anion Gap 16.8 (5-19); Blood Urea Nitrogen 7 mg/dL (6-20); Calcium 8.1 mg/dL (8.5-10.5); Carbon Dioxide 21 mmol/L (22-29); Chloride 114 mmol/L (98-107); Glomerular Filtration Rate 105.8 mL/min (90-130); Glucose 95 mg/dL (65-115); Osmolality Calculated 306 mOsm/kg (285-295); Sodium 149 mmol/L (136-145)
[2021-06-29 05:43] LABS: Potassium 2.8 mmol/L (3.5-5.1)
[2021-06-29] MEDS: levoFLOXacin 750 mg Tablet PO (06:16)
[2021-06-29] MEDS: lidocaine 1% 5 ML in potassium chloride premix 100 ML 25 ML IV ×2 (06:54→10:49)
[2021-06-29] MEDS: midodrine 5 mg TABLET 10 MG PO ×3 (08:51→19:50)
[2021-06-29] MEDS: sennosides-docusate Tablet 1 TAB PO (08:51)
[2021-06-29] MEDS: montelukast sodium 10 mg Tablet PO (08:51)
[2021-06-29] MEDS: levETIRAcetam 500 mg Tablet 250 MG PO ×2 (08:51→18:12)
[2021-06-29] MEDS: apixaban 5 mg Tablet 2.5 MG PO ×2 (08:52→15:01)
[2021-06-29] MEDS: predniSONE 20 mg Tablet PO (08:52)
[2021-06-29] MEDS: folic acid 1 mg Tablet PO (08:52)
[2021-06-29] MEDS: potassium chloride ER 20 mEq Tablet 40 MEQ PO (08:59)
[2021-06-29 10:14] LABS: Magnesium 1.9 mg/dL (1.7-2.3)
--- NOTE | 2021-06-29 12:42 | P.PN_ITS ---
Subjective Subjective: Interval history: Patient is extremely fatigued and lethargic, she would like to talk with her daughter regarding detention placement, she cannot go back to her assisted living with such high oxygen requirement, I bumped her oxygen up to 11 L on high flow nasal cannula She is extremely toxic and fatigue Lott catheter was placed because she was getting hypoxic on ambulation Her p.o. intake has not improved significantly, she still hypernatremic, we will keep her on D5 Hypokalemia repleted Check magnesium level which is 1.9 Procalcitonin has trended down Vitals/I&O/Wt Last Vital Signs Temp 98.2 F 06/29/21 11:21 Pulse 109 H 06/29/21 11:21 Resp 14 06/29/21 11:21 BP 120/82 06/29/21 11:21 Pulse Ox 89 L 06/29/21 11:21 06/28/21 06/29/21 06/29/21 22:59 06:59 14:59 Intake Total 1456 / 2186 218.75 / 2404.75 465 / 465 Output Total 1700 / 2100 2025 / 4125 400 / 400 Balance -244 / 86 -1806.25 / -1720.25 65 / 65 Physical Exam Narrative: EXAM NARRATIVE: Very fatigued lethargic currently on 11 L S1, S2 sinus tachycardia Abdomen soft Lower extremity no edema Dry cracked lips EOMI, PERRLA Nonfocal neuro exam Bilateral rhonchi, no audible stridor or wheezing No acute respite distress Urinary Catheter Management^: Lott: Cath Placed During This Visit: yes Reason for Continuing Indwelling Catheter: Accurate Measurement of Urinary Output in Critically Ill Patients Urinary Catheter Date of Insertion: 06/28/21 Urinary Catheter Time of Insertion: 09:45 Data : 06/29/21 04:40 06/29/21 04:40 A&P Assessment and plan (1) Septic shock: Status: Acute (2) Acute and chronic respiratory failure with hypoxia: Status: Acute (3) Sepsis: Status: Acute (4) Malignant neoplasm of lung: Status: Acute (5) Chronic cough: Status: Acute (6) Pneumonia: Status: Acute (7) Depression with anxiety: Status: Acute Additional A&P Information This patient presented with shock and respiratory distress, lung imaging shows worsening of her underlying regnancy, no signs of PE, Septic shock: Improved with use of stress dose steroids and IV antibiotics, she required vasopressors in the ICU, Cultures negative to date, Concern for pneumonia however cultures are negative to date, C. difficile panel negative I will continue Levaquin for now in case of further episode of fever would recommend escalating antibiotics because of underlying malignancy she is high risk for recurrent pneumonias Acute hypernatremia: 2 to 3 L water deficit secondary to poor p.o. intake She has not vomited, there is 1 lymph node which is very close to her esophagus however no active signs of compression D5 which was started yesterday I will continue today Acute on chronic hypoxic resp failure related to underlying worsening underlying malignancy There is worsening mediastinal and bilateral hilar lymphadenopathy concerning for worsening malignancy. One of the enlarging lymph nodes is inseparable from the esophagus, and esophageal invasion is not excluded. 4. Lymphadenopathy at the right hilum causes approximately 50% narrowing of the right lower lobe pulmonary artery. There is severe narrowing of the right middle lobe pulmonary artery 5. Worsening hepatic and adrenal metastases. Worsened periportal lymphadenopathy. 6. There is approximately unchanged infiltrative soft tissue density in the retroperitoneum on the right that encases the common hepatic, left gastric and part of the splenic artery. 7. Approximately unchanged moderate pericardial effusion. Currently on 11 L high flow nasal cannula She cannot be discharged to assisted living, I have recommended detention or LTAC on 10 L, at detention she can surely get help with BiPAP as well Covid PCR negative No signs of PE DNR/DNI Daughter updated she does have adrenal gland metastatic lesion as well my suspicion for adrenal insufficiency is also high QuantiFERON-TB test is pending Regular diet with supplemental plan Attestations Medical Necessity Statement*: Continue medical management Time Spent in Patient Care: 16 - 35 minutes Coding Level of Care Code Acute Indirect Sales Exec for g Fwd Diagnoses Septic shock A41.9; R65.21 Acute and chronic respiratory failure with hypoxia J96.21 Sepsis A41.9 Malignant neoplasm of lung C34.90 Chronic cough R05 Pneumonia J18.9 Depression with anxiety F41.8
--- NOTE | 2021-06-29 12:52 | ECG_ITS ---
[facility] Test Date: 2021-06-29 Pat Name: Sophia Miller Department: Room: 269 Gender: Female Hamper Maker: : 1970 Requested By: Kareem Nieves Order Number: [id number] Carlos MD: David Jeff M.D. Measurements Intervals [place] Rate: 96 P: 32 IA: 129 QRS: 31 QRSD: 69 T: 31 QT: 324 QTc: 411 Interpretive Statements SINUS RHYTHM LOW QRS VOLTAGE IN PRECORDIAL LEADS [QRS DEFLECTION < 1.0 mV IN CHEST LEADS] Compared to ECG 06/25/2021 21:09:51 Sinus tachycardia no longer present Myocardial infarct finding no longer present T-wave abnormality no longer present Electronically Signed On 06-30-2021 17:10:54 OTOLARYNGOLOGY PHYSICIAN by David Jeff M.D. [id number]
[2021-06-30] VITALS (14 sets, daily range): BP systolic 108–155; BP diastolic 68–82; PULSE 82–104; RESP 16–27; TEMP 36.3–37.1; O2SAT 88–94
[2021-06-30 03:13] LABS: Basophils % 0.3 %; Eosinophils # 0.1 10^3/uL (0.0-0.8); Eosinophils % 0.6 %; Hematocrit 25.9 % (37.0-47.0); Hemoglobin 7.8 g/dL (11.5-15.3); Lymphocytes # 0.4 10^3/uL (0.8-4.8); Lymphocytes % 4.7 %; Mean Corpuscular HGB Conc 30.1 g/dL (30.0-36.0); Mean Corpuscular Hemoglobin 26.9 pg (28.0-34.0); Mean Corpuscular Volume 89.3 fl (81-99); Mean Platelet Volume 9.9 fL (7.4-10.4); Monocytes # 0.4 10^3/uL (0.2-0.9); Monocytes % 4.9 %; Neutrophils # 7.37 10^3/uL (1.8-7.7); Neutrophils % 83.7 %; Nucleated Red Blood Cells % 0 %; Platelet Count 247 10^3/cmm (130-400); Red Cell Distribution Width 18.9 % (12.1-15.1); White Blood Count 8.8 10^3/uL (4.0-10.0)
[2021-06-30 03:35] LABS: Procalcitonin 0.65 ng/mL (0-0.5)
[2021-06-30 03:36] LABS: Anion Gap 17.5 (5-19); Blood Urea Nitrogen 6 mg/dL (6-20); C Reactive Protein 127.6 mg/L (0.0-4.9); Calcium 8.1 mg/dL (8.5-10.5); Carbon Dioxide 17 mmol/L (22-29); Chloride 113 mmol/L (98-107); Glomerular Filtration Rate 88.6 mL/min (90-130); Glucose 103 mg/dL (65-115); Osmolality Calculated 296 mOsm/kg (285-295); Potassium 3.5 mmol/L (3.5-5.1); Slide Review Slide Review Perform; Sodium 144 mmol/L (136-145)
[2021-06-30] MEDS: dextrose 5% 1,000 ML 75 ML IV ×2 (03:51→16:05)
[2021-06-30] MEDS: levoFLOXacin 750 mg Tablet PO (05:20)
[2021-06-30] MEDS: midodrine 5 mg TABLET 10 MG PO ×3 (08:15→19:41)
[2021-06-30] MEDS: sennosides-docusate Tablet 1 TAB PO (08:15)
[2021-06-30] MEDS: montelukast sodium 10 mg Tablet PO (08:15)
[2021-06-30] MEDS: levETIRAcetam 500 mg Tablet 250 MG PO ×2 (08:15→17:29)
[2021-06-30] MEDS: predniSONE 20 mg Tablet PO (08:16)
[2021-06-30] MEDS: apixaban 5 mg Tablet 2.5 MG PO (08:16)
[2021-06-30] MEDS: folic acid 1 mg Tablet PO (08:16)
[2021-06-30 13:32] LABS: Quantiferon Mitogen 0.04 IU/mL; Quantiferon Nil 0.01 IU/mL; Quantiferon TB Gold INDETERMINATE (NEGATIVE)
--- NOTE | 2021-06-30 13:35 | PC.NURSE ---
updated patient's daughter Anuja [phone].
--- NOTE | 2021-06-30 14:15 | CT_ITS ---
WS: [id number] CT CHEST WITHOUT INTRAVENOUS CONTRAST HISTORY: Worsening SOB, patient with known lung cancer and brain metastasis. TECHNIQUE: Contiguous 5 mm axial imaging performed on the thorax. Coronal and sagittal reformats are submitted. All CT scans at [facility] use at least one of these dose optimization techniques: automated exposure control; mA and/or kV adjustment per patient size (includes targeted exams where dose is matched to clinical indication); or iterative reconstruction. CONTRAST: None DLP: 317.36 mGy.cm COMPARISON: 06/25/2021 Lungs and central airway: There is extensive bilateral groundglass attenuation with small cystic area s throughout both lungs. Reticular nodular opacifications with scarring and mild traction bronchiecta sis. Bronchiectasis is greatest in the lingula and RIGHT middle lobe. There are a few scattered nodul es or confluent airspace disease. Overall progressed since the prior study. Pleura: Normal. No pleural effusion. Heart and pericardium: Normal size heart. Moderate size circumferential pericardial effusion is simil ar to the prior study with a maximum diameter of 11 mm. Mediastinum and radha: Patient has known mediastinal and hilar lymph nodes which is unchanged since . LEFT subclavian Port-A-Cath is noted. Lymph node groups are much better identified and descr ibed on the prior contrast examination of 06/25/2021. Vessels: Mild atherosclerosis aorta. Chest wall and lower neck: No soft tissue masses. Upper abdomen: Bilateral adrenal masses. Better seen on the prior contrast examination. There are add itional low-attenuation lesions within the liver which are thought to be metastatic lesions. Osseous structures: No destructive process. CT/CT chest wo con [id number] IMPRESSION: 1. Quality of this examination is suboptimal without IV contrast. Please refer to the prior contrast examination from 06/25/2021 for evaluation of the lymph n odes and esophagus. 2. Progression of diffuse reticular nodular infiltrates throughout both lungs since the prior study. This may be lymphangitic spread of tumor which has progr essed. Edema, atypical infections or fungal infection should be considered. 3. Moderate size circumferential pericardial effusion. 4. Known metastatic disease within the liver and adrenal glands.
--- NOTE | 2021-06-30 14:15 | PM.PN ---
Subjective Subjective: Interval history: Patient seen this morning. She says she does not feel well but unable to pinpoint and tell me what is wrong. She denied having a cough, fever, having any aches and pains in her body. Denied feeling short of breath. Denied abdominal pain, denies chest pain. Denied nausea, vomiting. Patient was tearful and crying because of her overall medical condition. I did ask if there is anything else he can do for her to make her more comfortable and she said no at this time. She says her daughter will not be coming today. She said her daughter was here yesterday however. I also spoke to her son Spenser over the phone and updated him in detail. I did discuss with the patient regarding going to a nursing facility as opposed to assisted living due to her high oxygen requirements. Patient said that she felt fine to go back to assisted living. 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 Ruano as her textile broker. But has not seen him in months at this point. She is not producing any sputum. On 14 L of nasal cannula when seen this morning. Blood pressure stable. Vitals/I&O/Wt Last Vital Signs Temp 98.7 F 06/30/21 11:48 Pulse 101 H 06/30/21 13:53 Resp 18 06/30/21 11:48 BP 108/68 06/30/21 11:48 Pulse Ox 92 06/30/21 11:48 06/29/21 06/30/21 06/30/21 22:59 06:59 14:59 Intake Total 825 / 2290 100 / 2390 480 / 480 Output Total 2350 / 4100 1200 / 1200 Balance 825 / 540 -2250 / -1710 -720 / -720 Physical Exam Narrative: EXAM NARRATIVE: General: Alert oriented x3, patient seen very tearful laying in bed appearing comfortable. HEENT: Normocephalic, atraumatic, EOMI, breathing comfortably on 13L NC Cardio: slightly tachycardic, normal S1-S2, no gross murmers Respiratory: Diminished air entry b/l with b/l ronchi GI: Abdomen soft, nontender, bowel sounds + Behavior: Cooperative but tearful. Extremities: no edema, no cyanosis Lott in place Urinary Catheter Management^: Lott: Cath Placed During This Visit: yes Reason for Continuing Indwelling Catheter: Acute Urinary Retention or Obstruction Urinary Catheter Date of Insertion: 06/28/21 Urinary Catheter Time of Insertion: 09:45 Data : 06/30/21 02:37 06/30/21 02:37 A&P Assessment and plan (1) Septic shock: Status: Acute (2) Acute and chronic respiratory failure with hypoxia: Status: Acute (3) Sepsis: Status: Acute (4) Malignant neoplasm of lung: Status: Acute (5) GERD (gastroesophageal reflux disease): Status: Acute Qualifiers: Esophagitis presence: esophagitis presence not specified Qualified Code(s): K21.9 - Gastro-esophageal reflux disease without esophagitis (6) Depression with anxiety: Status: Acute (7) Chronic cough: Status: Acute (8) Pneumonia: Status: Acute Additional A&P Information This patient presented with shock and respiratory distress, lung imaging shows worsening of her underlying malignancy, no signs of PE. Worsening mediastinal and bilateral hilar lymphadenopathy concerning for worsening malignancy is present. One of the enlarging lymph nodes is inseparable from the esophagus and esophageal invasion is not included. Patient was on broad-spectrum antibiotics initially and was deescalated to oral antibiotics yesterday. Her oxygen requirement went up from 11 L to 12 to 14 L today. She did require vasopressors in the ICU as well. She also got stress dose steroids initially. Cultures are negative to date. There was concern for pneumonia but cultures are negative to date C. difficile panel negative. She was being continued on Levaquin since yesterday. If another episode of fever recommendation was made to consider escalating antibiotics due to her high risk of recurrent pneumonias. Patient was recommended to go longterm versus LTAC when she is medically stable for discharge so that she can also use BiPAP there as well. Patient however is not very open with the idea of going to a longterm. She would like to go back to assisted living facility. Patient believes that she is doing okay and can get around on her own. Lott catheter was also placed due to her increasing oxygen requirements and her desaturating upon movement. It seems as this is all related to her worsening malignancy at this point. Procalcitonin was elevated and has started trending down. Patient was also dehydrated and had hyponatremia on admission. She did not vomit. D5 was started for her. Sodium is better. Today's plan: Due to her increasing oxygen requirements I have repeated a CT chest without contrast as a follow-up. TB QuantiFERON test is pending. I have reordered MRSA nares swab and sputum culture with Gram stain. Reordered blood cultures. She has been afebrile. Now on 14 L high flow nasal cannula. I will escalate antibiotics to Vanco and Zosyn. Will leave Levaquin on for double coverage in case there is Pseudomonas. Continue duoneb. start bactrim for possible pcp check covid pcr again Continue Keppra for seizure prophylaxis Continue midodrine 10 3 times daily Continue prednisone 20 daily Hold Eliquis 2.5 twice daily. Acute on chronic anemia?hemoglobin 11.2 at admission. 7.8 today. She denies any hemoptysis. Hemoglobin 7.8 today. Will check FOBT. I will hold Eliquis. Will type and screen 1 unit. Discussed with the son in detail regarding patient's current status. Son will be coming to see the patient today in person. He will be coming from [place]. All questions were answered to his satisfaction. Blood pressure has been stable. She has been afebrile, she is not tachypneic or in acute respiratory distress. Appears very comfortable on her 14 L nasal cannula. Will use BiPAP if needed should she deteriorate. DNR/DNI Diet: Regular Attestations Medical Necessity Statement*: >48 hour stay Time Spent in Patient Care: Greater than 35 minutes Coding Level of Care Code Acute Medical Laboratory Technician for g Fwd Diagnoses Septic shock A41.9; R65.21 Acute and chronic respiratory failure with hypoxia J96.21 Sepsis A41.9 Malignant neoplasm of lung C34.90 GERD (gastroesophageal reflux disease) K21.9 Esophagitis presence: esophagitis presence not specified Depression with anxiety F41.8 Chronic cough R05 Pneumonia J18.9
[2021-06-30] MEDS: vancomycin 750 MG in sodium chloride 0.9% 250 ML 250 MG IV (16:05)
[2021-06-30] MEDS: piperacillin-tazobactam 3.375 GM in sodium chloride 0.9% (plus) 50 ML IV (17:24)
[2021-06-30] MEDS: sulfamethoxazole-trimeth DS 160-800 mg Tablet 1 TAB PO (17:31)
[2021-07-01] VITALS (15 sets, daily range): BP systolic 98–131; BP diastolic 66–83; PULSE 80–111; RESP 15–26; TEMP 36.5–37.2; O2SAT 88–100
[2021-07-01] MEDS: piperacillin-tazobactam 3.375 GM in sodium chloride 0.9% (plus) 50 ML IV ×4 (00:18→23:13)
[2021-07-01] MEDS: vancomycin 750 MG in sodium chloride 0.9% 250 ML 250 MG IV ×2 (04:18→15:08)
[2021-07-01] MEDS: dextrose 5% 1,000 ML 75 ML IV (05:22)
[2021-07-01] MEDS: levoFLOXacin 750 mg Tablet PO (05:23)
[2021-07-01 08:45] LABS: Basophils % 0.4 %; Eosinophils # 0.1 10^3/uL (0.0-0.8); Eosinophils % 0.9 %; Hematocrit 25.8 % (37.0-47.0); Hemoglobin 7.8 g/dL (11.5-15.3); Lymphocytes # 0.4 10^3/uL (0.8-4.8); Lymphocytes % 3.9 %; Mean Corpuscular HGB Conc 30.2 g/dL (30.0-36.0); Mean Corpuscular Hemoglobin 26.2 pg (28.0-34.0); Mean Corpuscular Volume 86.6 fl (81-99); Monocytes # 0.4 10^3/uL (0.2-0.9); Monocytes % 3.9 %; Neutrophils # 6.99 10^3/uL (1.8-7.7); Neutrophils % 78.1 %; Nucleated Red Blood Cells % 0 %; Platelet Count 260 10^3/cmm (130-400); Red Blood Count 2.98 10^6/uL (4.1-5.3); Red Cell Distribution Width 18.8 % (12.1-15.1)
[2021-07-01] MEDS: levETIRAcetam 500 mg Tablet 250 MG PO ×2 (08:45→17:06)
[2021-07-01] MEDS: folic acid 1 mg Tablet PO (08:45)
[2021-07-01] MEDS: sennosides-docusate Tablet 1 TAB PO (08:45)
[2021-07-01] MEDS: sulfamethoxazole-trimeth DS 160-800 mg Tablet 1 TAB PO (08:45)
[2021-07-01] MEDS: predniSONE 20 mg Tablet PO (08:45)
[2021-07-01] MEDS: montelukast sodium 10 mg Tablet PO (08:45)
[2021-07-01] MEDS: midodrine 5 mg TABLET 10 MG PO ×3 (08:46→19:36)
[2021-07-01 09:06] LABS: Anion Gap 18.2 (5-19); Blood Urea Nitrogen 7 mg/dL (6-20); Calcium 8.1 mg/dL (8.5-10.5); Carbon Dioxide 17 mmol/L (22-29); Chloride 110 mmol/L (98-107); Glomerular Filtration Rate 75.9 mL/min (90-130); Glucose 77 mg/dL (65-115); Magnesium 1.9 mg/dL (1.7-2.3); Osmolality Calculated 291 mOsm/kg (285-295); Potassium 3.2 mmol/L (3.5-5.1); Sodium 142 mmol/L (136-145)
[2021-07-01 09:22] LABS: Slide Review Slide Review Perform
--- NOTE | 2021-07-01 14:28 | PM.PN ---
Subjective Subjective: Interval history: Seen this morning. No acute events overnight. Patient is on 12 L nasal cannula high flow today. She does not offer any complaints this morning. She feels okay. She would like to know when she can be discharged from the hospital. She does acknowledge that she is requiring high amounts of oxygen at this time. Vitals/I&O/Wt Last Vital Signs Temp 97.8 F 07/01/21 10:57 Pulse 111 H 07/01/21 10:57 Resp 22 H 07/01/21 10:57 BP 98/66 07/01/21 10:57 Pulse Ox 88 L 07/01/21 10:57 06/30/21 07/01/21 07/01/21 22:59 06:59 14:59 Intake Total 2057.5 / 2537.5 1046.25 / 3583.75 250 / 250 Output Total 1750 / 2950 2300 / 5250 Balance 307.5 / -412.5 -1253.75 / -1666.25 250 / 250 Physical Exam Narrative: EXAM NARRATIVE: General: Alert oriented x3, nO ACUTE DISTRESS HEENT: Normocephalic, atraumatic, EOMI, breathing comfortably on 13L NC Cardio: slightly tachycardic, normal S1-S2, no gross murmers. Heart sounds not muffled. no JVD noted. Respiratory: Diminished air entry b/l but very clear to auscultation today. GI: Abdomen soft, nontender, bowel sounds + Behavior: Cooperative and does not appear tearful today. Extremities: no edema, no cyanosis Lott in place Urinary Catheter Management^: Lott: Cath Placed During This Visit: yes Reason for Continuing Indwelling Catheter: Acute Urinary Retention or Obstruction Urinary Catheter Date of Insertion: 06/28/21 Urinary Catheter Time of Insertion: 09:45 Data : 07/01/21 08:18 07/01/21 08:18 Micro: Microbiology 06/25/21 19:00 Blood Culture - Final Blood NO GROWTH AFTER 5 DAYS 06/25/21 16:31 Blood Culture - Final Blood NO GROWTH AFTER 5 DAYS 06/30/21 14:30 Blood Culture - Preliminary Blood SPECIMEN COLLECTED 06/30/21 14:30 Blood Culture - Preliminary Blood SPECIMEN COLLECTED A&P Assessment and plan (1) Septic shock: Status: Acute (2) Acute and chronic respiratory failure with hypoxia: Status: Acute (3) Sepsis: Status: Acute (4) Malignant neoplasm of lung: Status: Acute (5) GERD (gastroesophageal reflux disease): Status: Acute Qualifiers: Esophagitis presence: esophagitis presence not specified Qualified Code(s): K21.9 - Gastro-esophageal reflux disease without esophagitis (6) Depression with anxiety: Status: Acute (7) Chronic cough: Status: Acute (8) Pneumonia: Status: Acute Additional A&P Information This patient presented with shock and respiratory distress, lung imaging shows worsening of her underlying malignancy, no signs of PE. Worsening mediastinal and bilateral hilar lymphadenopathy concerning for worsening malignancy is present. One of the enlarging lymph nodes is inseparable from the esophagus and esophageal invasion is not included. Patient was on broad-spectrum antibiotics initially and was deescalated to oral antibiotics yesterday. Her oxygen requirement went up from 11 L to 12 to 14 L today. She did require vasopressors in the ICU as well. She also got stress dose steroids initially. Cultures are negative to date. There was concern for pneumonia but cultures are negative to date C. difficile panel negative. She was being continued on Levaquin since yesterday. If another episode of fever recommendation was made to consider escalating antibiotics due to her high risk of recurrent pneumonias. Patient was recommended to go care home versus LTAC when she is medically stable for discharge so that she can also use BiPAP there as well. Patient however is not very open with the idea of going to a care home. She would like to go back to assisted living facility. Patient believes that she is doing okay and can get around on her own. Lott catheter was also placed due to her increasing oxygen requirements and her desaturating upon movement. It seems as this is all related to her worsening malignancy at this point. Procalcitonin was elevated and has started trending down. Patient was also dehydrated and had hyponatremia on admission. She did not vomit. She was given d5 for short time for hypernatremia. Sodium 142 today. Today's plan: Due to her increasing oxygen requirements CT chest repeated. It showed mod pericardial effusion (similar to prior study). Echo ordered to futher evaluate. TB QuantiFERON test is pending. Repeat BCx NTD, MRSA Nares, COVID pcr ordered. Results pending. She has been afebrile. on 13L NC HF. Continue vanc zosyn and levaquin. Continue bactrim for possible pcp Repeat COVID test pending. Consult pulmonology Dr. Ruano for further recommendations. He has been notified. Will replete K and Mg. Continue Keppra for seizure prophylaxis Continue midodrine 10 3 times daily Continue prednisone 20 daily Hold Eliquis 2.5 twice daily. Acute on chronic anemia?hemoglobin 11.2 at admission. 7.8 yesterday. Today 7.8 stable. She denies any hemoptysis. Hemoglobin 7.8 today. Will check FOBT. Continue to hold Eliquis. Updated son 06/30. Blood pressure has been stable. She has been afebrile, she is not tachypneic or in acute respiratory distress. Appears very comfortable on her 14 L nasal cannula. Will use BiPAP if needed should she deteriorate. DNR/DNI Diet: Regular Attestations Medical Necessity Statement*: > 48 hour stay Coding Level of Care Code Acute Forensic Computer Examiner for [facility] Fwd Diagnoses Septic shock A41.9; R65.21 Acute and chronic respiratory failure with hypoxia J96.21 Sepsis A41.9 Malignant neoplasm of lung C34.90 GERD (gastroesophageal reflux disease) K21.9 Esophagitis presence: esophagitis presence not specified Depression with anxiety F41.8 Chronic cough R05 Pneumonia J18.9
--- NOTE | 2021-07-01 16:03 | PC.NURSE ---
rcvd verbal order from Dr Ruano to discontinue isolation precautions. Rcvd verbal order from Dr Ruano for 30mg of prednisone today and then 50mg daily.
[2021-07-01] MEDS: predniSONE 10 mg Tablet 30 MG PO (16:07)
[2021-07-01 16:30] LABS: Lactate Dehydrogenase 913 U/L (135-214)
--- NOTE | 2021-07-01 16:57 | P.CONIM_ITS ---
Providers/Reason For Consult Consulting Physician/Specialty*: Pulmonary critical care medicine Reason for Consult*: Acute on chronic hypoxic respiratory failure Attending Physician: Maggy Carlos MD Primary Care Provider: Sebastian Hendrickson MD History of Present Illness History of Present Illness Sophia Mliler is a 51 year old female who is known to me from her previous office visit for bronchoscopic evaluation. I had performed a bronchoscopy, EBUS and navigational bronchoscopy in April 2020. The histopathology at that time was consistent with adenocarcinoma of the lung. On chest radiology at that time the patient had diffuse bilateral groundglass opacity and nonresolving lung mass which subsequently turned out to be malignant. The patient had also developed metastatic disease including brain, pericardial metastasis. Currently the patient is on palliative chemotherapy. The patient is on 2 to 3 L of oxygen at home. She presented to the hospital on June 25 with progressive shortness of breath. A CT angiogram at that time did not reveal any pulmonary embolism. The patient does have previous history of pulmonary embolism and has an IVC filter in place and she is on Eliquis. The CT scan at that time revealed centrilobular nodule with interlobular septal thickening and nodularity in bilateral upper lobe area which could be consistent with lymphangitic spread. In addition, the patient has bilateral groundglass opacity and she has also developed cystic changes throughout the lung. A recent CT scan in March also revealed the cystic changes however this was not as pronounced. The patient today tells me that she has minimal cough or sputum production. The primary complaint is exertional shortness of breath and hypoxia. The patient is currently on CPAP with 45% oxygen. She is broadly covered with vancomycin, Zosyn, Levaquin and was started on Bactrim yesterday. Her LDH has been high. Review of Systems Narrative: Unable to assess appropriately as the patient is on CPAP. Meds/Allergies Home Medications and Allergies Home Medications Medication Instructions Recorded Confirmed Last Taken Type alprazolam 0.25 mg tablet 0.25 mg PO Q6H PRN 02/21/20 06/26/21 Unknown History montelukast 10 mg tablet 10 mg PO DAILY@02/21/20 06/26/21 05/10/20 History pantoprazole 40 mg tablet,delayed 40 mg PO DAILY@02/21/20 06/26/21 05/10/20 History release sertraline 100 mg tablet 200 mg PO DAILY@ tab 02/21/20 06/26/21 05/10/20 History Eliquis 2.5 mg PO BID@08,04/25/21 06/26/21 Unknown History Varubi See Rx Instructions .ROUTE .COMPLEX 04/25/21 06/26/21 Unknown History acetaminophen 650 mg PO Q6H PRN 04/25/21 06/26/21 Unknown History benzonatate 100 mg PO TID PRN 04/25/21 06/26/21 Unknown History dexamethasone 4 mg PO BID@08,16 04/25/21 06/26/21 Unknown History dexamethasone See Rx Instructions .ROUTE .COMPLEX 04/25/21 06/26/21 Unknown History folic acid 1 mg PO DAILY@04/25/21 06/26/21 Unknown History levetiracetam [Keppra] 250 mg PO BID@,04/25/21 06/26/21 Unknown History lidocaine-prilocaine See Rx Instructions .ROUTE .COMPLEX 04/25/21 06/26/21 Unknown History midodrine 10 mg PO TID@,,04/25/21 06/26/21 Unknown History ondansetron HCl [Zofran] 4 mg PO Q8H PRN 04/25/21 06/26/21 Unknown History polyethylene glycol 3350 [Miralax] 17 g PO DAILY PRN 04/25/21 06/26/21 Unknown History prochlorperazine maleate 10 mg PO Q6H PRN 04/25/21 06/26/21 Unknown History trazodone 50 mg PO BEDTIME@04/25/21 06/26/21 Unknown History ferrous sulfate 325 mg PO DAILY@06/26/21 06/26/21 Unknown History potassium chloride See Rx Instructions .ROUTE .COMPLEX 06/26/21 06/26/21 Unknown History Allergies Allergy/AdvReac Type Severity Reaction Status Date / Time bupropion [From Wellbutrin] Allergy Severe Unknown Verified 04/04/20 13:38 Current Medications Current Medications Generic Name Dose Route Start Last Admin Trade Name Freq PRN Reason Stop Dose Admin Apixaban 2.5 mg 06/26/21 08:00 06/30/21 08:16 Apixaban 5 Mg Tablet PO 2.5 mg BID@08,16 MONTEZ Administration Folic Acid 1 mg 06/26/21 09:00 07/01/21 08:45 Folic Acid 1 Mg Tablet PO 1 mg DAILY MONTEZ Administration Vancomycin HCl 750 mg/ Sodium 250 mls @ 250 mls/hr 06/30/21 14:30 07/01/21 16:46 Chloride IV Infused Q12H MONTEZ Infusion Piperacillin Sod/Tazobactam 50 mls @ 12.5 mls/hr 06/30/21 16:00 07/01/21 16:18 Sod 3.375 gm/ Sodium Chloride IV 12.5 mls/hr Q8H MONTEZ Administration Lanolin 1 applic 06/26/21 14:47 06/28/21 15:40 Lanolin Oint 7 Gm TOPICAL 1 tube PRN PRN Administration DRYNESS Levetiracetam 250 mg 06/26/21 09:00 07/01/21 08:45 Levetiracetam 500 Mg Tablet PO 250 mg BID MONTEZ Administration Levofloxacin 750 mg 06/29/21 06:00 07/01/21 05:23 Levofloxacin 750 Mg Tablet PO 750 mg DAILY@0600 MONTEZ Administration Protocol Midodrine 10 mg 06/26/21 08:00 07/01/21 15:08 Midodrine 5 Mg Tablet PO 10 mg TID@08,14,20 MONTEZ Administration Montelukast Sodium 10 mg 06/26/21 08:00 07/01/21 08:45 Montelukast Sodium 10 Mg Tablet PO 10 mg DAILY@08 MONTEZ Administration Senna/Docusate Sodium 1 tab 06/26/21 09:00 07/01/21 08:45 Sennosides-Docusate Tablet PO 1 tab DAILY MONTEZ Administration PFSH Acute PFSH: Medical History Blurry vision, right eye Brain metastases R/MR head wo/w con [id number] IMPRESSION: 1. No evidence of disease progression compared to September 23, 2020 2. Stable appearance of the innumerable supra and infratentorial tiny enhancing lesions with associated hemosiderin. 3. No hydrocephalus. No edema or mass effect. 4. Increased periventricular white matter changes consistent with treatment- related effect. Moderate parenchymal volume loss Depression with anxiety GERD (gastroesophageal reflux disease) Metastatic disease Pericardial effusion Port-A-Cath in place Seasonal allergies Surgical History S/P pericardial window creation X2 in 2019 Family History Mother Psychiatric illness Depression Hypertension Brother Heart defect Social History Smoking and tobacco status: never smoked Alcohol intake: never Lives independently: Yes Household members: none Marital status: Current occupational status: employed Current occupational exposures/hazards: No History of recent travel: No Current gender identity: Female Vitals/I&O/Wt Last Vital Signs Temp 98.5 F 07/01/21 14:50 Pulse 95 07/01/21 16:14 Resp 20 H 07/01/21 14:50 BP 101/68 07/01/21 14:50 Pulse Ox 90 07/01/21 16:14 07/01/21 07/01/21 07/01/21 06:59 14:59 22:59 Intake Total 1046.25 / 3583.75 660 / 660 250 / 910 Output Total 2300 / 5250 1900 / 1900 Balance -1253.75 / -1666.25 660 / 660 -1650 / -990 Physical Exam Narrative: EXAM NARRATIVE: General: Patient is awake alert and oriented, tachypneic, no distress while resting Neck: No JVD Respiratory: Auscultation: Reduced breath sound bilaterally, minimal crackles at the lung bases Cardiovascular: Regular rate and rhythm, S1-S2 present, no murmur, no peripheral edema. Abdomen: Soft, nontender, nondistended, positive bowel sound Musculoskeletal: No obvious joint deformity Skin: No rash Neuro: Mental status is normal, no gross cranial nerve deficit, normal motor function Urinary Catheter Management^: Lott: Cath Placed During This Visit: yes Reason for Continuing Indwelling Catheter: Acute Urinary Retention or Obstruction Urinary Catheter Date of Insertion: 06/28/21 Urinary Catheter Time of Insertion: 09:45 Data Micro: Micro: Microbiology 07/01/21 04:14 MRSA Culture - Fin al Nose 06/30/21 14:30 Blood Culture - Pr eliminary Blood NEGATIVE TO MANUEL E 06/30/21 14:30 Blood Culture - Pr eliminary Blood NEGATIVE TO MANUEL E 06/25/21 19:00 Blood Culture - Fi nal Blood NO GROWTH AFTER 5 DAYS 06/25/21 16:31 Blood Culture - Fi nal Blood NO GROWTH AFTER 5 DAYS Other Data: Attestation for Other Data: I personally reviewed and interpreted the following: Other data: I have reviewed the patient's laboratory, microbiologic and radiologic data. Please see the HPI for detail. The patient had a CT angiogram which did not reveal any evidence of pulmonary embolism. The patient does have bilateral centrilobular opacity with interlobular septal thickening and nodularity which could be consistent with malignancy. In addition, the patient also has groundglass opacity and cystic changes bilaterally. The blood cultures have been negative so far. Nasal MRSA PCR is negative. A&P Assessment and plan (1) Acute and chronic respiratory failure with hypoxia: There is a 59-year-old lady with acute on chronic hypoxic respiratory failure. The patient uses 2 to 3 L of oxygen at home however currently she is retiring CPAP or high flow nasal cannula. CT scan of the chest reveals centrilobular nodularity with interlobular septal thickening with nodularity which could be certainly consistent with lymphangitic spread of her cancer. However the patient does have groundglass opacity with cystic appearance which is also concerning for PCP pneumonia. Has nasal MRSA PCR is negative. Her radiologic appearance is not consistent with MRSA pneumonia. The TB QuantiFERON gold test was indeterminate. I do not believe the patient has pulmonary tuberculosis. She does not have any sputum production. Moreover, similar radiographic changes have been present for at least the last 3 months which has continued to get worse. Her LDH level is high. She is broadly covered with vancomycin, Zosyn and Levaquin. At this point, I am going to start treating the patient empirically for PCP pneumonia. I will start her on IV Bactrim. Increase the prednisone to 50 mg daily. With IV Bactrim the patient may develop hyponatremia and hyperkalemia. If she develops hyponatremia she will need oral salt tablets. The IV Bactrim does come with a significant amount of volume and she will likely need to be diuresed to make sure she does not become volume overloaded. I expect to see a positive impact in the next 48 to 72 hours. However, if the patient does have metastatic spread of her lung cancer this intervention is unlikely to be successful. For the time being we will continue with Zosyn and Levaquin. We can discontinue the vancomycin. Status: Acute (2) Metastatic adenocarcinoma: The patient has stage IV disease including brain mets, pericardial effusion. The patient is on palliative chemotherapy. Her chemotherapy was few weeks ago. Status: Acute (3) Pericardial effusion: The patient has undergone pericardial window in [facility] for pericardial effusion in the past. No evidence of hemodynamic compromise at this time. 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
--- NOTE | 2021-07-01 17:39 | USCV_ITS ---
Sophia Miller Age: 51 Gender: F : 1970 Exam Date: 07/01/2021 11:18 Ordering Phys: Maggy Carlos MD Technologist: TATYANA [place] [facility] [place]: Lung CA. Pericardial effusion BP: 131 / 66 HR: 107 Rhythm: Sinus tachycardia Technical Quality: Adequate MEASUREMENTS (Male / Female) Normal Values 2D ECHO LV Diastolic Diameter PLAX 3.5 cm 4.2 - 5.9 / 3.9 - 5.3 cm LV Systolic Diameter PLAX 2.4 cm IVS Diastolic Thickness 1.1 cm 0.6 - 1.0 / 0.6 - 0.9 cm IVS Systolic Thickness 1.5 cm LVPW Diastolic Thickness 1.0 cm 0.6 - 1.0 / 0.6 - 0.9 cm LVPW Systolic Thickness 1.3 cm LVOT Diameter 1.8 cm LV Ejection Fraction 2D Teich 47.7 % LV Ejection Fraction MOD 2C 78.4 % LV Ejection Fraction 2C AL 79.3 % LA Diameter 2.7 cm LA Width 3.3 cm LA Height 3.4 cm RA Width 2.1 cm RA Height 3.4 cm Aorta at Sinotubular Diameter 2.8 cm M-MODE Aortic Annulus Diameter 2.3 cm LA Ao Ratio MM 1.1 MV E Point Septal Separation 0.2 cm DOPPLER AV Peak Velocity 99.0 cm/s LVOT Peak Velocity 79.0 cm/s AV Area Cont Eq vti 2.5 cm squared AV Area Cont Eq pk 2.0 cm squared MV Peak Velocity 77.0 cm/s MV Area PHT 3.5 cm squared Mitral E to A Ratio 1.0 MV E' Velocity 58.0 cm/s TR Peak Velocity 248.5 cm/s TR Peak Gradient 24.7 mmHg TV Peak E Velocity 56.0 cm/s Right Atrial Pressure 3.0 mmHg Pulmonary Artery Systolic Pressu 27.7 mmHg PV Peak Velocity 69.0 cm/s RV Acceleration Time 0.1 s RV Ejection Time 0.3 s RV AcT/ET 0.4 FINDINGS Left Ventricle Normal left ventricular size, systolic function and wall thickness, with no regional wall motion abnormalities. Left ventricular ejection fraction is estimated at 65 %. Right Ventricle Normal right ventricular size and systolic function. Right ventricular systolic pressure 34 mmHg. Right Atrium Normal right atrial size. Right atrial pressure estimated at 3 mmHg. Left Atrium Normal left atrial size. Mitral Valve Structurally normal mitral valve. No mitral valve stenosis. Trace mitral valve regurgitation. Aortic Valve Structurally normal trileaflet aortic valve. No aortic valve stenosis. No aortic valve regurgitation. Tricuspid Valve Structurally normal tricuspid valve. No tricuspid valve stenosis. Mild tricuspid valve regurgitation. Pulmonic Valve Structurally normal pulmonic valve. No pulmonary valve stenosis. Pericardium Small pericardial effusion more along posterior left ventricular wall (12 mm along right atrium, 9 mm along left ventricle). No evidence of hemodynamic compromise. Aorta Normal size aortic root and proximal ascending aorta. Normal- sized inferior vena cava with than 50% respiratory variation. CONCLUSIONS 1. Normal left ventricular size, systolic function and wall thickness, with no regional wall motion abnormalities. Left ventricular ejection fraction is estimated at 65 %. 2. Normal right ventricular size and systolic function. 3. Mild pulmonary hypertension with pulmonary pressure estimated 34 mmHg. 4. Small pericardial effusion more along posterior left ventricular wall (12 mm along right atrium, 9 mm along left ventricle). 5. When compared to previous echocardiogram dated 03/26/2020, pericardial effusion seems to have decreased in size. Lavern Restrepo MD (Electronically Signed) Final Date: 01 July 2021 17:16 S
[2021-07-02] VITALS (17 sets, daily range): BP systolic 102–120; BP diastolic 53–80; PULSE 86–120; RESP 16–21; TEMP 36.6–36.7; O2SAT 87–121
[2021-07-02 01:49] LABS: Hematocrit 24.2 % (37.0-47.0); Hemoglobin 7.6 g/dL (11.5-15.3); Mean Corpuscular HGB Conc 31.4 g/dL (30.0-36.0); Mean Corpuscular Hemoglobin 26.4 pg (28.0-34.0); Mean Platelet Volume 9.7 fL (7.4-10.4); Platelet Count 196 10^3/cmm (130-400); Red Blood Count 2.88 10^6/uL (4.1-5.3); Red Cell Distribution Width 18.9 % (12.1-15.1); White Blood Count 12.5 10^3/uL (4.0-10.0)
[2021-07-02 02:09] LABS: Anion Gap 20.4 (5-19); Blood Urea Nitrogen 10 mg/dL (6-20); Calcium 8.4 mg/dL (8.5-10.5); Carbon Dioxide 17 mmol/L (22-29); Chloride 109 mmol/L (98-107); Glomerular Filtration Rate 75.9 mL/min (90-130); Glucose 105 mg/dL (65-115); Magnesium 2.2 mg/dL (1.7-2.3); Osmolality Calculated 293 mOsm/kg (285-295); Potassium 4.4 mmol/L (3.5-5.1); Sodium 142 mmol/L (136-145)
[2021-07-02 02:13] LABS: Vancomycin Trough 12.7 ug/mL (10-15)
[2021-07-02 02:58] LABS: Slide Review Slide Review Perform
[2021-07-02 02:59] LABS: Band Neutrophils Absolute 0.1 10^3/cmm (0.0-1.2); Eosinophils 0 %; Lymphocytes 5 %; Lymphocytes Absolute 0.6 10^3/cmm (1.2-3.4); Segmented Neutrophils 80 %; Total Cells Counted 100 (0-100)
[2021-07-02 03:00] LABS: Absolute Neutrophil 10.1 10^3/cmm (1.4-6.5); Blastocytes 0 % (0-0); Platelet Estimate Normal (Normal)
[2021-07-02] MEDS: levoFLOXacin 750 mg Tablet PO (04:58)
[2021-07-02] MEDS: levETIRAcetam 500 mg Tablet 250 MG PO ×2 (07:59→17:28)
[2021-07-02] MEDS: sennosides-docusate Tablet 1 TAB PO (07:59)
[2021-07-02] MEDS: predniSONE 20 mg Tablet 50 MG PO (08:00)
[2021-07-02] MEDS: folic acid 1 mg Tablet PO (08:00)
[2021-07-02] MEDS: montelukast sodium 10 mg Tablet PO (08:00)
[2021-07-02] MEDS: midodrine 5 mg TABLET 10 MG PO ×3 (08:16→20:33)
[2021-07-02] MEDS: piperacillin-tazobactam 3.375 GM in sodium chloride 0.9% (plus) 50 ML IV ×3 (08:16→23:03)
--- NOTE | 2021-07-02 12:15 | PM.PN ---
Subjective Subjective: Interval history: Seen this morning. Patient is in good spirits today. She states she is feeling the same as yesterday with no improvement. Still on 12 L nasal cannula. She was started on IV Bactrim yesterday by Dr. Ruano for presumed PCP pneumonia. Today she does not appear fluid overloaded. Labs reviewed. Vitals/I&O/Wt Last Vital Signs Temp 98.1 F 07/02/21 12:00 Pulse 120 H 07/02/21 12:00 Resp 20 H 07/02/21 12:00 BP 103/53 07/02/21 12:00 Pulse Ox 87 L 07/02/21 12:00 07/01/21 07/02/21 07/02/21 22:59 06:59 14:59 Intake Total 1660 / 2320 570 / 2890 240 / 240 Output Total 1900 / 1900 1260 / 3160 850 / 850 Balance -240 / 420 -690 / -270 -610 / -610 Physical Exam Narrative: EXAM NARRATIVE: General: Alert oriented x3, nO ACUTE DISTRESS, appears happier today compared to prior days. About to start her breakfast. HEENT: Normocephalic, atraumatic, EOMI, breathing comfortably on 12L NC Cardio: slightly tachycardic, normal S1-S2, no gross murmers. Heart sounds not muffled. no JVD noted. Respiratory: Diminished air entry b/l but very clear to auscultation today. GI: Abdomen soft, nontender, bowel sounds + Behavior: Cooperative and does not appear tearful today. Extremities: no edema, no cyanosis Lott in place Urinary Catheter Management^: Lott: Cath Placed During This Visit: yes Reason for Continuing Indwelling Catheter: Acute Urinary Retention or Obstruction Urinary Catheter Date of Insertion: 06/28/21 Urinary Catheter Time of Insertion: 09:45 Data : 07/02/21 01:20 07/02/21 01:20 Micro: Microbiology 07/01/21 04:14 MRSA Culture - Final Nose 06/30/21 14:30 Blood Culture - Preliminary Blood NEGATIVE TO DATE 06/30/21 14:30 Blood Culture - Preliminary Blood NEGATIVE TO DATE A&P Assessment and plan (1) Septic shock: Status: Acute (2) Acute and chronic respiratory failure with hypoxia: Status: Acute (3) Sepsis: Status: Acute (4) Malignant neoplasm of lung: Status: Acute (5) GERD (gastroesophageal reflux disease): Status: Acute Qualifiers: Esophagitis presence: esophagitis presence not specified Qualified Code(s): K21.9 - Gastro-esophageal reflux disease without esophagitis (6) Depression with anxiety: Status: Acute (7) Chronic cough: Status: Acute (8) Pneumonia: Status: Acute Additional A&P Information This patient presented with shock and respiratory distress, lung imaging shows worsening of her underlying malignancy, no signs of PE. Worsening mediastinal and bilateral hilar lymphadenopathy concerning for worsening malignancy is present. One of the enlarging lymph nodes is inseparable from the esophagus and esophageal invasion is not included. Patient was on broad-spectrum antibiotics initially and was deescalated to oral antibiotics yesterday. Her oxygen requirement went up from 11 L to 12 to 14 L today. She did require vasopressors in the ICU as well. She also got stress dose steroids initially. Cultures are negative to date. There was concern for pneumonia but cultures are negative to date C. difficile panel negative. She was being continued on Levaquin since yesterday. If another episode of fever recommendation was made to consider escalating antibiotics due to her high risk of recurrent pneumonias. [place] [facility] [place] [facility] when she is medically stable for discharge so that she can also use BiPAP there as well. Patient however is not very open with the idea of going to a [place] [facility] [place]. She would like to go back to assisted living facility. Patient believes that she is doing okay and can get around on her own. Lott catheter was also placed due to her increasing oxygen requirements and her desaturating upon movement. It seems as this is all related to her worsening malignancy at this point. Procalcitonin was elevated and has started trending down. Patient was also dehydrated and had hyponatremia on admission. She did not vomit. She was given d5 for short time for hypernatremia. Sodium 142 today. Today's plan: Due to her increasing oxygen requirements CT chest repeated. It showed mod pericardial effusion (similar to prior study). Echo ordered to futher evaluate. TB QuantiFERON test is indeterminate. Imaging reviewed with Dr. Ruano. Patient has some evidence of possible PCP pneumonia. He will switch her to IV bactrim and prednisone 50 mg. Will continue. Will stop vanco as per his recommendations but continue zosyn and levaquin. Repeat COVID test pending. Consult pulmonology Dr. Ruano for further recommendations.Recs apprecaited. Will monitor daily for fluid verload and give lasix if needed. If hyponatremic will consider salt tablets. Will replete K and Mg. Will order oxypendent for pt. Continue Keppra for seizure prophylaxis Continue midodrine 10 3 times daily Continue prednisone 20 daily Hold Eliquis 2.5 twice daily. Acute on chronic anemia?hemoglobin 11.2 at admission. 7.8 yesterday. Today 7.8 stable. She denies any hemoptysis. Hemoglobin 7.6 today. Will check FOBT. Continue to hold Eliquis. Pt has IVC filter in place. Updated son 06/30. Blood pressure has been stable. She has been afebrile, she is not tachypneic or in acute respiratory distress. Appears very comfortable on her 14 L nasal cannula. Will use BiPAP if needed should she deteriorate. 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
[2021-07-02] MEDS: ondansetron 2 mg/ML SDV 2 mL 4 MG IVP ×2 (13:00→23:03)
--- NOTE | 2021-07-02 23:45 | PC.NURSE ---
i reported high pulse 109 to nurse
[2021-07-03] VITALS (12 sets, daily range): BP systolic 103–119; BP diastolic 71–80; PULSE 89–131; RESP 14–20; TEMP 36.3–36.9; O2SAT 91–104
[2021-07-03] MEDS: ondansetron 2 mg/ML SDV 2 mL 4 MG IVP (03:23)
[2021-07-03] MEDS: levoFLOXacin 750 mg Tablet PO (05:02)
[2021-07-03 05:48] LABS: Basophils # 0.1 10^3/uL (0.0-0.1); Basophils % 0.4 %; Eosinophils % 0.1 %; Hematocrit 22.5 % (37.0-47.0); Hemoglobin 7.1 g/dL (11.5-15.3); Lymphocytes # 0.7 10^3/uL (0.8-4.8); Lymphocytes % 3.9 %; Mean Corpuscular HGB Conc 31.6 g/dL (30.0-36.0); Mean Corpuscular Hemoglobin 26.5 pg (28.0-34.0); Mean Platelet Volume 10.7 fL (7.4-10.4); Monocytes # 0.6 10^3/uL (0.2-0.9); Monocytes % 3.4 %; Neutrophils # 14.61 10^3/uL (1.8-7.7); Neutrophils % 80.2 %; Nucleated Red Blood Cells # 0.2 /100WBC; Nucleated Red Blood Cells % 0.8 %; Platelet Count 123 10^3/cmm (130-400); Red Blood Count 2.68 10^6/uL (4.1-5.3); Red Cell Distribution Width 19.4 % (12.1-15.1); White Blood Count 18.2 10^3/uL (4.0-10.0)
[2021-07-03 06:17] LABS: Anion Gap 17.1 (5-19); Blood Urea Nitrogen 12 mg/dL (6-20); Calcium 8.4 mg/dL (8.5-10.5); Carbon Dioxide 21 mmol/L (22-29); Chloride 103 mmol/L (98-107); Glomerular Filtration Rate 66.3 mL/min (90-130); Glucose 102 mg/dL (65-115); Magnesium 2.2 mg/dL (1.7-2.3); Osmolality Calculated 284 mOsm/kg (285-295); Potassium 4.1 mmol/L (3.5-5.1); Sodium 137 mmol/L (136-145)
--- NOTE | 2021-07-03 07:52 | XR_ITS ---
WS: [id number] Exam: XR chest 1V portable [id number] Date/Time of Exam: 07/03/2021 7:58 AM Reason For Exam: tachycardia Comparison 06/25/2021. Widespread interstitial infiltrates throughout both lungs show some improvement since the prior study . The lungs are fully expanded. No pleural effusions. Cardiomediastinal silhouette is unremarkable. A right subclavian port ends at the cavoatrial junction. Monitoring leads superimpose the chest. Bony structures are intact. XR/XR chest 1V portable [id number] IMPRESSION: 1. Widespread interstitial infiltrates throughout both lungs which show some im provement since prior study. No other change.
--- NOTE | 2021-07-03 07:55 | ECG_ITS ---
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
[2021-07-03] MEDS: midodrine 5 mg TABLET 10 MG PO ×3 (10:30→20:26)
[2021-07-03] MEDS: predniSONE 20 mg Tablet 50 MG PO (10:31)
[2021-07-03] MEDS: piperacillin-tazobactam 3.375 GM in sodium chloride 0.9% (plus) 50 ML IV ×2 (10:31→21:13)
[2021-07-03] MEDS: folic acid 1 mg Tablet PO (10:31)
[2021-07-03] MEDS: levETIRAcetam 500 mg Tablet 250 MG PO ×2 (10:31→18:06)
[2021-07-03] MEDS: montelukast sodium 10 mg Tablet PO (10:31)
[2021-07-03] MEDS: sennosides-docusate Tablet 1 TAB PO (10:31)
[2021-07-03] MEDS: lactulose oral liq 20 gm/30 mL UDC PO ×2 (11:54→15:14)
--- NOTE | 2021-07-03 14:15 | P.PN_ITS ---
Subjective Subjective: Interval history: Seen this AM. She reports dry heaves and feeling nauseated. hb 7.1 this AM. Otherwise no other complaints offered. Vitals/I&O/Wt Last Vital Signs Temp 97.9 F 07/03/21 11:10 Pulse 109 H 07/03/21 11:10 Resp 16 07/03/21 11:10 BP 116/80 07/03/21 11:10 Pulse Ox 99 07/03/21 11:10 07/02/21 07/03/21 07/03/21 22:59 06:59 14:59 Intake Total 630 / 1440 570 / 2010 Output Total 1700 / 2550 Balance 630 / 590 -1130 / -540 Physical Exam Narrative: EXAM NARRATIVE: General: Alert oriented x3, nO ACUTE DISTRESS, appears nauseated. bucket with vomitus present in room. HEENT: Normocephalic, atraumatic, EOMI, breathing comfortably on 12L NC Cardio: slightly tachycardic, normal S1-S2, no gross murmers. Heart sounds not muffled. no JVD noted. Respiratory: Diminished air entry b/l but very clear to auscultation today. GI: Abdomen soft, nontender, bowel sounds + Extremities: no edema, no cyanosis Lott in place Urinary Catheter Management^: Lott: Cath Placed During This Visit: yes Reason for Continuing Indwelling Catheter: Other Urinary Catheter Date of Insertion: 06/28/21 Urinary Catheter Time of Insertion: 09:45 Data : 07/03/21 05:26 07/03/21 05:26 A&P Assessment and plan (1) Septic shock: Status: Acute (2) Acute and chronic respiratory failure with hypoxia: Status: Acute (3) Sepsis: Status: Acute (4) Malignant neoplasm of lung: Status: Acute (5) GERD (gastroesophageal reflux disease): Status: Acute Qualifiers: Esophagitis presence: esophagitis presence not specified Qualified Code(s): K21.9 - Gastro-esophageal reflux disease without esophagitis (6) Depression with anxiety: Status: Acute (7) Chronic cough: Status: Acute (8) Pneumonia: Status: Acute Additional A&P Information This patient presented with shock and respiratory distress, lung imaging shows worsening of her underlying malignancy, no signs of PE. Worsening mediastinal and bilateral hilar lymphadenopathy concerning for worsening malignancy is present. One of the enlarging lymph nodes is inseparable from the esophagus and esophageal invasion is not included. Patient was on broad-spectrum antibiotics initially and was deescalated to oral antibiotics yesterday. Her oxygen requirement went up from 11 L to 12 to 14 L today. She did require vasopressors in the ICU as well. She also got stress dose steroids initially. Cultures are negative to date. There was concern for pneumonia but cultures are negative to date C. difficile panel negative. She was being continued on Levaquin since yesterday. If another episode of fever recommendation was made to consider escalating antibiotics due to her high risk of recurrent pneumonias. Patient was recommended to go skilled nursing versus LTAC when she is medically stable for discharge so that she can also use BiPAP there as well. Patient however is not very open with the idea of going to a skilled nursing. She would like to go back to assisted living facility. Patient believes that she is doing okay and can get around on her own. Lott catheter was also placed due to her increasing oxygen requirements and her desaturating upon movement. It seems as this is all related to her worsening malignancy at this point. Procalcitonin was elevated and has started trending down. Patient was also dehydrated and had hyponatremia on admission. She did not vomit. She was given d5 for short time for hypernatremia. Sodium 142 today. Today's plan: Due to her increasing oxygen requirements CT chest repeated. It showed mod pericardial effusion (similar to prior study). Echo ordered to futher evaluate. TB QuantiFERON test is indeterminate. Imaging reviewed with Dr. Ruano. Patient has some evidence of possible PCP pneumonia. He will switch her to IV bactrim and prednisone 50 mg. Will continue. Will stop vanco as per his recommendations but continue zosyn and levaquin. Repeat COVID test pending. Consult pulmonology Dr. Ruano for further recommendations.Recs apprecaited. Will monitor daily for fluid verload and give lasix if needed. If hyponatremic will consider salt tablets. Will replete K and Mg. Will order oxypendent for pt. - Will order reglan for nausea. If needed may use phenergen. RN updated. Continue Keppra for seizure prophylaxis Continue midodrine 10 3 times daily Continue prednisone 20 daily Hold Eliquis 2.5 twice daily. Acute on chronic anemia?hemoglobin 11.2 at admission. 7.8 yesterday. Today 7.8 stable. She denies any hemoptysis. Hemoglobin 7.6 today. Will check FOBT. Continue to hold Eliquis. Pt has IVC filter in place. hb 7.1 today. ordered prbc x1. WBC elevation most likely 2/2 steroid addition. Updated son 06/30. Blood pressure has been stable. She has been afebrile, she is not tachypneic or in acute respiratory distress. Appears very comfortable on her 14 L nasal cannula. Will use BiPAP if needed should she deteriorate. DNR/DNI Diet: Regular Attestations Medical Necessity Statement*: > 48 hour stay. Still requiring very high O2. Coding Level of Care Code Acute Manager Pipeline for g Fwd Diagnoses Septic shock A41.9; R65.21 Acute and chronic respiratory failure with hypoxia J96.21 Sepsis A41.9 Malignant neoplasm of lung C34.90 GERD (gastroesophageal reflux disease) K21.9 Esophagitis presence: esophagitis presence not specified Depression with anxiety F41.8 Chronic cough R05 Pneumonia J18.9
[2021-07-03] MEDS: ipratropium-albuterol 3 mL Neb INHALATION (14:29)
[2021-07-03] MEDS: metoclopramide 5 mg/mL SDV 2 mL 10 MG IVP (15:51)
[2021-07-03] MEDS: sodium chloride 0.9% (100 ml) 100 ML 125 ML (18:07)
--- NOTE | 2021-07-03 22:12 | PC.NURSE ---
Pt refused evening dose of lactulose stating she did not want to be up all night using the restroom. Education given and pt verbalized understanding and continues to decline medication.
[2021-07-04] VITALS (9 sets, daily range): BP systolic 107–128; BP diastolic 71–84; PULSE 83–116; RESP 18–20; TEMP 36.6–36.9; O2SAT 90–98
[2021-07-04] MEDS: lactulose oral liq 20 gm/30 mL UDC PO (04:10)
[2021-07-04] MEDS: piperacillin-tazobactam 3.375 GM in sodium chloride 0.9% (plus) 50 ML IV (04:10)
[2021-07-04] MEDS: levoFLOXacin 750 mg Tablet PO (05:51)
[2021-07-04 06:22] LABS: Hematocrit 27.8 % (37.0-47.0); Hemoglobin 8.9 g/dL (11.5-15.3); Mean Corpuscular Hemoglobin 26.5 pg (28.0-34.0); Mean Corpuscular Volume 82.7 fl (81-99); Mean Platelet Volume 11.7 fL (7.4-10.4); Platelet Count 89 10^3/cmm (130-400); Red Blood Count 3.36 10^6/uL (4.1-5.3); Red Cell Distribution Width 18.6 % (12.1-15.1); White Blood Count 21.1 10^3/uL (4.0-10.0)
[2021-07-04 06:43] LABS: Anion Gap 17.7 (5-19); Blood Urea Nitrogen 11 mg/dL (6-20); Calcium 8.4 mg/dL (8.5-10.5); Carbon Dioxide 20 mmol/L (22-29); Chloride 97 mmol/L (98-107); Glomerular Filtration Rate 66.3 mL/min (90-130); Glucose 75 mg/dL (65-115); Magnesium 2.4 mg/dL (1.7-2.3); Osmolality Calculated 270 mOsm/kg (285-295); Potassium 3.7 mmol/L (3.5-5.1); Sodium 131 mmol/L (136-145)
[2021-07-04 07:45] LABS: Slide Review Slide Review Perform
[2021-07-04 07:51] LABS: Absolute Eosinophils 0.2 10^3/cmm (0.0-0.7); Absolute Segmented Neutrophil 15.8 10/cmm (1.6-7.1); Anisocytosis 2+; Band Neutrophils Absolute 3.2 10^3/cmm (0.0-1.2); Eosinophils 1 %; Lymphocytes 2 %; Lymphocytes Absolute 0.4 10^3/cmm (1.2-3.4); Monocytes Absolute 0.4 10^3/cmm (0.1-0.6); Platelet Estimate Decreased (Normal); Poikilocytosis Trace; Schistocytes Trace; Segmented Neutrophils 75 %; Total Cells Counted 100 (0-100)
[2021-07-04] MEDS: midodrine 5 mg TABLET 10 MG PO ×2 (09:38→20:14)
[2021-07-04] MEDS: levETIRAcetam 500 mg Tablet 250 MG PO (09:38)
[2021-07-04] MEDS: predniSONE 20 mg Tablet 50 MG PO (09:38)
[2021-07-04] MEDS: sennosides-docusate Tablet 1 TAB PO (09:38)
[2021-07-04] MEDS: montelukast sodium 10 mg Tablet PO (09:38)
[2021-07-04] MEDS: folic acid 1 mg Tablet PO (09:38)
[2021-07-04] MEDS: vancomycin 500 MG in sodium chloride 0.9% (plus) 100 ML 200 MG IV (14:20)
--- NOTE | 2021-07-04 18:37 | P.PN_ITS ---
Subjective Subjective: Interval history: Seen and examined today. Patient states that she has been having a little bit of nausea but is better compared to yesterday. She is also still on 13 L at rest. I did try to wean down the oxygen down to 8 L at rest she was saturating 94%. When she does try to move around her oxygen saturation drops into the 80s and she has to be escalated on oxygen back to 10 to 12 L. She cannot tolerate movement or exertion at this time. There are no signs of fluid overload today. Patient appears quite euvolemic. She is slightly sinus tachycardic when she tries to exert herself but heart rate is okay when she is resting comfortably. Does not offer any new complaints today. She would like to know when she can go home. Vitals/I&O/Wt Last Vital Signs Temp 98.2 F 07/04/21 15:19 Pulse 104 H 07/04/21 15:19 Resp 18 07/04/21 15:19 BP 107/71 07/04/21 15:19 Pulse Ox 94 07/04/21 15:19 07/04/21 07/04/21 07/04/21 06:59 14:59 22:59 Intake Total 870 / 2470 2370 / 2370 Output Total 1200 / 1200 Balance -330 / 1270 2370 / 2370 Weight last 48 hrs Weight 54.749 kg Physical Exam Narrative: EXAM NARRATIVE: General: Alert oriented x3, nO ACUTE DISTRESS, HEENT: Normocephalic, atraumatic, EOMI, breathing comfortably on 12L NC Cardio: slightly tachycardic, normal S1-S2, no gross murmers. Heart sounds not muffled. no JVD noted. Respiratory: Diminished air entry b/l but very clear to auscultation today. GI: Abdomen soft, nontender, bowel sounds + Extremities: no edema, no cyanosis Lott in place Urinary Catheter Management^: Lott: Cath Placed During This Visit: yes Reason for Continuing Indwelling Catheter: Hospice/Comfort/Palliative Care Urinary Catheter Date of Insertion: 06/28/21 Urinary Catheter Time of Insertion: 09:45 Data : 07/04/21 06:10 07/04/21 06:10 A&P Assessment and plan (1) Septic shock: Status: Acute (2) Acute and chronic respiratory failure with hypoxia: Status: Acute (3) Sepsis: Status: Acute (4) Malignant neoplasm of lung: Status: Acute (5) GERD (gastroesophageal reflux disease): Status: Acute Qualifiers: Esophagitis presence: esophagitis presence not specified Qualified Code(s): K21.9 - Gastro-esophageal reflux disease without esophagitis (6) Depression with anxiety: Status: Acute (7) Chronic cough: Status: Acute (8) Pneumonia: Status: Acute Additional A&P Information This patient presented with shock and respiratory distress, lung imaging shows worsening of her underlying malignancy, no signs of PE. Worsening mediastinal and bilateral hilar lymphadenopathy concerning for worsening malignancy is present. One of the enlarging lymph nodes is inseparable from the esophagus and esophageal invasion is not included. Patient was on broad-spectrum antibiotics initially and was deescalated to oral antibiotics yesterday. Her oxygen requirement went up from 11 L to 12 to 14 L today. She did require vasopressors in the ICU as well. She also got stress dose steroids initially. Cultures are negative to date. There was concern for pneumonia but cultures are negative to date C. difficile panel negative. She was being continued on Levaquin since yesterday. If another episode of fever recommendation was made to consider escalating antibiotics due to her high risk of recurrent pneumonias. Patient was recommended to go alf versus LTAC when she is medically stable for discharge so that she can also use BiPAP there as well. Patient however is not very open with the idea of going to a alf. She would like to go back to assisted living facility. Patient believes that she is doing okay and can get around on her own. Lott catheter was also placed due to her increasing oxygen requirements and her desaturating upon movement. It seems as this is all related to her worsening malignancy at this point. Procalcitonin was elevated and has started trending down. Patient was also dehydrated and had hyponatremia on admission. She did not vomit. She was given d5 for short time for hypernatremia. Sodium 142 today. Today's plan 07/04/2021 Due to her increasing oxygen requirements CT chest repeated. It showed mod pericardial effusion (similar to prior study). Echo ordered to futher evaluate. TB QuantiFERON test is indeterminate. Imaging reviewed with Dr. Ruano. Patient has some evidence of possible PCP pneumonia. Continue IV bactrim and prednisone 50 mg. Will continue. Patient's WBC count has jumped up to 21,000 and also has a 15% bandemia at this point. I will escalate to vancomycin, imipenem along wi th current IV Bactrim. Repeat BCx today. Repeat COVID test pending. Consult pulmonology Dr. Ruano for further recommendations.Recs apprecaited. Will monitor daily for fluid verload and give lasix if needed. If hyponatremic will consider salt tablets. Will replete K and Mg. Continue with Doxy pendant. Continue to wean down oxygen as able. - Will order reglan for nausea. If needed may use phenergen. RN update Continue Keppra for seizure prophylaxis Continue midodrine 10 3 times daily Continue prednisone 20 daily Hold Eliquis 2.5 twice daily. Acute on chronic anemia?hemoglobin 11.2 at admission. 7.8 yesterday. Today 7.8 stable. She denies any hemoptysis. Hemoglobin 7.6 today. Will check FOBT. Continue to hold Eliquis. Pt has IVC filter in place. hb 7.1 07/03. ordered prbc x1. repeat Hb 8.9 WBC elevation most likely 2/2 steroid addition. Updated son 06/30. Blood pressure has been stable. She has been afebrile, she is not tachypneic or in acute respiratory distress. Appears very comfortable on her 14 L nasal cannula. Will use BiPAP if needed should she deteriorate. DNR/DNI Diet: Regular Attestations Medical Necessity Statement*: > 72 hours of stay Coding Level of Care Code Acute Director Of Corporate Strategy for [facility] Fwd Diagnoses Septic shock A41.9; R65.21 Acute and chronic respiratory failure with hypoxia J96.21 Sepsis A41.9 Malignant neoplasm of lung C34.90 GERD (gastroesophageal reflux disease) K21.9 Esophagitis presence: esophagitis presence not specified Depression with anxiety F41.8 Chronic cough R05 Pneumonia J18.9
--- NOTE | 2021-07-04 19:32 | PC.NURSE ---
i reported high pulse 116 to nurse
[2021-07-05] VITALS (15 sets, daily range): BP systolic 115–137; BP diastolic 73–89; PULSE 80–115; RESP 17–25; TEMP 36.4–36.6; O2SAT 87–95
--- NOTE | 2021-07-05 00:15 | PC.NURSE ---
i reported high pulse 107 and low o2 87 to nurse
[2021-07-05] MEDS: vancomycin 500 MG in sodium chloride 0.9% (plus) 100 ML 200 MG IV ×2 (00:19→14:19)
--- NOTE | 2021-07-05 00:31 | PC.NURSE ---
dressing to right chest wall port clean dry intact, currently infusing without difficulty.
[2021-07-05 03:37] LABS: Basophils # 0.1 10^3/uL (0.0-0.1); Basophils % 0.3 %; Eosinophils % 0.1 %; Hematocrit 26.2 % (37.0-47.0); Hemoglobin 8.5 g/dL (11.5-15.3); Lymphocytes # 0.5 10^3/uL (0.8-4.8); Lymphocytes % 2.8 %; Mean Corpuscular HGB Conc 32.4 g/dL (30.0-36.0); Mean Corpuscular Hemoglobin 26.7 pg (28.0-34.0); Mean Corpuscular Volume 82.4 fl (81-99); Mean Platelet Volume 9.4 fL (7.4-10.4); Monocytes # 0.6 10^3/uL (0.2-0.9); Monocytes % 3.3 %; Neutrophils # 16.13 10^3/uL (1.8-7.7); Neutrophils % 84.9 %; Nucleated Red Blood Cells # 0.1 /100WBC; Nucleated Red Blood Cells % 0.3 %; Platelet Count 100 10^3/cmm (130-400); Red Blood Count 3.18 10^6/uL (4.1-5.3); Red Cell Distribution Width 18.7 % (12.1-15.1)
[2021-07-05] MEDS: ondansetron 2 mg/ML SDV 2 mL 4 MG IVP (03:43)
[2021-07-05 03:55] LABS: Anion Gap 19.9 (5-19); Blood Urea Nitrogen 10 mg/dL (6-20); Calcium 8.5 mg/dL (8.5-10.5); Carbon Dioxide 19 mmol/L (22-29); Chloride 99 mmol/L (98-107); Glomerular Filtration Rate 88.6 mL/min (90-130); Glucose 72 mg/dL (65-115); Magnesium 2.5 mg/dL (1.7-2.3); Osmolality Calculated 276 mOsm/kg (285-295); Potassium 3.9 mmol/L (3.5-5.1); Slide Review Slide Review Perform; Sodium 134 mmol/L (136-145)
[2021-07-05 03:56] LABS: Add RBC Morph Yes; Anisocytosis 1+; Ovalocytes 1+; Poikilocytosis 1+; RBC Morph Comp No
--- NOTE | 2021-07-05 06:28 | PC.NURSE ---
fine cath left in place as patient desats with activity/ambulation
[2021-07-05] MEDS: metoclopramide 5 mg/mL SDV 2 mL 10 MG IVP (06:37)
[2021-07-05] MEDS: folic acid 1 mg Tablet PO (09:26)
[2021-07-05] MEDS: levETIRAcetam 500 mg Tablet 250 MG PO ×2 (09:26→17:15)
[2021-07-05] MEDS: sennosides-docusate Tablet 1 TAB PO (09:26)
[2021-07-05] MEDS: predniSONE 20 mg Tablet 50 MG PO (09:26)
[2021-07-05] MEDS: montelukast sodium 10 mg Tablet PO (09:26)
[2021-07-05] MEDS: midodrine 5 mg TABLET 10 MG PO ×3 (09:26→20:39)
--- NOTE | 2021-07-05 11:44 | PC.CHAP ---
Pastoral Care Encounter/Spiritual Assessment Type of Contact [] Declined supervisor prepress visit [] Patient/Family/Request visit [] Outpatient visit [] Follow-up visit [] Physician referral [] Code/Alert [XX] Routine visit [] Staff referral [] Actively dying [XX] Patient sleeping [] Family support [] [] Out of room [] Palliative care [] [] Receiving care in room [] Pre-surgical visit [] Trauma [] Long length of stay [] ICU visit [] Other: Relational/Emotional Strength [] Patient feels connected with others/family/visitors/staff [] Distress [] Loneliness/isolation [] Abandonment Spirituality of Patient [] Person of Vandana [] Attends [place] of their Vandana [] Believes in Prayer [] Reads Bible or Samaritan materials [] There are Spiritual issues to be addressed [employer] Lettering Machine Operator Interventions [] Prayer [] Active listening [] Non-anxious presence [] Spiritual/emotional support [] Crisis/trauma care [] Spiritual counseling [] Bereavement support [] Provided bereavement packet [] Provided Bible/devotional materials [] Provided toy/stuffed animal, coloring book to patient or family member [] Provided Communion [] Anointing/[place] [] Salvation [] Completed spiritual assessment [] Other: Impact on Illness or Injury [] Angry [] Fearful [] Anxious [] Often cries [] Exhaustion [] Unable to work [] Unable to attend restorationist [] Unable to walk/stand [] Unable to read [] Unable to drive [] Unable to eat/drink [] Unable to sleep [] Unable to be with family [] Patient intubated [] Other: Summary Time spent with patient
--- NOTE | 2021-07-05 17:04 | P.PN_ITS ---
Subjective Subjective: Interval history: Seen this morning. Patient states she feels a lot better compared to before. Her oxygen requirement is down to 9 L at rest. She states she seems to be doing better. Nausea is also improved. She does not offer complaints at this time and is looking forward to going home soon but willing to stay until the doctors recommend. Vitals/I&O/Wt Last Vital Signs Temp 97.8 F 07/05/21 16:00 Pulse 94 07/05/21 16:00 Resp 20 H 07/05/21 16:00 BP 115/75 07/05/21 16:00 Pulse Ox 92 07/05/21 16:00 07/05/21 07/05/21 07/05/21 06:59 14:59 22:59 Intake Total 1720 / 4790 460 / 460 520 / 980 Output Total 1300 / 2700 Balance 420 / 2090 460 / 460 520 / 980 Weight last 48 hrs Weight 54.749 kg Physical Exam Narrative: EXAM NARRATIVE: General: Alert oriented x3, nO ACUTE DISTRESS, HEENT: Normocephalic, atraumatic, EOMI, breathing comfortably on 12L NC Cardio: slightly tachycardic, normal S1-S2, no gross murmers. Heart sounds not muffled. no JVD noted. Respiratory: Diminished air entry b/l but very clear to auscultation today. GI: Abdomen soft, nontender, bowel sounds + Extremities: no edema, no cyanosis Lott in place Unchanged physical exam from prior days. Her physical exam has been normal. Urinary Catheter Management^: Lott: Cath Placed During This Visit: yes Reason for Continuing Indwelling Catheter: Other Urinary Catheter Date of Insertion: 06/28/21 Urinary Catheter Time of Insertion: 09:45 Data : 07/05/21 02:39 07/05/21 02:39 Micro: Microbiology 06/30/21 14:30 Blood Culture - Final Blood NO GROWTH AFTER 5 DAYS 06/30/21 14:30 Blood Culture - Final Blood NO GROWTH AFTER 5 DAYS 07/04/21 19:20 Blood Culture - Preliminary Blood SPECIMEN COLLECTED 07/04/21 19:15 Blood Culture - Preliminary Blood SPECIMEN COLLECTED A&P Assessment and plan (1) Septic shock: Status: Acute (2) Acute and chronic respiratory failure with hypoxia: Status: Acute (3) Sepsis: Status: Acute (4) Malignant neoplasm of lung: Status: Acute (5) GERD (gastroesophageal reflux disease): Status: Acute Qualifiers: Esophagitis presence: esophagitis presence not specified Qualified Code(s): K21.9 - Gastro-esophageal reflux disease without esophagitis (6) Depression with anxiety: Status: Acute (7) Chronic cough: Status: Acute (8) Pneumonia: Status: Acute Additional A&P Information This patient presented with shock and respiratory distress, lung imaging shows worsening of her underlying malignancy, no signs of PE. Worsening mediastinal and bilateral hilar lymphadenopathy concerning for worsening malignancy is present. One of the enlarging lymph nodes is inseparable from the esophagus and esophageal invasion is not included. Patient was on broad-spectrum antibiotics initially and was deescalated to oral antibiotics yesterday. Her oxygen requirement went up from 11 L to 12 to 14 L today. She did require vasopressors in the ICU as well. She also got stress dose steroids initially. Cultures are negative to date. There was concern for pneumonia but cultures are negative to date C. difficile panel negative. She was being continued on Levaquin since yesterday. If another episode of fever recommendation was made to consider escalating antibiotics due to her high risk of recurrent pneumonias. Patient was recommended to go retirement versus LTAC when she is medically stable for discharge so that she can also use BiPAP there as well. Patient however is not very open with the idea of going to a retirement. She would like to go back to assisted living facility. Patient believes that she is doing okay and can get around on her own. Lott catheter was also placed due to her increasing oxygen requirements and her desaturating upon movement. It seems as this is all related to her worsening malignancy at this point. Procalcitonin was elevated and has started trending down. Patient was also dehydrated and had hyponatremia on admission. She did not vomit. She was given d5 for short time for hypernatremia. Sodium 142 today. Today's plan 07/05/2021 Due to her increasing oxygen requirements CT chest repeated. It showed mod pericardial effusion (similar to prior study). Echo ordered to futher evaluate. TB QuantiFERON test is indeterminate. Imaging reviewed with Dr. Ruano. Patient has some evidence of possible PCP pneumonia. Continue IV bactrim and prednisone 50 mg. Will continue. Patient's WBC count has jumped up to 21,000 and also has a 15% bandemia on 07/04. WBC count has decreased to 19,000 and bandemia has resolved.. We will continue vancomycin, imipenem along with current IV Bactrim. Repeat blood culture negative to date so far. Repeat COVID test pending. Consult pulmonology Dr. Ruano for further recommendations.Recs apprecaited. Will monitor daily for fluid verload and give lasix if needed. If hyponatremic will consider salt tablets. Will replete K and Mg. Continue with Doxy pendant. Continue to wean down oxygen as able. - Will order reglan for nausea. Nausea has improved. Continue Keppra for seizure prophylaxis Continue midodrine 10 3 times daily Continue prednisone 20 daily Hold Eliquis 2.5 twice daily. Acute on chronic anemia?hemoglobin 11.2 at admission. 7.8 yesterday. Today 7.8 stable. She denies any hemoptysis. Hemoglobin 7.6 today. Will check FOBT. Continue to hold Eliquis. Pt has IVC filter in place. hb 7.1 07/03. ordered prbc x1. repeat Hb 8.9. Hemoglobin 8.5 today. WBC elevation most likely 2/2 steroid addition. Updated son 06/30. Blood pressure has been stable. She has been afebrile, she is not tachypneic or in acute respiratory distress. Appears very comfortable on her 9L nasal cannul a. Will use BiPAP if needed should she deteriorate. DNR/DNI Diet: Regular Attestations Medical Necessity Statement*: Greater than 48-hour stay. WBC count still high. On vancomycin imipenem and IV Bactrim. Will need 2-3 more days in the hospital. Once white count has decreased and oxygen requirement continues to go down we will consider discharge but for now she will have to stay. 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
[2021-07-05 20:06] LABS: Fungitell 1-3-B Glucan Assay <31 pg/mL; Interpretation NEGATIVE
[2021-07-06] VITALS (14 sets, daily range): BP systolic 105–121; BP diastolic 66–80; PULSE 66–105; RESP 15–18; TEMP 36.4–37; O2SAT 80–98
[2021-07-06 01:52] LABS: Basophils # 0.1 10^3/uL (0.0-0.1); Basophils % 0.3 %; Eosinophils % 0.1 %; Hematocrit 24.6 % (37.0-47.0); Lymphocytes # 0.6 10^3/uL (0.8-4.8); Lymphocytes % 3.5 %; Mean Corpuscular HGB Conc 32.5 g/dL (30.0-36.0); Mean Corpuscular Hemoglobin 26.9 pg (28.0-34.0); Mean Corpuscular Volume 82.8 fl (81-99); Mean Platelet Volume 9.9 fL (7.4-10.4); Monocytes # 0.9 10^3/uL (0.2-0.9); Monocytes % 5.1 %; Neutrophils # 14.24 10^3/uL (1.8-7.7); Nucleated Red Blood Cells % 0.2 %; Platelet Count 105 10^3/cmm (130-400); Red Blood Count 2.97 10^6/uL (4.1-5.3); Red Cell Distribution Width 18.6 % (12.1-15.1)
[2021-07-06 02:04] LABS: Anion Gap 19.1 (5-19); Blood Urea Nitrogen 10 mg/dL (6-20); Calcium 8.4 mg/dL (8.5-10.5); Carbon Dioxide 20 mmol/L (22-29); Chloride 96 mmol/L (98-107); Glomerular Filtration Rate 88.6 mL/min (90-130); Glucose 78 mg/dL (65-115); Magnesium 2.3 mg/dL (1.7-2.3); Osmolality Calculated 270 mOsm/kg (285-295); Potassium 4.1 mmol/L (3.5-5.1); Sodium 131 mmol/L (136-145); Vancomycin Trough 8.9 ug/mL (10-15)
--- NOTE | 2021-07-06 02:23 | PC.PHAR ---
Vancomycin trough on dosage of 500mg IVPB every 12 hours is 8.9. Dosage is increased to 750mg IVPB every 12 hours with another trough to be obtained before the fourth 750mg dose to determine if further adjustment is needed.
[2021-07-06] MEDS: vancomycin 750 MG in sodium chloride 0.9% 250 ML 250 MG IV ×2 (02:31→15:14)
[2021-07-06 03:12] LABS: Slide Review Slide Review Perform
[2021-07-06] MEDS: levETIRAcetam 500 mg Tablet 250 MG PO ×2 (08:48→17:15)
[2021-07-06] MEDS: midodrine 5 mg TABLET 10 MG PO ×3 (08:48→20:20)
[2021-07-06] MEDS: montelukast sodium 10 mg Tablet PO (08:48)
[2021-07-06] MEDS: sennosides-docusate Tablet 1 TAB PO (08:48)
[2021-07-06] MEDS: predniSONE 20 mg Tablet 50 MG PO (08:48)
[2021-07-06] MEDS: folic acid 1 mg Tablet PO (08:48)
--- NOTE | 2021-07-06 12:27 | PC.CHAP ---
Pastoral Care Encounter/Spiritual Assessment Type of Contact [] Declined community liaison visit [] Patient/Family/Request visit [] Outpatient visit [XX] Follow-up visit [] Physician referral [] Code/Alert [XX] Routine visit [] Staff referral [] Actively dying [XX] Patient sleeping [] Family support [] [] Out of room [] Palliative care [] [] Receiving care in room [] Pre-surgical visit [] Trauma [] Long length of stay [] ICU visit [XX] Other: 2 family members present. Pt awoke when community liaison was speaking to family members. Plunger Machine Operator departed so family could visit with pt. Relational/Emotional Strength [] Patient feels connected with others/family/visitors/staff [] Distress [] Loneliness/isolation [] Abandonment Spirituality of Patient [] Person of Vandana [] Attends Judaism of their Vandana [] Believes in Prayer [] Reads Bible or Anabaptist materials [] There are Spiritual issues to be addressed Plunger Machine Operator Interventions [] Prayer [] Active listening [] Non-anxious presence [] Spiritual/emotional support [] Crisis/trauma care [] Spiritual counseling [] Bereavement support [] Provided bereavement packet [] Provided Bible/devotional materials [] Provided toy/stuffed animal, coloring book to patient or family member [] Provided Communion [] Anointing/[place] [] Salvation [] Completed spiritual assessment [] Other: Impact on Illness or Injury [] Angry [] Fearful [] Anxious [] Often cries [] Exhaustion [] Unable to work [] Unable to attend religious [] Unable to walk/stand [] Unable to read [] Unable to drive [] Unable to eat/drink [] Unable to sleep [] Unable to be with family [] Patient intubated [] Other: Summary Time spent with patient
--- NOTE | 2021-07-06 15:16 | P.PN_ITS ---
Subjective Subjective: Interval history: Seen this morning. She feels a lot better compared to before. Home oxygen evaluation was also done and she qualified for 5 L at rest and slight exertion. Patient would like to go to [facility]. Case management working on the issue. She offers no complaints today. She will be switched to oral Bactrim today. Vitals/I&O/Wt Last Vital Signs Temp 98.6 F 07/06/21 11:57 Pulse 96 07/06/21 11:57 Resp 16 07/06/21 11:57 BP 119/78 07/06/21 11:57 Pulse Ox 80 L 07/06/21 12:16 07/06/21 07/06/21 07/06/21 06:59 14:59 22:59 Intake Total 1290 / 2610 620 / 620 Output Total 1100 / 2900 Balance 190 / -290 620 / 620 Physical Exam Narrative: EXAM NARRATIVE: General: Alert oriented x3, nO ACUTE DISTRESS, HEENT: Normocephalic, atraumatic, EOMI, breathing comfortably on 5L NC Cardio: slightly tachycardic, normal S1-S2, no gross murmers. Heart sounds not muffled. no JVD noted. Respiratory: Diminished air entry b/l but very clear to auscultation today. GI: Abdomen soft, nontender, bowel sounds + Extremities: no edema, no cyanosis Lott in place Unchanged physical exam from prior days. Her physical exam has been normal. Urinary Catheter Management^: Lott: Cath Placed During This Visit: yes Reason for Continuing Indwelling Catheter: Other Urinary Catheter Date of Insertion: 06/28/21 Urinary Catheter Time of Insertion: 09:45 Data : 07/06/21 01:30 07/06/21 01:30 Micro: Microbiology 07/04/21 19:20 Blood Culture - Preliminary Blood NEGATIVE TO DATE 07/04/21 19:15 Blood Culture - Preliminary Blood NEGATIVE TO DATE 06/30/21 14:30 Blood Culture - Final Blood NO GROWTH AFTER 5 DAYS 06/30/21 14:30 Blood Culture - Final Blood NO GROWTH AFTER 5 DAYS A&P Assessment and plan (1) Septic shock: Status: Acute (2) Acute and chronic respiratory failure with hypoxia: Status: Acute (3) Sepsis: Status: Acute (4) Malignant neoplasm of lung: Status: Acute (5) GERD (gastroesophageal reflux disease): Status: Acute Qualifiers: Esophagitis presence: esophagitis presence not specified Qualified Code(s): K21.9 - Gastro-esophageal reflux disease without esophagitis (6) Depression with anxiety: Status: Acute (7) Chronic cough: Status: Acute (8) Pneumonia: Status: Acute Additional A&P Information This patient presented with shock and respiratory distress, lung imaging shows worsening of her underlying malignancy, no signs of PE. Worsening mediastinal and bilateral hilar lymphadenopathy concerning for worsening malignancy is present. One of the enlarging lymph nodes is inseparable from the esophagus and esophageal invasion is not included. Patient was on broad-spectrum antibiotics initially and was deescalated to oral antibiotics yesterday. Her oxygen requirement went up from 11 L to 12 to 14 L today. She did require vasopressors in the ICU as well. She also got stress dose steroids initially. Cultures are negative to date. There was concern for pneumonia but cultures are negative to date C. difficile panel negative. She was being continued on Levaquin since yesterday. If another episode of fever recommendation was made to consider escalating antibiotics due to her high risk of recurrent pneumonias. Patient was recommended to go care home versus LTAC when she is medically stable for discharge so that she can also use BiPAP there as well. Patient however is not very open with the idea of going to a care home. She would like to go back to assisted living facility. Patient believes that she is doing okay and can get around on her own. Lott catheter was also placed due to her increasing oxygen requirements and her desaturating upon movement. It seems as this is all related to her worsening malignancy at this point. Procalcitonin was elevated and has started trending down. Patient was also dehydrated and had hyponatremia on admission. She did not vomit. She was given d5 for short time for hypernatremia. Sodium 131 today. Today's plan 07/06/2021 Due to her increasing oxygen requirements CT chest repeated. It showed mod pericardial effusion (similar to prior study). Echo ordered to futher evaluate. TB QuantiFERON test is indeterminate. Imaging reviewed with Dr. Ruano. Patient has some evidence of possible PCP pneumonia. Continue IV bactrim and prednisone 50 mg. Will continue. Patient's WBC count has jumped up to 21,000 and also has a 15% bandemia on 07/04. WBC count has decreased to 19,000 and bandemia has resolved.. We will continue vancomycin, imipenem. Repeat blood culture negative to date so far. We will switch to oral Bactrim DS 2 tabs BID with prednisone 40 daily. Repe switch toat COVID test pending. Consult pulmonology Dr. Ruano for further recommendations.Recs apprecaited. Will monitor daily for fluid verload and give lasix if needed. If hyponatremic will consider salt tablets. Will replete K and Mg. Continue with Doxy pendant. Continue to wean down oxygen as able. - Will order reglan for nausea. Nausea has improved. Continue Keppra for seizure prophylaxis Continue midodrine 10 3 times daily Continue prednisone 20 daily Hold Eliquis 2.5 twice daily. Acute on chronic anemia?hemoglobin 11.2 at admission. 7.8 yesterday. Today 7.8 stable. She denies any hemoptysis. Hemoglobin 7.6 today. Will check FOBT. Continue to hold Eliquis. Pt has IVC filter in place. hb 7.1 07/03. ordered prbc x1. repeat Hb 8.9. Hemoglobin 8.0 today. WBC elevation most likely 2/2 steroid addition vs other infection. Updated son 06/30. Offered to update him again today. Pt said she will talk to him. DNR/DNI Diet: Regular Attestations Medical Necessity Statement*: > 48 hours, WBC count 17,000. Coding Level of Care Code Acute Legal Director for Chg Fwd Diagnoses Septic shock A41.9; R65.21 Acute and chronic respiratory failure with hypoxia J96.21 Sepsis A41.9 Malignant neoplasm of lung C34.90 GERD (gastroesophageal reflux disease) K21.9 Esophagitis presence: esophagitis presence not specified Depression with anxiety F41.8 Chronic cough R05 Pneumonia J18.9
[2021-07-06] MEDS: sulfamethoxazole-trimeth DS 160-800 mg Tablet 2 TAB PO ×2 (15:18→20:21)
--- NOTE | 2021-07-06 20:17 | PC.NURSE ---
i reported high pulse 105 to nurse
[2021-07-07] VITALS (13 sets, daily range): BP systolic 112–130; BP diastolic 72–85; PULSE 80–112; RESP 16–20; TEMP 36.4–36.9; O2SAT 90–97
[2021-07-07] MEDS: vancomycin 750 MG in sodium chloride 0.9% 250 ML 250 MG IV ×2 (02:26→14:46)
[2021-07-07 05:45] LABS: Basophils % 0.3 %; Eosinophils % 0.2 %; Hematocrit 22.9 % (37.0-47.0); Hemoglobin 7.3 g/dL (11.5-15.3); Lymphocytes # 0.6 10^3/uL (0.8-4.8); Lymphocytes % 4.3 %; Mean Corpuscular HGB Conc 31.9 g/dL (30.0-36.0); Mean Corpuscular Hemoglobin 27.2 pg (28.0-34.0); Mean Corpuscular Volume 85.4 fl (81-99); Monocytes # 0.7 10^3/uL (0.2-0.9); Monocytes % 5.4 %; Neutrophils # 10.68 10^3/uL (1.8-7.7); Neutrophils % 82.3 %; Nucleated Red Blood Cells % 0.2 %; Platelet Count 105 10^3/cmm (130-400); Red Blood Count 2.68 10^6/uL (4.1-5.3)
[2021-07-07 05:58] LABS: Slide Review Slide Review Perform
[2021-07-07 06:33] LABS: Blood Urea Nitrogen 11 mg/dL (6-20); Calcium 8.4 mg/dL (8.5-10.5); Carbon Dioxide 21 mmol/L (22-29); Chloride 104 mmol/L (98-107); Glomerular Filtration Rate 75.9 mL/min (90-130); Glucose 60 mg/dL (65-115); Magnesium 2.3 mg/dL (1.7-2.3); Osmolality Calculated 285 mOsm/kg (285-295); Sodium 139 mmol/L (136-145)
[2021-07-07] MEDS: sulfamethoxazole-trimeth DS 160-800 mg Tablet 2 TAB PO ×3 (07:51→20:52)
[2021-07-07] MEDS: midodrine 5 mg TABLET 10 MG PO ×3 (07:51→20:51)
[2021-07-07] MEDS: levETIRAcetam 500 mg Tablet 250 MG PO ×2 (07:52→17:35)
[2021-07-07] MEDS: sennosides-docusate Tablet 1 TAB PO (07:52)
[2021-07-07] MEDS: folic acid 1 mg Tablet PO (07:52)
[2021-07-07] MEDS: predniSONE 20 mg Tablet 50 MG PO (07:52)
[2021-07-07] MEDS: montelukast sodium 10 mg Tablet PO (07:53)
[2021-07-07] MEDS: ipratropium-albuterol 3 mL Neb INHALATION ×2 (07:53→21:06)
--- NOTE | 2021-07-07 08:19 | XR_ITS ---
WS: [id number] XR chest 1V portable [id number] REASON FOR EXAM: follow up FINDINGS: Chemotherapy port and right transjugular central venous catheter remain in proper position. Coarse reticular interstitial changes are seen throughout both lungs with more prominent areas of foc al consolidation than noted on the previous examination of 07/03/2021. No other significant interval change or new finding. XR/XR chest 1V portable [id number] IMPRESSION: More focal areas of consolidation are developing within the diffuse interstitia l pulmonary infiltrates.
--- NOTE | 2021-07-07 10:00 | PC.CHAP ---
Pastoral Care Encounter/Spiritual Assessment Type of Contact [] Declined mophead trimmer and wrapper visit [] Patient/Family/Request visit [] Outpatient visit [] Follow-up visit [] Physician referral [] Code/Alert [x] Routine visit [] Staff referral [] Actively dying [] Patient sleeping [] Family support [] [] Out of room [] Palliative care [] [] Receiving care in room [] Pre-surgical visit [] Trauma [] Long length of stay [] ICU visit [] Other: Relational/Emotional Strength [x] Patient feels connected with others/family/visitors/staff [] Distress [] Loneliness/isolation [] Abandonment Spirituality of Patient [x] Person of Vandana [] Attends Yarsani of their Vandana []x Believes in Prayer [] Reads Bible or Jehovah'S Witness materials [] There are Spiritual issues to be addressed Video Game Creator Interventions [x] Prayer [x] Active listening [x] Non-anxious presence [] Spiritual/emotional support [] Crisis/trauma care [] Spiritual counseling [] Bereavement support [] Provided bereavement packet [] Provided Bible/devotional materials [] Provided toy/stuffed animal, coloring book to patient or family member [] Provided Communion [] Anointing/[place] [] Salvation [x] Completed spiritual assessment [] Other: Impact on Illness or Injury [] Angry [] Fearful [] Anxious [] Often cries [] Exhaustion [] Unable to work [] Unable to attend jain [] Unable to walk/stand [] Unable to read [] Unable to drive [] Unable to eat/drink [] Unable to sleep [] Unable to be with family [] Patient intubated [] Other: Summary Time spent with patient 10 min
--- NOTE | 2021-07-07 14:49 | PM.PN ---
Subjective Subjective: Interval history: Very emotional today, she wanted to go home Patient and family was notified that she is not a candidate to return home, she developed bandemia on broad-spectrum antibiotics and white count is improving with use of IV antibiotics and she is currently being treated for PCP pneumonia, she should not return home, we are finding placement at [facility] Currently on 5 L, Negative fluid balance Remove Lott catheter today, out of bed to chair encourage patient to ambulate and monitor O2 saturation Nurse updated Plan to discharge her on 3-week regimen of PCP pneumonia She will stay on prednisone higher dose, she will need PCP of prophylaxis long-term Chest x-ray shows dense consolidation Daughter updated Blood pressure stable on midodrine Vitals/I&O/Wt Last Vital Signs Temp 98.4 F 07/07/21 11:02 Pulse 102 H 07/07/21 11:02 Resp 16 07/07/21 11:02 BP 112/72 07/07/21 11:02 Pulse Ox 90 07/07/21 11:02 07/06/21 07/07/21 07/07/21 22:59 06:59 14:59 Intake Total 350 / 1330 560 / 1890 640 / 640 Output Total 1900 / 1900 800 / 2700 1100 / 1100 Balance -1550 / -570 -240 / -810 -460 / -460 Physical Exam Narrative: EXAM NARRATIVE: Very fatigued and lethargic patient currently on 5 L No conversational dyspnea Dry cracked lips Clinical signs of dehydration Abdomen soft No audible stridor or wheezing with rhonchi noted at the bases Lower extremity no edema EOMI, PERRLA Nonfocal neuro exam Urinary Catheter Management^: Lott: Cath Placed During This Visit: yes, but has since been removed by the nurse Reason for Continuing Indwelling Catheter: Decision to DC Catheter Urinary Catheter Date of Insertion: 06/28/21 Urinary Catheter Time of Insertion: 09:45 Date Urinary Catheter Removed: 07/07/21 Time Urinary Catheter Discontinued: 13:33 Data : 07/07/21 04:22 07/07/21 04:22 A&P Assessment and plan (1) Pericardial effusion: Status: Acute (2) Metastatic adenocarcinoma: Status: Acute (3) Acute and chronic respiratory failure with hypoxia: Status: Acute (4) Septic shock: Status: Acute (5) Acute and chronic respiratory failure with hypoxia: Status: Acute (6) Malignant neoplasm of lung: Status: Acute (7) GERD (gastroesophageal reflux disease): Status: Acute Qualifiers: Esophagitis presence: esophagitis presence not specified Qualified Code(s): K21.9 - Gastro-esophageal reflux disease without esophagitis (8) Depression with anxiety: Status: Acute Additional A&P Information Septic shock: Resolved Sepsis related to pneumonia, Currently being treated for PCP pneumonia, dense consolidation on chest x-ray, continue vancomycin and imipenem Leukocytosis improving on broad-spectrum IV antibiotics, Appreciate Dr. Ruano's recommendation, plan to finish 10 days on IV antibiotics, this is her 11th day in the hospital She will need 3 weeks of PCP pneumonia treatment outpatient and outpatient follow-up with Dr. Badillo Acute on chronic hypoxia with underlying malignancy Mycobacterium tuberculosis ruled out, Covid PCR negative Considering multiple cysts on her CT scan of lung we are treating her for PCP pneumonia, dense consolidation evident as well, she is immunocompromise, Previous history of aspergillus Oxygen requirement has improved, leukocytosis improving Patient has lung cancer with metastases to brain she has been taking Decadron outpatient, She is also on seizure prophylaxis Acute on chronic anemia Patient does endorse mild hemoptysis otherwise no signs of melanotic stool or hematuria Considering her worsening fatigue and lethargy to keep her hemoglobin above eight I will give her 1 unit PRBC Stool occult blood test is pending [place] on hold, she has IVC filter Updated daughter today DNR/DNI Regular diet Attestations Medical Necessity Statement*: Continue medical management, not ready to be discharged at this point Time Spent in Patient Care: 16 - 35 minutes Coding Level of Care Code Acute Body Mechanic Apprentice for g Fwd Diagnoses Pericardial effusion I31.3 Metastatic adenocarcinoma C79.9 Acute and chronic respiratory failure with hypoxia J96.21 Septic shock A41.9; R65.21 Acute and chronic respiratory failure with hypoxia J96.21 Malignant neoplasm of lung C34.90 GERD (gastroesophageal reflux disease) K21.9 Esophagitis presence: esophagitis presence not specified Depression with anxiety F41.8
--- NOTE | 2021-07-07 14:58 | CTR_ITS ---
PROCEDURE INFORMATION: Exam: CT Chest Without Contrast; Diagnostic Exam date and time: 07/07/2021 2:58 PM Age: 51 years old Clinical indication: Shortness of breath; Prior surgery; Surgery type: Port; Additional info: Hypoxia TECHNIQUE: Imaging protocol: Diagnostic computed tomography of the chest without contrast. Radiation optimization: All CT scans at this facility use at least one of these dose optimization techniques: automated exposure control; mA and/or kV adjustment per patient size (includes targeted exams where dose is matched to clinical indication); or iterative reconstruction. COMPARISON: CT chest [facility] [id number] 06/30/2021 2:53 PM RADIATION DOSE METRICS: Total DLP (mGy-cm): 604.6 FINDINGS: Tubes, catheters and devices: Right Mrxczy-W-Pfic with tip in the inferior right atrium. Lungs: Diffuse mixed ground-glass and centrilobular opacities have slightly worsened in both lungs. Patchy areas of consolidation have developed in the bilateral lower lobes. Pleural spaces: Unremarkable. No pneumothorax. No pleural effusion. Heart: Stable pericardial effusion. The heart size is normal. Aorta: Unremarkable. No aortic aneurysm. Lymph nodes: Prominent lymph nodes in the middle mediastinum. Stable small retrocrural lymph nodes. Liver: Multiple low-density lesions scattered throughout the liver are unchanged. Adrenal glands: Stable bilateral adrenal nodules. Bones/joints: The bones are intact. No fracture or lytic lesion identified. Soft tissues: Unremarkable. CT/CT chest con [id number] IMPRESSION: 1. Slightly worsened diffuse infiltrates in both lungs. This most likely represents a combination of atypical infection, pulmonary edema, and/or ARDS. 2. Stable pericardial effusion. 3. Stable liver and adrenal lesions, consistent with metastatic disease.
[2021-07-07] MEDS: sodium chloride 0.9% (100 ml) 100 ML 50 ML (17:22)
[2021-07-07 20:54] LABS: Hematocrit 27.7 % (37.0-47.0)
[2021-07-08] VITALS (7 sets, daily range): BP systolic 122–128; BP diastolic 78–83; PULSE 90–99; RESP 16–26; TEMP 36.6; O2SAT 88–99
[2021-07-08] MEDS: vancomycin 750 MG in sodium chloride 0.9% 250 ML 250 MG IV (04:23)
[2021-07-08 07:39] LABS: Hematocrit 25.2 % (37.0-47.0); Hemoglobin 8.2 g/dL (11.5-15.3); Mean Corpuscular HGB Conc 32.5 g/dL (30.0-36.0); Mean Corpuscular Hemoglobin 27.8 pg (28.0-34.0); Mean Corpuscular Volume 85.4 fl (81-99); Mean Platelet Volume 9.7 fL (7.4-10.4); Platelet Count 105 10^3/cmm (130-400); Red Blood Count 2.95 10^6/uL (4.1-5.3); Red Cell Distribution Width 17.9 % (12.1-15.1); White Blood Count 11.2 10^3/uL (4.0-10.0)
[2021-07-08 08:00] LABS: Anion Gap 15.8 (5-19); Blood Urea Nitrogen 10 mg/dL (6-20); Calcium 8.2 mg/dL (8.5-10.5); Carbon Dioxide 22 mmol/L (22-29); Chloride 107 mmol/L (98-107); Glomerular Filtration Rate 75.9 mL/min (90-130); Glucose 63 mg/dL (65-115); Osmolality Calculated 289 mOsm/kg (285-295); Potassium 3.8 mmol/L (3.5-5.1); Sodium 141 mmol/L (136-145)
[2021-07-08 08:01] LABS: Lactate Dehydrogenase 461 U/L (135-214)
[2021-07-08 08:20] LABS: Slide Review Slide Review Perform
[2021-07-08 08:23] LABS: Absolute Segmented Neutrophil 9.2 10/cmm (1.6-7.1); Lymphocytes 3 %; Segmented Neutrophils 82 %; Total Cells Counted 100 (0-100)
[2021-07-08 08:24] LABS: Absolute Neutrophil 10.2 10^3/cmm (1.4-6.5); Eosinophils 0 %; Hypersegmented Polys Trace; Lymphocytes Absolute 0.3 10^3/cmm (1.2-3.4); Platelet Estimate Decreased (Normal); Poikilocytosis 1+
--- NOTE | 2021-07-08 09:28 | PC.CHAP ---
Pastoral Care Encounter/Spiritual Assessment Type of Contact [] Declined back gray cloth washer visit [] Patient/Family/Request visit [] Outpatient visit [] Follow-up visit [] Physician referral [] Code/Alert [x] Routine visit [] Staff referral [] Actively dying [] Patient sleeping [] Family support [] [] Out of room [] Palliative care [] [] Receiving care in room [] Pre-surgical visit [] Trauma [] Long length of stay [] ICU visit [] Other: Relational/Emotional Strength [x] Patient feels connected with others/family/visitors/staff [] Distress [] Loneliness/isolation [] Abandonment Spirituality of Patient [x] Person of Vandana [x] Attends Buddhism of their Vandana [x] Believes in Prayer [x] Reads Bible or Sikhism materials [] There are Spiritual issues to be addressed Risk Manager Interventions [x] Prayer [x] Active listening [x] Non-anxious presence [x] Spiritual/emotional support [] Crisis/trauma care [] Spiritual counseling [] Bereavement support [] Provided bereavement packet [] Provided Bible/devotional materials [] Provided toy/stuffed animal, coloring book to patient or family member [] Provided Communion [] Anointing/[place] [] Salvation [x] Completed spiritual assessment [] Other: Impact on Illness or Injury [] Angry [x] Fearful [] Anxious [] Often cries [] Exhaustion [] Unable to work [] Unable to attend latter day [] Unable to walk/stand [x] Unable to read [] Unable to drive [] Unable to eat/drink [] Unable to sleep [] Unable to be with family [] Patient intubated [] Other: Summary Risk Manager is an associated of Pt through community Bible Study. Risk Manager offered a Bible but Pt said she is unable to read because she is having eye sight problems. She has been undergoing cancer treatment and the treatment plan is to continue until the cancer no longer responds. She is currently in hospital due to shortness of breath and once her O2 levels increase, she will be able to go home. She lives in an independent living situation with nursing care available if she needs it. Time spent with patient 15m
[2021-07-08] MEDS: montelukast sodium 10 mg Tablet PO (11:08)
[2021-07-08] MEDS: folic acid 1 mg Tablet PO (11:08)
[2021-07-08] MEDS: sulfamethoxazole-trimeth DS 160-800 mg Tablet 2 TAB PO (11:08)
[2021-07-08] MEDS: predniSONE 20 mg Tablet 50 MG PO (11:08)
[2021-07-08] MEDS: levETIRAcetam 500 mg Tablet 250 MG PO (11:09)
[2021-07-08] MEDS: midodrine 5 mg TABLET 10 MG PO (11:10)
[2021-07-08] MEDS: sennosides-docusate Tablet 1 TAB PO (11:10)
[2021-07-08] MEDS: ipratropium-albuterol 3 mL Neb INHALATION (11:17)
--- NOTE | 2021-07-08 13:14 | PC.OT ---
OT tx attempted. Pt sleeping soundly. Therapist will attempt again later today if possible.
[2021-07-08 13:46] LABS: SARS Covid-2 Antigen Negative (Negative)
--- NOTE | 2021-07-08 14:35 | PM.DCS ---
Discharge Providers Date of Admission: 06/25/21 17:40 Date of Discharge: July 08, 2021 Attending Provider at Admission: Kareem Nieves MD Attending Provider at Discharge: Kareem Nieves MD Primary Care Provider: Sebastian Hendrickson MD Diagnoses at Discharge Discharge Diagnosis (1) Pericardial effusion: Status: Acute (2) Metastatic adenocarcinoma: Status: Acute (3) Acute and chronic respiratory failure with hypoxia: Status: Acute (4) Septic shock: Status: Acute (5) Acute and chronic respiratory failure with hypoxia: Status: Acute (6) Malignant neoplasm of lung: Status: Acute (7) GERD (gastroesophageal reflux disease): Status: Acute Qualifiers: Esophagitis presence: esophagitis presence not specified Qualified Code(s): K21.9 - Gastro-esophageal reflux disease without esophagitis (8) Depression with anxiety: Status: Acute Reason for Visit Reason for Visit: SOB Hospital Course Hospital Course History of Present Illness Sophia Miller is a 51 year old female who carries history of 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 She also carries history of sleep apnea, presented today with chief complaint of gradual worsening of shortness of breath. Patient is stating that she has baseline shortness of breath at the assisted living seizures first. For last couple of days her shortness of breath was getting worse and today when she woke up she was extremely short of breath. She did not straits any chest pain, diarrhea however endorsing low-grade fever 100.1. She is vaccinated for COVID-19. No excessive sputum production, chest pain, diarrhea or vomiting. She is endorsing lack of appetite, weight loss. Patient does use oxygen on as needed basis at the facility. Because of worsening of her symptoms she was brought to the ER for further evaluation In the ER she was hypotensive, severely hypoxic, she was put on BiPAP, no leukocytosis, she is febrile, tachycardic Met sepsis criteria, she received septic bolus and I have requested vasopressors to be started and requested help supervisor microbiology technologists to transfer her to ICU as soon as possible Patient's son was in the room at the time of my evaluation, patient was able to tell me above-mentioned details, patient and her son both understood the severity of her underlying condition, all of her questions were answered to their satisfaction, guarded prognosis discussed, goals of care discussed, patient is DNR/DNI. I have requested stress dose steroids and initiation of vasopressors as she is not responding very well to septic bolus. Chest imaging does show evidence of worsening underlying malignancy with worsening lymphadenopathy, severe narrowing of the right middle lobe pulmonary artery, worsening hepatic and adrenal metastatic lesions periportal lymphadenopathy also noted, Pericardial effusion is unchanged, no significant JVD Hospital course Patient was admitted to the ICU for management of septic shock and respiratory distress, chest imaging consistent with worsening of underlying malignancy, no signs of PE at the time of admission(she does have history of embolism, takes Eliquis status post IVC filter in the past), she did require stress dose steroids (has been taking Decadron for brain mets outpatient )to improve her blood pressure along vasopressors. She was kept on vancomycin Zosyn and Levaquin. For her diarrhea on presentation , C. difficile panel was ruled out. She was extremely dehydrated with 3 L water deficit at the time of presentation required IV fluid hydration. She was transferred out of ICU to [facility] after improvement in septic shock. However her hypoxia worsened, at home she requires 3 L of oxygen, during hospitalization oxygen requirement increased from 3 L to 14 L via high flow nasal cannula. Covid PCR negative, QuantiFERON test unremarkable, with worsening of hypoxia she was started on PO Bactrim empirical treatment. After [address] Ruano was consulted who recommended IV Bactrim for cystic changes throughout her lungs. After initiation of IV Bactrim oxygen requirement did improve and she was finally doing well at 5 to 6 L regular nasal cannula/oxygen pendent. Dr. Ruano recommended 3 weeks of PO Bactrim 2 tablets 3 times a day, she finished 10 days of IV broad-spectrum antibiotics in the hospital, and 1 week of Bactrim, at the time of discharge she will require 14 more days of Bactrim along with prednisone 40 mg and follow-up with Dr. Hayden. Patient did require 2 units of PRBC for her anemia, no active bleeding no hematemesis no melanotic stools patient did experience couple of episode of hemoptysis, she noticed small amount of blood in her sputum, she had similar episodes in the past as well. Madina held at the time of discharge Further instructions to be given by her school custodian, I am giving her 30-day supply of steroids, inhalers and 14-day regimen of Bactrim Physical Exam Narrative: EXAM NARRATIVE: Very fatigued and lethargic patient currently on 5 L No conversational dyspnea Dry cracked lips Clinical signs of dehydration Abdomen soft Lower extremity no edema Lung bases have mild crackles on lung auscultation EOMI, PERRLA Nonfocal neuro exam Urinary Catheter Management^: Lott: Cath Placed During This Visit: yes, but has since been removed by the nurse Reason for Continuing Indwelling Catheter: Decision to DC Catheter Urinary Catheter Date of Insertion: 06/28/21 Urinary Catheter Time of Insertion: 09:45 Date Urinary Catheter Removed: 07/07/21 Time Urinary Catheter Discontinued: 13:33 Discharge Data Data Completed and Pending: Completed Studies During Hospitalization Category Date Time Status CT angio chest PE protcl [id number] Urge nt Cat Scan 06/25/21 14:[address] chest wo con 7 1250 Routine Cat Scan 07/07/21 14:[address] chest wo con 7 1250 Stat Cat Scan 06/30/21 14:15 Completed XR chest 1V lali ble [id number] Routine Exams 07/07/21 08:19 Completed XR chest 1V lali ble [id number] Stat Exams 07/03/21 07:52 Completed XR chest 1V lali ble [id number] Urgent Exams 06/25/21 14:48 Completed CV. echo complete * [id number] Urgent Ultrasound 07/01/21 17:39 Completed Pending at discharge Category Date Time Status Aspergillus AG,EI A,Serum Stat Lab 07/01/21 15:50 Received Blood Culture Sta t Lab 07/04/21 19:20 Results Immunochemical Fe kristina OCB Routine Lab 06/30/21 14:48 Uncollected Immunochemical Fe kristina OCB Routine Lab 07/07/21 07:52 Uncollected MRSA by PCR Stat Lab 07/07/21 13:55 Received Pneumocystis jiro veci Qual PCR Rout ine Lab 06/30/21 16:08 Ordered Sputum Culture an d Gram Stain Stat Lab 06/30/21 14:09 Uncollected Sputum Culture an d Gram Stain Stat Lab 07/07/21 11:45 Uncollected Labs from last 24 hours 07/08/21 07/08/21 07/08/21 12:30 07:25 07:25 WBC RBC Hgb Hct MCV MCH MCHC RDW Plt Count MPV Lymph % (Auto) [place] % (Auto) Lymph # (Auto) [place] # (Auto) Total Counted Atypical Lymphs % Absolute Neutrophi ls Segmented Neutroph ils Abs Segm Neuts (Ma n) Band Neutrophils Abs Band Neuts (Ma n) Absolute Lymphocyt es Lymphocytes (Manua l) Monocytes (Manual) Absolute Monocytes Eosinophils (Manua l) Absolute Eosinophi ls Basophils (Manual) Absolute Basophils Metamyelocytes Myelocytes Hypersegmented Chinedu ys Platelet Estimate Poikilocytosis Sodium 141 Potassium 3.8 Chloride 107 Carbon Dioxide 22 Anion Gap 15.8 BUN 10 Creatinine 0.8 GFR Calculation 75.9 L Glucose 63 L Calculated Osmolal ity 289 Calcium 8.2 L Lactate Dehydrogen ase 461 H SARS-CoV-2 Ag (Rap id) Negative Blood Type Rho(D) Type Antibody Screen Crossmatch 07/08/21 07/07/21 07/07/21 07:25 20:37 13:44 WBC 11.2 H RBC 2.95 L Hgb 8.2 L 9.0 L Hct 25.2 L 27.7 L MCV 85.4 MCH 27.8 L MCHC 32.5 RDW 17.9 H Plt Count 105 L MPV 9.7 Lymph % (Auto) Not Reportable [place] % (Auto) Not Reportable Lymph # (Auto) Not Reportable [place] # (Auto) Not Reportable Total Counted 100 Atypical Lymphs % 0.0 Absolute Neutrophi ls 10.2 H Segmented Neutroph ils 82 Abs Segm Neuts (Ma n) 9.2 H Band Neutrophils 9.0 Abs Band Neuts (Ma n) 1.0 Absolute Lymphocyt es 0.3 L Lymphocytes (Manua l) 3 Monocytes (Manual) 0.0 Absolute Monocytes 0.0 L Eosinophils (Manua l) 0 Absolute Eosinophi ls 0.0 Basophils (Manual) 0.0 Absolute Basophils 0.0 Metamyelocytes 3.0 Myelocytes 3.0 Hypersegmented Chinedu ys Trace Platelet Estimate Decreased L Poikilocytosis 1+ H Sodium Potassium Chloride Carbon Dioxide Anion Gap BUN Creatinine GFR Calculation Glucose Calculated Osmolal ity Calcium Lactate Dehydrogen ase SARS-CoV-2 Ag (Rap id) Blood Type A Positive Rho(D) Type Positive Antibody Screen Negative Crossmatch See Detail 06/30/21 14:24 WBC RBC Hgb Hct MCV MCH MCHC RDW Plt Count MPV Lymph % (Auto) [place] % (Auto) Lymph # (Auto) [place] # (Auto) Total Counted Atypical Lymphs % Absolute Neutrophi ls Segmented Neutroph ils Abs Segm Neuts (Ma n) Band Neutrophils Abs Band Neuts (Ma n) Absolute Lymphocyt es Lymphocytes (Manua l) Monocytes (Manual) Absolute Monocytes Eosinophils (Manua l) Absolute Eosinophi ls Basophils (Manual) Absolute Basophils Metamyelocytes Myelocytes Hypersegmented Chinedu ys Platelet Estimate Poikilocytosis Sodium Potassium Chloride Carbon Dioxide Anion Gap BUN Creatinine GFR Calculation Glucose Calculated Osmolal ity Calcium Lactate Dehydrogen ase SARS-CoV-2 Ag (Rap id) Blood Type Rho(D) Type Antibody Screen Crossmatch See Detail Vitals: Last Vital Signs Temp 97.9 F 07/08/21 10:53 Pulse 93 07/08/21 11:18 Resp 19 H 07/08/21 11:18 BP 125/82 07/08/21 10:53 Pulse Ox 92 07/08/21 11:18 Discharge Plan Discharge Patient Disposition: Xfer SNF Condition: Stable Prescriptions: New sulfamethoxazole-trimethoprim 800-160 mg Tablet 2 tab PO TID 14 Days Qty: 84 RF: 0 albuterol sulfate 90 mcg/actuation HFA aerosol inhaler 2 inh inhalation Q8H Qty: 8.5 RF: 3 Anoro Ellipta 62.5-25 mcg/actuation blister with device 1 inh inhalation DAILY Qty: 60 RF: 0 levofloxacin 750 mg tablet 750 mg PO DAILY 7 Days Qty: 7 RF: 0 prednisone 20 mg tablet 40 mg PO DAILY Qty: 60 RF: 0 Continued montelukast [Singulair] 10 mg tablet 10 mg PO DAILY@08 RF: 0 pantoprazole 40 mg tablet,delayed release (DR/EC) 40 mg PO DAILY@08 RF: 0 alprazolam [Xanax] 0.25 mg tablet 0.25 mg PO Q6H PRN (Reason: Anxiety) RF: 0 sertraline [Zoloft] 100 mg tablet 200 mg PO DAILY@08 RF: 0 acetaminophen 325 mg Tablet 650 mg PO Q6H PRN (Reason: Pain) RF: 0 trazodone 50 mg Tablet 50 mg PO BEDTIME@20 RF: 0 ondansetron HCl [Zofran] 4 mg Tablet 4 mg PO Q8H PRN (Reason: Nausea) RF: 0 lidocaine-prilocaine 2.5-2.5 % Cream See Rx Instructions .ROUTE .COMPLEX RF: 0 levetiracetam [Keppra] 250 mg Tablet 250 mg PO BID@08,16 RF: 0 benzonatate 100 mg Capsule 100 mg PO TID PRN (Reason: Cough) RF: 0 folic acid 1 mg Tablet 1 mg PO DAILY@08 RF: 0 midodrine 2.5 mg Tablet 10 mg PO TID@08,14,20 RF: 0 polyethylene glycol 3350 [Miralax] 17 gram/dose Powder 17 g PO DAILY PRN (Reason: Constipation) RF: 0 Varubi See Rx Instructions .ROUTE .COMPLEX RF: 0 ferrous sulfate 325 mg (65 mg iron) Tablet 325 mg PO DAILY@08 RF: 0 Discontinued prochlorperazine maleate 10 mg Tablet 10 mg PO Q6H PRN (Reason: Nausea) RF: 0 dexamethasone 2 mg Tablet See Rx Instructions .ROUTE .COMPLEX RF: 0 dexamethasone 4 mg Tablet 4 mg PO BID@08,16 RF: 0 Eliquis 2.5 mg Tablet 2.5 mg PO BID@08,16 RF: 0 Hold Instructions: Resume on 05/05/21. potassium chloride 20 mEq Tablet Extended Release See Rx Instructions .ROUTE .COMPLEX RF: 0 Discharge Orders: Discharge Order (Routine); Ordered 07/08/21 Ordered By: Kareem Nieves Referrals: Daniel [Other] Datar,Nash Parrish MD [Physician] - 07/09/21 10:30 am Sebastian Hendrickson MD [Primary Care Provider] - 07/15/21 9:00 am Discharge Diet: Regular Discharge Activity: Increase activity as tolerated Patient Instructions: Sulfamethoxazole/Trimethoprim (By mouth) (Bactrim, Bactrim DS,..., Albuterol (By breathing), Prednisone (By mouth) (predniSONE Intensol, Prednicot, Deltasone, Adeola), Fluticasone (By breathing) (Arnuity Ellipta, Flovent Diskus,..., Levofloxacin (By mouth) (Levaquin, Levaquin Leva-lynn), Pericardial Effusion (DC) Discharge Attestations Time Spent in Discharge Care*: less than 30 min Status at Discharge: Cognitive status at discharge: cognitively intact, Behavioral status at discharge: cooperative, Quality Metrics Clinical Quality Measures During this hospital stay, did patient experience: None Coding Level of Care Code Acute Chg FW DC note Diagnoses Pericardial effusion I31.3 Metastatic adenocarcinoma C79.9 Acute and chronic respiratory failure with hypoxia J96.21 Septic shock A41.9; R65.21 Acute and chronic respiratory failure with hypoxia J96.21 Malignant neoplasm of lung C34.90 GERD (gastroesophageal reflux disease) K21.9 Esophagitis presence: esophagitis presence not specified Depression with anxiety F41.8
--- NOTE | 2021-07-08 15:20 | PC.NURSE ---
PT IS D/CING, SHE REFUSED AFTERNOON MEDS
[2021-07-10 14:57] LABS: Aspergillus AG,EIA,Serum NOT DETECTED; Aspergillus Galactomannan Inde <0.50
== END 2021-07-08 16:05 | disposition home or self-care (01) | DRG 871 ==
LOC: ER 17:42 → ICU 18:20 → MEDSURG 06-28 00:54
PROVIDERS: Internal Medicine; Internal Medicine Critical Care Medicine; Admitting Provider Internal Medicine; Emergency Provider Emergency Medicine; PCP Family Medicine; Visit Provider Internal Medicine
DX: A41.9 Sepsis, unspecified organism (principal); R65.21 Severe sepsis with septic shock; B59 Pneumocystosis; J96.21 Acute and chronic respiratory failure with hypoxia; C34.90 Malignant neoplasm of unspecified part of unspecified bronchus or lung; C78.7 Secondary malignant neoplasm of liver and intrahepatic bile duct; C79.72 Secondary malignant neoplasm of left adrenal gland; C79.31 Secondary malignant neoplasm of brain; R04.2 Hemoptysis; E87.0 Hyperosmolality and hypernatremia; I31.3 Pericardial effusion (noninflammatory); Z79.899 Other long term (current) drug therapy; F41.8 Other specified anxiety disorders; K21.9 Gastro-esophageal reflux disease without esophagitis; Z95.828 Presence of other vascular implants and grafts; Z92.3 Personal history of irradiation; Z86.711 Personal history of pulmonary embolism; G47.30 Sleep apnea, unspecified; I95.9 Hypotension, unspecified; Z66 Do not resuscitate; R59.0 Localized enlarged lymph nodes; Z99.81 Dependence on supplemental oxygen; R19.7 Diarrhea, unspecified; D64.9 Anemia, unspecified; E86.0 Dehydration; I25.10 Atherosclerotic heart disease of native coronary artery without angina pectoris
CPT/HCPCS: 36415; 36430; 36591; 36600; 51702; 71045; 71250; 71275; 80048; 80053; 80202; 82533; 82803; 82805; 83605; 83615; 83735; 83880; 84145; 84295; 84443; 84484; 85007; 85014; 85018; 85025; 86140; 86403; 86480; 86850; 86900; 86920; 87040; 87305; 87426; 87449; 87493; 87635; 87641; 87804; 93005; 93306; 94640; 94660; 94762; 96365; 96366; 96367; 96375; 97110; 97162; 97166; 97530; 99291; J0743; J1720; J2405; J2543; J2765; J3370; J3480; J3490; J7030; J7040; J7050; J7512; P9016; Q9967

== ENCOUNTER 2021-08-06 12:00 | Outpatient (CLI) | payer OTHER, SELFPAY ==
[2021-08-06 12:33] LABS: Basophils % 0.2 %; Eosinophils # 0.1 10^3/uL (0.0-0.8); Eosinophils % 0.4 %; Hematocrit 36.2 % (37.0-47.0); Hemoglobin 11.7 g/dL (11.5-15.3); Lymphocytes # 0.5 10^3/uL (0.8-4.8); Lymphocytes % 3.3 %; Mean Corpuscular HGB Conc 32.3 g/dL (30.0-36.0); Mean Corpuscular Volume 89.8 fl (81-99); Mean Platelet Volume 9.3 fL (7.4-10.4); Monocytes # 0.9 10^3/uL (0.2-0.9); Monocytes % 6.5 %; Neutrophils # 11.93 10^3/uL (1.8-7.7); Neutrophils % 87.6 %; Nucleated Red Blood Cells % 0 %; Platelet Count 143 10^3/cmm (130-400); Red Blood Count 4.03 10^6/uL (4.1-5.3); Red Cell Distribution Width 16.4 % (12.1-15.1); White Blood Count 13.6 10^3/uL (4.0-10.0)
[2021-08-06 12:55] LABS: Alanine Aminotransferase 15 U/L (0-33); Alkaline Phosphatase 80 IU/L (35-105); Anion Gap 19.3 (5-19); Aspartate Amino Transferase 13 U/L (0-32); Blood Urea Nitrogen 13 mg/dL (6-20); Calcium 8.7 mg/dL (8.5-10.5); Carbon Dioxide 19 mmol/L (22-29); Chloride 103 mmol/L (98-107); Globulin 2.4 g/dL (1.3-4.6); Glomerular Filtration Rate 88.6 mL/min (90-130); Glucose 93 mg/dL (65-115); Osmolality Calculated 284 mOsm/kg (285-295); Potassium 4.3 mmol/L (3.5-5.1); Sodium 137 mmol/L (136-145); Total Bilirubin 0.3 mg/dL (0.15-1.2); Total Protein 6.4 g/dL (6.6-8.7)
== END 2021-08-06 12:01 | disposition home or self-care (01) ==
LOC: ONCMED 12:03
PROVIDERS: PCP Family Medicine; Visit Provider Internal Medicine Hematology & Oncology
DX: C34.91 Malignant neoplasm of unspecified part of right bronchus or lung (principal); C79.31 Secondary malignant neoplasm of brain; C78.7 Secondary malignant neoplasm of liver and intrahepatic bile duct; C79.70 Secondary malignant neoplasm of unspecified adrenal gland; Z79.899 Other long term (current) drug therapy
CPT/HCPCS: 36591; 80053; 85025

== ENCOUNTER 2021-08-07 06:36 | Outpatient (CLI) | payer OTHER, SELFPAY ==
--- NOTE | 2021-08-10 17:23 | ONC FU_ITS ---
Dr. Galvez follow up note Patient: Sophia Miller Unit #: [id number]: 1970 Dicatated By: Foster Galvez M.D.Date of Visit:Aug 07, 2021 Onc Med Follow-up/Prog Note History of Present Illness: Ms. Miller is a 50-year-old female with history of chronic nonproductive cough since August 2019. Ms Garay reports she underwent some dental work-up in the beginning of 2019. At that time she was given antibiotics but her cough did not improve much. She was treated with Levaquin multiple times and then October 2019 she obtained a chest x-ray. The xray reported right lower lobe infiltrate. She was treated with levofloxacin again and with no significant improvement in her cough, she eventually underwent CT scan of the chest on On 02/12/2020. Findings reported focal consolidation right lower lobe along the fissure with air bronchograms. Consolidation measured 5.3 x 4.3 x 5.6 cm. Patchy infiltrate along the right upper lobe laterally. Moderate pericardial effusion. Prominent lymph nodes bilaterally nonspecific but likely reactive measuring 12 mm on the right and 14 mm on the left. Enlarged subcarinal lymph node measuring 14 mm. Proximal main arteries were normal. Normal thoracic aorta. She had an echocardiogram on 02/26/2020 for evaluation of the pericardial effusion which reported a normal left ventricular systolic function and left ventricular ejection fraction estimated at 70%. There were no regional wall motion abnormalities. Normal dystonic dysfunction. There was a moderate circumferential pericardial effusion 1.2 cm along the right ventricle and 1.5 cm along the left ventricle. There was no evidence of hemodynamic compromise and normal size inferior vena cava. She then had follow-up chest x-ray on 02/29/2020 which reported subtle opacity within the middle lobe versus right lung base. Lungs otherwise well aerated. There is no pleural effusion and no pneumothorax. She underwent bronchoscopy on March 22, [address] Hayden. Endobronchial biopsy from the right middle lobe reported lung parenchyma with chronic inflammation no granulomas identified no malignancy identified right lower lobe biopsy reported lung parenchyma and cartilage with focal chronic inflammation. No granulomas or malignancy identified. The bronchial cytology reported by voice and by number on 03/22/2020 reported benign ciliated respiratory epithelial cells, rare benign squamous epithelial cells, mixed inflammatory cells, macrophages, blood and fibrin/proteinaceous debris's. No malignant cells were seen. BAL Aspergillus antigen was positive but index was 0.61. She was treated with doxycycline for1 week and noticed some improvement in the cough. Followup CT scan of chest was repeated on April 29, 2020 which showed consolidative infiltrate in the right lower lobe along the fissure with air bronchograms. Not significantly change from previous, but it did show new hazy groundglass perihilar, upper lobe infiltrates with associated micronodules in the bronchovascular and perilymphatic distribution. She also had persistent moderate pericardial effusion unchanged anterior mediastinal, right paratracheal, hilar and subcarinal lymphadenopathy. Ms Miller underwent repeat bronchoscopy on May 10, 2020 and pathology report came back adenocarcinoma involving the right lower lobe, right middle lobe, station 4R lymph node, station 11 R lymph node. Immunohistochemistry showed TTF-1 positive, p63 negative, Napsin-A positive. On May 15, 2020, patient developed dizziness and was also developing questionable mental status changes e.g. intermittent confusion, but no one-sided weakness or numbness or slurred speech. She presented to [facility] on May 19, 2020. She did have a MRI scan of the head on May 19, 2020. It reported no evidence of acute ischemia or infarct, no acute intracranial hemorrhage. Innumerable ovoid cystic foci throughout the brain which demonstrate susceptibility signal loss and post contrast enhancement suspicious for infectious process such as neurocysticercosis. No evidence of hydrocephalus. Ms Miller reported that at that time, neurosurgery was consulted and clinically, she was diagnosed with brain mets. She was started on dexamethasone and Keppra, no biopsy was done but some blood test but no spinal tap was done either. She also had pericardial biopsy done which shows no evidence of malignant involvement. A repeat CT scan of chest abdomen pelvis done in [place] on May 20, 2020 showed an irregular area of consolidation or neoplastic involvement in the right lower lobe just above the diaphragm approximately 5.5 x 5.5 x 2.5 cm this is internal air bronchograms and elongated shape most consistent with infiltrate or atelectasis perihilar groundglass opacities bilaterally, suspect pneumonia., Echocardiogram done on May 21, 2020 shows ejection fraction 55 to 60%. She reported that because of blurred vision she was also evaluated by ophthalmology and impression was could be due to sarcoidosis involvement. She had subxiphoid pericardial window per Dr. Stiven Basurto at [facility] on 05/22/2020. The pathology final report dated on 05/24/2020 was benign pericardial tissue. There was no sign of significant inflammation. No positive staining neoplastic cells were identified in sections stained with MOC 31, BerEP4 and TTF???1. Ms. Miller had PET/CT imaging with [facility] radiology on 06/01/2020 which reported anterior right lower lobe a 4.3 x 2.6 semisolid mass with an SUV of 12.9. This has a high probability of malignancy, most likely bronchogenic carcinoma. Extensive hypermetabolic adenopathy is present in the mediastinum, consistent with local metastatic disease. Nodes are present in the bilateral hilar, subcarinal, periesophageal, prevascular, subaortic, left and right paratracheal and anterior mediastinal territories. The index subaortic node has an SUV of 13.0. Bilateral FDG positive nodes are present in the cervical level 4 regions with SUV of 8.0 in the 1.1 cm left sided node. In the abdomen, malignant celiac, right retrocrural and bilateral retroperitoneal periaortic nodes are FDG positive consistent with malignancy. A 1.3 x 1.9 cm right adrenal lesion with SUV of 9.2 represents metastatic disease. Uptake in the intracranial gold-white matter is physiologic. Breast parenchymal and axillary lymph nodes uptake bilaterally is unremarkable. Bilateral centrally located groundglass opacity suggests pulmonary edema, drug reaction or viral pneumonia. There were no findings to indicate osseous metastatic disease. Mrs. Miller was first seen on June 04, 2020. At the family's request she was referred to neurosurgery at [place] for evaluation and to confirm brain metastasis. The next notes available were [facility] indicating that she had multiple extensive pulmonary emboli in the bilateral pulmonary arteries including emboli and vascular bifurcations. There was no saddle embolus identified she continued to have extensive groundglass infiltrates seen in the perihilar and mid and upper lung zones particularly in the right middle lobe and bilateral upper lobes. Consolidating infiltrate is noted in the anterior aspect right lower lobe and left lower lobe. Small perihilar infiltrates are seen in the left lower lobe and lingula. It was noted that drainage catheter overlies the pericardium heart size was normal small pericardial effusion maximum with approximately 8 mm. This was diminished with prior study at which time the maximum width was approximately 2 cm. There was mediastinal and hilar adenopathy the largest node was 13 millimeters short axis diameter in the left hilar region. MRI of the head with and without contrast from 06/26/2020 reported innumerable supratentorial and infratentorial intra-axial and extra-axial enhancing mass lesions demonstrate enhancement on postcontrast images which small demonstrating decreased in size. There were no definite new enhancing lesions no hydrocephalus no herniation syndrome. from 06/30/2020 reports guardian test did not show any actual mutation. She was admitted to [facility] from 05/05/2020 to 06/11/2020. She was seen by Dr. Alex from [facility]. She was discharged and scheduled to see Dr. Paola Quezada on 06/27/2020 as [facility] but got admitted to [facility] on 06/22/2020. She was admitted for weakness, nonproductive cough, hypoxia and hypotension. She was found to have recurrent pericardial effusion. She had pericardial window on 06/24/2020. She had CT of the chest abdomen pelvis on 06/26/2020 as reported above. She did have bilateral multiple pulmonary emboli on scan from 06/26/2020 as above. She had IR guided suction thrombectomy on 06/27/2020. IVC filter was placed on 06/28/2020 and she remained on heparin at that time. She was discharged on Eliquis for the pulmonary emboli. The plan at that time was whole brain radiation therapy then chemotherapy. She was on Dex 4 mg twice daily. Ms. Miller had preferred to do treatment in [place] at that time. She was readmitted to [facility] through their ER for shortness of breath, dyspnea and hypotension and hemoptysis prior to her followup with Dr. Pena on August 05, 2020. She had completed whole brain radiation therapy at that time. Dr Pena's notes indicated she received whole brain RT from July 03 through July 16, 2020. Chemotherapy was planned for August 05, 2020 but was placed on hold due to her hospital admission. The plan was for carboplatin Alimta/Keytruda. Her Tempest PD-L1 was reported at 40%. The Guardiant 360 was negative for EGFR, ALK, ROS1, BRAF, MET, RET and NTRK. She was found to have pneumonia with hypoxia and was placed on antibiotics per the primary care team. She was discharged on August 10, 2020. She was seen at [facility] [place] office on August 13, 2020. She had 3 days left remaining on her cefdinir 300 mg twice daily. Her first dose of carboplatin was held but they did proceed with Alimta and Keytruda. If she tolerated that well the plan was to proceed with adding the carboplatin cycle 2. Her dexamethasone was decreased to 4 mg twice daily. She received cycle 2 carboplatin Alimta and Keytruda on 09/03/2020. Her dexamethasone was then tapered to 2 mg twice daily with continued plans to further the taper to get her off of it completely. She continued follow-up with Dr. Pena at [facility] in [place]. On her October 01, 2020, Dr. Pena note it was noted she had she had pneumonitis due to the Keytruda (diagnosed at [facility]-after 2 cycles of Keytryda) but had maintained on Alimta single agent every 3 weeks. She had nausea, vomiting, hypotension, dehydration and decreased performance status overall. She required supportive care after receiving the carboplatin. Her further cycles of chemotherapy included single agent Alimta. Ms. Miller transferred her care to resuming Alimta single agent on December 10, 2020 here at [facility]. On day 8 following that administration of single agent Alimta she was found to be neutropenic with an ANC of 1420. Her hemoglobin was 9.5. She had continued monitoring and her counts recovered. She was due for her next cycle of Alimta on December 31, 2020. There was a gap after her Alimta dose on December 10, 2020. Ms Miller reported that she received Covid vaccination and did develop some symptoms like nausea vomiting headaches which lasted more than 2 weeks. She opted to not come for treatment until January 2021. She proceeded with single Alimta with her last cycle being on 04/09/2021 which was cycle 6. Ms Miller was admitted to [facility] on April 25, 2021 with cough/hemoptysis and shortness of breath. She was on Eliquis for history of pulmonary embolism, hemoglobin at time of admission was 8.7. Her Eliquis was put on hod and she was treated with supportive care. Her urinalysis revealed UTI with E. coli. She was discharged home on Levaquin. She was advised to get a followup CBC done in 1 week post discharge and then restart her Eliquis. Ms Miller had CT scan of chest on 04/24/2021 with note of diffuse groundglass interstitial lung disease bilaterally, greatest involvement bilateral upper lobes which is known to be present on 08/04/2020 exam bedside and interval improvement. There is no visible consolidated ability or airspace disease other than minimal parenchymal scar right lung base which is presumed site of primary lung carcinoma. The appearance of the micro honeycombing bilateral upper lobes and superior segments of the bilateral lower lobes could be secondary to usual interstitial pneumonitis. Findings of tree in bud bronchial ear disease, predominantly peripheral bilateral upper lobes, suggesting either active or chronic bronchial ldisease/bronchiolitis. There is a small 4 mm pulmonary nodule right lower lobe. There was lymphadenopathy noted to be calcified mediastinal and hilar complexes of the antecedent granulomatous disease. There had been interval development of several small low-density hepatic structures that were not visible on the July 2020 exam raising concern for potential diffuse hepatic metastatic disease. At her April 30, 2021 visit her Alimta on hold as she was recovering from E. coli UTI and a follow-up PET CT was requested due to the above CT a of the chest. She was restarted on her Eliquis at that time as her hemoglobin from 10 5 was 8.7. She had no hemoptysis or other signs of bleeding at that time. Mrs. Miller had restaging PET/CT imaging on 05/10/2021 with [facility] radiology. There was comparison to prior PET/CT from 06/01/2020. Dr. Monroe reported significant provement in the right lower lobe pulmonary nodule measuring 2.2 on the current exam with an SUV of 7. Bilateral alveolar lung infiltrates seen on the prior study are mildly progressed on the current study but remain without significant FDG uptake. Mediastinal adenopathy was improved. The index subcarinal node on the April 2021 study had SUV of 6.2 down from 13 previously. Other nodes in the bilateral hilar periesophageal prevascular and subaortic as well as the left and right paratracheal and anterior medial spinal are similar improved. Cervical level IV nodes are now subcentimeter in size with minimal FDG uptake consistent with positive response to therapy. The left IV node now has an SUV of 3 down from 8 from the May 2020 study. The right adrenal lesion is unchanged in size but now with SUV of 3.9 down from 9.2 consistent with a positive response to therapy. Suspicious upper abdominal lymph nodes in the gastric hepatic/retroperitoneal, celiac and portal territories are improved. Reported that the activity in the liver, spleen left adrenal, stomach and pancreatic was physiologic. There were no findings to indicate osseous metastatic disease. He did note the bilateral alveolar infiltrates are progressed on the current study but again without significant FDG uptake. Her iron saturation was found to be 14.6% ferritin was 280 and iron was 41. Her TIBC was 280. Vitamin B12 was reported at 584. Came for follow-up, denies any specific complaint except generalized weakness and fatigue, patient missed her last 3 weekly dose of Alimta due to admission to the hospital on June 25, 2021 with progressive shortness of breath and low-grade fever, generalized weakness and fatigue, in ER she was found to be hypoxic and hypotensive and diagnosed with sepsis and she was admitted to ICU, as per patient she was discharged on July 08, 2021, her home oxygen was adjusted and discharged home on Bactrim for 3 weeks and steroids. So last dose of Alimta was done on June 11, 2021, as her CT chest done on June 25, 2021 showed slightly worsened diffuse infiltrates in both lungs most likely represents to be atypical in infection, stable liver and adrenal lesions consistent with metastatic disease Today ,she denies any fever or chills denies any nausea or vomiting denies any diarrhea or constipation but complaining of progressive loss of vision in her right eye, now being followed by ophthalmology Dr. Seth, as per patient 'pinpoint' radiation therapy to her right eye is under consideration Medications: Difluprednate 4 Drop(s) (of 0.05 %) Emulsion Ophthalmic daily, levETIRAcetam 1 Tablet (of 250 mg) Oral b.i.d., Montelukast Sodium 1 Tablet (of 10 mg) Oral daily, Pantoprazole Sodium 1 Tablet (of 40 mg) Tablet, enteric coated Oral daily, Sertraline HCl 1 Tablet (of 100 mg) Oral daily Allergies: buPROPion HCl Review of Systems: Review of Systems is not available for this patient. Vital Signs: Performed on Aug 07, 2021 10:43 Height - 65.00 in Weight - 108.8 lbs (LOW) BSA - 1.53 sq.m BMI - 18.11 Temperature - 97.2 F (LOW) Pulse - 110 /min (HIGH) Respiration - 20 /min BP - 133/81 mm(hg) O2 Sat - 92 % (LOW) Pain - 0 Fatigue - 8 Performance Status: 2 - Ambulatory/capable of all self-care, unable to perform any work activities. Up and about more than 50% of waking hours. (ECOG) Physical Examination: ENMT - No mouth sores, no thrush, no jaundice, Respiratory - Poor air entry otherwise clear, Cardiovascular - Regular rate and rhythm of heart, Abdomen - Soft, bowel sounds present, Extremities - Trace edema. Lab/Imaging: Test performed on May 20, 2021 11:34 Sodium 140 mmol/L Potassium 4.1 mmol/L Chloride 108 mmol/L CO2 22 mmol/L Anion Gap 14.1 BUN 14 mg/dL Creatinine 0.7 mg/dL Cr Clearance (Est) 82.8400 mL/min eGFR 88.9 mL/min Glucose 106 mg/dL Osmolality - Calculated 291 mOsm/kg Calcium 8.5 mg/dL Protein, Total 6.0 g/dL Albumin 4.0 g/dL Globulin 2.0 g/dL Bilirubin, Total 0.2 mg/dL ALT (SGPT) 10 U/L AST (SGOT) 11 U/L Alkaline Phosphatase 54 IU/L WBC 13.0 10 3/uL RBC 4.11 10 6/uL HGB 10.7 g/dL HCT 35.1 % MCV 85.4 fl MCH 26.0 pg MCHC 30.5 g/dL RDW 21.0 % Platelet Count 201 10 3/cmm MPV 9.6 fL Neutrophils 11.10 10 3/uL Lymphocytes 0.5 10 3/uL Monocytes 1.0 10 3/uL Eosinophils 0.1 10 3/uL Basophils 0.0 10 3/uL Neutrophil % 85.5 % Lymphocyte % 4.0 % Monocyte % 8.0 % Eosinophil % 0.7 % Basophils % 0.2 % NRBC % 0 % Impression: 1. Stage IV non-small cell lung cancer, adenocarcinoma PDL 1 less than 40%, guardant 360 shows negative for EGFR, ALK, ROS1, BRAF, MET, RET, NTRK. 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 Pericardial effusion status post pericardial window x2 in April and June 2020 3. History of pulmonary embolism status post thrombolysis on June 27, 2020 status post IV filter placement on June 28, 2020, on Eliquis 2.5 mg daily 4. Immunotherapy related pneumonitis, finished tapering dose of steroids on November 23, 2020. Last dose of immunotherapy was August 2020. Her first cycle of Carbo/Alimta/Keytruda was give o 08/13/2020.Now being treated with maintenance therapy with Alimta alone 5. Sleep apnea Plan: Discussed with patient regarding her labs white blood count 13.6 hemoglobin 11.7 hematocrit 36.2 platelets 143,000 CMP within normal limits Clinically, patient is doing reasonably well, with no signs symptom suggestive of disease progression but CT scan of chest showed liver mets and adrenal mets, while on Alimta, last dose was given on June 11, 2021 since then patient missed her scheduled dose of Alimta because of admission to the hospital with sepsis. At this point, we will consider follow-up CT PET scan to assess disease status, if it shows stable and will continue with Alimta alone otherwise we will discuss further treatment options. Patient is on home oxygen , Worsening of right eyesight, patient being followed by Dr. Seth, ophthalmology, as per patient, 'pinpoint' radiation therapy to her right eye was under consideration, she will discuss with Dr. Seth regarding treatment options. Return to clinic after CT PET scan for further discussion Signed By: Foster Galvez M.D. <<Signature on File>>
== END 2021-08-07 06:37 | disposition home or self-care (01) ==
LOC: ONCMED 06:37
PROVIDERS: PCP Family Medicine; Visit Provider Internal Medicine Hematology & Oncology
DX: C34.2 Malignant neoplasm of middle lobe, bronchus or lung (principal); C34.31 Malignant neoplasm of lower lobe, right bronchus or lung; G47.33 Obstructive sleep apnea (adult) (pediatric); Z99.81 Dependence on supplemental oxygen; Z79.01 Long term (current) use of anticoagulants; Z79.899 Other long term (current) drug therapy; Z86.711 Personal history of pulmonary embolism
CPT/HCPCS: 99215

== ENCOUNTER 2021-09-03 10:29 | Outpatient (CLI) | payer OTHER, SELFPAY ==
--- NOTE | 2021-09-09 18:06 | ONC FU_ITS ---
Dr. Galvez follow up note Patient: Sophia Miller Unit #: [id number]: 1970 Dicatated By: Foster Galvez M.D.Date of Visit:Sep 03, 2021 Onc Med Follow-up/Prog Note History of Present Illness: Ms. Miller is a 50-year-old female with history of chronic nonproductive cough since August 2019. Ms Garay reports she underwent some dental work-up in the beginning of 2019. At that time she was given antibiotics but her cough did not improve much. She was treated with Levaquin multiple times and then October 2019 she obtained a chest x-ray. The xray reported right lower lobe infiltrate. She was treated with levofloxacin again and with no significant improvement in her cough, she eventually underwent CT scan of the chest on On 02/12/2020. Findings reported focal consolidation right lower lobe along the fissure with air bronchograms. Consolidation measured 5.3 x 4.3 x 5.6 cm. Patchy infiltrate along the right upper lobe laterally. Moderate pericardial effusion. Prominent lymph nodes bilaterally nonspecific but likely reactive measuring 12 mm on the right and 14 mm on the left. Enlarged subcarinal lymph node measuring 14 mm. Proximal main arteries were normal. Normal thoracic aorta. She had an echocardiogram on 02/26/2020 for evaluation of the pericardial effusion which reported a normal left ventricular systolic function and left ventricular ejection fraction estimated at 70%. There were no regional wall motion abnormalities. Normal dystonic dysfunction. There was a moderate circumferential pericardial effusion 1.2 cm along the right ventricle and 1.5 cm along the left ventricle. There was no evidence of hemodynamic compromise and normal size inferior vena cava. She then had follow-up chest x-ray on 02/29/2020 which reported subtle opacity within the middle lobe versus right lung base. Lungs otherwise well aerated. There is no pleural effusion and no pneumothorax. She underwent bronchoscopy on March 22, [address] Hayden. Endobronchial biopsy from the right middle lobe reported lung parenchyma with chronic inflammation no granulomas identified no malignancy identified right lower lobe biopsy reported lung parenchyma and cartilage with focal chronic inflammation. No granulomas or malignancy identified. The bronchial cytology reported by voice and by number on 03/22/2020 reported benign ciliated respiratory epithelial cells, rare benign squamous epithelial cells, mixed inflammatory cells, macrophages, blood and fibrin/proteinaceous debris's. No malignant cells were seen. BAL Aspergillus antigen was positive but index was 0.61. She was treated with doxycycline for1 week and noticed some improvement in the cough. Followup CT scan of chest was repeated on April 29, 2020 which showed consolidative infiltrate in the right lower lobe along the fissure with air bronchograms. Not significantly change from previous, but it did show new hazy groundglass perihilar, upper lobe infiltrates with associated micronodules in the bronchovascular and perilymphatic distribution. She also had persistent moderate pericardial effusion unchanged anterior mediastinal, right paratracheal, hilar and subcarinal lymphadenopathy. Ms Miller underwent repeat bronchoscopy on May 10, 2020 and pathology report came back adenocarcinoma involving the right lower lobe, right middle lobe, station 4R lymph node, station 11 R lymph node. Immunohistochemistry showed TTF-1 positive, p63 negative, Napsin-A positive. On May 15, 2020, patient developed dizziness and was also developing questionable mental status changes e.g. intermittent confusion, but no one-sided weakness or numbness or slurred speech. She presented to [facility] on May 19, 2020. She did have a MRI scan of the head on May 19, 2020. It reported no evidence of acute ischemia or infarct, no acute intracranial hemorrhage. Innumerable ovoid cystic foci throughout the brain which demonstrate susceptibility signal loss and post contrast enhancement suspicious for infectious process such as neurocysticercosis. No evidence of hydrocephalus. Ms Miller reported that at that time, neurosurgery was consulted and clinically, she was diagnosed with brain mets. She was started on dexamethasone and Keppra, no biopsy was done but some blood test but no spinal tap was done either. She also had pericardial biopsy done which shows no evidence of malignant involvement. A repeat CT scan of chest abdomen pelvis done in [place] on May 20, 2020 showed an irregular area of consolidation or neoplastic involvement in the right lower lobe just above the diaphragm approximately 5.5 x 5.5 x 2.5 cm this is internal air bronchograms and elongated shape most consistent with infiltrate or atelectasis perihilar groundglass opacities bilaterally, suspect pneumonia., Echocardiogram done on May 21, 2020 shows ejection fraction 55 to 60%. She reported that because of blurred vision she was also evaluated by ophthalmology and impression was could be due to sarcoidosis involvement. She had subxiphoid pericardial window per Dr. Stiven Basurto at [facility] on 05/22/2020. The pathology final report dated on 05/24/2020 was benign pericardial tissue. There was no sign of significant inflammation. No positive staining neoplastic cells were identified in sections stained with MOC 31, BerEP4 and TTF???1. Ms. Miller had PET/CT imaging with [facility] radiology on 06/01/2020 which reported anterior right lower lobe a 4.3 x 2.6 semisolid mass with an SUV of 12.9. This has a high probability of malignancy, most likely bronchogenic carcinoma. Extensive hypermetabolic adenopathy is present in the mediastinum, consistent with local metastatic disease. Nodes are present in the bilateral hilar, subcarinal, periesophageal, prevascular, subaortic, left and right paratracheal and anterior mediastinal territories. The index subaortic node has an SUV of 13.0. Bilateral FDG positive nodes are present in the cervical level 4 regions with SUV of 8.0 in the 1.1 cm left sided node. In the abdomen, malignant celiac, right retrocrural and bilateral retroperitoneal periaortic nodes are FDG positive consistent with malignancy. A 1.3 x 1.9 cm right adrenal lesion with SUV of 9.2 represents metastatic disease. Uptake in the intracranial gold-white matter is physiologic. Breast parenchymal and axillary lymph nodes uptake bilaterally is unremarkable. Bilateral centrally located groundglass opacity suggests pulmonary edema, drug reaction or viral pneumonia. There were no findings to indicate osseous metastatic disease. Mrs. Miller was first seen on June 04, 2020. At the family's request she was referred to neurosurgery at [place] for evaluation and to confirm brain metastasis. The next notes available were [facility] indicating that she had multiple extensive pulmonary emboli in the bilateral pulmonary arteries including emboli and vascular bifurcations. There was no saddle embolus identified she continued to have extensive groundglass infiltrates seen in the perihilar and mid and upper lung zones particularly in the right middle lobe and bilateral upper lobes. Consolidating infiltrate is noted in the anterior aspect right lower lobe and left lower lobe. Small perihilar infiltrates are seen in the left lower lobe and lingula. It was noted that drainage catheter overlies the pericardium heart size was normal small pericardial effusion maximum with approximately 8 mm. This was diminished with prior study at which time the maximum width was approximately 2 cm. There was mediastinal and hilar adenopathy the largest node was 13 millimeters short axis diameter in the left hilar region. MRI of the head with and without contrast from 06/26/2020 reported innumerable supratentorial and infratentorial intra-axial and extra-axial enhancing mass lesions demonstrate enhancement on postcontrast images which small demonstrating decreased in size. There were no definite new enhancing lesions no hydrocephalus no herniation syndrome. from 06/30/2020 reports guardian test did not show any actual mutation. She was admitted to [facility] from 05/05/2020 to 06/11/2020. She was seen by Dr. Alex from [facility]. She was discharged and scheduled to see Dr. Paola Quezada on 06/27/2020 as [facility] but got admitted to [facility] on 06/22/2020. She was admitted for weakness, nonproductive cough, hypoxia and hypotension. She was found to have recurrent pericardial effusion. She had pericardial window on 06/24/2020. She had CT of the chest abdomen pelvis on 06/26/2020 as reported above. She did have bilateral multiple pulmonary emboli on scan from 06/26/2020 as above. She had IR guided suction thrombectomy on 06/27/2020. IVC filter was placed on 06/28/2020 and she remained on heparin at that time. She was discharged on Eliquis for the pulmonary emboli. The plan at that time was whole brain radiation therapy then chemotherapy. She was on Dex 4 mg twice daily. Ms. Miller had preferred to do treatment in [place] at that time. She was readmitted to [facility] through their ER for shortness of breath, dyspnea and hypotension and hemoptysis prior to her followup with Dr. Pena on August 05, 2020. She had completed whole brain radiation therapy at that time. Dr Pena's notes indicated she received whole brain RT from July 03 through July 16, 2020. Chemotherapy was planned for August 05, 2020 but was placed on hold due to her hospital admission. The plan was for carboplatin Alimta/Keytruda. Her Tempest PD-L1 was reported at 40%. The Guardiant 360 was negative for EGFR, ALK, ROS1, BRAF, MET, RET and NTRK. She was found to have pneumonia with hypoxia and was placed on antibiotics per the primary care team. She was discharged on August 10, 2020. She was seen at [facility] [place] office on August 13, 2020. She had 3 days left remaining on her cefdinir 300 mg twice daily. Her first dose of carboplatin was held but they did proceed with Alimta and Keytruda. If she tolerated that well the plan was to proceed with adding the carboplatin cycle 2. Her dexamethasone was decreased to 4 mg twice daily. She received cycle 2 carboplatin Alimta and Keytruda on 09/03/2020. Her dexamethasone was then tapered to 2 mg twice daily with continued plans to further the taper to get her off of it completely. She continued follow-up with Dr. Pena at [facility] in [place]. On her October 01, 2020, Dr. Pena note it was noted she had she had pneumonitis due to the Keytruda (diagnosed at [facility]-after 2 cycles of Keytryda) but had maintained on Alimta single agent every 3 weeks. She had nausea, vomiting, hypotension, dehydration and decreased performance status overall. She required supportive care after receiving the carboplatin. Her further cycles of chemotherapy included single agent Alimta. Ms. Miller transferred her care to resuming Alimta single agent on December 10, 2020 here at [facility]. On day 8 following that administration of single agent Alimta she was found to be neutropenic with an ANC of 1420. Her hemoglobin was 9.5. She had continued monitoring and her counts recovered. She was due for her next cycle of Alimta on December 31, 2020. There was a gap after her Alimta dose on December 10, 2020. Ms Miller reported that she received Covid vaccination and did develop some symptoms like nausea vomiting headaches which lasted more than 2 weeks. She opted to not come for treatment until January 2021. She proceeded with single Alimta with her last cycle being on 04/09/2021 which was cycle 6. Ms Miller was admitted to [facility] on April 25, 2021 with cough/hemoptysis and shortness of breath. She was on Eliquis for history of pulmonary embolism, hemoglobin at time of admission was 8.7. Her Eliquis was put on hod and she was treated with supportive care. Her urinalysis revealed UTI with E. coli. She was discharged home on Levaquin. She was advised to get a followup CBC done in 1 week post discharge and then restart her Eliquis. Ms Miller had CT scan of chest on 04/24/2021 with note of diffuse groundglass interstitial lung disease bilaterally, greatest involvement bilateral upper lobes which is known to be present on 08/04/2020 exam bedside and interval improvement. There is no visible consolidated ability or airspace disease other than minimal parenchymal scar right lung base which is presumed site of primary lung carcinoma. The appearance of the micro honeycombing bilateral upper lobes and superior segments of the bilateral lower lobes could be secondary to usual interstitial pneumonitis. Findings of tree in bud bronchial ear disease, predominantly peripheral bilateral upper lobes, suggesting either active or chronic bronchial ldisease/bronchiolitis. There is a small 4 mm pulmonary nodule right lower lobe. There was lymphadenopathy noted to be calcified mediastinal and hilar complexes of the antecedent granulomatous disease. There had been interval development of several small low-density hepatic structures that were not visible on the July 2020 exam raising concern for potential diffuse hepatic metastatic disease. At her April 30, 2021 visit her Alimta on hold as she was recovering from E. coli UTI and a follow-up PET CT was requested due to the above CT a of the chest. She was restarted on her Eliquis at that time as her hemoglobin from 10 5 was 8.7. She had no hemoptysis or other signs of bleeding at that time. Mrs. Miller had restaging PET/CT imaging on 05/10/2021 with [facility] radiology. There was comparison to prior PET/CT from 06/01/2020. Dr. Monroe reported significant provement in the right lower lobe pulmonary nodule measuring 2.2 on the current exam with an SUV of 7. Bilateral alveolar lung infiltrates seen on the prior study are mildly progressed on the current study but remain without significant FDG uptake. Mediastinal adenopathy was improved. The index subcarinal node on the April 2021 study had SUV of 6.2 down from 13 previously. Other nodes in the bilateral hilar periesophageal prevascular and subaortic as well as the left and right paratracheal and anterior medial spinal are similar improved. Cervical level IV nodes are now subcentimeter in size with minimal FDG uptake consistent with positive response to therapy. The left IV node now has an SUV of 3 down from 8 from the May 2020 study. The right adrenal lesion is unchanged in size but now with SUV of 3.9 down from 9.2 consistent with a positive response to therapy. Suspicious upper abdominal lymph nodes in the gastric hepatic/retroperitoneal, celiac and portal territories are improved. Reported that the activity in the liver, spleen left adrenal, stomach and pancreatic was physiologic. There were no findings to indicate osseous metastatic disease. He did note the bilateral alveolar infiltrates are progressed on the current study but again without significant FDG uptake. Her iron saturation was found to be 14.6% ferritin was 280 and iron was 41. Her TIBC was 280. Vitamin B12 was reported at 584. patient missed her last 3 weekly dose of Alimta due to admission to the hospital on June 25, 2021 with progressive shortness of breath and low-grade fever, generalized weakness and fatigue, in ER she was found to be hypoxic and hypotensive and diagnosed with sepsis and she was admitted to ICU, as per patient she was discharged on July 08, 2021, her home oxygen was adjusted and discharged home on 4 Bactrim for 3 weeks and steroids. So last dose of Alimta was done on June 11, 2021, as per patient CT chest done on June 25, 2021 showed slightly worsened diffuse infiltrates in both lungs most likely represents to be atypical in infection, stable liver and adrenal lesions consistent with metastatic disease Follow-up CT PET scan done on August 22, 2021 showed when compared with CT PET scan done on May 10, 2021 there is improvement in the right lower lobe mass, mediastinal, bilateral cervical and upper abdominal adenopathy, and a right adrenal mass with progression of bilateral alveolar infiltrates Came for follow-up, complaining of generalized weakness and fatigue and dyspnea on exertion, now being followed by Dr. Ruano pulmonology. No hemoptysis or hematemesis, no fever chills, no new bony pains but off and on discomfort in the right posterior chest wall, no pain or discomfort in the left chest wall, patient has history of fall hurting her chest. Her last dose of maintenance Alimta was given in May 2021, patient missed her 3 weekly Alimta dose which was due in June due to hospitalization and other issues. And recently underwent follow-up CT PET scan, she is here to discuss further planning and CT PET scan findings. Also complaining progressive loss of vision in the right eye, she is being followed by Dr. Seth, ophthalmology. Medications: Difluprednate 4 Drop(s) (of 0.05 %) Emulsion Ophthalmic daily, levETIRAcetam 1 Tablet (of 250 mg) Oral b.i.d., Montelukast Sodium 1 Tablet (of 10 mg) Oral daily, Pantoprazole Sodium 1 Tablet (of 40 mg) Tablet, enteric coated Oral daily, Sertraline HCl 1 Tablet (of 100 mg) Oral daily Allergies: buPROPion HCl Review of Systems: Review of Systems is not available for this patient. Vital Signs: Performed on Sep 03, 2021 12:37 Height - 65.00 in Weight - 106.8 lbs (LOW) BSA - 1.52 sq.m BMI - 17.77 (LOW) Temperature - 97.1 F (LOW) Pulse - 102 /min (HIGH) Respiration - 18 /min BP - 118/79 mm(hg) O2 Sat - 91 % (LOW) Pain - 8 Fatigue - 8 Performance Status: 2 - Ambulatory/capable of all self-care, unable to perform any work activities. Up and about more than 50% of waking hours. (ECOG) Physical Examination: ENMT - No mouth sores, no thrush, no jaundice, Respiratory - Poor air entry otherwise clear, Cardiovascular - Regular rate and rhythm of heart, Abdomen - Soft, bowel sounds present, Extremities - Trace edema. Lab/Imaging: Test performed on May 20, 2021 11:34 Sodium 140 mmol/L Potassium 4.1 mmol/L Chloride 108 mmol/L CO2 22 mmol/L Anion Gap 14.1 BUN 14 mg/dL Creatinine 0.7 mg/dL Cr Clearance (Est) 82.8400 mL/min eGFR 88.9 mL/min Glucose 106 mg/dL Osmolality - Calculated 291 mOsm/kg Calcium 8.5 mg/dL Protein, Total 6.0 g/dL Albumin 4.0 g/dL Globulin 2.0 g/dL Bilirubin, Total 0.2 mg/dL ALT (SGPT) 10 U/L AST (SGOT) 11 U/L Alkaline Phosphatase 54 IU/L WBC 13.0 10 3/uL RBC 4.11 10 6/uL HGB 10.7 g/dL HCT 35.1 % MCV 85.4 fl MCH 26.0 pg MCHC 30.5 g/dL RDW 21.0 % Platelet Count 201 10 3/cmm MPV 9.6 fL Neutrophils 11.10 10 3/uL Lymphocytes 0.5 10 3/uL Monocytes 1.0 10 3/uL Eosinophils 0.1 10 3/uL Basophils 0.0 10 3/uL Neutrophil % 85.5 % Lymphocyte % 4.0 % Monocyte % 8.0 % Eosinophil % 0.7 % Basophils % 0.2 % NRBC % 0 % Impression: 1. Stage IV non-small cell lung cancer, adenocarcinoma PDL 1 less than 40%, guardant 360 shows negative for EGFR, ALK, ROS1, BRAF, MET, RET, NTRK. 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 Pericardial effusion status post pericardial window x2 in April and June 2020 3. History of pulmonary embolism status post thrombolysis on June 27, 2020 status post IV filter placement on June 28, 2020, on Eliquis 2.5 mg daily 4. Immunotherapy related pneumonitis, finished tapering dose of steroids on November 23, 2020. Last dose of immunotherapy was August 2020. Her first cycle of Carbo/Alimta/Keytruda was give o 08/13/2020.Now being treated with maintenance therapy with Alimta alone 5. Sleep apnea Plan: Discussed with patient regarding her CT PET scan finding which was done on August 22, 2021, when compared with CT PET scan done on May 10, 2021 it shows improvement in the right lower lobe mass and consistent with residual disease of right lower lobe tumor, previously described subcarinal lymph node measured 13.8 mm with maximum SUV of 8.8 compared to 3 previously and currently multiple anterior vascular, paratracheal, precarinal, right hilar, lower paraesophageal, and prelumbar lymph nodes, possible new left level 3 axillary lymph node and right adrenal was now reported with maximum SUV value of 4.49. And multiple left anterior rib lesions are observed and are associated with the fractures of ninth lateral anterior fifth fourth third and second ribs Clinically, patient is doing reasonably well, now recovering from her recent hospitalization and other health issues, her follow-up CT PET scan shows persistent diffuse alveolar infiltrates, etiology unclear could be inflammatory versus infectious versus pneumonitis, now being evaluated by Dr. Ruano, pulmonology, we will discuss with him regarding further planning As per CT PET scan findings are concerning, patient has stable or some improvement in the right lower lobe mass and some increased uptake in prominent mediastinal/paraesophageal lymphadenopathy which could be due to disease progression or acute/chronic alveolar process. Patient is on maintenance Alimta with the last dose was given in May 2021 since then patient has missed her maintenance treatment due to hospitalization and then some other health issues, discussed with patient regarding maintenance therapy versus observation and supportive care while being evaluated for bilateral symptomatic pulmonary infiltrates, patient opted for observation, in that case she will return to clinic in 2 weeks with CBC CMP and chest x-ray with special attention to left ribs as her follow-up CT PET scan shows some changes in left anterior ribs and patient has history of fall injuring left chest and now she is complaining of off and on discomfort in her right chest. Patient was advised if there is a worsening of symptoms, she need to go to hospital otherwise return to clinic in 2 weeks with CBC CMP chest x-ray as well as left anterior rib films. Signed By: Foster Galvez M.D. <<Signature on File>>
== END 2021-09-03 10:30 | disposition home or self-care (01) ==
PROVIDERS: PCP Family Medicine; Visit Provider Internal Medicine Hematology & Oncology
DX: C34.90 Malignant neoplasm of unspecified part of unspecified bronchus or lung (principal); C79.31 Secondary malignant neoplasm of brain; C79.72 Secondary malignant neoplasm of left adrenal gland; I31.3 Pericardial effusion (noninflammatory); Z86.711 Personal history of pulmonary embolism; Z79.01 Long term (current) use of anticoagulants; J70.4 Drug-induced interstitial lung disorders, unspecified; G47.30 Sleep apnea, unspecified
CPT/HCPCS: 99214

== ENCOUNTER 2021-09-15 12:25 | Outpatient (CLI) | payer OTHER, SELFPAY ==
--- NOTE | 2021-09-15 12:34 | XR_ITS ---
WS: [id number] Exam: XR chest 2V* [id number] Date/Time of Exam: 09/15/2021 12:39 PM Reason For Exam: LUNG CA Comparison 07/07/2021. Diffuse reticular nodular infiltrates throughout both lungs noted. No pneumothorax or pleural effusio n. The heart is not enlarged. The mediastinum is not widened. A right-sided subclavian port appears t o extend into the right atrium. Bony structures appear to be intact. XR/XR chest 2V* [id number] IMPRESSION: 1. Widespread reticular nodular infiltrates throughout both lungs. 2. Right-sided port appears to extend into the right atrium.
== END 2021-09-15 12:26 | disposition home or self-care (01) ==
LOC: RAD 12:31
PROVIDERS: PCP Family Medicine; Visit Provider Internal Medicine Hematology & Oncology
DX: C34.81 Malignant neoplasm of overlapping sites of right bronchus and lung (principal)
CPT/HCPCS: 71046